=== PATIENT | female | born 1940 | race Caucasian/White ===

== ENCOUNTER → 2018-09-29 | Outpatient (CLI) | payer MEDICARE ==
[~2018-09-29] MED LIST: RT-ALBUTEROL SULF 2.5 MG/3 ML PRE-MIX VIAL INH ONE
--- NOTE | 2018-10-01 11:28 | RADIOLOGY REPORT ---
NAME: SIOMARA SALINAS [facility] REC#: [id number] PT STATUS: REG CLI : 1940 PHYSICIAN: JANAY SCOTT APRN ADMIT DATE: 12/28/15/RAD CORRECTED Signed Date of Exam:09/29/18 CT CHEST WO PROCEDURE: CT chest without contrast. TECHNIQUE: Multiple contiguous axial images were obtained through the chest without the use of intravenous contrast. INDICATION: Dyspnea and chronic productive cough. COMPARISON: Comparison is made to study of 11/21/2015 from [facility]. FINDINGS: There are prominent subpleural interstitial markings with mild reticulonodular pattern in the basilar regions. This has shown mild progression since the previous study. No consolidation is identified. There is no evidence of pathologic adenopathy, although fat-containing lymph nodes are seen within the mediastinum. These are not significantly changed from previous examination. There is no significant pleural or pericardial fluid. Coronary artery calcification is noted. Note is made of gallstones within the lumen of the gallbladder. IMPRESSION: Mild worsening of reticulonodular densities in the subpleural aspect of the lung bases which may be related to worsening fibrosis. Mild superimposed pneumonitis could have a similar appearance. There is no consolidation or evidence of worsening adenopathy in the thorax. Dictated by: Dictated on workstation # [id number] Dict: 09/29/18 1229 Trans: 09/29/18 1653 [id number] Interpreted by: KEMI COLMENARES MD Electronically signed by: KEMI COLMENARES MD 09/29/18 1653 [facility]
== END ==
LOC: RAD 10:37
PROVIDERS: ATTEND Nurse Practitioner Family
DX: J30.9 Allergic rhinitis, unspecified (principal); E66.01 Morbid (severe) obesity due to excess calories; G47.33 Obstructive sleep apnea (adult) (pediatric)
CPT/HCPCS: 71250; 94060; 94640; 94726; 94729

== ENCOUNTER 2018-10-20 11:30 | Outpatient (CLI) | payer MEDICARE ==
[~2018-10-20] VITALS: Ht 160 cm; Wt 110.2 kg
[2018-10-20] MEDS ORDERED: VIT1CAPS9 PO (11:50)
[2018-10-20] MEDS ORDERED: CETI10TA17 PO (11:50)
[2018-10-20] MEDS ORDERED: ASPI-586 PO (11:50)
[2018-10-20] MEDS ORDERED: BUDE10.22 IH (11:50)
[2018-10-20] MEDS ORDERED: OMEG100032 PO (11:50)
[2018-10-20] MEDS ORDERED: METF-397 PO ×2 (11:50)
[2018-10-20] MEDS ORDERED: MONT10TA24 PO (11:50)
[2018-10-20] MEDS ORDERED: LOSA100T8 PO (11:50)
[2018-10-20] MEDS ORDERED: FURO40TA4 PO (11:50)
[2018-10-20] MEDS ORDERED: FLUT9.9S NSEACH (11:50)
[2018-10-20] MEDS ORDERED: GLIP5TAB13 PO (11:50)
[2018-10-20] MEDS ORDERED: ROSU20TA31 PO (11:50)
[2018-10-20] MEDS ORDERED: AMLO10TA6 PO (11:50)
[2018-10-20] MEDS ORDERED: LEVO100T7 PO (11:50)
[2018-10-20] MEDS ORDERED: ACET-2650 PO (11:50)
[2018-10-20] MEDS ORDERED: ATEN50TA PO (11:50)
== END 2018-10-20 11:52 ==
LOC: PREOP 11:30
PROVIDERS: ATTEND Internal Medicine Critical Care Medicine
DX: Z01.818 Encounter for other preprocedural examination (principal)

== ENCOUNTER 2018-10-21 06:45 | Day surgery (SDC) | payer MEDICARE ==
[~2018-10-21] VITALS: Ht 160 cm; Wt 110.2 kg
[~2018-10-21 06:45] MED LIST changes: +ACET-2650 PO; +AMLO10TA6 PO; +ASPI-586 PO; +ATEN50TA PO; +BUDE10.22 IH; +CETI10TA17 PO; +FLUT9.9S NSEACH; +FURO40TA4 PO; +GLIP5TAB13 PO; +LEVO100T7 PO; +LOSA100T8 PO; +METF-397 PO; +MONT10TA24 PO; +OMEG100032 PO; +ROSU20TA31 PO; -RT-ALBUTEROL SULF 2.5 MG/3 ML PRE-MIX VIAL INH ONE; +VIT1CAPS9 PO
[2018-10-21] MEDS ORDERED: LIDOCAINE PF 2% 5 ML (XYLOCAINE) VIAL INJ ONE (06:46)
[2018-10-21] MEDS ORDERED: LIDOCAINE JELLY 2% (XYLOCAINE) 30 ML TUBE TOP ONE (06:46)
[2018-10-21] MEDS ORDERED: LIDOCAINE PF 1% 2 ML AMP IJ ONE (06:46)
[2018-10-21 06:50] VITALS: BP 163/62
[2018-10-21] MEDS ORDERED: NS IV 500 ML 500 ML ONE (06:54)
--- OUTSIDE RECORDS SUMMARY | 2018-10-21 06:55 | XMS REPORT ---
Author Author Nicole Ackerman Organization [facility] Address [address] [place], [place] [id number] Care Team Providers Care Sales Assistant [employer] Name Role Phone Nicole Ackerman PCP Allergies and Adverse Reactions Name Reaction Notes pollens Demerol intolerant Plan of Treatment Planned Activity Comments Planned Date Planned Time Plan/Goal ELECTROCARDIOGRAM COMPLETE 10/16/2015 12:00 AM ELECTROCARDIOGRAM COMPLETE 10/16/2015 12:00 AM IMMUNOTHERAPY INJECTIONS 05/04/2012 12:00 AM IMMUNOTHERAPY INJECTIONS 05/11/2012 12:00 AM IMMUNOTHERAPY INJECTIONS 05/17/2012 12:00 AM IMMUNOTHERAPY INJECTIONS 05/24/2012 12:00 AM IMMUNOTHERAPY INJECTIONS 05/31/2012 12:00 AM IMMUNOTHERAPY INJECTIONS 06/07/2012 12:00 AM IMMUNOTHERAPY INJECTIONS 06/14/2012 12:00 AM IMMUNOTHERAPY INJECTIONS 06/21/2012 12:00 AM IMMUNOTHERAPY INJECTIONS 06/28/2012 12:00 AM IMMUNOTHERAPY INJECTIONS 07/06/2012 12:00 AM IMMUNOTHERAPY INJECTIONS 07/12/2012 12:00 AM IMMUNOTHERAPY INJECTIONS 07/21/2012 12:00 AM IMMUNOTHERAPY INJECTIONS 07/21/2012 12:00 AM COMPREHEN METABOLIC PANEL 07/29/2012 12:00 AM LIPID PANEL 07/29/2012 12:00 AM GLYCOSYLATED HEMOGLOBIN TEST 07/29/2012 12:00 AM ASSAY THYROID STIM HORMONE 07/29/2012 12:00 AM COMPLETE CBC W/AUTO DIFF WBC 07/29/2012 12:00 AM IMMUNOTHERAPY INJECTIONS 08/05/2012 12:00 AM IMMUNOTHERAPY INJECTIONS 08/11/2012 12:00 AM COMPUTER DX MAMMOGRAM ADD-ON 12/07/2012 12:00 AM IMMUNOTHERAPY INJECTIONS 01/27/2013 12:00 AM IMMUNOTHERAPY INJECTIONS 02/02/2013 12:00 AM IMMUNOTHERAPY INJECTIONS 02/08/2013 12:00 AM IMMUNOTHERAPY INJECTIONS 02/14/2013 12:00 AM IMMUNOTHERAPY INJECTIONS 02/22/2013 12:00 AM IMMUNOTHERAPY INJECTIONS 03/01/2013 12:00 AM IMMUNOTHERAPY INJECTIONS 03/07/2013 12:00 AM IMMUNOTHERAPY INJECTIONS 03/15/2013 12:00 AM IMMUNOTHERAPY INJECTIONS 03/22/2013 12:00 AM IMMUNOTHERAPY INJECTIONS 03/29/2013 12:00 AM IMMUNOTHERAPY INJECTIONS 04/05/2013 12:00 AM IMMUNOTHERAPY INJECTIONS 04/12/2013 12:00 AM IMMUNOTHERAPY INJECTIONS 04/19/2013 12:00 AM IMMUNOTHERAPY INJECTIONS 04/26/2013 12:00 AM IMMUNOTHERAPY INJECTIONS 05/02/2013 12:00 AM IMMUNOTHERAPY INJECTIONS 05/11/2013 12:00 AM IMMUNOTHERAPY INJECTIONS 05/17/2013 12:00 AM IMMUNOTHERAPY INJECTIONS 05/24/2013 12:00 AM IMMUNOTHERAPY INJECTIONS 06/28/2013 12:00 AM IMMUNOTHERAPY INJECTIONS 07/05/2013 12:00 AM IMMUNOTHERAPY INJECTIONS 07/12/2013 12:00 AM IMMUNOTHERAPY INJECTIONS 07/19/2013 12:00 AM IMMUNOTHERAPY INJECTIONS 07/26/2013 12:00 AM IMMUNOTHERAPY INJECTIONS 08/02/2013 12:00 AM IMMUNOTHERAPY INJECTIONS 08/09/2013 12:00 AM IMMUNOTHERAPY INJECTIONS 08/16/2013 12:00 AM GLYCOSYLATED HEMOGLOBIN TEST 11/22/2013 12:00 AM IMMUNOTHERAPY INJECTIONS 08/25/2013 12:00 AM IMMUNOTHERAPY INJECTIONS 08/31/2013 12:00 AM IMMUNOTHERAPY INJECTIONS 09/06/2013 12:00 AM IMMUNOTHERAPY INJECTIONS 09/13/2013 12:00 AM IMMUNOTHERAPY INJECTIONS 09/20/2013 12:00 AM IMMUNOTHERAPY INJECTIONS 09/27/2013 12:00 AM IMMUNOTHERAPY INJECTIONS 10/11/2013 12:00 AM IMMUNOTHERAPY INJECTIONS 10/18/2013 12:00 AM IMMUNOTHERAPY INJECTIONS 10/25/2013 12:00 AM IMMUNOTHERAPY INJECTIONS 10/31/2013 12:00 AM IMMUNOTHERAPY INJECTIONS 02/14/2014 12:00 AM COMPLETE CBC W/AUTO DIFF WBC 01/16/2015 12:00 AM IMMUNOTHERAPY INJECTIONS 03/06/2015 12:00 AM IMMUNOTHERAPY INJECTIONS 03/06/2015 12:00 AM IMMUNOTHERAPY INJECTIONS 03/13/2015 12:00 AM IMMUNOTHERAPY INJECTIONS 03/20/2015 12:00 AM IMMUNOTHERAPY INJECTIONS 03/28/2015 12:00 AM IMMUNOTHERAPY INJECTIONS 04/05/2015 12:00 AM IMMUNOTHERAPY INJECTIONS 04/11/2015 12:00 AM IMMUNOTHERAPY INJECTIONS 04/24/2015 12:00 AM IMMUNOTHERAPY INJECTIONS 05/08/2015 12:00 AM IMMUNOTHERAPY INJECTIONS 05/15/2015 12:00 AM IMMUNOTHERAPY INJECTIONS 05/22/2015 12:00 AM IMMUNOTHERAPY INJECTIONS 05/29/2015 12:00 AM IMMUNOTHERAPY INJECTIONS 06/19/2015 12:00 AM Medications Active Name Start Date Estimated Completion Date SIG Comments Ocuvite Oral Tablet take 1 tablet by oral route daily glucosamine-chondroitin 500-400 mg oral capsule take 1 capsule by oral route daily Replaced/Retired Drug 600 mg(1,500mg) -400 unit oral tablet take 1 tablet by oral route daily Fish Oil 1,000 mg oral capsule take 1 capsule by oral route 2 times a day Aleve 220 mg oral tablet take 1 tablet (220 mg) by oral route every 8 hours as needed simvastatin 80 mg oral tablet 10/26/2013 TAKE 1 TABLET BY MOUTH EVERY EVENING metformin 500 mg oral tablet 08/22/2014 TAKE 1 TABLET BY MOUTH TWICE DAILY WITH MORNING AND EVENING MEALS Contour Test Strips miscellaneous strip 01/09/2015 04/03/2016 test BG QID for 90 days for DMII 205.00 lancets miscellaneous misc 01/09/2015 01/04/2016 use as directed QID for 90 days glipizide 5 mg oral tablet 03/28/2015 TAKE 1 TABLET BY MOUTH EVERY MORNING WITH BREAKFAST simvastatin 80 mg oral tablet 05/01/2015 04/25/2016 TAKE 1 TABLET BY MOUTH EVERY EVENING for 90 days furosemide 40 mg oral tablet 07/17/2015 TAKE 1 TABLET BY MOUTH ONCE DAILY for 30 days atenolol 50 mg oral tablet 07/17/2015 TAKE 1 TABLET BY MOUTH EVERY DAY for 30 days metformin 500 mg oral tablet 08/13/2015 TAKE 1 TABLET BY MOUTH DAILY IN THE MORNING AND TAKE 2 TABLETS DAILY IN THE EVENING lisinopril 40 mg oral tablet 09/14/2015 03/07/2017 take 1 tablet (40 mg) by oral route once daily for 90 days Voltaren 1 % topical gel 09/14/2015 03/12/2016 apply 2 gram to the affected area(s) by topical route 4 times per day for 90 days levothyroxine 100 mcg oral tablet 09/24/2015 12/23/2015 TAKE ONE TABLET BY MOUTH DAILY amlodipine 5 mg oral tablet 10/16/2015 02/13/2016 take 1 tablet (5 mg) by oral route once daily for 30 days Symbicort 80-4.5 mcg/actuation inhalation HFA aerosol inhaler 10/16/20152015 inhale 1-2 puffs by inhalation route 2 times a day for 30 days ProAir HFA 90 mcg/actuation inhalation HFA aerosol inhaler 10/16/20152015 inhale 1 puff (90 mcg) by inhalation route every 6 hours as needed for 30 days aspirin 81 mg oral tablet,chewable 10/16/2015 02/13/2016 chew 1 tablet (81 mg ) by oral route once daily for 30 days nitroglycerin 0.4 mg sublingual tablet, sublingual 10/16/2015 12/15/2015 Place 1 tablet under tongue by translingual route PRN. Space tablets by 3-5 minutes apart. May take up to 3 times. If symptoms not relieved after 1-2 doses seek medical attention. Name Start Date Expiration Date SIG Comments LANCETS 04/19/2012 07/18/2012 TEST ONCE DAILY Zithromax Z-Gal 250 mg oral tablet 10/06/2012 10/11/2012 Take 2 tablets the first day (500 mg) followed by 1 tablet (250 mg) days 2-5. for 5 days albuterol sulfate 90 mcg/actuation inhalation HFA aerosol inhaler 10/06/2012 inhale 1 - 2 puffs by inhalation route every 6 hours as needed DIASTAR EASY MIS LANCETS 05/03/2013 08/01/2013 TEST ONCE DAILY atenolol 50 mg oral tablet 06/27/2013 07/27/2013 TAKE 1 TABLET BY MOUTH EVERY DAY simvastatin 80 mg oral tablet 07/27/2013 10/25/2013 TAKE 1 TABLET BY MOUTH ONCE DAILY IN THE EVENING lisinopril-hydrochlorothiazide 20-25 mg oral tablet 01/20/2014 07/19/2014 TAKE 1 TABLET BY MOUTH EVERY DAY metformin 500 mg oral tablet 08/21/2014 02/17/2015 take 1 tablet (500 mg) by oral route 2 times per day with morning and evening meals for 30 days Mastectomy Bra 1 unit 12/06/2014 06/22/2015 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 atenolol 50 mg oral tablet 01/16/2015 07/15/2015 TAKE 1 TABLET BY MOUTH EVERY DAY for 30 days lisinopril-hydrochlorothiazide 20-25 mg oral tablet 01/16/2015 07/15/2015 TAKE 1 TABLET BY MOUTH EVERY DAY for 30 days furosemide 40 mg oral tablet 01/16/2015 07/15/2015 TAKE 1 TABLET BY MOUTH ONCE DAILY for 30 days metformin 500 mg oral tablet 03/28/2015 07/26/2015 take 1 tab in a.m. and 2 tabs in P.m. Discontinued Name Start Date Discontinued Date SIG Comments Samantha 180 mg oral tablet 10/06/2012 take 1 tablet (180 mg) by oral route once daily aspirin 81 mg oral tablet 10/06/2012 take 1 tablet by oral route daily Flonase 50 mcg/actuation nasal spray,suspension 10/06/2012 inhale 1 spray in each nostril by intranasal route once daily Multivitamin Oral Tablet 09/14/2015 take 1 tablet by oral route once daily with food quit taking WelChol 625 mg oral tablet 11/08/2009 2daily glipizide 5 mg oral tablet 01/10/2010 10/16/2010 take 0.5 tablet by oral route daily Diabetic Shoes 01/16/2010 10/16/2010 250.02, 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 Lasix 40 mg oral tablet 04/22/2010 10/06/2012 take 1 tablet (40 mg) daily takes generic ammonium lactate 12 % topical cream 01/01/2011 11/23/2013 apply to affected area(s) by topical route daily Tessalon Perles 100 mg oral capsule 10/06/2012 11/23/2013 take 1-2 capsules by oral route 3 times a day as needed metformin 500 mg oral tablet 07/21/2013 08/22/2013 TAKE 1 TABLET BY MOUTH TWICE DAILY CrCl 27.6 Vaniqa 13.9 % topical cream 10/18/2013 01/16/2015 apply a thin layer by topical route 1 time per day to the affected area(s) for 30 days glipizide 5 mg oral tablet extended release 24hr 09/19/2014 03/28/2015 take 2 tablets (10 mg) by oral route once daily with breakfast for 90 days lisinopril-hydrochlorothiazide 20-25 mg oral tablet 07/17/2015 09/14/2015 TAKE 1 TABLET BY MOUTH EVERY DAY for 30 days hydrochlorothiazide 12.5 mg oral tablet 09/14/2015 10/16/2015 take 1 tablet ( 12.5 mg) by oral route once daily for 90 days Problem List Description Status Onset Allergic rhinitis Active Anemia Active Asthma Active Benign Essential Hypertension Active degenerative joint disease Active Diabetes Mellitus, Type II Active Gastric ulcer Active Heartburn Active Hyperlipidemia Active Hypothyroidism, Acquired Active macular degeneration of eyes Active Mitral valve prolapse Active Murmur Active Obstructive Sleep Apnea Active Obesity Active 01/09/2010 Degenerative disc disease Active 09/05/2012 Spinal stenosis, lumbar region Active 09/05/2012 Peripheral Vascular Disease Active Vital Signs Date Time BP-Sys(mm[Hg] BP-Li(mm[Hg]) HR(bpm) RR(rpm) Temp WT HT HC BMI BSA BMI Percentile O2 Sat(%) 10/16/2015 9:21:00 AM 174 mmHg 84 mmHg 90 bpm 20 rpm 97.7 F 254.25 lbs 63.5 in 44.33 kg/m2 2.27 m2 95 % 09/14/2015 1:03:00 PM 140 mmHg 72 mmHg 73 bpm 18 rpm 98.7 F 257 lbs 63.5 in 44.8109 kg/m 2.2854 m 97 % 03/28/2015 3:05:00 PM 140 mmHg 92 mmHg 66 bpm 98.3 F 254.125 lbs 63.5 in 44.31 kg/m2 2.27 m2 96 % 01/16/2015 9:48:00 AM 150 mmHg 80 mmHg 01/16/2015 9:48:00 AM 122 mmHg 55 mmHg 01/16/2015 9:01:00 AM 186 mmHg 80 mmHg 78 bpm 96.2 F 257 lbs 63.5 in 44.81 kg/m2 2.29 m2 97 % 12/05/2014 3:07:00 PM 175 mmHg 80 mmHg 79 bpm 18 rpm 98.1 F 259.25 lbs 63.5 in 45.2032 kg/m 2.2953 m 98 % 2014 4:20:00 PM 140 mmHg 60 mmHg 59 bpm 18 rpm 96.2 F 261 lbs 63.5 in 45.51 kg/m2 2.30 m2 98 % 01/02/2014 2:46:00 PM 130 mmHg 60 mmHg 67 bpm 18 rpm 98.3 F 257.5 lbs 63.5 in 44.8981 kg/m 2.2876 m 97 % 11/23/2013 1:41:00 PM 138 mmHg 65 mmHg 92 bpm 20 rpm 98.2 F 252 lbs 63.5 in 43.94 kg/m2 2.26 m2 94 % 08/22/2013 1:05:00 PM 164 mmHg 82 mmHg 73 bpm 16 rpm 97.3 F 253.5 lbs 96 % 01/27/2013 12:59:00 PM 130 mmHg 74 mmHg 68 bpm 18 rpm 97.1 F 251.5 lbs 97 % 10/12/2012 10:39:00 AM 124 mmHg 62 mmHg 62 bpm 16 rpm 97.1 F 97 % 10/06/2012 9:02:00 AM 142 mmHg 58 mmHg 77 bpm 97.7 F 255.2 lbs 63.5 in 44.50 kg/m2 2.28 m2 94 % 09/02/2012 9:09:00 AM 146 mmHg 70 mmHg 77 bpm 18 rpm 97.2 F 257.25 lbs 96 % 07/29/2012 1:11:00 PM 124 mmHg 60 mmHg 69 bpm 16 rpm 97.6 F 258.125 lbs 96 % 01/20/2012 1:02:00 PM 136 mmHg 68 mmHg 81 bpm 16 rpm 97.9 F 259.25 lbs 63.5 in 45.2032 kg/m 2.2953 m 95 % 09/04/2011 2:49:00 PM 110 mmHg 62 mmHg 85 bpm 16 rpm 97.8 F 265 lbs 63.5 in 46.21 kg/m2 2.32 m2 93 % 07/14/2011 1:06:00 PM 128 mmHg 70 mmHg 69 bpm 16 rpm 98.4 F 265 lbs 97 % 03/11/2011 3:30:00 PM 148 mmHg 70 mmHg 67 bpm 16 rpm 98.8 F 264 lbs 96 % 01/01/2011 1:25:00 PM 140 mmHg 78 mmHg 63 bpm 16 rpm 97.3 F 266.125 lbs 63 in 47.1414 kg/m 2.3164 m 97 % 08/28/2010 4:19:00 PM 140 mmHg 70 mmHg 84 bpm 18 rpm 96.8 F 265.375 lbs 63 in 47.01 kg/m2 2.31 m2 96 % 08/21/2010 5:54:00 PM 140 mmHg 80 mmHg 73 bpm 18 rpm 96.4 F 264.375 lbs 63 in 46.8314 kg/m 2.3088 m 98 % 06/26/2010 5:52:00 PM 140 mmHg 80 mmHg 62 bpm 16 rpm 97.3 F 264.25 lbs 63 in 46.81 kg/m2 2.31 m2 97 % 01/09/2010 1:24:00 PM 140 mmHg 78 mmHg 60 bpm 16 rpm 97.4 F 259 lbs 63 in 45.8793 kg/m 2.2852 m 99 % 11/08/2009 9:22:00 AM 140 mmHg 80 mmHg 67 bpm 16 rpm 96.7 F 256.5 lbs 63 in 45.44 kg/m2 2.27 m2 96 % Social History Name Description Comments 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 Denies illicit substance abuse Active but no formal exercise History of Procedures Date Ordered Description Order Status 08/07/2015 12:00 AM IMMUNOTHERAPY INJECTIONS Reviewed 07/14/2011 12:00 AM COMPREHEN METABOLIC PANEL Reviewed 07/14/2011 12:00 AM LIPID PANEL Reviewed 07/14/2011 12:00 AM GLYCOSYLATED HEMOGLOBIN TEST Reviewed 07/14/2011 12:00 AM ASSAY THYROID STIM HORMONE Reviewed 07/14/2011 12:00 AM COMPLETE CBC W/AUTO DIFF WBC Reviewed 07/14/2011 12:00 AM IMMUNOTHERAPY INJECTIONS Reviewed 08/14/2015 12:00 AM IMMUNOTHERAPY INJECTIONS Reviewed 08/21/2015 12:00 AM IMMUNOTHERAPY INJECTIONS Reviewed 08/24/2015 12:00 AM IMMUNIZATION ADMIN Reviewed 08/24/2015 12:00 AM INFLUENZA VAC 4 VALENT PRSRV FREE 3 YRS PLUS IM Reviewed 07/24/2011 12:00 AM IMMUNOTHERAPY INJECTIONS Reviewed 09/04/2015 12:00 AM IMMUNOTHERAPY INJECTIONS Reviewed 09/06/2015 12:00 AM COMPLETE CBC W/AUTO DIFF WBC Returned 09/06/2015 12:00 AM COMPREHEN METABOLIC PANEL Returned 09/06/2015 12:00 AM GLYCOSYLATED HEMOGLOBIN TEST Returned 09/06/2015 12:00 AM LIPID PANEL Returned 09/06/2015 12:00 AM MICROALBUMIN QUANTITATIVE Returned 09/06/2015 12:00 AM ASSAY THYROID STIM HORMONE Returned 09/11/2015 12:00 AM IMMUNOTHERAPY INJECTIONS Reviewed 09/12/2015 12:00 AM IMMUNOTHERAPY INJECTIONS Reviewed 08/04/2011 12:00 AM IMMUNOTHERAPY INJECTIONS Reviewed 09/18/2015 12:00 AM IMMUNOTHERAPY INJECTIONS Reviewed 09/25/2015 12:00 AM IMMUNOTHERAPY INJECTIONS Reviewed 08/11/2011 12:00 AM IMMUNOTHERAPY INJECTIONS Reviewed 10/03/2015 12:00 AM IMMUNOTHERAPY INJECTIONS Reviewed 10/09/2015 12:00 AM IMMUNOTHERAPY INJECTIONS Reviewed 08/18/2011 12:00 AM IMMUNOTHERAPY INJECTIONS Reviewed 10/16/2015 12:00 AM IMMUNOTHERAPY INJECTIONS Reviewed 10/16/2015 12:00 AM ASSAY OF TROPONIN QUANT Returned 10/16/2015 12:00 AM FIBRIN DEGRADATION QUANT Returned 08/19/2011 12:00 AM IMMUNOTHERAPY INJECTIONS Reviewed 12/26/2009 12:00 AM IMMUNOTHERAPY INJECTIONS Reviewed 10/23/2015 12:00 AM IMMUNOTHERAPY INJECTIONS Reviewed 08/25/2011 12:00 AM IMMUNOTHERAPY INJECTIONS Reviewed 09/01/2011 12:00 AM IMMUNOTHERAPY INJECTIONS Reviewed 09/04/2011 12:00 AM ELECTROCARDIOGRAM COMPLETE Reviewed 09/04/2011 12:00 AM Immunization administration, Medicare flu Reviewed 09/04/2011 12:00 AM Fluzone MEDICARE Only Reviewed 09/08/2011 12:00 AM IMMUNOTHERAPY INJECTIONS Reviewed 09/15/2011 12:00 AM IMMUNOTHERAPY INJECTIONS Reviewed 09/24/2011 12:00 AM IMMUNOTHERAPY INJECTIONS Reviewed 01/01/2010 12:00 AM IMMUNOTHERAPY INJECTIONS Reviewed 10/01/2011 12:00 AM IMMUNOTHERAPY INJECTIONS Reviewed 10/07/2011 12:00 AM IMMUNOTHERAPY INJECTIONS Reviewed 10/13/2011 12:00 AM IMMUNOTHERAPY INJECTIONS Reviewed 10/20/2011 12:00 AM IMMUNOTHERAPY INJECTIONS Reviewed 10/27/2011 12:00 AM IMMUNOTHERAPY INJECTIONS Reviewed 11/03/2011 12:00 AM IMMUNOTHERAPY INJECTIONS Reviewed 11/11/2011 12:00 AM IMMUNOTHERAPY INJECTIONS Reviewed 11/18/2011 12:00 AM IMMUNOTHERAPY INJECTIONS Reviewed 11/25/2011 12:00 AM IMMUNOTHERAPY INJECTIONS Reviewed 12/02/2011 12:00 AM IMMUNOTHERAPY INJECTIONS Reviewed 12/08/2011 12:00 AM IMMUNOTHERAPY INJECTIONS Reviewed 12/15/2011 12:00 AM IMMUNOTHERAPY INJECTIONS Reviewed 07/09/2010 12:00 AM COMPREHEN METABOLIC PANEL Reviewed 07/09/2010 12:00 AM LIPID PANEL Reviewed 07/09/2010 12:00 AM GLYCOSYLATED HEMOGLOBIN TEST Reviewed 07/09/2010 12:00 AM ASSAY THYROID STIM HORMONE Reviewed 07/09/2010 12:00 AM ASSAY OF FREE THYROXINE Reviewed 12/22/2011 12:00 AM IMMUNOTHERAPY INJECTIONS Reviewed 12/31/2011 12:00 AM IMMUNOTHERAPY INJECTIONS Reviewed 01/07/2012 12:00 AM IMMUNOTHERAPY INJECTIONS Reviewed 01/07/2012 12:00 AM COMPLETE CBC W/AUTO DIFF WBC Returned 01/07/2012 12:00 AM COMPREHEN METABOLIC PANEL Returned 01/07/2012 12:00 AM LIPID PANEL Returned 01/07/2012 12:00 AM GLYCOSYLATED HEMOGLOBIN TEST Returned 01/07/2012 12:00 AM ASSAY THYROID STIM HORMONE Returned 01/20/2012 12:00 AM IMMUNOTHERAPY INJECTIONS Reviewed 01/20/2012 12:00 AM COMPREHEN METABOLIC PANEL Returned 01/20/2012 12:00 AM LIPID PANEL Returned 01/20/2012 12:00 AM GLYCOSYLATED HEMOGLOBIN TEST Returned 01/20/2012 12:00 AM ASSAY THYROID STIM HORMONE Reviewed 01/20/2012 12:00 AM COMPLETE CBC W/AUTO DIFF WBC Reviewed 01/20/2012 12:00 AM MICROALBUMIN SEMIQUANT Reviewed 01/27/2012 12:00 AM IMMUNOTHERAPY INJECTIONS Reviewed 02/02/2012 12:00 AM IMMUNOTHERAPY INJECTIONS Reviewed 02/09/2012 12:00 AM IMMUNOTHERAPY INJECTIONS Reviewed 02/17/2012 12:00 AM IMMUNOTHERAPY INJECTIONS Reviewed 02/24/2012 12:00 AM IMMUNOTHERAPY INJECTIONS Reviewed 01/16/2010 12:00 AM IMMUNOTHERAPY INJECTIONS Reviewed 03/02/2012 12:00 AM IMMUNOTHERAPY INJECTIONS Reviewed 03/09/2012 12:00 AM IMMUNOTHERAPY INJECTIONS Reviewed 03/16/2012 12:00 AM IMMUNOTHERAPY INJECTIONS Reviewed 03/23/2012 12:00 AM IMMUNOTHERAPY INJECTIONS Reviewed 03/31/2012 12:00 AM IMMUNOTHERAPY INJECTIONS Reviewed 10/18/2009 12:00 AM IMMUNOTHERAPY INJECTIONS Reviewed 04/07/2012 12:00 AM IMMUNOTHERAPY INJECTIONS Reviewed 04/13/2012 12:00 AM IMMUNOTHERAPY INJECTIONS Reviewed 04/20/2012 12:00 AM IMMUNOTHERAPY INJECTIONS Reviewed 04/27/2012 12:00 AM IMMUNOTHERAPY INJECTIONS Reviewed 01/23/2010 12:00 AM IMMUNOTHERAPY INJECTIONS Reviewed 01/30/2010 12:00 AM IMMUNOTHERAPY INJECTIONS Reviewed 08/18/2012 12:00 AM IMMUNOTHERAPY INJECTIONS Reviewed 08/25/2012 12:00 AM IMMUNOTHERAPY INJECTIONS Reviewed 08/31/2012 12:00 AM IMMUNOTHERAPY INJECTIONS Reviewed 09/02/2012 12:00 AM Flu Injection 3 Years And Above [facility]# [id number] [facility] Reviewed 09/07/2012 12:00 AM IMMUNOTHERAPY INJECTIONS Reviewed 09/14/2012 12:00 AM IMMUNOTHERAPY INJECTIONS Reviewed 09/21/2012 12:00 AM IMMUNOTHERAPY INJECTIONS Reviewed 09/28/2012 12:00 AM IMMUNOTHERAPY INJECTIONS Reviewed 10/05/2012 12:00 AM IMMUNOTHERAPY INJECTIONS Reviewed 10/12/2012 12:00 AM CHEST X-RAY 2VW FRONTAL&LATL Returned 10/12/2012 12:00 AM COMPLETE CBC W/AUTO DIFF WBC Returned 10/12/2012 12:00 AM COMPREHEN METABOLIC PANEL Returned 10/12/2012 12:00 AM MYCOPLASMA ANTIBODY Returned 10/12/2012 12:00 AM C-REACTIVE PROTEIN Returned 10/13/2012 12:00 AM IMMUNOTHERAPY INJECTIONS Reviewed 10/19/2012 12:00 AM IMMUNOTHERAPY INJECTIONS Reviewed 02/13/2010 12:00 AM IMMUNOTHERAPY INJECTIONS Reviewed 10/25/2012 12:00 AM IMMUNOTHERAPY INJECTIONS Reviewed 11/10/2012 12:00 AM IMMUNOTHERAPY INJECTIONS Reviewed 11/17/2012 12:00 AM IMMUNOTHERAPY INJECTIONS Reviewed 11/23/2012 12:00 AM IMMUNOTHERAPY INJECTIONS Reviewed 11/30/2012 12:00 AM IMMUNOTHERAPY INJECTIONS Reviewed 12/07/2012 12:00 AM IMMUNOTHERAPY INJECTIONS Reviewed 12/14/2012 12:00 AM IMMUNOTHERAPY INJECTIONS Reviewed 12/21/2012 12:00 AM IMMUNOTHERAPY INJECTIONS Reviewed 02/20/2010 12:00 AM IMMUNOTHERAPY INJECTIONS Reviewed 12/28/2012 12:00 AM IMMUNOTHERAPY INJECTIONS Reviewed 01/04/2013 12:00 AM IMMUNOTHERAPY INJECTIONS Reviewed 01/10/2013 12:00 AM IMMUNOTHERAPY INJECTIONS Reviewed 2013 12:00 AM IMMUNOTHERAPY INJECTIONS Reviewed 02/26/2010 12:00 AM IMMUNOTHERAPY INJECTIONS Reviewed 07/30/2013 12:00 AM COMPREHEN METABOLIC PANEL Returned 07/30/2013 12:00 AM LIPID PANEL Returned 07/30/2013 12:00 AM GLYCOSYLATED HEMOGLOBIN TEST Returned 07/30/2013 12:00 AM ASSAY THYROID STIM HORMONE Returned 07/30/2013 12:00 AM COMPLETE CBC W/AUTO DIFF WBC Returned 07/30/2013 12:00 AM MICROALBUMIN SEMIQUANT Returned 03/06/2010 12:00 AM IMMUNOTHERAPY INJECTIONS Reviewed 03/13/2010 12:00 AM IMMUNOTHERAPY INJECTIONS Reviewed 06/02/2013 12:00 AM IMMUNOTHERAPY INJECTIONS Reviewed 06/08/2013 12:00 AM IMMUNOTHERAPY INJECTIONS Reviewed 06/14/2013 12:00 AM IMMUNOTHERAPY INJECTIONS Reviewed 06/21/2013 12:00 AM IMMUNOTHERAPY INJECTIONS Reviewed 03/20/2010 12:00 AM IMMUNOTHERAPY INJECTIONS Reviewed 11/22/2013 12:00 AM COMPREHEN METABOLIC PANEL Returned 11/22/2013 12:00 AM LIPID PANEL Returned 11/22/2013 12:00 AM ASSAY THYROID STIM HORMONE Returned 08/22/2013 12:00 AM Flu Injection 3 Years And Above [facility]# [id number] [facility] Reviewed 10/30/2009 12:00 AM IMMUNOTHERAPY INJECTIONS Reviewed 03/27/2010 12:00 AM IMMUNOTHERAPY INJECTIONS Reviewed 10/04/2013 12:00 AM IMMUNOTHERAPY INJECTIONS Reviewed 04/03/2010 12:00 AM IMMUNOTHERAPY INJECTIONS Reviewed 11/07/2013 12:00 AM IMMUNOTHERAPY INJECTIONS Returned 11/14/2013 12:00 AM THER/PROPH/DIAG INJ SC/IM Reviewed 11/23/2013 12:00 AM GLYCOSYLATED HEMOGLOBIN TEST Reviewed 11/23/2013 12:00 AM IMMUNOTHERAPY INJECTIONS Returned 11/29/2013 12:00 AM IMMUNOTHERAPY INJECTIONS Reviewed 12/05/2013 12:00 AM MAMMOGRAM SCREENING Reviewed 12/05/2013 12:00 AM IMMUNOTHERAPY INJECTIONS Returned 04/10/2010 12:00 AM IMMUNOTHERAPY INJECTIONS Reviewed 12/12/2013 12:00 AM IMMUNOTHERAPY INJECTIONS Returned 12/27/2013 12:00 AM IMMUNOTHERAPY INJECTIONS Reviewed 01/02/2014 12:00 AM Foot 3Views - MOB Reviewed 01/09/2014 12:00 AM IMMUNOTHERAPY INJECTIONS Returned 04/17/2010 12:00 AM IMMUNOTHERAPY INJECTIONS Reviewed 01/25/2014 12:00 AM IMMUNOTHERAPY INJECTIONS Returned 01/31/2014 12:00 AM IMMUNOTHERAPY INJECTIONS Reviewed 12/19/2013 12:00 AM IMMUNOTHERAPY INJECTIONS Returned 02/06/2014 12:00 AM IMMUNOTHERAPY INJECTIONS Returned 02/28/2014 12:00 AM IMMUNOTHERAPY INJECTIONS Reviewed 02/21/2014 12:00 AM IMMUNOTHERAPY INJECTIONS Reviewed 03/07/2014 12:00 AM IMMUNOTHERAPY INJECTIONS Reviewed 04/24/2010 12:00 AM IMMUNOTHERAPY INJECTIONS Reviewed 03/14/2014 12:00 AM IMMUNOTHERAPY INJECTIONS Reviewed 03/22/2014 12:00 AM IMMUNOTHERAPY INJECTIONS Reviewed 03/28/2014 12:00 AM IMMUNOTHERAPY INJECTIONS Reviewed 04/05/2014 12:00 AM IMMUNOTHERAPY INJECTIONS Reviewed 04/05/2014 12:00 AM IMMUNOTHERAPY INJECTIONS Reviewed 04/12/2014 12:00 AM IMMUNOTHERAPY INJECTIONS Returned 04/18/2014 12:00 AM LIPID PANEL Returned 04/18/2014 12:00 AM GLYCOSYLATED HEMOGLOBIN TEST Returned 04/18/2014 12:00 AM ASSAY THYROID STIM HORMONE Returned 04/18/2014 12:00 AM IMMUNOTHERAPY INJECTIONS Returned 05/01/2010 12:00 AM IMMUNOTHERAPY INJECTIONS Reviewed 05/08/2010 12:00 AM IMMUNOTHERAPY INJECTIONS Reviewed 05/15/2010 12:00 AM IMMUNOTHERAPY INJECTIONS Reviewed 05/22/2010 12:00 AM IMMUNOTHERAPY INJECTIONS Reviewed 05/29/2010 12:00 AM IMMUNOTHERAPY INJECTIONS Reviewed 11/08/2009 12:00 AM IMMUNOTHERAPY INJECTIONS Reviewed 11/08/2009 12:00 AM DESTRUCT LESION 15 OR MORE Reviewed 11/08/2009 12:00 AM DESTRUCT B9 LESION 1-14 Reviewed 06/05/2010 12:00 AM IMMUNOTHERAPY INJECTIONS Reviewed 06/12/2010 12:00 AM IMMUNOTHERAPY INJECTIONS Reviewed 06/19/2010 12:00 AM IMMUNOTHERAPY INJECTIONS Reviewed 06/26/2010 12:00 AM IMMUNOTHERAPY INJECTIONS Reviewed 12/27/2010 12:00 AM COMPREHEN METABOLIC PANEL Reviewed 12/27/2010 12:00 AM LIPID PANEL Reviewed 12/27/2010 12:00 AM GLYCOSYLATED HEMOGLOBIN TEST Reviewed 12/27/2010 12:00 AM ASSAY THYROID STIM HORMONE Reviewed 12/27/2010 12:00 AM ASSAY OF FREE THYROXINE Reviewed 07/03/2010 12:00 AM IMMUNOTHERAPY INJECTIONS Reviewed 07/11/2010 12:00 AM IMMUNOTHERAPY INJECTIONS Reviewed 11/15/2009 12:00 AM IMMUNOTHERAPY INJECTIONS Reviewed 07/17/2010 12:00 AM IMMUNOTHERAPY INJECTIONS Reviewed 07/24/2010 12:00 AM IMMUNOTHERAPY INJECTIONS Reviewed 08/01/2010 12:00 AM IMMUNOTHERAPY INJECTIONS Reviewed 08/14/2010 12:00 AM IMMUNOTHERAPY INJECTIONS Reviewed 11/21/2009 12:00 AM IMMUNOTHERAPY INJECTIONS Reviewed 08/21/2010 12:00 AM FLU VACCINE 3 YRS & > IM Reviewed 08/21/2010 12:00 AM Admin.Of M/C Cov.Vaccine-Flu Vacc. Reviewed 08/21/2010 12:00 AM IMMUNOTHERAPY INJECTIONS Reviewed 08/21/2010 12:00 AM ASSAY THYROID STIM HORMONE Reviewed 08/21/2010 12:00 AM ASSAY OF FREE THYROXINE Reviewed 08/21/2010 12:00 AM COMPLETE CBC W/AUTO DIFF WBC Reviewed 08/21/2010 12:00 AM ORGANIC ACID SINGLE QUANT Reviewed 08/21/2010 12:00 AM VITAMIN B-12 Reviewed 08/21/2010 12:00 AM ASSAY OF IRON Reviewed 08/21/2010 12:00 AM IRON BINDING TEST Reviewed 08/21/2010 12:00 AM ASSAY OF FOLIC ACID SERUM Reviewed 08/21/2010 12:00 AM ASSAY OF FERRITIN Reviewed 08/28/2010 12:00 AM IMMUNOTHERAPY INJECTIONS Reviewed 08/28/2010 12:00 AM IMMUNIZATION ADMIN Reviewed 08/28/2010 12:00 AM Immunization Administration, Medicare Pneumovax Reviewed 08/28/2010 12:00 AM X-RAY EXAM OF WRIST Reviewed 09/04/2010 12:00 AM IMMUNOTHERAPY INJECTIONS Reviewed 09/11/2010 12:00 AM IMMUNOTHERAPY INJECTIONS Reviewed 09/19/2010 12:00 AM IMMUNOTHERAPY INJECTIONS Reviewed 09/25/2010 12:00 AM IMMUNOTHERAPY INJECTIONS Reviewed 11/27/2009 12:00 AM IMMUNOTHERAPY INJECTIONS Reviewed 10/02/2010 12:00 AM IMMUNOTHERAPY INJECTIONS Reviewed 10/16/2010 12:00 AM IMMUNOTHERAPY INJECTIONS Reviewed 10/22/2010 12:00 AM IMMUNOTHERAPY INJECTIONS Reviewed 10/03/2009 12:00 AM IMMUNOTHERAPY INJECTIONS Reviewed 10/30/2010 12:00 AM IMMUNOTHERAPY INJECTIONS Reviewed 11/06/2010 12:00 AM IMMUNOTHERAPY INJECTIONS Reviewed 05/02/2014 12:00 AM IMMUNOTHERAPY ONE INJECTION Returned 05/02/2014 12:00 AM IMMUNOTHERAPY INJECTIONS Returned 05/02/2014 12:00 AM IMMUNOTHERAPY ONE INJECTION Returned 05/02/2014 12:00 AM IMMUNOTHERAPY 2/> INJECTIONS Returned 11/13/2010 12:00 AM IMMUNOTHERAPY INJECTIONS Reviewed 05/16/2014 12:00 AM IMMUNOTHERAPY ONE INJECTION Returned 05/16/2014 12:00 AM IMMUNOTHERAPY INJECTIONS Returned 05/16/2014 12:00 AM IMMUNOTHERAPY ONE INJECTION Returned 05/16/2014 12:00 AM IMMUNOTHERAPY 2/> INJECTIONS Returned 11/20/2010 12:00 AM IMMUNOTHERAPY INJECTIONS Reviewed 05/23/2014 12:00 AM IMMUNOTHERAPY ONE INJECTION Returned 05/23/2014 12:00 AM IMMUNOTHERAPY INJECTIONS Returned 05/23/2014 12:00 AM IMMUNOTHERAPY ONE INJECTION Returned 05/23/2014 12:00 AM IMMUNOTHERAPY 2/> INJECTIONS Returned 05/30/2014 12:00 AM IMMUNOTHERAPY ONE INJECTION Returned 05/30/2014 12:00 AM IMMUNOTHERAPY INJECTIONS Returned 05/30/2014 12:00 AM IMMUNOTHERAPY ONE INJECTION Returned 05/30/2014 12:00 AM IMMUNOTHERAPY 2/> INJECTIONS Returned 11/27/2010 12:00 AM IMMUNOTHERAPY INJECTIONS Reviewed 06/06/2014 12:00 AM IMMUNOTHERAPY ONE INJECTION Returned 06/06/2014 12:00 AM IMMUNOTHERAPY INJECTIONS Returned 06/06/2014 12:00 AM IMMUNOTHERAPY ONE INJECTION Returned 06/06/2014 12:00 AM IMMUNOTHERAPY 2/> INJECTIONS Returned 06/07/2014 12:00 AM IMMUNOTHERAPY INJECTIONS Returned 06/13/2014 12:00 AM IMMUNOTHERAPY ONE INJECTION Returned 06/13/2014 12:00 AM IMMUNOTHERAPY INJECTIONS Returned 06/13/2014 12:00 AM IMMUNOTHERAPY ONE INJECTION Returned 06/13/2014 12:00 AM IMMUNOTHERAPY 2/> INJECTIONS Returned 12/04/2010 12:00 AM IMMUNOTHERAPY INJECTIONS Reviewed 06/20/2014 12:00 AM IMMUNOTHERAPY ONE INJECTION Returned 06/20/2014 12:00 AM IMMUNOTHERAPY INJECTIONS Returned 06/20/2014 12:00 AM IMMUNOTHERAPY ONE INJECTION Returned 06/20/2014 12:00 AM IMMUNOTHERAPY 2/> INJECTIONS Returned 06/26/2014 12:00 AM MAMMOGRAM ONE BREAST Returned 12/11/2010 12:00 AM IMMUNOTHERAPY INJECTIONS Reviewed 07/11/2014 12:00 AM IMMUNOTHERAPY ONE INJECTION Returned 07/11/2014 12:00 AM IMMUNOTHERAPY INJECTIONS Returned 07/11/2014 12:00 AM IMMUNOTHERAPY ONE INJECTION Returned 07/11/2014 12:00 AM IMMUNOTHERAPY 2/> INJECTIONS Returned 12/20/2010 12:00 AM IMMUNOTHERAPY INJECTIONS Reviewed 07/19/2014 12:00 AM IMMUNOTHERAPY ONE INJECTION Returned 07/19/2014 12:00 AM IMMUNOTHERAPY INJECTIONS Returned 07/19/2014 12:00 AM IMMUNOTHERAPY ONE INJECTION Returned 07/19/2014 12:00 AM IMMUNOTHERAPY 2/> INJECTIONS Returned 12/26/2010 12:00 AM IMMUNOTHERAPY INJECTIONS Reviewed 07/25/2014 12:00 AM IMMUNOTHERAPY ONE INJECTION Returned 07/25/2014 12:00 AM IMMUNOTHERAPY INJECTIONS Returned 07/25/2014 12:00 AM IMMUNOTHERAPY ONE INJECTION Returned 07/25/2014 12:00 AM IMMUNOTHERAPY 2/> INJECTIONS Returned 08/01/2014 12:00 AM IMMUNOTHERAPY ONE INJECTION Returned 08/01/2014 12:00 AM IMMUNOTHERAPY INJECTIONS Returned 08/01/2014 12:00 AM IMMUNOTHERAPY ONE INJECTION Returned 08/01/2014 12:00 AM IMMUNOTHERAPY 2/> INJECTIONS Returned 07/01/2011 12:00 AM COMPREHEN METABOLIC PANEL Reviewed 07/01/2011 12:00 AM LIPID PANEL Reviewed 07/01/2011 12:00 AM GLYCOSYLATED HEMOGLOBIN TEST Reviewed 07/01/2011 12:00 AM ASSAY THYROID STIM HORMONE Reviewed 07/01/2011 12:00 AM ASSAY OF FREE THYROXINE Reviewed 01/01/2011 12:00 AM IMMUNOTHERAPY INJECTIONS Reviewed 08/08/2014 12:00 AM IMMUNOTHERAPY ONE INJECTION Returned 08/08/2014 12:00 AM IMMUNOTHERAPY INJECTIONS Returned 08/08/2014 12:00 AM IMMUNOTHERAPY ONE INJECTION Returned 08/08/2014 12:00 AM IMMUNOTHERAPY 2/> INJECTIONS Returned 08/14/2014 12:00 AM IMMUNOTHERAPY ONE INJECTION Returned 08/14/2014 12:00 AM IMMUNOTHERAPY INJECTIONS Returned 08/14/2014 12:00 AM IMMUNOTHERAPY ONE INJECTION Returned 08/14/2014 12:00 AM IMMUNOTHERAPY 2/> INJECTIONS Returned 08/15/2014 12:00 AM IMMUNOTHERAPY ONE INJECTION Returned 08/15/2014 12:00 AM IMMUNOTHERAPY ONE INJECTION Returned 08/15/2014 12:00 AM IMMUNOTHERAPY 2/> INJECTIONS Returned 01/08/2011 12:00 AM IMMUNOTHERAPY INJECTIONS Reviewed 12/05/2009 12:00 AM IMMUNOTHERAPY INJECTIONS Reviewed 01/15/2011 12:00 AM IMMUNOTHERAPY INJECTIONS Reviewed 09/05/2014 12:00 AM IMMUNOTHERAPY ONE INJECTION Reviewed 09/05/2014 12:00 AM IMMUNOTHERAPY INJECTIONS Reviewed 09/05/2014 12:00 AM IMMUNOTHERAPY ONE INJECTION Reviewed 09/05/2014 12:00 AM IMMUNOTHERAPY 2/> INJECTIONS Reviewed 09/12/2014 12:00 AM IMMUNOTHERAPY ONE INJECTION Returned 01/22/2011 12:00 AM IMMUNOTHERAPY INJECTIONS Reviewed 09/26/2014 12:00 AM IMMUNOTHERAPY ONE INJECTION Returned 01/29/2011 12:00 AM IMMUNOTHERAPY INJECTIONS Reviewed 10/03/2014 12:00 AM IMMUNOTHERAPY ONE INJECTION Reviewed 10/10/2014 12:00 AM IMMUNOTHERAPY ONE INJECTION Returned 02/05/2011 12:00 AM IMMUNOTHERAPY INJECTIONS Reviewed 10/18/2014 12:00 AM IMMUNOTHERAPY ONE INJECTION Returned 10/24/2014 12:00 AM IMMUNOTHERAPY ONE INJECTION Returned 08/22/2014 12:00 AM IMMUNOTHERAPY ONE INJECTION Returned 02/11/2011 12:00 AM IMMUNOTHERAPY INJECTIONS Reviewed 08/29/2014 12:00 AM IMMUNOTHERAPY ONE INJECTION Reviewed 09/05/2014 12:00 AM IMMUNOTHERAPY INJECTIONS Returned 09/08/2014 12:00 AM INFLUENZA VAC 4 VALENT PRSRV FREE 3 YRS PLUS IM Returned 09/19/2014 12:00 AM IMMUNOTHERAPY INJECTIONS Returned 10/31/2014 12:00 AM IMMUNOTHERAPY ONE INJECTION Returned 11/06/2014 12:00 AM IMMUNOTHERAPY ONE INJECTION Returned 11/14/2014 12:00 AM IMMUNOTHERAPY ONE INJECTION Returned 02/19/2011 12:00 AM IMMUNOTHERAPY INJECTIONS Reviewed 11/21/2014 12:00 AM IMMUNOTHERAPY ONE INJECTION Returned 02/25/2011 12:00 AM IMMUNOTHERAPY INJECTIONS Reviewed 11/28/2014 12:00 AM IMMUNOTHERAPY ONE INJECTION Returned 12/05/2014 12:00 AM COMPUTER DX MAMMOGRAM ADD-ON Returned 12/05/2014 12:00 AM COMPLETE CBC W/AUTO DIFF WBC Returned 12/05/2014 12:00 AM COMPREHEN METABOLIC PANEL Returned 12/05/2014 12:00 AM LIPID PANEL Returned 12/05/2014 12:00 AM GLYCOSYLATED HEMOGLOBIN TEST Returned 12/05/2014 12:00 AM ASSAY THYROID STIM HORMONE Returned 12/05/2014 12:00 AM MICROALBUMIN QUANTITATIVE Returned 12/12/2014 12:00 AM IMMUNOTHERAPY ONE INJECTION Returned 03/05/2011 12:00 AM IMMUNOTHERAPY INJECTIONS Reviewed 03/11/2011 12:00 AM COMPREHEN METABOLIC PANEL Reviewed 03/11/2011 12:00 AM LIPID PANEL Reviewed 03/11/2011 12:00 AM GLYCOSYLATED HEMOGLOBIN TEST Reviewed 03/11/2011 12:00 AM ASSAY THYROID STIM HORMONE Reviewed 03/11/2011 12:00 AM COMPLETE CBC W/AUTO DIFF WBC Reviewed 03/12/2011 12:00 AM IMMUNOTHERAPY INJECTIONS Reviewed 01/02/2015 12:00 AM IMMUNOTHERAPY ONE INJECTION Reviewed 01/04/2015 12:00 AM IMMUNOTHERAPY ONE INJECTION Reviewed 03/18/2011 12:00 AM IMMUNOTHERAPY ONE INJECTION Reviewed 03/18/2011 12:00 AM IMMUNOTHERAPY INJECTIONS Reviewed 01/09/2015 12:00 AM IMMUNOTHERAPY ONE INJECTION Reviewed 01/16/2015 12:00 AM IMMUNOTHERAPY ONE INJECTION Reviewed 01/16/2015 12:00 AM GLYCOSYLATED HEMOGLOBIN TEST Returned 01/16/2015 12:00 AM LIPID PANEL Returned 01/16/2015 12:00 AM COMPREHEN METABOLIC PANEL Returned 03/25/2011 12:00 AM IMMUNOTHERAPY 2/> INJECTIONS Reviewed 01/23/2015 12:00 AM PROF SVCS ALLG IMMNTX X W/PRV ALLGIC XTRCS NJXS Reviewed 01/30/2015 12:00 AM PROF SVCS ALLG IMMNTX X W/PRV ALLGIC XTRCS NJXS Reviewed 02/06/2015 12:00 AM PROF SVCS ALLG IMMNTX X W/PRV ALLGIC XTRCS NJXS Reviewed 02/13/2015 12:00 AM PROF SVCS ALLG IMMNTX X W/PRV ALLGIC XTRCS NJXS Reviewed 04/01/2011 12:00 AM IMMUNOTHERAPY INJECTIONS Reviewed 04/10/2011 12:00 AM IMMUNOTHERAPY INJECTIONS Reviewed 02/20/2015 12:00 AM PROF SVCS ALLG IMMNTX X W/PRV ALLGIC XTRCS NJXS Reviewed 12/12/2009 12:00 AM IMMUNOTHERAPY INJECTIONS Reviewed 04/15/2011 12:00 AM IMMUNOTHERAPY INJECTIONS Reviewed 02/27/2015 12:00 AM PROF SVCS ALLG IMMNTX X W/PRV ALLGIC XTRCS NJXS Reviewed 04/21/2011 12:00 AM IMMUNOTHERAPY INJECTIONS Reviewed 04/29/2011 12:00 AM IMMUNOTHERAPY INJECTIONS Reviewed 05/06/2011 12:00 AM IMMUNOTHERAPY INJECTIONS Reviewed 05/13/2011 12:00 AM IMMUNOTHERAPY INJECTIONS Reviewed 04/17/2015 12:00 AM IMMUNOTHERAPY INJECTIONS Reviewed 05/20/2011 12:00 AM IMMUNOTHERAPY INJECTIONS Reviewed 05/27/2011 12:00 AM IMMUNOTHERAPY INJECTIONS Reviewed 06/03/2011 12:00 AM IMMUNOTHERAPY INJECTIONS Reviewed 06/10/2011 12:00 AM IMMUNOTHERAPY INJECTIONS Reviewed 06/12/2015 12:00 AM IMMUNOTHERAPY INJECTIONS Reviewed 12/19/2009 12:00 AM IMMUNOTHERAPY INJECTIONS Reviewed 06/17/2011 12:00 AM IMMUNOTHERAPY INJECTIONS Reviewed 06/26/2015 12:00 AM IMMUNOTHERAPY INJECTIONS Reviewed 06/24/2011 12:00 AM IMMUNOTHERAPY INJECTIONS Reviewed 07/04/2015 12:00 AM IMMUNOTHERAPY INJECTIONS Reviewed 10/10/2009 12:00 AM IMMUNOTHERAPY INJECTIONS Reviewed 07/10/2015 12:00 AM IMMUNOTHERAPY INJECTIONS Reviewed 07/01/2011 12:00 AM IMMUNOTHERAPY INJECTIONS Reviewed 07/17/2015 12:00 AM IMMUNOTHERAPY INJECTIONS Reviewed 07/24/2015 12:00 AM IMMUNOTHERAPY INJECTIONS Reviewed 07/08/2011 12:00 AM IMMUNOTHERAPY INJECTIONS Reviewed 07/31/2015 12:00 AM IMMUNOTHERAPY INJECTIONS Reviewed Results Summary Data and Description Results 08/31/2008 12:00 AM Colonoscopy-Women and Men over 50 Normal 11/27/2008 12:00 AM Depression Done HIV1+2 Ab Ser Ql no risk Dexa Bone Scan Done 10/02/2009 12:00 AM Dialated Eye Exam- Diabetic Done 10/24/2009 12:00 AM Dental Inspection Reffered 11/06/2009 4:41 PM Pap Smear Declined Depression Done HIV1+2 Ab Ser Ql no risk 01/01/2010 12:00 AM Hgb A1c Fr Bld 6.30 %LDLc SerPl-mCnc 105.0 mg/dLGlucose SerPl-mCnc 139.0 mg/dL 01/01/2010 8:27 AM LDL 105.0 mg/dLTRIGLYCERIDES 225.0 mg/dLCHOLESTEROL 184 mg/ dLHDL 44.0 mg/dLFREE T4 1.34 TSH 1.760 uIU/mLGLUCOSE 139 SODIUM 141.0 mmol/ LPOTASSIUM 3.70 mmol/LCHLORIDE 97.0 mmol/LCO2 28.0 mmol/LBUN 24.0 mg/ dLCREATININE 1.20 mg/dLSGOT/AST 39.0 IU/LSGPT/ALT 29.0 IU/LALK PHOS 72.0 IU/ LTOTAL PROTEIN 7.30 g/dLALBUMIN 4.10 g/dLTOTAL BILI 0.50 mg/dLCALCIUM 9.60 mg/ dLeGFR 45 01/09/2010 12:00 AM Mammogram -Women over 40 Normal 01/09/2010 1:39 PM Foot Exam-Diabetic Done 06/25/2010 12:00 AM LDLc SerPl-mCnc 84.0 mg/dLGlucose SerPl-mCnc 135.0 mg/ dLCholest Cry Stone Ql IR 178.0 % 06/25/2010 8:25 AM TRIGLYCERIDES 244.0 mg/dLCHOLESTEROL 178.0 mg/dLHDL 45.0 mg/ dLLDL (CALC) 84.0 mg/dLTSH 1.350 uIU/mLGLUCOSE 135.0 mg/dLSODIUM 137.0 mmol/ LPOTASSIUM 4.30 mmol/LCHLORIDE 97.0 mmol/LCO2 26.0 mmol/LBUN 33.0 mg/ dLCREATININE 1.50 mg/dLSGOT/AST 34.0 IU/LSGPT/ALT 33.0 IU/LALK PHOS 68.0 IU/ LTOTAL PROTEIN 7.40 g/dLALBUMIN 4.10 g/dLTOTAL BILI 0.60 mg/dLCALCIUM 9.70 mg/ dLeGFR 34 08/21/2010 7:00 PM TSH 1.450 uIU/mLFERRITIN 260.0 ng/mLIRON TOTAL 61.0 ug/ dLTIBC 441.0 ug/dLUIBC 380.0 ug/dLIRON SAT 14.0 %VITAMIN B12 401.0 pg/mLFOLATE 12.30 ng/mLWBC 8.2 RBC 3.77 HGB 11.90 g/dLHCT 35.80 %MCV 95.0 fLMCH 31.60 pgMCHC 33.20 g/dLRDW CV 13.50 %MPV 10.40 fLPLT 208 %NEUT 52.20 %%LYMP 37.40 %% MONO 5.60 %%EOS 4.30 %%BASO 0.50 %#NEUT 4.30 #LYMP 3.08 #MONO 0.46 #EOS 0.35 # BASO 0.04 08/28/2010 11:23 AM Aspirin reccommended Reccommended 08/28/2010 4:42 PM Dialated Eye Exam- Diabetic Referred Foot Exam-Diabetic Done Dental Inspection Reffered 12/24/2010 12:00 AM Cholest Cry Stone Ql IR 181.0 %LDLc SerPl-mCnc 83.0 mg/ dLGlucose SerPl-mCnc 134.0 mg/dL 12/24/2010 8:50 AM TRIGLYCERIDES 284.0 mg/dLCHOLESTEROL 181.0 mg/dLHDL 41.0 mg/ dLLDL (CALC) 83.0 mg/dLTSH 1.230 uIU/mLGLUCOSE 134.0 mg/dLSODIUM 140.0 mmol/ LPOTASSIUM 4.20 mmol/LCHLORIDE 98.0 mmol/LCO2 29.0 mmol/LBUN 32.0 mg/ dLCREATININE 1.70 mg/dLSGOT/AST 34.0 IU/LSGPT/ALT 30.0 IU/LALK PHOS 72.0 IU/ LTOTAL PROTEIN 7.20 g/dLALBUMIN 4.20 g/dLTOTAL BILI 0.50 mg/dLCALCIUM 10.0 mg/ dLeGFR 30 01/01/2011 1:35 PM Pap Smear Declined 01/01/2011 1:35 PM Mammogram -Women over 40 Ordered 01/01/2011 1:46 PM Depression Done Aspirin reccommended Reccommended 01/01/2011 1:59 PM Dialated Eye Exam- Diabetic Referred Foot Exam-Diabetic Done Dental Inspection Reffered 07/01/2011 8:50 AM WBC 5.7 RBC 3.56 HGB 11.20 g/dLHCT 34.10 %MCV 96.0 fLMCH 31.50 pgMCHC 32.80 g/dLRDW CV 14.90 %MPV 10.80 fLPLT 164 %NEUT 65.50 %%LYMP 21.90 %%MONO 7.0 %%EOS 5.10 %%BASO 0.50 %#NEUT 3.74 #LYMP 1.25 #MONO 0.40 #EOS 0.29 #BASO 0.03 GLUCOSE 153.0 mg/dLSODIUM 135.0 mmol/LPOTASSIUM 4.10 mmol/ LCHLORIDE 93.0 mmol/LCO2 28.0 mmol/LBUN 26.0 mg/dLCREATININE 1.50 mg/dLSGOT/AST 43.0 IU/LSGPT/ALT 31.0 IU/LALK PHOS 80.0 IU/LTOTAL PROTEIN 7.40 g/dLALBUMIN 4.20 g/dLTOTAL BILI 0.60 mg/dLCALCIUM 9.90 mg/dLeGFR 34 TRIGLYCERIDES 230.0 mg/ dLCHOLESTEROL 170.0 mg/dLHDL 42.0 mg/dLLDL (CALC) 82.0 mg/dLTSH 2.360 uIU/mL 01/08/2012 8:35 AM WBC 5.3 RBC 3.59 HGB 11.10 g/dLHCT 34.40 %MCV 96.0 fLMCH 30.90 pgMCHC 32.30 g/dLRDW CV 14.20 %MPV 10.70 fLPLT 152 %NEUT 65.80 %%LYMP 21.90 %%MONO 6.80 %%EOS 4.70 %%BASO 0.80 %#NEUT 3.49 #LYMP 1.16 #MONO 0.36 #EOS 0.25 #BASO 0.04 GLUCOSE 135.0 mg/dLSODIUM 138.0 mmol/LPOTASSIUM 4.0 mmol/ LCHLORIDE 96.0 mmol/LCO2 27.0 mmol/LBUN 32.0 mg/dLCREATININE 1.50 mg/dLSGOT/AST 41.0 IU/LSGPT/ALT 25.0 IU/LALK PHOS 73.0 IU/LTOTAL PROTEIN 7.30 g/dLALBUMIN 4.30 g/dLTOTAL BILI 0.70 mg/dLCALCIUM 10.10 mg/dLeGFR 34 TRIGLYCERIDES 227.0 mg/ dLCHOLESTEROL 163.0 mg/dLHDL 41.0 mg/dLLDL (CALC) 77.0 mg/dLTSH 2.150 uIU/mL 07/21/2012 8:50 AM WBC 5.7 RBC 3.73 HGB 11.60 g/dLHCT 35.80 %MCV 96.0 fLMCH 31.10 pgMCHC 32.40 g/dLRDW CV 14.10 %MPV 11.0 fLPLT 164 %NEUT 64.20 %%LYMP 24.40 %%MONO 5.70 %%EOS 5.30 %%BASO 0.40 %#NEUT 3.63 #LYMP 1.38 #MONO 0.32 #EOS 0.30 #BASO 0.02 TRIGLYCERIDES 238.0 mg/dLCHOLESTEROL 154.0 mg/dLHDL 38.0 mg/ dLLDL (CALC) 68.0 mg/dLGLUCOSE 147.0 mg/dLSODIUM 136.0 mmol/LPOTASSIUM 4.10 mmol /LCHLORIDE 97.0 mmol/LCO2 26.0 mmol/LBUN 32.0 mg/dLCREATININE 1.50 mg/dLSGOT/ AST 40.0 IU/LSGPT/ALT 30.0 IU/LALK PHOS 71.0 IU/LTOTAL PROTEIN 7.20 g/dLALBUMIN 4.0 g/dLTOTAL BILI 0.80 mg/dLCALCIUM 10.0 mg/dLeGFR 34 TSH 1.530 uIU/mLCREAT UR 45.50 mg/dLMICROALBUMIN UR 3.0 ug/mLALB:CREAT RATIO 7 10/12/2012 11:35 AM WBC 6.7 RBC 3.90 HGB 12.10 g/dLHCT 35.60 %MCV 91.0 fLMCH 31.0 pgMCHC 34.0 g/dLRDW CV 13.50 %MPV 10.40 fLPLT 197 %NEUT 64.40 %%LYMP 25.40 %%MONO 5.60 %%EOS 4.50 %%BASO 0.10 %#NEUT 4.34 #LYMP 1.71 #MONO 0.38 #EOS 0.30 # BASO 0.01 C REACTIVE PROTEIN 6.0 mg/LGLUCOSE 96.0 mg/dLSODIUM 134.0 mmol/ LPOTASSIUM 4.40 mmol/LCHLORIDE 91.0 mmol/LCO2 30.0 mmol/LBUN 31.0 mg/ dLCREATININE 1.50 mg/dLSGOT/AST 48.0 IU/LSGPT/ALT 35.0 IU/LALK PHOS 74.0 IU/ LTOTAL PROTEIN 7.10 g/dLALBUMIN 4.30 g/dLTOTAL BILI 0.60 mg/dLCALCIUM 10.40 mg/ dLeGFR 34 2013 9:00 AM WBC 4.9 RBC 3.68 HGB 11.50 g/dLHCT 34.80 %MCV 95.0 fLMCH 31.30 pgMCHC 33.0 g/dLRDW CV 13.70 %MPV 10.60 fLPLT 144 %NEUT 61.0 %%LYMP 27.10 %%MONO 7.0 %%EOS 4.50 %%BASO 0.40 %#NEUT 2.97 #LYMP 1.32 #MONO 0.34 #EOS 0.22 # BASO 0.02 GLUCOSE 142.0 mg/dLSODIUM 137.0 mmol/LPOTASSIUM 3.90 mmol/LCHLORIDE 95.0 mmol/LCO2 27.0 mmol/LBUN 24.0 mg/dLCREATININE 1.40 mg/dLSGOT/AST 24.0 IU/ LSGPT/ALT 20.0 IU/LALK PHOS 68.0 IU/LTOTAL PROTEIN 7.10 g/dLALBUMIN 3.90 g/ dLTOTAL BILI 0.70 mg/dLCALCIUM 9.80 mg/dLeGFR 37 TRIGLYCERIDES 211.0 mg/ dLCHOLESTEROL 151.0 mg/dLHDL 38.0 mg/dLLDL (CALC) 71.0 mg/dLTSH 0.980 uIU/mLTSH 0.980 uIU/mL 08/09/2013 8:40 AM WBC 5.1 RBC 3.56 HGB 11.10 g/dLHCT 33.50 %MCV 94.0 fLMCH 31.20 pgMCHC 33.10 g/dLRDW CV 14.0 %MPV 10.60 fLPLT 154 %NEUT 60.20 %%LYMP 28.80 %%MONO 5.70 %%EOS 4.90 %%BASO 0.40 %#NEUT 3.09 #LYMP 1.48 #MONO 0.29 #EOS 0.25 #BASO 0.02 GLUCOSE 149.0 mg/dLSODIUM 135.0 mmol/LPOTASSIUM 4.0 mmol/ LCHLORIDE 95.0 mmol/LCO2 26.0 mmol/LBUN 35.0 mg/dLCREATININE 1.60 mg/dLSGOT/AST 32.0 IU/LSGPT/ALT 25.0 IU/LALK PHOS 71.0 IU/LTOTAL PROTEIN 7.20 g/dLALBUMIN 4.30 g/dLTOTAL BILI 0.60 mg/dLCALCIUM 10.0 mg/dLeGFR 32 TRIGLYCERIDES 225.0 mg/ dLCHOLESTEROL 159.0 mg/dLHDL 40.0 mg/dLLDL (CALC) 74.0 mg/dLEst Avg Glucose 137.0 mg/dLTSH 1.450 uIU/mL 08/09/2013 8:48 AM CREAT UR 60.70 mg/dLMICROALBUMIN UR 5.0 ug/mLALB:CREAT RATIO 8 11/24/2013 8:40 AM GLUCOSE 172.0 mg/dLSODIUM 137.0 mmol/LPOTASSIUM 4.10 mmol/ LCHLORIDE 97.0 mmol/LCO2 29.0 mmol/LBUN 25.0 mg/dLCREATININE 1.50 mg/dLSGOT/AST 29.0 IU/LSGPT/ALT 19.0 IU/LALK PHOS 80.0 IU/LTOTAL PROTEIN 7.0 g/dLALBUMIN 4.20 g/dLTOTAL BILI 0.80 mg/dLCALCIUM 9.60 mg/dLeGFR 34 TRIGLYCERIDES 233.0 mg/ dLCHOLESTEROL 181.0 mg/dLHDL 51.0 mg/dLLDL (CALC) 83.0 mg/dLEst Avg Glucose 125.5 mg/dLTSH 2.050 uIU/mL 04/18/2014 8:40 AM TSH 0.930 uIU/mLEst Avg Glucose 151.3 mg/dLTRIGLYCERIDES 242.0 mg/dLCHOLESTEROL 160.0 mg/dLHDL 43.0 mg/dLLDL (CALC) 69.0 mg/dL 12/12/2014 8:30 AM WBC 5.9 RBC 3.79 HGB 11.70 g/dLHCT 35.70 %MCV 94.0 fLMCH 30.90 pgMCHC 32.80 g/dLRDW CV 14.0 %MPV 10.70 fLPLT 168 %NEUT 58.60 %%LYMP 29.60 %%MONO 5.90 %%EOS 5.20 %%BASO 0.70 %#NEUT 3.47 #LYMP 1.75 #MONO 0.35 #EOS 0.31 #BASO 0.04 Est Avg Glucose 142.7 mg/dLTRIGLYCERIDES 259.0 mg/dLCHOLESTEROL 162.0 mg/dLHDL 41.0 mg/dLLDL (CALC) 69.0 mg/dLMICROALBUMIN UR <0.5 MG/DLGLUCOSE 165.0 mg/dLSODIUM 136.0 mmol/LPOTASSIUM 4.40 mmol/LCHLORIDE 95.0 mmol/LCO2 27.0 mmol/LBUN 35.0 mg/dLCREATININE 1.50 mg/dLSGOT/AST 27.0 IU/LSGPT/ALT 21.0 IU/ LALK PHOS 63.0 IU/LTOTAL PROTEIN 7.20 g/dLALBUMIN 4.20 g/dLTOTAL BILI 0.80 mg/ dLCALCIUM 9.50 mg/dLeGFR 34 TSH 1.390 uIU/mL 03/01/2015 8:30 AM WBC 6.4 RBC 3.84 HGB 11.90 g/dLHCT 35.90 %MCV 94.0 fLMCH 31.0 pgMCHC 33.10 g/dLRDW CV 14.10 %MPV 10.40 fLPLT 177 %NEUT 62.20 %%LYMP 25.50 %%MONO 7.20 %%EOS 4.50 %%BASO 0.60 %#NEUT 4.00 #LYMP 1.64 #MONO 0.46 #EOS 0.29 #BASO 0.04 Est Avg Glucose 114.0 mg/dLTRIGLYCERIDES 242.0 mg/dLCHOLESTEROL 158.0 mg/dLHDL 42.0 mg/dLLDL (CALC) 68.0 mg/dLGLUCOSE 152.0 mg/dLSODIUM 135.0 mmol/LPOTASSIUM 4.20 mmol/LCHLORIDE 94.0 mmol/LCO2 28.0 mmol/LBUN 23.0 mg/ dLCREATININE 1.40 mg/dLSGOT/AST 23.0 IU/LSGPT/ALT 16.0 IU/LALK PHOS 61.0 IU/ LTOTAL PROTEIN 6.90 g/dLALBUMIN 4.20 g/dLTOTAL BILI 0.80 mg/dLCALCIUM 10.0 mg/ dLeGFR 37 09/06/2015 8:45 AM WBC 5.4 RBC 3.89 HGB 11.80 g/dLHCT 35.90 %MCV 92.0 fLMCH 30.30 pgMCHC 32.90 g/dLRDW CV 13.90 %MPV 11.20 fLPLT 173 %NEUT 61.70 %%LYMP 25.80 %%MONO 6.30 %%EOS 5.60 %%BASO 0.60 %#NEUT 3.33 #LYMP 1.39 #MONO 0.34 #EOS 0.30 #BASO 0.03 MICROALBUMIN UR <0.5 ug/mLGLUCOSE 141.0 mg/dLSODIUM 134.0 mmol/ LPOTASSIUM 3.90 mmol/LCHLORIDE 96.0 mmol/LCO2 28.0 mmol/LBUN 24.0 mg/ dLCREATININE 1.40 mg/dLSGOT/AST 20.0 IU/LSGPT/ALT 16.0 IU/LALK PHOS 60.0 IU/ LTOTAL PROTEIN 6.90 g/dLALBUMIN 4.10 g/dLTOTAL BILI 0.70 mg/dLCALCIUM 9.70 mg/ dLeGFR 37 TRIGLYCERIDES 233.0 mg/dLCHOLESTEROL 151.0 mg/dLHDL 40.0 mg/dLLDL ( CALC) 64.0 mg/dLTSH 0.980 uIU/mL 10/16/2015 11:05 AM D-DIMER QUANT 0.31 TROPONIN-I AD <0.04 ng/mL History Of Immunizations Name Date Admin Mfg Name Mf Code Trade Name Lot# Route Inj Vis Given Vis Pub CVX Pneumococcal 11/19/2004 [employer] MSD Pneumovax 23 Intramuscular Not Entered 11/16/2016 11/16/2016 999 Influenza 08/15/2009 [employer] Becky. NOV Fluvirin > 12 Years [id number] Intramuscular Left Deltoid 11/06/2009 11/16/2016 999 Influenza 08/21/2010 [employer] Becky. NOV Fluvirin > 12 Years [id number] Intramuscular Left Deltoid 08/21/2010 06/26/2009 999 Pneumococcal 08/28/2010 [employer] MSD Pneumovax 23 [id number] Intramuscular Right Deltoid 08/28/2010 03/01/2009 999 Influenza 09/04/2011 sanofi pasteur PMC Fluzone [id number] Intramuscular Left Deltoid 09/04/2011 06/11/2011 111 Influenza 09/02/2012 sanofi pasteur PMC Fluzone [id number] Intramuscular Left Deltoid 09/02/2012 05/17/2012 141 Influenza 08/22/2013 [employer]i pasteur PMC Fluzone > 3 Years [id number] Intramuscular Left Deltoid 08/22/2013 06/10/2013 141 [facility]enza 08/24/2015 [facility] Fluzone [id number] Intramuscular Left Deltoid 08/24/2015 06/22/2015 141 History of Past Illness Name Date of Onset Comments Rhinitis, Chronic Oct 04 2009 11:39AM Rhinitis, Allergic Oct 10 2009 3:59PM Allergic rhinitis; due to other allergen Oct 18 2009 1:03PM Allergic rhinitis; due to other allergen Oct 30 2009 2:24PM Allergic rhinitis; due to other allergen Nov 08 2009 9:37AM Inflamed seborrheic keratosis Nov 08 2009 9:41AM Other seborrheic keratosis Nov 08 2009 9:41AM Inflamed seborrheic keratosis Nov 08 2009 9:46AM Other seborrheic keratosis Nov 08 2009 9:46AM Allergic rhinitis; due to other allergen Nov 15 2009 9:52AM Allergic rhinitis; due to other allergen Nov 21 2009 1:02PM Allergic rhinitis; due to other allergen Nov 27 2009 11:05AM Benign Essential Hypertension Diabetes Mellitus, Type II degenerative joint disease macular degeneration of eyes Allergic rhinitis Hypothyroidism, Acquired Gastric ulcer Anemia Asthma Hyperlipidemia Obstructive Sleep Apnea Heartburn Murmur Mitral valve prolapse Morbid obesity Allergic rhinitis; due to other allergen Dec 05 2009 1:12PM Allergic rhinitis; due to other allergen Dec 12 2009 1:06PM Allergic rhinitis; due to other allergen Dec 19 2009 11:19AM Allergic rhinitis; due to other allergen Dec 26 2009 1:12PM Allergic rhinitis; due to other allergen Jan 01 2010 8:57AM Obesity 01/09/2010 Benign Essential Hypertension Jan 09 2010 1:30PM Hyperlipidemia Jan 09 2010 1:30PM Diabetes Mellitus, Type II Jan 09 2010 1:30PM Hypothyroidism, Acquired Jan 09 2010 1:30PM Obesity Jan 09 2010 1:30PM Allergic rhinitis; due to other allergen Jan 09 2010 3:18PM Allergic rhinitis; due to other allergen Jan 16 2010 1:37PM Allergic rhinitis; due to other allergen Jan 23 2010 1:07PM Allergic rhinitis; due to other allergen Jan 30 2010 1:21PM Allergic rhinitis; due to other allergen Feb 13 2010 1:06PM Allergic rhinitis; due to other allergen Feb 20 2010 1:13PM Allergic rhinitis; due to other allergen Feb 26 2010 8:30AM Allergic rhinitis; due to other allergen Mar 06 2010 1:02PM Allergic rhinitis; due to other allergen Mar 13 2010 1:00PM Allergic rhinitis; due to other allergen Mar 20 2010 1:11PM Allergic rhinitis; due to other allergen Mar 27 2010 4:33PM Allergic rhinitis; due to other allergen Apr 03 2010 5:08PM Allergic rhinitis; due to other allergen Apr 10 2010 1:16PM Allergic rhinitis; due to other allergen Apr 17 2010 1:05PM Allergic rhinitis; due to other allergen Apr 24 2010 12:50PM Allergic rhinitis; due to other allergen May 01 2010 1:04PM Degenerative disc disease 09/05/2012 Spinal stenosis, lumbar region 09/05/2012 Allergic rhinitis; due to other allergen May 08 2010 1:09PM Allergic rhinitis; due to other allergen May 15 2010 12:58PM Allergic rhinitis; due to other allergen May 22 2010 12:56PM Allergic rhinitis; due to other allergen May 29 2010 12:55PM Allergic rhinitis; due to other allergen Jun 05 2010 12:56PM Allergic rhinitis; due to other allergen Jun 12 2010 12:56PM Allergic rhinitis; due to other allergen Jun 19 2010 1:01PM Allergic rhinitis; due to other allergen Jun 26 2010 5:55PM Obesity Jun 26 2010 5:57PM Benign Essential Hypertension Jun 26 2010 5:57PM Diabetes Mellitus, Type II Jun 26 2010 5:57PM Hyperlipidemia Jun 26 2010 5:57PM Hypothyroidism, Acquired Jun 26 2010 5:57PM Allergic Rhinitis Jun 26 2010 5:57PM Low Back Pain Jun 26 2010 5:57PM Allergic rhinitis; due to other allergen Jul 03 2010 1:10PM Allergic rhinitis; due to other allergen Jul 11 2010 1:26PM Allergic rhinitis; due to other allergen Jul 17 2010 12:50PM Peripheral Vascular Disease Allergic rhinitis; due to other allergen Jul 24 2010 1:01PM Allergic rhinitis; due to other allergen Aug 01 2010 10:47AM Allergic rhinitis; due to other allergen Aug 14 2010 12:52PM Flu Aug 21 2010 5:58PM Allergic rhinitis; due to other allergen Aug 21 2010 6:05PM Fatigue Aug 21 2010 6:08PM Anemia Aug 21 2010 6:08PM Allergic Rhinitis Aug 28 2010 4:31PM Anemia Aug 28 2010 4:31PM Asthma Aug 28 2010 4:31PM Diabetes Mellitus, Type II Aug 28 2010 4:31PM Hyperlipidemia Aug 28 2010 4:31PM Hypothyroidism, Acquired Aug 28 2010 4:31PM Allergic rhinitis; due to other allergen Aug 28 2010 4:33PM Pneumococcus Aug 28 2010 4:36PM Wrist pain Aug 28 2010 4:31PM Allergic rhinitis; due to other allergen Sep 04 2010 1:01PM Allergic rhinitis; due to other allergen Sep 11 2010 12:56PM Allergic rhinitis; due to other allergen Sep 19 2010 9:14AM Allergic rhinitis; due to other allergen Sep 25 2010 1:26PM Allergic rhinitis; due to other allergen Oct 02 2010 1:15PM Allergic rhinitis; due to other allergen Oct 16 2010 5:55PM Allergic rhinitis; due to other allergen Oct 22 2010 11:38AM Mole of Allergic rhinitis; due to other allergen Oct 30 2010 1:21PM Allergic rhinitis; due to other allergen Nov 06 2010 1:20PM Allergic rhinitis; due to other allergen Nov 13 2010 6:17PM Allergic rhinitis; due to other allergen Nov 20 2010 1:06PM Allergic rhinitis; due to other allergen Nov 27 2010 12:58PM Allergic rhinitis; due to other allergen Dec 04 2010 12:58PM Allergic rhinitis; due to other allergen Dec 11 2010 12:59PM Allergic rhinitis; due to other allergen Dec 20 2010 1:07PM Allergic rhinitis; due to other allergen Dec 26 2010 12:58PM Obesity Jan 01 2011 1:41PM Allergic Rhinitis Jan 01 2011 1:41PM Benign Essential Hypertension Jan 01 2011 1:41PM Diabetes Mellitus, Type II Jan 01 2011 1:41PM Hyperlipidemia Jan 01 2011 1:41PM Hypothyroidism, Acquired Jan 01 2011 1:41PM Low Back Pain Jan 01 2011 1:41PM Allergic rhinitis; due to other allergen Jan 01 2011 3:20PM Allergic rhinitis; due to other allergen Jan 08 2011 1:19PM Allergic rhinitis; due to other allergen Jan 15 2011 1:12PM Allergic rhinitis; due to other allergen Jan 22 2011 12:59PM Allergic rhinitis; due to other allergen Jan 29 2011 5:51PM Allergic rhinitis; due to other allergen Feb 05 2011 1:05PM Allergic rhinitis; due to other allergen Feb 11 2011 10:00AM Allergic rhinitis; due to other allergen Feb 19 2011 6:13PM Allergic rhinitis; due to other allergen Feb 25 2011 8:49AM Allergic rhinitis; due to other allergen Mar 05 2011 3:56PM Obesity Mar 11 2011 3:31PM Allergic Rhinitis Mar 11 2011 3:31PM Benign Essential Hypertension Mar 11 2011 3:31PM Diabetes Mellitus, Type II Mar 11 2011 3:31PM Hyperlipidemia Mar 11 2011 3:31PM Hypothyroidism, Acquired Mar 11 2011 3:31PM Allergic rhinitis; due to other allergen Mar 12 2011 4:23PM Allergic rhinitis; due to pollen Mar 18 2011 4:13PM Allergic rhinitis; due to other allergen Mar 18 2011 4:13PM Allergic rhinitis; due to pollen Mar 25 2011 8:44AM Allergic rhinitis; due to other allergen Mar 25 2011 8:44AM Allergic rhinitis; due to pollen Apr 10 2011 11:19AM Allergic rhinitis; due to other allergen Apr 10 2011 11:19AM Allergic rhinitis; due to pollen Apr 10 2011 11:26AM Allergic rhinitis; due to other allergen Apr 10 2011 11:26AM Allergic rhinitis; due to pollen Apr 15 2011 9:26AM Allergic rhinitis; due to other allergen Apr 15 2011 9:26AM Allergic rhinitis; due to pollen Apr 21 2011 8:49AM Allergic rhinitis; due to other allergen Apr 21 2011 8:49AM Allergic rhinitis; due to pollen Apr 29 2011 8:42AM Allergic rhinitis; due to other allergen Apr 29 2011 8:42AM Allergic rhinitis; due to pollen May 06 2011 8:48AM Allergic rhinitis; due to other allergen May 06 2011 8:48AM Allergic rhinitis; due to pollen May 13 2011 9:07AM Allergic rhinitis; due to other allergen May 13 2011 9:07AM Allergic rhinitis; due to pollen May 20 2011 8:54AM Allergic rhinitis; due to other allergen May 20 2011 8:54AM Allergic rhinitis; due to pollen May 27 2011 9:48AM Allergic rhinitis; due to other allergen May 27 2011 9:48AM Allergic rhinitis; due to pollen Jun 03 2011 8:48AM Allergic rhinitis; due to other allergen Jun 03 2011 8:48AM Allergic rhinitis; due to pollen Jun 10 2011 8:51AM Allergic rhinitis; due to other allergen Jun 10 2011 8:51AM Allergic rhinitis; due to pollen Jun 17 2011 8:50AM Allergic rhinitis; due to other allergen Jun 17 2011 8:50AM Allergic rhinitis; due to pollen Jun 24 2011 9:17AM Allergic rhinitis; due to other allergen Jun 24 2011 9:17AM Allergic rhinitis; due to pollen Jul 01 2011 9:01AM Allergic rhinitis; due to other allergen Jul 01 2011 9:01AM Allergic rhinitis; due to pollen Jul 08 2011 9:03AM Allergic rhinitis; due to other allergen Jul 08 2011 9:03AM Obesity Jul 14 2011 1:05PM Allergic Rhinitis Jul 14 2011 1:05PM Benign Essential Hypertension Jul 14 2011 1:05PM Diabetes Mellitus, Type II Jul 14 2011 1:05PM Hyperlipidemia Jul 14 2011 1:05PM Hypothyroidism, Acquired Jul 14 2011 1:05PM Allergic rhinitis; due to pollen Jul 14 2011 2:57PM Allergic rhinitis; due to other allergen Jul 14 2011 2:57PM Allergic rhinitis; due to pollen Jul 24 2011 8:49AM Allergic rhinitis; due to other allergen Jul 24 2011 8:49AM Allergic rhinitis; due to pollen Aug 04 2011 8:41AM Allergic rhinitis; due to other allergen Aug 04 2011 8:41AM Allergic rhinitis; due to pollen Aug 11 2011 9:11AM Allergic rhinitis; due to other allergen Aug 11 2011 9:11AM Allergic rhinitis; due to pollen Aug 18 2011 8:47AM Allergic rhinitis; due to other allergen Aug 18 2011 8:47AM Allergic rhinitis; due to pollen Aug 19 2011 11:03AM Allergic rhinitis; due to other allergen Aug 19 2011 11:03AM Allergic rhinitis; due to pollen Aug 25 2011 9:03AM Allergic rhinitis; due to other allergen Aug 25 2011 9:03AM Allergic rhinitis; due to pollen Sep 01 2011 8:44AM Allergic rhinitis; due to other allergen Sep 01 2011 8:44AM Obesity Sep 04 2011 2:46PM Allergic Rhinitis Sep 04 2011 2:46PM Benign Essential Hypertension Sep 04 2011 2:46PM Diabetes Mellitus, Type II Sep 04 2011 2:46PM Hyperlipidemia Sep 04 2011 2:46PM Hypothyroidism, Acquired Sep 04 2011 2:46PM Cataract Sep 04 2011 2:46PM Preoperative Examination Sep 04 2011 2:46PM Flu Sep 04 2011 3:10PM Allergic rhinitis; due to pollen Sep 08 2011 8:37AM Allergic rhinitis; due to other allergen Sep 08 2011 8:37AM Allergic rhinitis; due to pollen Sep 15 2011 8:43AM Allergic rhinitis; due to other allergen Sep 15 2011 8:43AM Allergic rhinitis; due to pollen Sep 24 2011 8:55AM Allergic rhinitis; due to other allergen Sep 24 2011 8:55AM Allergic rhinitis; due to pollen Oct 01 2011 8:45AM Allergic rhinitis; due to other allergen Oct 01 2011 8:45AM Allergic rhinitis; due to pollen Oct 07 2011 8:59AM Allergic rhinitis; due to other allergen Oct 07 2011 8:59AM Allergic rhinitis; due to pollen Oct 13 2011 9:09AM Allergic rhinitis; due to other allergen Oct 13 2011 9:09AM Allergic rhinitis; due to pollen Oct 20 2011 8:56AM Allergic rhinitis; due to other allergen Oct 20 2011 8:56AM Allergic rhinitis; due to pollen Oct 27 2011 8:21AM Allergic rhinitis; due to other allergen Oct 27 2011 8:21AM Allergic rhinitis; due to pollen Nov 03 2011 8:46AM Allergic rhinitis; due to other allergen Nov 03 2011 8:46AM Allergic rhinitis; due to pollen Nov 11 2011 8:40AM Allergic rhinitis; due to other allergen Nov 11 2011 8:40AM Allergic rhinitis; due to pollen Nov 18 2011 8:51AM Allergic rhinitis; due to other allergen Nov 18 2011 8:51AM Allergic rhinitis; due to pollen Nov 25 2011 9:01AM Allergic rhinitis; due to other allergen Nov 25 2011 9:01AM Allergic rhinitis; due to pollen Dec 02 2011 9:02AM Allergic rhinitis; due to other allergen Dec 02 2011 9:02AM Allergic rhinitis; due to pollen Dec 08 2011 9:42AM Allergic rhinitis; due to other allergen Dec 08 2011 9:42AM Allergic rhinitis; due to pollen Dec 15 2011 9:00AM Allergic rhinitis; due to other allergen Dec 15 2011 9:00AM Allergic rhinitis; due to pollen Dec 22 2011 8:50AM Allergic rhinitis; due to other allergen Dec 22 2011 8:50AM Allergic rhinitis; due to pollen Dec 31 2011 8:56AM Allergic rhinitis; due to other allergen Dec 31 2011 8:56AM Allergic rhinitis; due to pollen Jan 07 2012 8:54AM Allergic rhinitis; due to other allergen Jan 07 2012 8:54AM Diabetes Mellitus, Type II Jan 08 2012 8:17AM Hyperlipidemia Jan 08 2012 8:17AM Hypothyroidism, Acquired Jan 08 2012 8:17AM Allergic rhinitis; due to pollen Jan 20 2012 1:07PM Allergic rhinitis; due to other allergen Jan 20 2012 1:07PM Obesity Jan 20 2012 1:05PM Allergic Rhinitis Jan 20 2012 1:05PM Benign Essential Hypertension Jan 20 2012 1:05PM Diabetes Mellitus, Type II Jan 20 2012 1:05PM Hyperlipidemia Jan 20 2012 1:05PM Hypothyroidism, Acquired Jan 20 2012 1:05PM Allergic rhinitis; due to pollen Jan 27 2012 8:53AM Allergic rhinitis; due to other allergen Jan 27 2012 8:53AM Allergic rhinitis; due to pollen Feb 02 2012 9:11AM Allergic rhinitis; due to other allergen Feb 02 2012 9:11AM Allergic rhinitis; due to pollen Feb 09 2012 10:07AM Allergic rhinitis; due to other allergen Feb 09 2012 10:07AM Allergic rhinitis; due to pollen Feb 17 2012 9:03AM Allergic rhinitis; due to other allergen Feb 17 2012 9:03AM Allergic rhinitis; due to pollen Feb 24 2012 9:00AM Allergic rhinitis; due to other allergen Feb 24 2012 9:00AM Allergic rhinitis; due to pollen Mar 02 2012 9:31AM Allergic rhinitis; due to other allergen Mar 02 2012 9:31AM Allergic rhinitis; due to pollen Mar 09 2012 9:18AM Allergic rhinitis; due to other allergen Mar 09 2012 9:18AM Allergic rhinitis; due to pollen Mar 16 2012 8:57AM Allergic rhinitis; due to other allergen Mar 16 2012 8:57AM Allergic rhinitis; due to pollen Mar 23 2012 9:23AM Allergic rhinitis; due to other allergen Mar 23 2012 9:23AM Allergic rhinitis; due to pollen Mar 31 2012 1:15PM Allergic rhinitis; due to other allergen Mar 31 2012 1:15PM Allergic rhinitis; due to pollen Apr 07 2012 8:41AM Allergic rhinitis; due to other allergen Apr 07 2012 8:41AM Allergic rhinitis; due to pollen Apr 13 2012 1:29PM Allergic rhinitis; due to other allergen Apr 13 2012 1:29PM Allergic rhinitis; due to pollen Apr 20 2012 9:09AM Allergic rhinitis; due to other allergen Apr 20 2012 9:09AM Allergic rhinitis; due to pollen Apr 27 2012 9:14AM Allergic rhinitis; due to other allergen Apr 27 2012 9:14AM Allergic rhinitis; due to pollen May 04 2012 9:09AM Allergic rhinitis; due to other allergen May 04 2012 9:09AM Allergic rhinitis; due to pollen May 11 2012 8:52AM Allergic rhinitis; due to other allergen May 11 2012 8:52AM Allergic rhinitis; due to pollen May 17 2012 8:55AM Allergic rhinitis; due to other allergen May 17 2012 8:55AM Allergic rhinitis; due to pollen May 24 2012 9:04AM Allergic rhinitis; due to other allergen May 24 2012 9:04AM Allergic rhinitis; due to pollen May 31 2012 9:01AM Allergic rhinitis; due to other allergen May 31 2012 9:01AM Allergic rhinitis; due to pollen Jun 07 2012 9:20AM Allergic rhinitis; due to other allergen Jun 07 2012 9:20AM Allergic rhinitis; due to pollen Jun 14 2012 8:54AM Allergic rhinitis; due to other allergen Jun 14 2012 8:54AM Allergic rhinitis; due to pollen Jun 21 2012 9:09AM Allergic rhinitis; due to other allergen Jun 21 2012 9:09AM Allergic rhinitis; due to pollen Jun 28 2012 9:05AM Allergic rhinitis; due to other allergen Jun 28 2012 9:05AM Allergic rhinitis; due to pollen Jul 06 2012 8:45AM Allergic rhinitis; due to other allergen Jul 06 2012 8:45AM Allergic rhinitis; due to pollen Jul 12 2012 9:20AM Allergic rhinitis; due to other allergen Jul 12 2012 9:20AM Allergic rhinitis; due to pollen Jul 21 2012 9:13AM Allergic rhinitis; due to other allergen Jul 21 2012 9:13AM Allergic rhinitis; due to pollen Jul 21 2012 9:39AM Allergic rhinitis; due to other allergen Jul 21 2012 9:39AM Obesity Jul 29 2012 1:13PM Allergic Rhinitis Jul 29 2012 1:13PM Benign Essential Hypertension Jul 29 2012 1:13PM Diabetes Mellitus, Type II Jul 29 2012 1:13PM Hyperlipidemia Jul 29 2012 1:13PM Hypothyroidism, Acquired Jul 29 2012 1:13PM Allergic rhinitis; due to pollen Aug 05 2012 9:14AM Allergic rhinitis; due to other allergen Aug 05 2012 9:14AM Allergic rhinitis; due to pollen Aug 11 2012 8:55AM Allergic rhinitis; due to other allergen Aug 11 2012 8:55AM Allergic rhinitis; due to other allergen Aug 18 2012 10:12AM Allergic rhinitis; due to other allergen Aug 25 2012 9:08AM Allergic rhinitis; due to other allergen Aug 31 2012 9:20AM Flu Sep 02 2012 9:44AM Spinal stenosis, Lumbar region Sep 02 2012 9:11AM Degenerative disc disease Sep 02 2012 9:11AM Allergic rhinitis; due to other allergen Sep 07 2012 8:53AM Allergic rhinitis; due to other allergen Sep 14 2012 9:09AM Allergic rhinitis; due to other allergen Sep 21 2012 8:48AM Allergic rhinitis; due to other allergen Sep 28 2012 8:43AM Allergic rhinitis; due to other allergen Oct 05 2012 9:07AM Bronchitis, Acute Oct 06 2012 9:10AM Cough Oct 06 2012 9:10AM Cough Oct 12 2012 10:42AM Fatigue Oct 12 2012 10:42AM Allergic rhinitis; due to other allergen Oct 13 2012 9:26AM Allergic rhinitis; due to other allergen Oct 19 2012 9:02AM Allergic rhinitis; due to other allergen Oct 25 2012 9:36AM Allergic rhinitis; due to other allergen Nov 10 2012 9:07AM Allergic rhinitis; due to other allergen Nov 17 2012 9:24AM Allergic rhinitis; due to other allergen Nov 23 2012 9:06AM Allergic rhinitis; due to other allergen Nov 30 2012 9:23AM Allergic rhinitis; due to other allergen Dec 07 2012 9:01AM Screening Mammogram For High Risk Patient Dec 07 2012 3:58PM Allergic rhinitis; due to other allergen Dec 14 2012 8:52AM Allergic rhinitis; due to other allergen Feb 2012 9:07AM Allergic rhinitis; due to other allergen Dec 28 2012 9:07AM Allergic rhinitis; due to other allergen Jan 04 2013 9:12AM Allergic rhinitis; due to other allergen Jan 10 2013 9:06AM Allergic rhinitis; due to other allergen 2013 9:16AM Obesity Jan 27 2013 1:05PM Allergic Rhinitis Jan 27 2013 1:05PM Benign Essential Hypertension Jan 27 2013 1:05PM Diabetes Mellitus, Type II Jan 27 2013 1:05PM Hyperlipidemia Jan 27 2013 1:05PM Hypothyroidism, Acquired Jan 27 2013 1:05PM Allergic rhinitis; due to other allergen Jan 27 2013 1:25PM Allergic rhinitis; due to other allergen Feb 02 2013 9:09AM Allergic rhinitis; due to other allergen Feb 08 2013 9:27AM Allergic rhinitis; due to other allergen Feb 14 2013 9:49AM Allergic rhinitis; due to other allergen Feb 22 2013 9:12AM Allergic rhinitis; due to other allergen Mar 01 2013 9:30AM Allergic rhinitis; due to other allergen Mar 07 2013 9:25AM Allergic rhinitis; due to other allergen Mar 15 2013 1:44PM Allergic rhinitis; due to other allergen Mar 22 2013 8:53AM Allergic rhinitis; due to other allergen Mar 29 2013 8:52AM Allergic rhinitis; due to other allergen Apr 05 2013 9:26AM Allergic rhinitis; due to other allergen Apr 12 2013 8:45AM Allergic rhinitis; due to other allergen Apr 19 2013 9:03AM Allergic rhinitis; due to other allergen Apr 26 2013 8:56AM Allergic rhinitis; due to other allergen May 02 2013 9:05AM Allergic rhinitis; due to other allergen May 11 2013 9:53AM Allergic rhinitis; due to other allergen May 17 2013 9:33AM Allergic rhinitis; due to other allergen May 24 2013 9:08AM Allergic rhinitis; due to pollen Jun 02 2013 8:57AM Allergic rhinitis; due to other allergen Jun 02 2013 8:57AM Allergic rhinitis; due to pollen Jun 08 2013 9:11AM Allergic rhinitis; due to other allergen Jun 08 2013 9:11AM Allergic rhinitis; due to pollen Jun 14 2013 9:27AM Allergic rhinitis; due to other allergen Jun 14 2013 9:27AM Allergic rhinitis; due to pollen Jun 21 2013 12:18PM Allergic rhinitis; due to other allergen Jun 21 2013 12:18PM Allergic rhinitis; due to pollen Jun 28 2013 9:04AM Allergic rhinitis; due to other allergen Jun 28 2013 9:04AM Allergic rhinitis; due to pollen Jul 05 2013 9:16AM Allergic rhinitis; due to other allergen Jul 05 2013 9:16AM Allergic rhinitis; due to pollen Jul 12 2013 9:10AM Allergic rhinitis; due to other allergen Jul 12 2013 9:10AM Allergic rhinitis; due to pollen Jul 19 2013 8:56AM Allergic rhinitis; due to other allergen Jul 19 2013 8:56AM Allergic rhinitis; due to pollen Jul 26 2013 9:05AM Allergic rhinitis; due to other allergen Jul 26 2013 9:05AM Allergic rhinitis; due to pollen Aug 02 2013 8:52AM Allergic rhinitis; due to other allergen Aug 02 2013 8:52AM Allergic rhinitis; due to pollen Aug 09 2013 9:37AM Allergic rhinitis; due to other allergen Aug 09 2013 9:37AM Allergic rhinitis; due to pollen Aug 16 2013 9:09AM Allergic rhinitis; due to other allergen Aug 16 2013 9:09AM Allergic Rhinitis Aug 22 2013 1:08PM Benign Essential Hypertension Aug 22 2013 1:08PM Diabetes Mellitus, Type II Aug 22 2013 1:08PM Hyperlipidemia Aug 22 2013 1:08PM Hypothyroidism, Acquired Aug 22 2013 1:08PM Flu Aug 22 2013 2:20PM Allergic rhinitis; due to pollen Aug 25 2013 1:22PM Allergic rhinitis; due to other allergen Aug 25 2013 1:22PM Allergic rhinitis; due to pollen Aug 31 2013 1:36PM Allergic rhinitis; due to other allergen Aug 31 2013 1:36PM Allergic rhinitis; due to pollen Sep 06 2013 9:23AM Allergic rhinitis; due to other allergen Sep 06 2013 9:23AM Allergic rhinitis; due to pollen Sep 13 2013 9:02AM Allergic rhinitis; due to other allergen Sep 13 2013 9:02AM Allergic rhinitis; due to pollen Sep 20 2013 9:16AM Allergic rhinitis; due to other allergen Sep 20 2013 9:16AM Allergic rhinitis; due to pollen Sep 27 2013 9:10AM Allergic rhinitis; due to other allergen Sep 27 2013 9:10AM Allergic rhinitis; due to pollen Oct 04 2013 12:51PM Allergic rhinitis; due to other allergen Oct 04 2013 12:51PM Allergic rhinitis; due to pollen Oct 11 2013 9:11AM Allergic rhinitis; due to other allergen Oct 11 2013 9:11AM Allergic rhinitis; due to pollen Oct 18 2013 8:51AM Allergic rhinitis; due to other allergen Oct 18 2013 8:51AM Allergic rhinitis; due to pollen Oct 25 2013 9:15AM Allergic rhinitis; due to other allergen Oct 25 2013 9:15AM Allergic rhinitis; due to pollen Oct 31 2013 8:58AM Allergic rhinitis; due to other allergen Oct 31 2013 8:58AM Allergic rhinitis; due to pollen Nov 07 2013 8:44AM Allergic rhinitis; due to other allergen Nov 07 2013 8:44AM Allergic rhinitis; due to pollen Nov 14 2013 9:00AM Allergic rhinitis; due to other allergen Nov 14 2013 9:00AM Diabetes Mellitus, Type II Nov 23 2013 1:44PM Degenerative disc disease Nov 23 2013 1:44PM Obesity Nov 23 2013 1:44PM Spinal stenosis, Lumbar region Nov 23 2013 1:44PM Allergic Rhinitis Nov 23 2013 1:44PM Anemia Nov 23 2013 1:44PM Benign essential hypertension Nov 23 2013 1:44PM Heartburn Nov 23 2013 1:44PM Hyperlipidemia Nov 23 2013 1:44PM Obstructive Sleep Apnea Nov 23 2013 1:44PM Allergic rhinitis; due to pollen Nov 23 2013 2:50PM Allergic rhinitis; due to other allergen Nov 23 2013 2:50PM Allergic rhinitis; due to pollen Nov 29 2013 9:09AM Allergic rhinitis; due to other allergen Nov 29 2013 9:09AM Screening Mammogram Dec 05 2013 9:05AM Allergic rhinitis; due to pollen Dec 05 2013 9:09AM Allergic rhinitis; due to other allergen Dec 05 2013 9:09AM Allergic rhinitis; due to pollen Dec 12 2013 9:37AM Allergic rhinitis; due to other allergen Dec 12 2013 9:37AM Allergic rhinitis; due to pollen Dec 27 2013 9:46AM Allergic rhinitis; due to other allergen Dec 27 2013 9:46AM Diabetes Mellitus, Type II Jan 02 2014 2:49PM Degenerative disc disease Jan 02 2014 2:49PM Obesity Jan 02 2014 2:49PM Spinal stenosis, Lumbar region Jan 02 2014 2:49PM Allergic Rhinitis Jan 02 2014 2:49PM Anemia Jan 02 2014 2:49PM Benign essential hypertension Jan 02 2014 2:49PM Gastric Ulcer Jan 02 2014 2:49PM Heartburn Jan 02 2014 2:49PM Hyperlipidemia Jan 02 2014 2:49PM Murmur Jan 02 2014 2:49PM Obstructive Sleep Apnea Jan 02 2014 2:49PM Pain in right foot Jan 02 2014 2:49PM Allergic rhinitis; due to pollen Jan 09 2014 8:57AM Allergic rhinitis; due to other allergen Jan 09 2014 8:57AM Degenerative disc disease 2014 4:22PM Obesity 2014 4:22PM Spinal stenosis, Lumbar region 2014 4:22PM Allergic Rhinitis 2014 4:22PM Anemia 2014 4:22PM Asthma 2014 4:22PM Benign essential hypertension 2014 4:22PM Gastric Ulcer 2014 4:22PM Heartburn 2014 4:22PM Hyperlipidemia 2014 4:22PM Murmur 2014 4:22PM Obstructive Sleep Apnea 2014 4:22PM Pain in foot 2014 4:22PM Callus;left foot 2014 4:22PM Allergic rhinitis; due to pollen Jan 25 2014 9:09AM Allergic rhinitis; due to other allergen Jan 25 2014 9:09AM Allergic rhinitis; due to pollen Jan 31 2014 9:14AM Allergic rhinitis; due to other allergen Jan 31 2014 9:14AM Allergic rhinitis; due to pollen Feb 14 2014 9:17AM Allergic rhinitis; due to other allergen Feb 14 2014 9:17AM Allergic rhinitis; due to pollen Feb 26 2014 11:14PM Allergic rhinitis; due to other allergen Feb 26 2014 11:14PM Allergic rhinitis; due to pollen Feb 26 2014 11:40PM Allergic rhinitis; due to other allergen Feb 26 2014 11:40PM Allergic rhinitis; due to pollen Feb 28 2014 9:32AM Allergic rhinitis; due to other allergen Feb 28 2014 9:32AM Allergic rhinitis; due to pollen Mar 05 2014 9:34AM Allergic rhinitis; due to other allergen Mar 05 2014 9:34AM Allergic rhinitis; due to pollen Mar 07 2014 8:59AM Allergic rhinitis; due to other allergen Mar 07 2014 8:59AM Allergic rhinitis; due to pollen Mar 14 2014 9:15AM Allergic rhinitis; due to other allergen Mar 14 2014 9:15AM Allergic rhinitis; due to pollen Mar 22 2014 9:43AM Allergic rhinitis; due to other allergen Mar 22 2014 9:43AM Allergic rhinitis; due to pollen Mar 28 2014 9:04AM Allergic rhinitis; due to other allergen Mar 28 2014 9:04AM Allergic rhinitis; due to pollen Apr 05 2014 8:56AM Allergic rhinitis; due to other allergen Apr 05 2014 8:56AM Allergic rhinitis; due to pollen Apr 05 2014 8:57AM Allergic rhinitis; due to other allergen Apr 05 2014 8:57AM Allergic rhinitis; due to pollen Apr 12 2014 9:10AM Allergic rhinitis; due to other allergen Apr 12 2014 9:10AM Hypertension Apr 18 2014 8:26AM Diabetes Mellitus, Type II Apr 18 2014 8:26AM Hyperlipidemia Apr 18 2014 8:26AM Hypothyroidism, Acquired Apr 18 2014 8:26AM Anemia Apr 18 2014 8:26AM Allergic rhinitis; due to pollen Apr 18 2014 9:21AM Allergic rhinitis; due to other allergen Apr 18 2014 9:21AM Allergic rhinitis; due to pollen May 02 2014 9:34AM Allergic rhinitis; due to other allergen May 02 2014 9:34AM Allergic rhinitis; due to pollen May 16 2014 8:32AM Allergic rhinitis; due to other allergen May 16 2014 8:32AM Allergic rhinitis; due to pollen May 23 2014 9:04AM Allergic rhinitis; due to other allergen May 23 2014 9:04AM Allergic rhinitis; due to pollen May 30 2014 9:08AM Allergic rhinitis; due to other allergen May 30 2014 9:08AM Allergic rhinitis; due to pollen Jun 06 2014 9:16AM Allergic rhinitis; due to other allergen Jun 06 2014 9:16AM Allergic rhinitis; due to pollen Jun 07 2014 8:22AM Allergic rhinitis; due to other allergen Jun 07 2014 8:22AM Allergic rhinitis; due to pollen Jun 13 2014 9:41AM Allergic rhinitis; due to other allergen Jun 13 2014 9:41AM Allergic rhinitis; due to pollen Jun 20 2014 9:15AM Allergic rhinitis; due to other allergen Jun 20 2014 9:15AM Screening Mammogram Jun 26 2014 1:07PM Allergic rhinitis; due to pollen Jul 11 2014 8:58AM Allergic rhinitis; due to other allergen Jul 11 2014 8:58AM Allergic rhinitis; due to pollen Jul 19 2014 9:07AM Allergic rhinitis; due to other allergen Jul 19 2014 9:07AM Allergic rhinitis; due to pollen Jul 25 2014 8:59AM Allergic rhinitis; due to other allergen Jul 25 2014 8:59AM Allergic rhinitis; due to pollen Aug 01 2014 9:10AM Allergic rhinitis; due to other allergen Aug 01 2014 9:10AM Allergic rhinitis; due to pollen Aug 08 2014 9:43AM Allergic rhinitis; due to other allergen Aug 08 2014 9:43AM Allergic rhinitis; due to pollen Aug 14 2014 10:13AM Allergic rhinitis; due to other allergen Aug 14 2014 10:13AM Allergic rhinitis; due to pollen Aug 15 2014 9:33AM Allergic rhinitis; due to other allergen Aug 15 2014 9:33AM Allergic rhinitis; due to pollen Aug 31 2014 9:17AM Allergic rhinitis; due to other allergen Aug 31 2014 9:17AM Allergic rhinitis; due to pollen Sep 05 2014 2:21PM Allergic rhinitis; due to other allergen Sep 05 2014 2:21PM Allergic rhinitis; due to pollen Sep 12 2014 1:59PM Allergic rhinitis; due to other allergen Sep 12 2014 1:59PM Allergic rhinitis; due to pollen Sep 26 2014 8:52AM Allergic rhinitis; due to other allergen Sep 26 2014 8:52AM Allergic rhinitis; due to pollen Oct 03 2014 8:52AM Allergic rhinitis; due to other allergen Oct 03 2014 8:52AM Allergic rhinitis; due to pollen Oct 10 2014 10:02AM Allergic rhinitis; due to other allergen Oct 10 2014 10:02AM Allergic rhinitis; due to pollen Oct 18 2014 9:09AM Allergic rhinitis; due to other allergen Oct 18 2014 9:09AM Allergic rhinitis; due to pollen Oct 24 2014 9:09AM Allergic rhinitis; due to other allergen Oct 24 2014 9:09AM Allergic rhinitis; due to pollen Oct 25 2014 2:30PM Allergic rhinitis; due to other allergen Oct 25 2014 2:30PM Allergic rhinitis; due to pollen Oct 27 2014 10:54AM Allergic rhinitis; due to other allergen Oct 27 2014 10:54AM Flu Vaccine Oct 27 2014 10:58AM Allergic rhinitis; due to pollen Oct 27 2014 11:08AM Allergic rhinitis; due to other allergen Oct 27 2014 11:08AM Allergic rhinitis; due to pollen Oct 31 2014 9:18AM Allergic rhinitis; due to other allergen Oct 31 2014 9:18AM Allergic rhinitis; due to pollen Nov 06 2014 9:08AM Allergic rhinitis; due to other allergen Nov 06 2014 9:08AM Allergic rhinitis; due to pollen Nov 14 2014 9:09AM Allergic rhinitis; due to other allergen Nov 14 2014 9:09AM Allergic rhinitis; due to pollen Nov 21 2014 9:02AM Allergic rhinitis; due to other allergen Nov 21 2014 9:02AM Allergic rhinitis; due to pollen Nov 28 2014 9:09AM Allergic rhinitis; due to other allergen Nov 28 2014 9:09AM Screening Mammogram Dec 05 2014 2:52PM Screening Mammogram For High Risk Patient Dec 05 2014 2:52PM Spinal stenosis, lumbar region Dec 05 2014 3:18PM Benign essential hypertension Dec 05 2014 3:18PM Diabetes mellitus, type II Dec 05 2014 3:18PM Heartburn Dec 05 2014 3:18PM Hyperlipidemia Dec 05 2014 3:18PM Mitral valve prolapse Dec 05 2014 3:18PM Peripheral Vascular Disease Dec 05 2014 3:18PM Personal history of breast cancer Dec 05 2014 3:18PM Breast mass in female Dec 05 2014 3:18PM Allergic rhinitis; due to pollen Dec 12 2014 8:54AM Allergic rhinitis; due to other allergen Dec 12 2014 8:54AM Allergic rhinitis; due to pollen Jan 02 2015 9:01AM Allergic rhinitis; due to other allergen Jan 02 2015 9:01AM Allergic rhinitis; due to pollen Jan 04 2015 9:45AM Allergic rhinitis; due to other allergen Jan 04 2015 9:45AM Allergic rhinitis; due to other allergen Jan 09 2015 9:07AM Allergic rhinitis; due to other allergen Jan 16 2015 9:19AM Diabetes Mellitus, Type II Jan 16 2015 9:12AM Hypertension Jan 16 2015 9:12AM Degenerative disc disease Jan 16 2015 9:12AM Obesity Jan 16 2015 9:12AM Spinal stenosis, lumbar region Jan 16 2015 9:12AM Allergic rhinitis Jan 16 2015 9:12AM Anemia Jan 16 2015 9:12AM Asthma Jan 16 2015 9:12AM Gastric Ulcer Jan 16 2015 9:12AM Heartburn Jan 16 2015 9:12AM Hyperlipidemia Jan 16 2015 9:12AM Mitral valve prolapse Jan 16 2015 9:12AM Obstructive Sleep Apnea Jan 16 2015 9:12AM Peripheral Vascular Disease Jan 16 2015 9:12AM Allergic rhinitis; due to other allergen Jan 23 2015 9:20AM Allergic rhinitis; due to other allergen Jan 30 2015 9:00AM Allergic rhinitis; due to other allergen Feb 06 2015 8:58AM Allergic rhinitis; due to other allergen Feb 13 2015 9:05AM Allergic rhinitis; due to pollen Feb 20 2015 8:55AM Allergic rhinitis; due to other allergen Feb 20 2015 8:55AM Allergic rhinitis; due to other allergen Feb 27 2015 9:28AM Allergic rhinitis; due to other allergen Mar 06 2015 9:24AM Allergic rhinitis; due to other allergen Mar 13 2015 9:26AM Allergic rhinitis; due to other allergen Mar 20 2015 9:01AM Allergic rhinitis; due to other allergen Mar 28 2015 3:20PM Diabetes Mellitus, Type II Mar 28 2015 3:08PM Allergic rhinitis; due to other allergen Apr 05 2015 9:08AM Allergic rhinitis; due to other allergen Apr 11 2015 9:08AM Allergic rhinitis; due to other allergen Apr 17 2015 9:20AM Allergic rhinitis; due to other allergen Apr 24 2015 9:01AM Allergic rhinitis; due to other allergen May 08 2015 9:29AM Allergic rhinitis; due to other allergen May 15 2015 8:51AM Allergic rhinitis; due to other allergen May 22 2015 9:13AM Allergic rhinitis; due to other allergen May 29 2015 9:05AM Allergic rhinitis; due to pollen Jun 12 2015 10:53AM Allergic rhinitis; due to other allergen Jun 12 2015 10:53AM Allergic rhinitis; due to other allergen Jun 19 2015 9:06AM Allergic rhinitis; due to other allergen Jun 26 2015 9:12AM Allergic rhinitis; due to other allergen Jul 04 2015 9:39AM Allergic rhinitis; due to other allergen Jul 10 2015 9:15AM Allergic rhinitis; due to other allergen Jul 17 2015 8:56AM Allergic rhinitis; due to other allergen Jul 24 2015 9:10AM Allergic rhinitis; due to other allergen Jul 31 2015 9:04AM Allergic rhinitis; due to other allergen Aug 07 2015 9:00AM Allergic rhinitis; due to other allergen Aug 14 2015 9:06AM Allergic rhinitis; due to other allergen Aug 21 2015 9:12AM Flu Aug 24 2015 9:17AM Allergic rhinitis; due to other allergen Sep 04 2015 9:16AM Diabetes Mellitus, Type II Sep 06 2015 8:34AM Hypertension Sep 06 2015 8:34AM Hyperlipidemia, unspecified Sep 06 2015 8:34AM Hypothyroidism, Acquired Sep 06 2015 8:34AM Allergic rhinitis; due to other allergen Sep 11 2015 9:22AM Allergic rhinitis; due to other allergen Sep 12 2015 11:50AM Degenerative disc disease Sep 14 2015 1:06PM Spinal stenosis, lumbar region Sep 14 2015 1:06PM Asthma Sep 14 2015 1:06PM Benign Essential Hypertension Sep 14 2015 1:06PM degenerative joint disease Sep 14 2015 1:06PM Diabetes Mellitus, Type II Sep 14 2015 1:06PM Gastric ulcer Sep 14 2015 1:06PM Heartburn Sep 14 2015 1:06PM Hyperlipidemia Sep 14 2015 1:06PM Hypothyroidism, Acquired Sep 14 2015 1:06PM Mitral valve prolapse Sep 14 2015 1:06PM Murmur Sep 14 2015 1:06PM Peripheral Vascular Disease Sep 14 2015 1:06PM Allergic rhinitis; due to other allergen Sep 18 2015 9:01AM Allergic rhinitis; due to other allergen Sep 25 2015 9:06AM Allergic rhinitis; due to other allergen Oct 03 2015 9:51AM Allergic rhinitis; due to other allergen Oct 09 2015 9:48AM Allergic rhinitis; due to other allergen Oct 16 2015 9:05AM Chest pain on breathing Oct 16 2015 9:25AM Systolic murmur Oct 16 2015 10:15AM Lightheadedness Oct 16 2015 10:15AM Tachycardia Oct 16 2015 9:25AM Dyspnea on exertion Oct 16 2015 9:25AM Allergic rhinitis; due to other allergen Oct 23 2015 9:08AM Payers Insurance Name Company Name Plan Name Plan Number Policy Number Policy Group Number Start Date Medicare Part A Medicare Part A [id number] Tuesday, [id number] Friday, 2009 Medicare Part B Medicare [place] [id number] Saturday, 2006 History of Encounters Visit Date Visit Type Provider 10/23/2015 Nurse visit Nicole Ackerman MD 10/16/2015 Office visit Nicole Ackerman MD 10/09/2015 Nurse visit Nicole Ackerman MD 10/03/2015 Nurse visit Nicole Ackerman MD 09/25/2015 Nurse visit Nicole Ackerman MD 09/18/2015 Nurse visit Nicole Ackerman MD 09/14/2015 Office visit Nicole Ackerman MD 09/11/2015 Nurse visit Nicole Ackerman MD 09/04/2015 Nurse visit Nicole Ackerman MD 08/28/2015 Nurse visit Nicole Ackerman MD 08/24/2015 Nurse visit Nicole Ackerman MD 08/21/2015 Nurse visit Nicole Ackerman MD 08/14/2015 Nurse visit Nicole Ackerman MD 08/07/2015 Nurse visit Nicole Ackerman MD 07/31/2015 Nurse visit Nicole Ackerman MD 07/24/2015 Nurse visit Nicole Ackerman MD 07/17/2015 Nurse visit Nicole Ackerman MD 07/10/2015 Nurse visit Nicole Ackerman MD 07/04/2015 Nurse visit Nicole Ackerman MD 06/26/2015 Nurse visit Nicole Ackerman MD 06/19/2015 Nurse visit Nicole Ackerman MD 06/12/2015 Nurse visit Nicole Ackerman MD 05/29/2015 Nurse visit Nicole Ackerman MD 05/22/2015 Nurse visit Nicole Ackerman MD 05/15/2015 Nurse visit Nicole Ackerman MD 05/08/2015 Nurse visit Nicole Ackerman MD 04/24/2015 Nurse visit Nicole Ackerman MD 04/17/2015 Nurse visit Nicole Ackerman MD 04/11/2015 Nurse visit Nicole Ackerman MD 04/05/2015 Nurse visit Nicole Ackerman MD 03/28/2015 Office visit Nicole Ackerman MD 03/20/2015 Nurse visit Nicole Ackerman MD 03/13/2015 Nurse visit Nicole Ackerman MD 03/06/2015 Nurse visit Nicole Ackerman MD 02/27/2015 Nurse visit Nicole Ackerman MD 02/20/2015 Nurse visit Nicole Ackerman MD 02/13/2015 Nurse visit Nicole Ackerman MD 02/06/2015 Nurse visit Nicole Ackerman MD 01/30/2015 Nurse visit Nicole Ackerman MD 01/23/2015 Nurse visit Nicole Ackerman MD 01/16/2015 Office visit Nicole Ackerman MD 01/09/2015 Nurse visit Nicole Ackerman MD 01/02/2015 Nurse visit Nicole Ackerman MD 12/19/2014 Nurse visit Nicole Ackerman MD 12/12/2014 Nurse visit Nicole Ackerman MD 12/05/2014 Office visit Nicole Ackerman MD 11/28/2014 Nurse visit Nicole Ackerman MD 11/21/2014 Nurse visit Nicole Ackerman MD 11/14/2014 Nurse visit Nicole Ackerman MD 11/06/2014 Nurse visit Nicole Ackerman MD 10/31/2014 Nurse visit Nicole Ackerman MD 10/24/2014 Nurse visit Nicole Ackerman MD 10/18/2014 Nurse visit Nicole Ackerman MD 10/10/2014 Nurse visit Nicole Ackerman MD 10/03/2014 Nurse visit Nicole cAkerman MD 09/26/2014 Nurse visit Nicole Ackerman MD 09/19/2014 Nurse visit Nicole Ackerman MD 09/12/2014 Nurse visit Nicole Ackerman MD 09/08/2014 Nurse visit Nicole Ackerman MD 09/05/2014 Nurse visit Nicole Ackerman MD 08/29/2014 Nurse visit Nicole Ackerman MD 08/22/2014 Nurse visit Nicole Ackerman MD 08/15/2014 Nurse visit Nicole Ackerman MD 08/08/2014 Nurse visit Nicole Ackerman MD 08/01/2014 Nurse visit Nicole Ackerman MD 07/25/2014 Nurse visit Nicole Ackerman MD 07/19/2014 Nurse visit [place] [employer] SETTER 07/11/2014 Nurse visit [place] TOMBSTONE SETTER 07/04/2014 Nurse visit Skylar Pfeiffer TOMBSTONE SETTER 06/27/2014 Nurse visit [place] TOMBSTONE SETTER 06/20/2014 Nurse visit [place] TOMBSTONE SETTER 06/13/2014 Nurse visit Nicole Ackerman MD 06/06/2014 Nurse visit Mariposa Bellamy TOMBSTONE SETTER 05/30/2014 Nurse visit [place] TOMBSTONE SETTER 05/23/2014 Nurse visit Skylar Pfeiffer TOMBSTONE SETTER 05/16/2014 Nurse visit Nicole Ackerman MD 05/02/2014 Nurse visit Nicole Ackerman MD 04/25/2014 Nurse visit Nicole Ackerman MD 04/18/2014 Nurse visit Nicole Ackerman MD 04/12/2014 Nurse visit Nicole Ackerman MD 04/05/2014 Nurse visit Nicole Ackerman MD 03/28/2014 Nurse visit Mariposa Cordova RN 03/22/2014 Nurse visit Skylar Pfeiffer TOMBSTONE SETTER 03/14/2014 Nurse visit Nicole Ackerman MD 03/07/2014 Nurse visit Skylar Pfeiffer TOMBSTONE SETTER 02/28/2014 Nurse visit Skylar Pfeiffer TOMBSTONE SETTER 02/21/2014 Nurse visit Nicole Ackerman MD 02/14/2014 Nurse visit Skylar Pfeiffer TOMBSTONE SETTER 02/06/2014 Nurse visit Nicole Ackerman MD 01/31/2014 Nurse visit Nicole Ackerman MD 01/25/2014 Nurse visit Nicole Ackerman MD 2014 Office visit Nicole Ackerman MD 01/09/2014 Nurse visit Nicole Ackerman MD 01/02/2014 Office visit Nicole Ackerman MD 12/27/2013 Nurse visit Nicole Ackerman MD 12/19/2013 Nurse visit Nicole Ackerman MD 12/12/2013 Nurse visit Nicole Ackerman MD 12/05/2013 Nurse visit Nicole Ackerman MD 11/29/2013 Nurse visit Mariposa Bellamy TOMBSTONE SETTER 11/23/2013 Office visit Nicole Ackerman MD 11/14/2013 Nurse visit Jarad Saravia 11/07/2013 Nurse visit Nicole Ackerman MD 10/31/2013 Nurse visit Jailene Aguilera MD 10/25/2013 Nurse visit Jailene Aguilera MD 10/18/2013 Nurse visit Jailene Aguilera MD 10/11/2013 Nurse visit Jailene Aguilera MD 10/04/2013 Nurse visit Jailene Aguilera MD 09/27/2013 Nurse visit Jailene Aguilera MD 09/20/2013 Nurse visit Jailene Aguilera MD 09/13/2013 Nurse visit Jailene Aguilera MD 09/06/2013 Nurse visit Jailene Aguilera MD 08/31/2013 Nurse visit Jailene Aguilera MD 08/25/2013 Nurse visit Jailene Aguilera MD 08/22/2013 Office visit Jailene Aguilera MD 08/16/2013 Nurse visit Jailene Aguilera MD 08/09/2013 Nurse visit Skylar Pfeiffer TOMBSTONE SETTER 08/02/2013 Nurse visit Skylar Pfeiffer TOMBSTONE SETTER 07/26/2013 Nurse visit Skylar Pfeiffer TOMBSTONE SETTER 07/19/2013 Nurse visit Skylar Pfeiffer TOMBSTONE SETTER 07/12/2013 Nurse visit Skylar Pfeiffer TOMBSTONE SETTER 07/05/2013 Nurse visit Skylar Pfeiffer TOMBSTONE SETTER 06/28/2013 Nurse visit Skylar Pfeiffer TOMBSTONE SETTER 06/21/2013 Nurse visit Skylar Pfeiffer TOMBSTONE SETTER 06/14/2013 Nurse visit Skylar Pfeiffer TOMBSTONE SETTER 06/08/2013 Nurse visit Jailene Aguilera MD 06/02/2013 Nurse visit Jailene Aguilera MD 05/24/2013 Nurse visit Jailene Aguilera MD 05/17/2013 Nurse visit Jailene Aguilera MD 05/11/2013 Nurse visit Jailene Aguilera MD 05/02/2013 Nurse visit Jailene Aguilera MD 04/26/2013 Nurse visit Jailene Aguilera MD 04/19/2013 Nurse visit Jailene Aguilera MD 04/12/2013 Nurse visit Jailene Aguilera MD 04/05/2013 Nurse visit Jailene Aguilera MD 03/29/2013 Nurse visit Jailene Aguilera MD 03/22/2013 Nurse visit Jailene Aguilera MD 03/15/2013 Nurse visit Jailene Aguilera MD 03/07/2013 Nurse visit Jailene Aguilera MD 03/01/2013 Nurse visit Jailene Aguilera MD 02/22/2013 Nurse visit Jailene Aguilera MD 02/14/2013 Nurse visit Jailene Aguilera MD 02/08/2013 Nurse visit Jailene Aguilera MD 02/02/2013 Nurse visit Giselle Gutierrez RN 01/27/2013 Office visit Jailene Aguilera MD 2013 Nurse visit Jailene Aguilera MD 01/10/2013 Nurse visit Jailene Aguilera MD 01/04/2013 Nurse visit Jailene Aguilera MD 12/28/2012 Nurse visit Jailene Aguilera MD 12/21/2012 Nurse visit Jailene Aguilera MD 12/14/2012 Nurse visit Jailene Aguilera MD 12/07/2012 Nurse visit Jailene Aguilera MD 11/30/2012 Nurse visit Jailene Aguilera MD 11/23/2012 Nurse visit Jailene Aguilera MD 11/17/2012 Nurse visit Jailene Aguilera MD 11/10/2012 Nurse visit Jailene Aguilera MD 10/25/2012 Nurse visit Jailene Aguilera MD 10/19/2012 Nurse visit Jailene Aguilera MD 10/13/2012 Nurse visit Jailene Aguilera MD 10/12/2012 Office visit Jailene Aguilera MD 10/06/2012 Office visit Skylar Pfeiffer APRN 10/05/2012 Nurse visit Jailene Aguilera MD 09/28/2012 Nurse visit Jailene Aguilera MD 09/23/2012 [facility] Guido Parra MD 09/21/2012 Nurse visit Jailene Aguilera MD 09/14/2012 Nurse visit Jailene Aguilera MD 09/09/2012 [facility] Guido Parra MD 09/07/2012 Nurse visit Jailene Aguilera MD 09/02/2012 Office visit Jailene Aguilera MD 08/31/2012 Nurse visit Jailene Aguilera MD 08/25/2012 Nurse visit Jailene Aguilera MD 08/18/2012 Nurse visit Jailene Aguilera MD 08/11/2012 Nurse visit Jailene Aguilera MD 08/05/2012 Nurse visit Jailene Aguilera MD 07/29/2012 Office visit Jailene Aguilera MD 07/21/2012 Nurse visit Jailene Aguilera MD 07/12/2012 Nurse visit Jailene Aguilera MD 07/12/2012 Voided Jailene Aguilera MD 07/06/2012 Nurse visit Jailene Aguilera MD 06/28/2012 Nurse visit Jailene Aguilera MD 06/28/2012 Voided Jarad Saravia DO 06/21/2012 Nurse visit Giselle Gutierrez RN 06/14/2012 Nurse visit Jailene Aguilera MD 06/07/2012 Nurse visit Jailene Aguilera MD 05/31/2012 Nurse visit Jailene Aguilera MD 05/24/2012 Nurse visit Jailene Aguilera MD 05/17/2012 Nurse visit Jailene Aguilera MD 05/11/2012 Nurse visit Jailene Aguilera MD 05/04/2012 Nurse visit [place] MD 04/27/2012 Nurse visit Jailene Aguilera MD 04/20/2012 Nurse visit Jailene Aguilera MD 04/13/2012 Nurse visit Jailene Aguilera MD 04/07/2012 Nurse visit Jailene Aguilera MD 03/31/2012 Nurse visit Jailene Aguilera MD 03/23/2012 Nurse visit Jailene Aguilera MD 03/16/2012 Nurse visit Jailene Aguilera MD 03/09/2012 Nurse visit Jailene Aguilera MD 03/02/2012 Nurse visit Jailene Aguilera MD 02/24/2012 Nurse visit Jailene Aguilera MD 02/17/2012 Nurse visit Jailene Aguilera MD 02/09/2012 Nurse visit Jailene Aguilera MD 02/02/2012 Nurse visit Jailene Aguilera MD 01/27/2012 Nurse visit Jailene Aguilera MD 01/20/2012 Office visit Jailene Aguilera MD 01/07/2012 Nurse visit Jailene Aguilera MD 12/31/2011 Nurse visit Jailene Aguilera MD 12/22/2011 Nurse visit Jailene Aguilera MD 12/15/2011 Nurse visit Jailene Aguilera MD 12/08/2011 Nurse visit Jailene Aguilera MD 12/02/2011 Nurse visit Jailene Aguilera MD 11/25/2011 Nurse visit Jailene Aguilera MD 11/18/2011 Nurse visit Jailene Aguilera MD 11/11/2011 Nurse visit Jailene Aguilera MD 11/03/2011 Nurse visit Jailene Aguilera MD 10/27/2011 Nurse visit Jailene Aguilera MD 10/20/2011 Nurse visit Jailene Aguilera MD 10/20/2011 Voided Jarad Saravia DO 10/13/2011 Nurse visit Jailene Aguilera MD 10/07/2011 Nurse visit Jailene Aguilera MD 10/01/2011 Nurse visit Jailene Aguilera MD 09/24/2011 Nurse visit Jailene Aguilera MD 09/15/2011 Nurse visit Jailene Aguilera MD 09/08/2011 Nurse visit Jailene Aguilera MD 09/04/2011 Surgery Jailene Aguilera MD 09/01/2011 Nurse visit Jailene Aguilera MD 08/25/2011 Nurse visit Jailene Aguilera MD 08/18/2011 Nurse visit Jailene Aguilera MD 08/11/2011 Nurse visit Jailene Aguilera MD 08/04/2011 Nurse visit Jailene Aguilera MD 07/24/2011 Nurse visit Jailene Aguilera MD 07/14/2011 Office visit Jailene Aguilera MD 07/08/2011 Nurse visit Jailene Aguilera MD 07/01/2011 Nurse visit Jailene Aguilera MD 06/24/2011 Nurse visit Jailene Aguilera MD 06/17/2011 Nurse visit Jailene Aguilera MD 06/10/2011 Nurse visit Jailene Aguilera MD 06/03/2011 Nurse visit Jailene Aguilera MD 05/27/2011 Nurse visit Jailene Aguilera MD 05/20/2011 Nurse visit Jailene Aguilera MD 05/13/2011 Nurse visit Jarad Saravia DO 05/06/2011 Nurse visit Jailene Aguilera MD 04/29/2011 Nurse visit Jailene Aguilera MD 04/21/2011 Nurse visit Jailene Aguilera MD 04/15/2011 Nurse visit Jailene Aguilera MD 04/08/2011 Nurse visit Jailene Aguilera MD 04/01/2011 Nurse visit Jailene Aguilera MD 03/25/2011 Nurse visit Jailene Aguilera MD 03/18/2011 Nurse visit Jailene Aguilera MD 03/12/2011 Nurse visit Chin Mcconnell DO 03/11/2011 Office visit Jailene Aguilera MD 03/05/2011 Nurse visit Chin Mcconnell DO 02/25/2011 Nurse visit Chin Mcconnell DO 02/19/2011 Nurse visit Chin Mcconnell DO 02/19/2011 Mariella Ness MD 02/11/2011 Nurse visit Chin Mcconnell DO 02/05/2011 Nurse visit Cihn Mcconnell DO 01/29/2011 Nurse visit Chin Mcconnell DO 01/22/2011 Nurse visit Chin Mcconnell DO 01/15/2011 Nurse visit Chin Mcconnell DO 01/08/2011 Nurse visit Chin Mcconnell DO 01/01/2011 Office visit Chin Mcconnell DO 12/26/2010 Nurse visit Chin Mcconnell DO 12/20/2010 Nurse visit Chin Mcconnell DO 12/11/2010 Nurse visit Chin Mcconnell DO 12/04/2010 Nurse visit Chin Mcconnell DO 11/27/2010 Nurse visit Chin Mcconnell DO 11/20/2010 Nurse visit Chin Mcconnell DO 11/13/2010 Nurse visit Chin Mcconnell DO 11/06/2010 Nurse visit Chin Mcconnell DO 10/30/2010 Nurse visit Chin Mcconnell DO 10/22/2010 Nurse visit Chin Mcconnell DO 10/16/2010 Nurse visit Chin Mcconnell DO 10/02/2010 Nurse visit Chin Mcconnell DO 09/25/2010 Nurse visit Chin Mcconnell DO 09/19/2010 Nurse visit Chin Mcconnell DO 09/11/2010 Nurse visit Chin Mcconnell DO 09/04/2010 Nurse visit Chin Mcconnell DO 08/28/2010 Office visit Chin Mcconnell DO 08/21/2010 Office visit Chin Mcconnell DO 08/14/2010 Nurse visit Chin Mcconnell DO 08/01/2010 Nurse visit Chin Mcconnell DO 07/24/2010 Nurse visit Chin Mcconnell DO 07/17/2010 Nurse visit Chin Mcconnell DO 07/11/2010 Nurse visit Chin Mcconnell DO 07/03/2010 Nurse visit Chin Mcconnell DO 06/26/2010 Office visit Chin Mcconnell DO 06/19/2010 Nurse visit Chin Mcconnell DO 06/12/2010 Nurse visit Chin Mcconnell DO 06/05/2010 Nurse visit Chin Mcconnell DO 05/29/2010 Nurse visit Chin Mcconnell DO 05/22/2010 Nurse visit Chin Mcconnell DO 05/15/2010 Nurse visit Chin Mcconnell DO 05/08/2010 Nurse visit Chin Mcconnell DO 05/01/2010 Nurse visit Chin Mcconnell DO 04/24/2010 Nurse visit Chin Mcconnell DO 04/17/2010 Nurse visit Chin Mcconnell DO 04/10/2010 Nurse visit Chin Mcconnell DO 04/03/2010 Nurse visit Chin Mcconnell DO 03/27/2010 Nurse visit Chin Mcconnell DO 03/20/2010 Nurse visit Chin Mcconnell DO 03/13/2010 Nurse visit Chin Mcconnell DO 03/06/2010 Nurse visit Chin Mcconnell DO 02/26/2010 Nurse visit Chin Mcconnell DO 02/20/2010 Nurse visit Chin Mcconnell DO 02/13/2010 Nurse visit Chin Mcconnell DO 01/30/2010 Nurse visit Chin Mcconnell DO 01/23/2010 Nurse visit Chin Mcconnell DO 01/16/2010 Nurse visit Chin Mcconnell DO 01/09/2010 Office visit Chin Mcconnell DO 01/01/2010 Nurse visit Chin Mcconnell DO 12/26/2009 Nurse visit Chin Mcconnell DO 12/19/2009 Nurse visit Chin Mcconnell DO 12/12/2009 Nurse visit Chin Mcconnell DO 12/05/2009 Nurse visit Chin Mcconnell DO 11/27/2009 Nurse visit Chin Mcconnell DO 11/21/2009 Nurse visit Chin Mcconnell DO 11/15/2009 Nurse visit Chin Mcconnell DO 11/08/2009 Office visit Chin Mcconnell DO 10/30/2009 Nurse visit Chin Mcconnell DO 10/18/2009 Nurse visit Chin Mcconnell DO 10/10/2009 Nurse visit Chin Mcconnell DO 10/03/2009 Nurse visit Chin Mcconnell DO 09/26/2009 Nurse visit Chin Mcconnell DO 09/19/2009 Nurse visit Chin Mcconnell DO 09/12/2009 Nurse visit Chin Mcconnell DO 09/04/2009 Nurse visit Chin Mcconnell DO 08/29/2009 Nurse visit Chin Mcconnell DO 08/22/2009 Nurse visit Chin Mcconnell DO 08/15/2009 Nurse visit Chin Mcconnell DO 08/09/2009 Nurse visit Chin Mcconnell DO 07/31/2009 Nurse visit Chin Mcconnell DO 07/25/2009 Nurse visit Chin Mcconnell DO 07/18/2009 Nurse visit Chin Mcconnell DO 07/11/2009 Office visit Chin Mcconnell DO
--- OUTSIDE RECORDS SUMMARY | 2018-10-21 06:59 | XMS REPORT ---
Author Author Evan Mccullough Organization [facility] Address [address] [place], [place] [id number] Care Team Providers Care Technology Consultant Name Role Phone Evan Mccullough PCP ZacNicole whyte PreferredProvider Allergies and Adverse Reactions Name Reaction Notes pollens Demerol intolerant Plan of Treatment Planned Activity Comments Planned Date Planned Time Plan/Goal EKG (12-lead electrocardiogram) 10/16/2015 12:00 AM Allergy Injection Multiple, [facility] Medicare 11/13/2015 12:00 AM CBC With Auto Differential 10/16/2015 12:00 AM CMP (comprehensive metabolic panel) 10/16/2015 12:00 AM EKG (12-lead electrocardiogram) 10/16/2015 12:00 AM BNP 10/16/2015 12:00 AM Chest xray, PA & lateral 10/16/2015 12:00 AM Breathing Treatment 10/16/2015 12:00 AM HEMOGLOBIN A1C 10/02/2016 12:00 AM RENAL FUNCTION PANEL 10/02/2016 12:00 AM TSH 10/02/2016 12:00 AM Allergy Injection Multiple 05/04/2012 12:00 AM Allergy Injection Multiple 05/11/2012 12:00 AM Allergy Injection Multiple 05/17/2012 12:00 AM Allergy Injection Multiple 05/24/2012 12:00 AM Allergy Injection Multiple 05/31/2012 12:00 AM Allergy Injection Multiple 06/07/2012 12:00 AM Allergy Injection Multiple 06/14/2012 12:00 AM Allergy Injection Multiple 06/21/2012 12:00 AM Allergy Injection Multiple 06/28/2012 12:00 AM Allergy Injection Multiple 07/06/2012 12:00 AM Allergy Injection Multiple 07/12/2012 12:00 AM Allergy Injection Multiple 07/21/2012 12:00 AM Allergy Injection Multiple 07/21/2012 12:00 AM Comprehensive Metabolic Panel 07/29/2012 12:00 AM Lipid panel (total cholesterol, lipoproteins, HDL, triglycerides) 2011 12:00 AM Hemoglobin A1c 07/29/2012 12:00 AM Thyroid stimulating hormone (TSH) 07/29/2012 12:00 AM CBC (automated H&H, platelets, WBC and automated differential) 07/29/2012 12:00 AM Allergy Injection Multiple 08/05/2012 12:00 AM Allergy Injection Multiple 08/11/2012 12:00 AM shortness of breath, cough 12/13/2015 10:45 PM Diagnostic Mammogram 12/07/2012 12:00 AM Allergy Injection Multiple 01/27/2013 12:00 AM Allergy Injection Multiple 02/02/2013 12:00 AM Allergy Injection Multiple 02/08/2013 12:00 AM Allergy Injection Multiple 02/14/2013 12:00 AM Allergy Injection Multiple 02/22/2013 12:00 AM Allergy Injection Multiple 03/01/2013 12:00 AM Allergy Injection Multiple 03/07/2013 12:00 AM Allergy Injection Multiple 03/15/2013 12:00 AM Allergy Injection Multiple 03/22/2013 12:00 AM Allergy Injection Multiple 03/29/2013 12:00 AM Allergy Injection Multiple 04/05/2013 12:00 AM Allergy Injection Multiple 04/12/2013 12:00 AM Allergy Injection Multiple 04/19/2013 12:00 AM Allergy Injection Multiple 04/26/2013 12:00 AM Allergy Injection Multiple 05/02/2013 12:00 AM Allergy Injection Multiple 05/11/2013 12:00 AM Allergy Injection Multiple 05/17/2013 12:00 AM Allergy Injection Multiple 05/24/2013 12:00 AM Allergy Injection Multiple 06/28/2013 12:00 AM left foot and ankle arthritis and bone spurs 02/01/2016 12:00 AM Allergy Injection Multiple 07/05/2013 12:00 AM Allergy Injection Multiple 07/12/2013 12:00 AM Allergy Injection Multiple 07/19/2013 12:00 AM Allergy Injection Multiple 07/26/2013 12:00 AM Allergy Injection Multiple 08/02/2013 12:00 AM Allergy Injection Multiple 08/09/2013 12:00 AM Allergy Injection Multiple 08/16/2013 12:00 AM Hemoglobin A1c 11/22/2013 12:00 AM Allergy Injection Multiple 08/25/2013 12:00 AM Allergy Injection Multiple 08/31/2013 12:00 AM Allergy Injection Multiple 09/06/2013 12:00 AM Allergy Injection Multiple 09/13/2013 12:00 AM Allergy Injection Multiple 09/20/2013 12:00 AM Allergy Injection Multiple 09/27/2013 12:00 AM Allergy Injection Multiple 10/11/2013 12:00 AM Allergy Injection Multiple 10/18/2013 12:00 AM Allergy Injection Multiple 10/25/2013 12:00 AM Allergy Injection Multiple 10/31/2013 12:00 AM Allergy Injection Multiple 02/14/2014 12:00 AM CBC With Auto Differential 01/16/2015 12:00 AM Allergy Injection Multiple 03/06/2015 12:00 AM Allergy Injection Multiple, RHC Medicare 03/06/2015 12:00 AM Allergy Injection Multiple, RHC Medicare 03/13/2015 12:00 AM Allergy Injection Multiple, RHC Medicare 03/20/2015 12:00 AM Allergy Injection Multiple, RHC Medicare 03/28/2015 12:00 AM Allergy Injection Multiple, RHC Medicare 04/05/2015 12:00 AM Allergy Injection Multiple, RHC Medicare 04/11/2015 12:00 AM Allergy Injection Multiple, RHC Medicare 04/24/2015 12:00 AM Allergy Injection Multiple, RHC Medicare 05/08/2015 12:00 AM Allergy Injection Multiple, RHC Medicare 05/15/2015 12:00 AM Allergy Injection Multiple, RHC Medicare 05/22/2015 12:00 AM Allergy Injection Multiple, RHC Medicare 05/29/2015 12:00 AM Allergy Injection Multiple, RHC Medicare 06/19/2015 12:00 AM Medications Active Name Start Date Estimated Completion Date SIG Comments Ocuvite Oral Tablet take 1 tablet by oral route daily Fish Oil 1,000 mg oral capsule take 1 capsule by oral route 2 times a day simvastatin 80 mg oral tablet 10/26/2013 TAKE 1 TABLET BY MOUTH EVERY EVENING metformin 500 mg oral tablet 08/22/2014 TAKE 1 TABLET BY MOUTH TWICE DAILY WITH MORNING AND EVENING MEALS glipizide 5 mg oral tablet 05/21/2016 TAKE 1 TABLET BY MOUTH EVERY MORNING WITH BREAKFAST furosemide 40 mg oral tablet 07/17/2015 TAKE 1 TABLET BY MOUTH ONCE DAILY for 30 days atenolol 50 mg oral tablet 07/17/2015 TAKE 1 TABLET BY MOUTH EVERY DAY for 30 days metformin 500 mg oral tablet 08/13/2015 TAKE 1 TABLET BY MOUTH DAILY IN THE MORNING AND TAKE 2 TABLETS DAILY IN THE EVENING levothyroxine 100 mcg oral tablet 12/21/2015 TAKE ONE TABLET BY MOUTH DAILY amlodipine 5 mg oral tablet 02/08/2016 TAKE 1 TABLET BY MOUTH ONCE DAILY Crestor 20 mg oral tablet 04/07/2016 10/04/2016 take 1 tablet (20 mg) by oral route once daily for 90 days metformin 500 mg oral tablet 04/07/2016 04/02/2017 TAKE 1 TABLET BY MOUTH DAILY IN THE MORNING AND TAKE 2 TABLETS DAILY IN THE EVENING for 90 days Mastectomy Bra 1 unit 04/25/2016 11/09/2016 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 levothyroxine 100 mcg oral tablet 06/09/2016 TAKE ONE TABLET BY MOUTH ONCE DAILY atenolol 50 mg oral tablet 06/27/2016 12/19/2017 TAKE 1 TABLET BY MOUTH ONCE DAILY for 90 days furosemide 40 mg oral tablet 06/27/2016 03/24/2017 TAKE 1 TABLET BY MOUTH ONCE DAILY for 90 days losartan 100 mg oral tablet 06/27/2016 12/24/2016 take 1 tablet (100 mg) by oral route once daily for 90 days Symbicort inhalation amlodipine 5 mg oral tablet 10/02/2016 09/27/2017 take 1.5 tablets by oral route daily for 90 days Name Start Date Expiration Date SIG Comments [...] morning and evening meals for 30 days Contour Test Strips miscellaneous strip 01/09/2015 04/03/2016 test BG QID for 90 days for DMII 205.00 lancets miscellaneous misc 01/09/2015 01/04/2016 use as directed QID for 90 days atenolol 50 mg oral tablet 01/16/2015 07/15/2015 [...] in a.m. and 2 tabs in P.m. Voltaren 1 % topical gel 09/14/2015 03/12/2016 [...] relieved after 1-2 doses seek medical attention. clonidine HCl 0.1 mg oral tablet 10/31/2015 02/28/2016 take 1 tablet (0.1 mg ) by oral route 2 times per day for 30 days Bactrim DS 800-160 mg oral tablet 01/30/2016 02/09/2016 take 1 tablet by oral route every 12 hours for 10 days Discontinued Name Start Date Discontinued Date SIG Comments Samantha 180 mg oral tablet 10/06/2012 take 1 tablet (180 mg) by oral route once daily glucosamine-chondroitin 500-400 mg oral capsule 10/02/2016 take 1 capsule by oral route daily Replaced/Retired Drug 600 mg(1,500mg) -400 unit oral tablet 10/02/2016 take 1 tablet by oral route daily Aleve 220 mg oral tablet 10/31/2015 take 1 tablet (220 mg) by oral route every 8 hours as needed aspirin 81 mg oral tablet 10/06/2012 take [...] once daily with breakfast for 90 days simvastatin 80 mg oral tablet 05/01/2015 10/31/2015 TAKE 1 TABLET BY MOUTH EVERY EVENING for 90 days lisinopril-hydrochlorothiazide 20-25 mg oral tablet 07/17/2015 09/14/2015 TAKE 1 TABLET BY MOUTH EVERY DAY for 30 days lisinopril 40 mg oral tablet 09/14/2015 10/31/2015 take 1 tablet (40 mg) by oral route once daily for 90 days hydrochlorothiazide 12.5 mg oral tablet 09/14/2015 10/16/2015 take 1 tablet ( 12.5 mg) by oral route once daily for 90 days Zithromax Z-Gal 250 mg oral tablet 04/07/2016 take 2 tablets (500 mg) by oral route once daily for 1 day then 1 tablet (250 mg) by oral route once daily for 4 days prednisone 10 mg oral tablet 04/07/2016 Tessalon Perles 100 mg oral capsule 04/07/2016 take 1 capsule (100 mg) by oral route QHS Tylenol Extra Strength 500 mg oral tablet 10/02/2016 take 1 tablet (500 mg ) by oral route every 6 hours as needed losartan 25 mg oral tablet 05/21/2016 06/27/2016 take 1 tablet (25 mg) by oral route once daily for 90 days losartan 50 mg oral tablet 07/30/2016 10/02/2016 take 1.5 tablets by oral route daily for 90 days Problem List Description Status Onset Allergic rhinitis Active Anemia Active Asthma Active Benign essential hypertension Active degenerative joint disease Active Diabetes Mellitus, Type II Active Gastric ulcer Active Heartburn Active Hyperlipidemia Active Hypothyroidism, Acquired Active macular degeneration of eyes Active Mitral valve prolapse Active Murmur Active Obstructive Sleep Apnea Active Obesity Active 01/09/2010 Degenerative disc disease Active 09/05/2012 Spinal stenosis, lumbar region Active 09/05/2012 Peripheral Vascular Disease Active Diabetes mellitus with neurological manifestations, uncontrolled Active 10/02 Hypertensive Renal Disease Active 10/02/2016 Vital Signs Date Time BP-Sys(mm[Hg] BP-Li(mm[Hg]) HR(bpm) RR(rpm) Temp WT HT HC BMI BSA BMI Percentile O2 Sat(%) 10/02/2016 9:54:00 AM 150 mmHg 68 mmHg 67 bpm 16 rpm 97.5 F 243 lbs 63.5 in 42.37 kg/m2 2.22 m2 95 % 06/27/2016 8:53:00 AM 164 mmHg 78 mmHg 99 bpm 20 rpm 96.9 F 241.125 lbs 63.5 in 42.0429 kg/m 2.2136 m 94 % 05/12/2016 9:32:00 AM 152 mmHg 70 mmHg 69 bpm 20 rpm 97.8 F 238 lbs 63.5 in 41.50 kg/m2 2.20 m2 98 % 04/07/2016 1:46:00 PM 150 mmHg 72 mmHg 04/07/2016 1:35:00 PM 190 mmHg 70 mmHg 75 bpm 14 rpm 97.8 F 236.375 lbs 63.5 in 41.21 kg/m2 2.19 m2 96 % 01/30/2016 11:42:00 AM 150 mmHg 70 mmHg 71 bpm 18 rpm 96.9 F 97 % 10/31/2015 3:36:00 PM 150 mmHg 70 mmHg 66 bpm 97.8 F 251.375 lbs 63.5 in 43.83 kg/m2 2.26 m2 95 % 10/23/2015 11:18:00 AM 138 mmHg 68 mmHg 80 bpm 10/16/2015 9:21:00 AM 174 mmHg 84 mmHg 90 bpm 20 rpm 97.7 F 254.25 lbs 63.5 in 44.3314 kg/m 2.27 m2 95 % 09/14/2015 1:03:00 PM 140 mmHg 72 mmHg 73 bpm 18 rpm 98.7 F 257 lbs 63.5 in 44.81 kg/m2 2.2854 m 97 % 03/28/2015 3:05:00 PM 140 mmHg 92 mmHg 66 bpm 98.3 F 254.125 lbs 63.5 in 44.3096 kg/m 2.27 m2 96 % 01/16/2015 9:48:00 AM 150 mmHg 80 mmHg 01/16/2015 9:48:00 AM 122 mmHg 55 mmHg 01/16/2015 9:01:00 AM 186 mmHg 80 mmHg 78 bpm 96.2 F 257 lbs 63.5 in 44.8109 kg/m 2.29 m2 97 % 12/05/2014 3:07:00 PM 175 mmHg 80 mmHg 79 bpm 18 rpm 98.1 F 259.25 lbs 63.5 in 45.20 kg/m2 2.2953 m 98 % 2014 4:20:00 PM 140 mmHg 60 mmHg 59 bpm 18 rpm 96.2 F 261 lbs 63.5 in 45.5084 kg/m 2.30 m2 98 % 01/02/2014 2:46:00 PM 130 mmHg 60 mmHg 67 bpm 18 rpm 98.3 F 257.5 lbs 63.5 in 44.90 kg/m2 2.2876 m 97 % 11/23/2013 1:41:00 PM 138 mmHg 65 mmHg 92 bpm 20 rpm 98.2 F 252 lbs 63.5 in 43.9391 kg/m 2.26 m2 94 % 08/22/2013 1:05:00 PM [...] bpm 97.7 F 255.2 lbs 63.5 in 44.4971 kg/m 2.28 m2 94 % 09/02/2012 9:09:00 AM 146 mmHg 70 mmHg 77 bpm 18 rpm 97.2 F 257.25 lbs 96 % 07/29/2012 1:11:00 PM 124 mmHg 60 mmHg 69 bpm 16 rpm 97.6 F 258.125 lbs 96 % 01/20/2012 1:02:00 PM 136 mmHg 68 mmHg 81 bpm 16 rpm 97.9 F 259.25 lbs 63.5 in 45.20 kg/m2 2.2953 m 95 % 09/04/2011 2:49:00 PM 110 mmHg 62 mmHg 85 bpm 16 rpm 97.8 F 265 lbs 63.5 in 46.2058 kg/m 2.32 m2 93 % 07/14/2011 1:06:00 PM 128 mmHg 70 mmHg 69 bpm 16 rpm 98.4 F 265 lbs 97 % 03/11/2011 3:30:00 PM 148 mmHg 70 mmHg 67 bpm 16 rpm 98.8 F 264 lbs 96 % 01/01/2011 1:25:00 PM 140 mmHg 78 mmHg 63 bpm 16 rpm 97.3 F 266.125 lbs 63 in 47.14 kg/m2 2.3164 m 97 % 08/28/2010 4:19:00 PM 140 mmHg 70 mmHg 84 bpm 18 rpm 96.8 F 265.375 lbs 63 in 47.0086 kg/m 2.31 m2 96 % 08/21/2010 5:54:00 PM 140 mmHg 80 mmHg 73 bpm 18 rpm 96.4 F 264.375 lbs 63 in 46.83 kg/m2 2.3088 m 98 % 06/26/2010 5:52:00 PM 140 mmHg 80 mmHg 62 bpm 16 rpm 97.3 F 264.25 lbs 63 in 46.8093 kg/m 2.31 m2 97 % 01/09/2010 1:24:00 PM 140 mmHg 78 mmHg 60 bpm 16 rpm 97.4 F 259 lbs 63 in 45.88 kg/m2 2.2852 m 99 % 11/08/2009 9:22:00 AM 140 mmHg 80 mmHg 67 bpm 16 rpm 96.7 F 256.5 lbs 63 in 45.4365 kg/m 2.27 m2 96 % Social History Name Description 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 Denies illicit substance abuse Active but [...] Reviewed 10/16/2015 12:00 AM IMMUNOTHERAPY INJECTIONS Reviewed 08/19/2011 12:00 AM IMMUNOTHERAPY INJECTIONS Reviewed 12/26/2009 12:00 AM IMMUNOTHERAPY INJECTIONS Reviewed 10/23/2015 12:00 AM IMMUNOTHERAPY INJECTIONS Reviewed 08/25/2011 12:00 AM IMMUNOTHERAPY INJECTIONS Reviewed 10/31/2015 12:00 AM IMMUNOTHERAPY INJECTIONS Reviewed 11/05/2015 12:00 AM COMPREHEN METABOLIC PANEL Returned 10/16/2015 12:00 AM ASSAY OF TROPONIN QUANT Returned 10/16/2015 12:00 AM FIBRIN DEGRADATION QUANT Returned 11/05/2015 12:[address] THORAX W/DYE Returned 09/01/2011 12:00 AM IMMUNOTHERAPY INJECTIONS Reviewed 11/27/2015 12:00 AM IMMUNOTHERAPY INJECTIONS Reviewed 09/04/2011 12:00 AM ELECTROCARDIOGRAM COMPLETE Reviewed 09/04/2011 12:00 AM Immunization administration, Medicare flu Reviewed 09/04/2011 12:00 AM Fluzone MEDICARE Only Reviewed 09/08/2011 12:00 AM IMMUNOTHERAPY INJECTIONS Reviewed 12/14/2015 12:00 AM MAMMOGRAM SCREENING Returned 12/18/2015 12:00 AM IMMUNOTHERAPY INJECTIONS Reviewed 09/15/2011 12:00 AM IMMUNOTHERAPY INJECTIONS Reviewed 12/25/2015 12:00 AM IMMUNOTHERAPY INJECTIONS Reviewed 01/01/2016 12:00 AM IMMUNOTHERAPY INJECTIONS Reviewed 01/08/2016 12:00 AM IMMUNOTHERAPY INJECTIONS Reviewed 01/08/2016 12:00 AM COMPLETE CBC W/AUTO DIFF WBC Returned 01/08/2016 12:00 AM COMPREHEN METABOLIC PANEL Returned 01/08/2016 12:00 AM GLYCOSYLATED HEMOGLOBIN TEST Returned 01/08/2016 12:00 AM LIPID PANEL Returned 01/08/2016 12:00 AM ASSAY THYROID STIM HORMONE Returned 09/24/2011 12:00 AM IMMUNOTHERAPY INJECTIONS Reviewed 01/15/2016 12:00 AM IMMUNOTHERAPY INJECTIONS Reviewed 01/22/2016 12:00 AM IMMUNOTHERAPY INJECTIONS Reviewed 01/01/2010 12:00 AM IMMUNOTHERAPY INJECTIONS Reviewed 10/01/2011 12:00 AM IMMUNOTHERAPY INJECTIONS Reviewed 10/07/2011 12:00 AM IMMUNOTHERAPY INJECTIONS Reviewed 10/13/2011 12:00 AM IMMUNOTHERAPY INJECTIONS Reviewed 10/20/2011 12:00 AM IMMUNOTHERAPY INJECTIONS Reviewed 10/27/2011 12:00 AM IMMUNOTHERAPY INJECTIONS Reviewed 01/30/2016 12:00 AM EXTREMITY STUDY Returned 01/30/2016 12:00 AM X-RAY EXAM OF FOOT Returned 01/30/2016 12:00 AM X-RAY EXAM OF ANKLE Returned 11/03/2011 12:00 AM IMMUNOTHERAPY INJECTIONS Reviewed 10/31/2015 12:00 AM CHEST X-RAY 2VW FRONTAL&LATL Returned 11/11/2011 12:00 AM IMMUNOTHERAPY INJECTIONS Reviewed 11/18/2011 [...] AM Flu Injection [address] [facility] [place]# [id number] RHC Reviewed 09/07/2012 12:00 AM IMMUNOTHERAPY INJECTIONS Reviewed [...] AM Flu Injection [address] [facility] [place]# [id number] C Reviewed 10/30/2009 12:00 AM IMMUNOTHERAPY INJECTIONS Reviewed [...] mg/dLTRIGLYCERIDES 225.0 mg/dLCHOLESTEROL 184 mg/ dLHDL 44.0 mg/dLTOT CHOL/HDL 4.2 GLYCOHEMOGLOBIN A1C 6.3 FREE T4 1.34 TSH 1.760 uIU/mLGLUCOSE 139 SODIUM 141.0 mmol/LPOTASSIUM 3.70 mmol/LCHLORIDE 97.0 mmol/ LCO2 28.0 mmol/LBUN 24.0 mg/dLCREATININE 1.20 mg/dLSGOT/AST 39.0 IU/LSGPT/ALT 29.0 IU/LALK PHOS 72.0 IU/LTOTAL PROTEIN 7.30 g/dLALBUMIN 4.10 g/dLTOTAL BILI 0.50 mg/dLCALCIUM 9.60 mg/dLAGE 69 GFR NonAA 45 GFR AA 55 eGFR 45 eGFR AA* 55 01/09/2010 12:00 AM Mammogram -Women over 40 Normal 01/09/2010 1:39 PM Foot Exam-Diabetic Done 06/25/2010 12:00 AM LDLc SerPl-mCnc 84.0 mg/dLGlucose SerPl-mCnc 135.0 mg/ dLCholest Cry Stone Ql IR 178.0 % 06/25/2010 8:25 AM TRIGLYCERIDES 244.0 mg/dLCHOLESTEROL 178.0 mg/dLHDL 45.0 mg/ dLTOT CHOL/HDL 4.0 LDL (CALC) 84.0 mg/dLTSH 1.350 uIU/mLFREE T4 1.32 GLYCOHEMOGLOBIN A1C 6.10 %GLUCOSE 135.0 mg/dLSODIUM 137.0 mmol/LPOTASSIUM 4.30 mmol/LCHLORIDE 97.0 mmol/LCO2 26.0 mmol/LBUN 33.0 mg/dLCREATININE 1.50 mg/dLSGOT /AST 34.0 IU/LSGPT/ALT 33.0 IU/LALK PHOS 68.0 IU/LTOTAL PROTEIN 7.40 g/ dLALBUMIN 4.10 g/dLTOTAL BILI 0.60 mg/dLCALCIUM 9.70 mg/dLAGE 70 GFR NonAA 34 GFR AA 41 eGFR 34 eGFR AA* 41 08/21/2010 7:00 PM FREE T4 1.32 TSH 1.450 uIU/mLFERRITIN 260.0 ng/mLIRON TOTAL 61.0 ug/dLTIBC 441.0 ug/dLUIBC 380.0 ug/dLIRON SAT 14.0 %VITAMIN B12 401.0 pg/ mLFOLATE 12.30 ng/mLWBC 8.2 RBC 3.77 HGB 11.90 g/dLHCT 35.80 %MCV 95.0 fLMCH 31.60 pgMCHC 33.20 g/dLRDW SD 47 RDW CV 13.50 %MPV 10.40 fLPLT 208 NRBC# 0.00 NRBC% 0.0 %NEUT 52.20 %%LYMP 37.40 %%MONO 5.60 %%EOS 4.30 %%BASO 0.50 %#NEUT 4.30 #LYMP 3.08 #MONO 0.46 #EOS 0.35 #BASO 0.04 MANUAL DIFF NOT IND 08/28/2010 11:23 AM Aspirin reccommended Reccommended 08/28/2010 4:42 PM Dialated Eye Exam- Diabetic Referred Foot Exam-Diabetic Done Dental Inspection Reffered 12/24/2010 12:00 AM Cholest Cry Stone Ql IR 181.0 %LDLc SerPl-mCnc 83.0 mg/ dLGlucose SerPl-mCnc 134.0 mg/dL 12/24/2010 8:50 AM GLYCOHEMOGLOBIN A1C 6.20 %TRIGLYCERIDES 284.0 mg/ dLCHOLESTEROL 181.0 mg/dLHDL 41.0 mg/dLTOT CHOL/HDL 4.4 LDL (CALC) 83.0 mg/ dLFREE T4 1.36 TSH 1.230 uIU/mLGLUCOSE 134.0 mg/dLSODIUM 140.0 mmol/LPOTASSIUM 4.20 mmol/LCHLORIDE 98.0 mmol/LCO2 29.0 mmol/LBUN 32.0 mg/dLCREATININE 1.70 mg/ dLSGOT/AST 34.0 IU/LSGPT/ALT 30.0 IU/LALK PHOS 72.0 IU/LTOTAL PROTEIN 7.20 g/ dLALBUMIN 4.20 g/dLTOTAL BILI 0.50 mg/dLCALCIUM 10.0 mg/dLAGE 70 GFR NonAA 30 GFR AA 36 eGFR 30 eGFR AA* 36 01/01/2011 1:35 PM Pap Smear Declined 01/01/2011 1:35 PM Mammogram -Women over 40 Ordered 01/01/2011 1:46 PM Depression Done Aspirin reccommended Reccommended 01/01/2011 1:59 PM Dialated Eye Exam- Diabetic Referred Foot Exam-Diabetic Done Dental Inspection Reffered 07/01/2011 8:50 AM WBC 5.7 RBC 3.56 HGB 11.20 g/dLHCT 34.10 %MCV 96.0 fLMCH 31.50 pgMCHC 32.80 g/dLRDW SD 52 RDW CV 14.90 %MPV 10.80 fLPLT 164 NRBC# 0.00 NRBC% 0.0 %NEUT 65.50 %%LYMP 21.90 %%MONO 7.0 %%EOS 5.10 %%BASO 0.50 %#NEUT 3.74 #LYMP 1.25 #MONO 0.40 #EOS 0.29 #BASO 0.03 MANUAL DIFF NOT IND GLUCOSE 153.0 mg/dLSODIUM 135.0 mmol/LPOTASSIUM 4.10 mmol/LCHLORIDE 93.0 mmol/LCO2 28.0 mmol/LBUN 26.0 mg/dLCREATININE 1.50 mg/dLSGOT/AST 43.0 IU/LSGPT/ALT 31.0 IU/ LALK PHOS 80.0 IU/LTOTAL PROTEIN 7.40 g/dLALBUMIN 4.20 g/dLTOTAL BILI 0.60 mg/ dLCALCIUM 9.90 mg/dLAGE 71 GFR NonAA 34 GFR AA 41 eGFR 34 eGFR AA* 41 TRIGLYCERIDES 230.0 mg/dLCHOLESTEROL 170.0 mg/dLHDL 42.0 mg/dLTOT CHOL/HDL 4.0 LDL (CALC) 82.0 mg/dLTSH 2.360 uIU/mLGLYCOHEMOGLOBIN A1C 6.20 % 01/08/2012 8:35 AM WBC 5.3 RBC 3.59 HGB 11.10 g/dLHCT 34.40 %MCV 96.0 fLMCH 30.90 pgMCHC 32.30 g/dLRDW SD 49 RDW CV 14.20 %MPV 10.70 fLPLT 152 NRBC# 0.00 NRBC% 0.0 %NEUT 65.80 %%LYMP 21.90 %%MONO 6.80 %%EOS 4.70 %%BASO 0.80 %#NEUT 3.49 #LYMP 1.16 #MONO 0.36 #EOS 0.25 #BASO 0.04 MANUAL DIFF NOT IND GLUCOSE 135.0 mg/dLSODIUM 138.0 mmol/LPOTASSIUM 4.0 mmol/LCHLORIDE 96.0 mmol/LCO2 27.0 mmol/LBUN 32.0 mg/dLCREATININE 1.50 mg/dLSGOT/AST 41.0 IU/LSGPT/ALT 25.0 IU/ LALK PHOS 73.0 IU/LTOTAL PROTEIN 7.30 g/dLALBUMIN 4.30 g/dLTOTAL BILI 0.70 mg/ dLCALCIUM 10.10 mg/dLAGE 71 GFR NonAA 34 GFR AA 41 eGFR 34 eGFR AA* 41 TRIGLYCERIDES 227.0 mg/dLCHOLESTEROL 163.0 mg/dLHDL 41.0 mg/dLTOT CHOL/HDL 4.0 LDL (CALC) 77.0 mg/dLTSH 2.150 uIU/mLGLYCOHEMOGLOBIN A1C 6.10 % 07/21/2012 8:50 AM WBC 5.7 RBC 3.73 HGB 11.60 g/dLHCT 35.80 %MCV 96.0 fLMCH 31.10 pgMCHC 32.40 g/dLRDW SD 49 RDW CV 14.10 %MPV 11.0 fLPLT 164 NRBC# 0.00 NRBC% 0.0 %NEUT 64.20 %%LYMP 24.40 %%MONO 5.70 %%EOS 5.30 %%BASO 0.40 %#NEUT 3.63 #LYMP 1.38 #MONO 0.32 #EOS 0.30 #BASO 0.02 MANUAL DIFF NOT IND TRIGLYCERIDES 238.0 mg/dLCHOLESTEROL 154.0 mg/dLHDL 38.0 mg/dLTOT CHOL/HDL 4.1 LDL (CALC) 68.0 mg/dLGLUCOSE 147.0 mg/dLSODIUM 136.0 mmol/LPOTASSIUM 4.10 mmol/ LCHLORIDE 97.0 mmol/LCO2 26.0 mmol/LBUN 32.0 mg/dLCREATININE 1.50 mg/dLSGOT/AST 40.0 IU/LSGPT/ALT 30.0 IU/LALK PHOS 71.0 IU/LTOTAL PROTEIN 7.20 g/dLALBUMIN 4.0 g/dLTOTAL BILI 0.80 mg/dLCALCIUM 10.0 mg/dLAGE 72 GFR NonAA 34 GFR AA 41 eGFR 34 eGFR AA* 41 TSH 1.530 uIU/mLGLYCOHEMOGLOBIN A1C 6.60 %CREAT UR 45.50 mg/ dLMICROALBUMIN UR 3.0 ug/mLALB:CREAT RATIO 7 10/12/2012 11:35 AM WBC 6.7 RBC 3.90 HGB 12.10 g/dLHCT 35.60 %MCV 91.0 fLMCH 31.0 pgMCHC 34.0 g/dLRDW SD 45 RDW CV 13.50 %MPV 10.40 fLPLT 197 NRBC# 0.00 NRBC % 0.0 %NEUT 64.40 %%LYMP 25.40 %%MONO 5.60 %%EOS 4.50 %%BASO 0.10 %#NEUT 4.34 # LYMP 1.71 #MONO 0.38 #EOS 0.30 #BASO 0.01 MANUAL DIFF NOT IND C REACTIVE PROTEIN 6.0 mg/LGLUCOSE 96.0 mg/dLSODIUM 134.0 mmol/LPOTASSIUM 4.40 mmol/ LCHLORIDE 91.0 mmol/LCO2 30.0 mmol/LBUN 31.0 mg/dLCREATININE 1.50 mg/dLSGOT/AST 48.0 IU/LSGPT/ALT 35.0 IU/LALK PHOS 74.0 IU/LTOTAL PROTEIN 7.10 g/dLALBUMIN 4.30 g/dLTOTAL BILI 0.60 mg/dLCALCIUM 10.40 mg/dLAGE 72 GFR NonAA 34 GFR AA 41 eGFR 34 eGFR AA* 41 2013 9:00 AM WBC 4.9 RBC 3.68 HGB 11.50 g/dLHCT 34.80 %MCV 95.0 fLMCH 31.30 pgMCHC 33.0 g/dLRDW SD 47 RDW CV 13.70 %MPV 10.60 fLPLT 144 NRBC# 0.00 NRBC% 0.0 %NEUT 61.0 %%LYMP 27.10 %%MONO 7.0 %%EOS 4.50 %%BASO 0.40 %#NEUT 2.97 #LYMP 1.32 #MONO 0.34 #EOS 0.22 #BASO 0.02 MANUAL DIFF NOT IND GLUCOSE 142.0 mg/ dLSODIUM 137.0 mmol/LPOTASSIUM 3.90 mmol/LCHLORIDE 95.0 mmol/LCO2 27.0 mmol/ LBUN 24.0 mg/dLCREATININE 1.40 mg/dLSGOT/AST 24.0 IU/LSGPT/ALT 20.0 IU/LALK PHOS 68.0 IU/LTOTAL PROTEIN 7.10 g/dLALBUMIN 3.90 g/dLTOTAL BILI 0.70 mg/ dLCALCIUM 9.80 mg/dLAGE 73 GFR NonAA 37 GFR AA 45 eGFR 37 eGFR AA* 45 TRIGLYCERIDES 211.0 mg/dLCHOLESTEROL 151.0 mg/dLHDL 38.0 mg/dLTOT CHOL/HDL 4.0 LDL (CALC) 71.0 mg/dLTSH 0.980 uIU/mLTSH 0.980 uIU/mLGLYCOHEMOGLOBIN A1C 6.0 % 08/09/2013 8:40 AM WBC 5.1 RBC 3.56 HGB 11.10 g/dLHCT 33.50 %MCV 94.0 fLMCH 31.20 pgMCHC 33.10 g/dLRDW SD 48 RDW CV 14.0 %MPV 10.60 fLPLT 154 NRBC# 0.00 NRBC% 0.0 %NEUT 60.20 %%LYMP 28.80 %%MONO 5.70 %%EOS 4.90 %%BASO 0.40 %#NEUT 3.09 #LYMP 1.48 #MONO 0.29 #EOS 0.25 #BASO 0.02 MANUAL DIFF NOT IND GLUCOSE 149.0 mg/dLSODIUM 135.0 mmol/LPOTASSIUM 4.0 mmol/LCHLORIDE 95.0 mmol/LCO2 26.0 mmol/LBUN 35.0 mg/dLCREATININE 1.60 mg/dLSGOT/AST 32.0 IU/LSGPT/ALT 25.0 IU/ LALK PHOS 71.0 IU/LTOTAL PROTEIN 7.20 g/dLALBUMIN 4.30 g/dLTOTAL BILI 0.60 mg/ dLCALCIUM 10.0 mg/dLAGE 73 GFR NonAA 32 GFR AA 39 eGFR 32 eGFR AA* 39 TRIGLYCERIDES 225.0 mg/dLCHOLESTEROL 159.0 mg/dLHDL 40.0 mg/dLTOT CHOL/HDL 4.0 LDL (CALC) 74.0 mg/dLHGB A1C 6.40 %Est Avg Glucose 137.0 mg/dLTSH 1.450 uIU/mL 08/09/2013 8:48 AM CREAT UR 60.70 mg/dLMICROALBUMIN UR 5.0 ug/mLALB:CREAT RATIO 8 11/24/2013 8:40 AM GLUCOSE 172.0 mg/dLSODIUM 137.0 mmol/LPOTASSIUM 4.10 mmol/ LCHLORIDE 97.0 mmol/LCO2 29.0 mmol/LBUN 25.0 mg/dLCREATININE 1.50 mg/dLSGOT/AST 29.0 IU/LSGPT/ALT 19.0 IU/LALK PHOS 80.0 IU/LTOTAL PROTEIN 7.0 g/dLALBUMIN 4.20 g/dLTOTAL BILI 0.80 mg/dLCALCIUM 9.60 mg/dLAGE 73 GFR NonAA 34 GFR AA 41 eGFR 34 eGFR AA* 41 TRIGLYCERIDES 233.0 mg/dLCHOLESTEROL 181.0 mg/dLHDL 51.0 mg/ dLTOT CHOL/HDL 3.5 LDL (CALC) 83.0 mg/dLHGB A1C 6.0 %Est Avg Glucose 125.5 mg/ dLTSH 2.050 uIU/mL 04/18/2014 8:40 AM TSH 0.930 uIU/mLHGB A1C 6.90 %Est Avg Glucose 151.3 mg/ dLTRIGLYCERIDES 242.0 mg/dLCHOLESTEROL 160.0 mg/dLHDL 43.0 mg/dLTOT CHOL/HDL 3.7 LDL (CALC) 69.0 mg/dL 12/12/2014 8:30 AM WBC 5.9 RBC 3.79 HGB 11.70 g/dLHCT 35.70 %MCV 94.0 fLMCH 30.90 pgMCHC 32.80 g/dLRDW SD 48 RDW CV 14.0 %MPV 10.70 fLPLT 168 NRBC# 0.00 NRBC% 0.0 %NEUT 58.60 %%LYMP 29.60 %%MONO 5.90 %%EOS 5.20 %%BASO 0.70 %#NEUT 3.47 #LYMP 1.75 #MONO 0.35 #EOS 0.31 #BASO 0.04 MANUAL DIFF NOT IND HGB A1C 6.60 %Est Avg Glucose 142.7 mg/dLTRIGLYCERIDES 259.0 mg/dLCHOLESTEROL 162.0 mg/ dLHDL 41.0 mg/dLTOT CHOL/HDL 4.0 LDL (CALC) 69.0 mg/dLMICROALBUMIN UR <0.5 MG/ DLGLUCOSE 165.0 mg/dLSODIUM 136.0 mmol/LPOTASSIUM 4.40 mmol/LCHLORIDE 95.0 mmol/ LCO2 27.0 mmol/LBUN 35.0 mg/dLCREATININE 1.50 mg/dLSGOT/AST 27.0 IU/LSGPT/ALT 21.0 IU/LALK PHOS 63.0 IU/LTOTAL PROTEIN 7.20 g/dLALBUMIN 4.20 g/dLTOTAL BILI 0.80 mg/dLCALCIUM 9.50 mg/dLAGE 74 GFR NonAA 34 GFR AA 41 eGFR 34 eGFR AA* 41 TSH 1.390 uIU/mL 03/01/2015 8:30 AM WBC 6.4 RBC 3.84 HGB 11.90 g/dLHCT 35.90 %MCV 94.0 fLMCH 31.0 pgMCHC 33.10 g/dLRDW SD 48 RDW CV 14.10 %MPV 10.40 fLPLT 177 NRBC# 0.00 NRBC% 0.0 %NEUT 62.20 %%LYMP 25.50 %%MONO 7.20 %%EOS 4.50 %%BASO 0.60 %#NEUT 4.00 #LYMP 1.64 #MONO 0.46 #EOS 0.29 #BASO 0.04 MANUAL DIFF NOT IND HGB A1C 5.60 %Est Avg Glucose 114.0 mg/dLTRIGLYCERIDES 242.0 mg/dLCHOLESTEROL 158.0 mg/ dLHDL 42.0 mg/dLTOT CHOL/HDL 3.8 LDL (CALC) 68.0 mg/dLGLUCOSE 152.0 mg/dLSODIUM 135.0 mmol/LPOTASSIUM 4.20 mmol/LCHLORIDE 94.0 mmol/LCO2 28.0 mmol/LBUN 23.0 mg/ dLCREATININE 1.40 mg/dLSGOT/AST 23.0 IU/LSGPT/ALT 16.0 IU/LALK PHOS 61.0 IU/ LTOTAL PROTEIN 6.90 g/dLALBUMIN 4.20 g/dLTOTAL BILI 0.80 mg/dLCALCIUM 10.0 mg/ dLAGE 75 GFR NonAA 37 GFR AA 45 eGFR 37 eGFR AA* 45 09/06/2015 8:45 AM WBC 5.4 RBC 3.89 HGB 11.80 g/dLHCT 35.90 %MCV 92.0 fLMCH 30.30 pgMCHC 32.90 g/dLRDW SD 46 RDW CV 13.90 %MPV 11.20 fLPLT 173 NRBC# 0.00 NRBC% 0.0 %NEUT 61.70 %%LYMP 25.80 %%MONO 6.30 %%EOS 5.60 %%BASO 0.60 %#NEUT 3.33 #LYMP 1.39 #MONO 0.34 #EOS 0.30 #BASO 0.03 MANUAL DIFF NOT IND MICROALBUMIN UR <0.5 ug/mLGLUCOSE 141.0 mg/dLSODIUM 134.0 mmol/LPOTASSIUM 3.90 mmol/LCHLORIDE 96.0 mmol/LCO2 28.0 mmol/LBUN 24.0 mg/dLCREATININE 1.40 mg/dLSGOT /AST 20.0 IU/LSGPT/ALT 16.0 IU/LALK PHOS 60.0 IU/LTOTAL PROTEIN 6.90 g/ dLALBUMIN 4.10 g/dLTOTAL BILI 0.70 mg/dLCALCIUM 9.70 mg/dLAGE 75 GFR NonAA 37 GFR AA 45 eGFR 37 eGFR AA* 45 TRIGLYCERIDES 233.0 mg/dLCHOLESTEROL 151.0 mg/ dLHDL 40.0 mg/dLTOT CHOL/HDL 3.8 LDL (CALC) 64.0 mg/dLTSH 0.980 uIU/ mLHemoglobin A1c 6.30 %Estim. Avg Glu (eAG) 134 10/16/2015 11:05 AM D-DIMER QUANT 0.31 TROPONIN-I AD <0.04 ng/mL 11/13/2015 9:25 AM GLUCOSE 121.0 mg/dLSODIUM 141.0 mmol/LPOTASSIUM 3.90 mmol/ LCHLORIDE 102.0 mmol/LCO2 30.0 mmol/LBUN 15.0 mg/dLCREATININE 1.20 mg/dLSGOT/ AST 24.0 IU/LSGPT/ALT 25.0 IU/LALK PHOS 64.0 IU/LTOTAL PROTEIN 7.10 g/dLALBUMIN 4.30 g/dLTOTAL BILI 0.60 mg/dLCALCIUM 9.80 mg/dLAGE 75 GFR NonAA 44 GFR AA 53 eGFR 44 eGFR AA* 53 01/11/2016 8:35 AM TSH 1.160 uIU/mLGLUCOSE 132.0 mg/dLSODIUM 139.0 mmol/ LPOTASSIUM 3.90 mmol/LCHLORIDE 101.0 mmol/LCO2 26.0 mmol/LBUN 14.0 mg/ dLCREATININE 1.10 mg/dLSGOT/AST 24.0 IU/LSGPT/ALT 21.0 IU/LALK PHOS 76.0 IU/ LTOTAL PROTEIN 7.10 g/dLALBUMIN 4.30 g/dLTOTAL BILI 0.70 mg/dLCALCIUM 9.80 mg/ dLAGE 75 GFR NonAA 49 GFR AA 59 eGFR 49 eGFR AA* 59 TRIGLYCERIDES 214.0 mg/ dLCHOLESTEROL 146.0 mg/dLHDL 41.0 mg/dLTOT CHOL/HDL 3.6 LDL (CALC) 62.0 mg/ dLWBC 6.0 RBC 3.99 HGB 11.50 g/dLHCT 37.0 %MCV 93.0 fLMCH 28.80 pgMCHC 31.10 g/ dLRDW SD 48 RDW CV 14.30 %MPV 10.10 fLPLT 191 NRBC# 0.00 NRBC% 0.0 %NEUT 66.80 % %LYMP 23.20 %%MONO 6.10 %%EOS 3.40 %%BASO 0.50 %#NEUT 3.98 #LYMP 1.38 #MONO 0.36 #EOS 0.20 #BASO 0.03 MANUAL DIFF NOT IND Hemoglobin A1c 6.10 %Estim. Avg Glu (eAG) 128 02/01/2016 2:45 PM SEDRATE 101.0 mm/hrC REACTIVE PROTEIN 53.0 mg/L 02/21/2016 8:40 AM WBC 6.8 RBC 4.21 HGB 11.70 g/dLHCT 37.40 %MCV 89.0 fLMCH 27.80 pgMCHC 31.30 g/dLRDW SD 44 RDW CV 13.40 %MPV 10.10 fLPLT 245 NRBC# 0.00 NRBC% 0.0 C REACTIVE PROTEIN 17.0 mg/LGLUCOSE 129.0 mg/dLSODIUM 140.0 mmol/ LPOTASSIUM 3.90 mmol/LCHLORIDE 99.0 mmol/LCO2 30.0 mmol/LBUN 13.0 mg/ dLCREATININE 1.0 mg/dLSGOT/AST 16.0 IU/LSGPT/ALT 12.0 IU/LALK PHOS 83.0 IU/ LTOTAL PROTEIN 6.80 g/dLALBUMIN 4.0 g/dLTOTAL BILI 0.40 mg/dLCALCIUM 9.50 mg/ dLAGE 76 GFR NonAA 54 GFR AA 65 eGFR 54 eGFR AA* >60 SEDRATE 67.0 mm/hr 03/07/2016 11:15 AM SEDRATE 45.0 mm/hrC REACTIVE PROTEIN 5.0 mg/L History Of Immunizations Name Date Admin Mfg Name Mfg Code Trade Name Lot# Route Inj Vis Given Vis Pub CVX X 11/19/2004 Merck [employer] MSD Pneumovax 23 Intramuscular Not Entered 11/16/2017 11/16/2017 999 Influenza 08/15/2009 [employer] Becky. NOV Fluvirin > 12 Years [id number] Intramuscular Left Deltoid 11/06/2009 11/16/2017 999 Influenza 08/21/2010 [employer] Becky. NOV Fluvirin > 12 Years [id number] Intramuscular Left Deltoid 08/21/2010 06/26/2009 999 X 08/28/2010 [employer]ck [employer] MSD Pneumovax 23 [id number] Intramuscular Right Deltoid 08/28/2010 03/01/2009 999 Influenza 09/04/2011 sanofi pasteur PMC Fluzone [id number] Intramuscular Left Deltoid 09/04/2011 06/11/2011 111 Influenza 09/02/2012 sanofi pasteur PMC Fluzone [id number] Intramuscular Left Deltoid 09/02/2012 05/17/2012 141 Influenza 08/22/2013 sanofi pasteur PMC Fluzone > 3 Years [id number] Intramuscular Left Deltoid 08/22/2013 06/10/2013 141 Influenza 08/24/2015 sanofi pasteur PMC Fluzone [id number] Intramuscular Left Deltoid 08/24/2015 06/22/2015 141 History [...] other allergen Nov 27 2009 11:05AM Benign essential hypertension Diabetes Mellitus, Type II degenerative joint disease [...] to other allergen Mar 18 2011 4:13PM Diabetes mellitus with neurological manifestations, uncontrolled 10/02/2016 Hypertensive Renal Disease 10/02/2016 Allergic rhinitis; due to pollen Mar 25 [...] 8:52AM Allergic rhinitis; due to other allergen b 2012 9:07AM Allergic rhinitis; due to other allergen b 2012 9:07AM Allergic rhinitis; due to other allergen b 2012 9:12AM Allergic rhinitis; due to other allergen b 2012 9:06AM Allergic rhinitis; due to other [...] to other allergen Oct 23 2015 9:08AM Hypertension, Benign Essential Oct 23 2015 9:10AM Allergic rhinitis; due to other allergen Oct 31 2015 4:17PM Cough Oct 31 2015 3:41PM Cough Nov 05 2015 10:45AM Blood tests prior to treatment or procedure Nov 05 2015 10:51AM Allergic rhinitis; due to other allergen Nov 13 2015 9:08AM Precordial pain Oct 16 2015 9:25AM Renal insufficiency Nov 05 2015 10:45AM Allergic rhinitis; due to other allergen Nov 27 2015 9:05AM Allergic rhinitis; due to other allergen Dec 11 2015 9:04AM Screening Mammogram For High Risk Patient Dec 14 2015 8:56AM Allergic rhinitis; due to other allergen Dec 18 2015 9:06AM Allergic rhinitis; due to other allergen Dec 25 2015 9:06AM Allergic rhinitis; due to other allergen Jan 01 2016 8:46AM Allergic rhinitis; due to other allergen Jan 08 2016 9:30AM Diabetes Mellitus, Type II Jan 08 2016 9:32AM Hypertension Jan 08 2016 9:32AM Hyperlipidemia, unspecified Jan 08 2016 9:32AM Hypothyroidism, Acquired Jan 08 2016 9:32AM Allergic rhinitis; due to other allergen Jan 15 2016 9:22AM Allergic rhinitis; due to other allergen Jan 22 2016 9:34AM Left foot pain Jan 30 2016 11:44AM Left leg pain Jan 30 2016 11:44AM Left leg swelling Jan 30 2016 11:44AM Cellulitis Jan 30 2016 11:44AM Diabetes mellitus without complication Apr 07 2016 1:38PM Essential hypertension Apr 07 2016 1:38PM Mixed hyperlipidemia Apr 07 2016 1:38PM Acquired hypothyroidism Apr 07 2016 1:38PM Essential hypertension May 12 2016 9:35AM Essential hypertension with goal blood pressure less than 140/90 Jun 27 2016 8:56AM Diabetes mellitus without complication Jun 27 2016 8:56AM Type 2 diabetes mellitus with other diabetic neurological complication Oct 02 2016 9:56AM Type 2 diabetes mellitus with hyperglycemia Oct 02 2016 9:56AM Hypothyroidism, Acquired Oct 02 2016 9:56AM Hypertensive chronic kidney disease with stage 1 through stage 4 chronic kidney disease, or unspecified chronic kidney disease Oct 02 2016 9:56AM Payers Insurance Name Company Name Plan Name Plan Number Policy Number Policy Group Number Start Date Medicare Part A Medicare RHC [id number] N/A [facility] [id number] Friday, 2009 Medicare Part A Medicare Part A [id number] Tuesday, 2012 Medicare Part A Medicare - Lab/Xray [id number] Tuesday, July 17, 2012 Medicare Part B Medicare Of [place] [id number] Saturday, January 14, 2006 History of Encounters Visit Date Visit Type Provider 10/02/[address] Evan Mccullough MD 06/27/[address] Evan Mccullough MD 05/12/[address] Evan Mccullough MD 04/07/[address] Evan Mccullough MD 01/30/2016 Office visit 01/30/2016 Office visit Giselle Olivia GEODETIC SURVEY DIRECTOR 01/22/2016 Nurse visit [place] GEODETIC SURVEY DIRECTOR 01/15/2016 Nurse visit Nicole Ackerman MD 01/08/2016 Nurse visit Nicole Ackerman MD 01/01/2016 Nurse visit Nicole Ackerman MD 12/25/2015 Nurse visit Nicole Ackerman MD 12/18/2015 Nurse visit Nicole Ackerman MD 12/11/2015 Nurse visit Nicole Ackerman MD 11/27/2015 Nurse visit Nicole Ackerman MD 11/13/2015 Nurse visit Nicole Ackerman MD 10/31/2015 Office visit 10/31/2015 Office visit Nicole Ackerman MD 10/23/2015 Nurse visit Nicole Ackerman MD 10/16/2015 [facility] Reggie Ness MD 10/16/2015 Office visit 10/16/2015 Office visit Nicole Ackerman MD 10/09/2015 [...] visit Nicole Ackerman MD 03/28/2015 Office visit 03/28/2015 Office visit Nicole Ackerman MD 03/20/2015 [...] visit Nicole Ackerman MD 12/05/2014 Office visit 12/05/2014 Office visit Nicole Ackerman MD 11/28/2014 Nurse visit Nicole Ackerman MD 11/21/2014 Nurse visit Nicole Ackerman MD 11/14/2014 Nurse visit Nicole Ackerman MD 11/06/2014 Nurse visit Nicole Ackerman MD 10/31/2014 Nurse visit Nicole Ackerman MD 10/24/2014 Nurse visit Nicole Ackerman MD 10/18/2014 Nurse visit Nicole Ackerman MD 10/10/2014 Nurse visit Nicole Ackerman MD 10/03/2014 Nurse visit Nicole Ackerman MD 09/26/2014 Nurse visit Nicole Ackreman MD 09/19/2014 Nurse visit Nicole Ackerman MD 09/12/2014 Nurse visit Nicole Ackerman MD 09/08/2014 Nurse visit Nicole Ackerman MD 09/05/2014 Nurse visit Nicole Ackerman MD 08/29/2014 Nurse visit Nicole Ackerman MD 08/22/2014 Nurse visit Nicole Ackerman MD 08/15/2014 Nurse visit 08/15/2014 Nurse visit Nicole Ackerman MD 08/08/2014 Nurse visit 08/08/2014 Nurse visit 08/08/2014 Nurse visit Nicole Ackerman MD 08/01/2014 Nurse visit Nicole Ackerman MD 07/25/2014 Nurse visit Nicole Ackerman MD 07/19/2014 Nurse visit [place] GEODETIC SURVEY DIRECTOR 07/11/2014 Nurse visit [place] GEODETIC SURVEY DIRECTOR 07/04/2014 Nurse visit 07/04/2014 Nurse visit 07/04/2014 Nurse visit Skylar Pfeiffer GEODETIC SURVEY DIRECTOR 06/27/2014 Nurse visit 06/27/2014 Nurse visit 06/27/2014 Nurse visit [place] GEODETIC SURVEY DIRECTOR 06/20/2014 Nurse visit [place] GEODETIC SURVEY DIRECTOR 06/13/2014 Nurse visit Nicole Ackerman MD 06/06/2014 Nurse visit Mariposa Bellamy GEODETIC SURVEY DIRECTOR 05/30/2014 Nurse visit [place] GEODETIC SURVEY DIRECTOR 05/23/2014 Nurse visit Skylar Pfeiffer GEODETIC SURVEY DIRECTOR 05/16/2014 Nurse visit Nicole Ackerman MD 05/02/2014 Nurse visit Nicole Ackerman MD 04/25/2014 Nurse visit Nicole Ackerman MD 04/18/2014 Nurse visit Nicole Ackerman MD 04/12/2014 Nurse visit Nicole Ackerman MD 04/05/2014 Nurse visit Nicole Ackerman MD 03/28/2014 Nurse visit Mariposa Cordova RN 03/22/2014 Nurse visit Skylar Pfeiffer GEODETIC SURVEY DIRECTOR 03/14/2014 Nurse visit Nicole Ackerman MD 03/07/2014 Nurse visit Skylar Pfeiffer GEODETIC SURVEY DIRECTOR 02/28/2014 Nurse visit Skylar Pfeiffer GEODETIC SURVEY DIRECTOR 02/21/2014 Nurse visit Nicole Ackerman MD 02/14/2014 Nurse visit Skylar Pfeiffer GEODETIC SURVEY DIRECTOR 02/06/2014 Nurse visit Nicole Ackerman MD 01/31/2014 [...] Ackerman MD 11/29/2013 Nurse visit Mariposa Bellamy GEODETIC SURVEY DIRECTOR 11/23/2013 Office visit Nicole Ackerman MD 11/14/2013 Nurse visit Jarad Saravia DO 11/07/2013 Nurse visit Nicole Ackerman MD 10/31/2013 [...] Aguilera MD 08/09/2013 Nurse visit Skylar Pfeiffer GEODETIC SURVEY DIRECTOR 08/02/2013 Nurse visit Skylar Pfeiffer GEODETIC SURVEY DIRECTOR 07/26/2013 Nurse visit Skylar Pfeiffer GEODETIC SURVEY DIRECTOR 07/19/2013 Nurse visit Skylar Pfeiffer GEODETIC SURVEY DIRECTOR 07/12/2013 Nurse visit Skylar Pfeiffer GEODETIC SURVEY DIRECTOR 07/05/2013 Nurse visit Skylar Pfeiffer GEODETIC SURVEY DIRECTOR 06/28/2013 Nurse visit Skylar Pfeiffer GEODETIC SURVEY DIRECTOR 06/21/2013 Nurse visit Skylar Pfeiffer GEODETIC SURVEY DIRECTOR 06/14/2013 Nurse visit Skylar Pfeiffer GEODETIC SURVEY DIRECTOR 06/08/2013 Nurse visit Jailene Aguilera MD 06/02/2013 [...] Aguilera MD 10/06/2012 Office visit Skylar Pfeiffer GEODETIC SURVEY DIRECTOR 10/05/2012 Nurse visit Jailene Aguilera MD 09/28/2012 Nurse visit Jailene Aguilera MD 09/23/2012 [facility] Guido Parra MD 09/21/2012 Nurse visit Jailene Aguilera MD 09/14/2012 Nurse visit Jailene Aguilera MD 09/09/2012 [facility] Guido Parra MD 09/07/2012 Nurse visit Jailene Aguilera MD 09/02/2012 Office visit Jailene Aguilera MD 08/31/2012 Nurse visit Jailene Aguilera MD 08/25/2012 Nurse visit Jaileen Aguilera MD 08/18/2012 Nurse visit Jailene Aguilera [...] Jailene Aguilera MD 05/11/2012 Nurse visit Jailene Aguliera MD 05/04/2012 Nurse visit Grey Lock MD [...] 02/19/2011 Nurse visit Chin Mcconnell DO 02/19/2011 [facility] Jamir Ness MD 02/11/2011 Nurse visit Chin Mcconnell DO 02/05/2011 Nurse visit Chin Mcconnell DO 01/29/2011 Nurse visit Chin Mcconnell [...] visit Chin Mcconnell DO 05/01/2010 Nurse visit hCin Mcconnell DO 04/24/2010 Nurse visit Chin Mcconnell [...]
--- OUTSIDE RECORDS SUMMARY | 2018-10-21 07:02 | XMS REPORT ---
Author Author Nicole Ackerman Organization [facility] Address [address] [place], [place] [id number] Care Team Providers Care Cattle Trader Name Role Phone Nicole Ackerman PCP Allergies and Adverse Reactions Name Reaction Notes pollens Demerol intolerant Plan of Treatment Planned Activity Comments Planned Date Planned Time Plan/Goal IMMUNOTHERAPY INJECTIONS 09/11/2015 12:00 AM IMMUNOTHERAPY INJECTIONS 09/12/2015 12:00 AM IMMUNOTHERAPY INJECTIONS 09/18/2015 12:00 AM IMMUNOTHERAPY INJECTIONS 05/04/2012 12:00 AM [...] days hydrochlorothiazide 12.5 mg oral tablet 09/14/2015 03/07/2017 take 1 tablet ( 12.5 mg) by oral route once daily for 90 days Voltaren 1 % topical gel 09/14/2015 03/12/2016 apply 2 gram to the affected area(s) by topical route 4 times per day for 90 days Name Start Date Expiration [...] BY MOUTH ONCE DAILY for 30 days levothyroxine 100 mcg oral tablet 02/28/2015 05/29/2015 TAKE ONE TABLET BY MOUTH DAILY metformin 500 mg oral tablet 03/28/2015 07/26/2015 [...] BY MOUTH EVERY DAY for 30 days Problem List Description Status Onset Allergic [...] HC BMI BSA BMI Percentile O2 Sat(%) 09/14/2015 1:03:00 PM 140 mmHg 72 mmHg 73 bpm 18 rpm 98.7 F 257 lbs 63.5 in 44.81 kg/m2 2.29 m2 97 % 03/28/2015 3:05:00 PM 140 mmHg 92 mmHg 66 bpm 98.3 F 254.125 lbs 63.5 in 44.3096 kg/m 2.2725 m 96 % 01/16/2015 9:48:00 AM 150 mmHg 80 mmHg 01/16/2015 9:48:00 AM 122 mmHg 55 mmHg 01/16/2015 9:01:00 AM 186 mmHg 80 mmHg 78 bpm 96.2 F 257 lbs 63.5 in 44.8109 kg/m 2.2854 m 97 % 12/05/2014 3:07:00 PM 175 mmHg 80 mmHg 79 bpm 18 rpm 98.1 F 259.25 lbs 63.5 in 45.20 kg/m2 2.30 m2 98 % 2014 4:20:00 PM 140 mmHg 60 mmHg 59 bpm 18 rpm 96.2 F 261 lbs 63.5 in 45.5084 kg/m 2.3031 m 98 % 01/02/2014 2:46:00 PM 130 mmHg 60 mmHg 67 bpm 18 rpm 98.3 F 257.5 lbs 63.5 in 44.90 kg/m2 2.29 m2 97 % 11/23/2013 1:41:00 PM 138 mmHg 65 mmHg 92 bpm 20 rpm 98.2 F 252 lbs 63.5 in 43.9391 kg/m 2.263 m 94 % 08/22/2013 1:05:00 PM 164 mmHg [...] F 255.2 lbs 63.5 in 44.4971 kg/m 2.2773 m 94 % 09/02/2012 9:09:00 AM 146 mmHg 70 mmHg 77 bpm 18 rpm 97.2 F 257.25 lbs 96 % 07/29/2012 1:11:00 PM 124 mmHg 60 mmHg 69 bpm 16 rpm 97.6 F 258.125 lbs 96 % 01/20/2012 1:02:00 PM 136 mmHg 68 mmHg 81 bpm 16 rpm 97.9 F 259.25 lbs 63.5 in 45.20 kg/m2 2.30 m2 95 % 09/04/2011 2:49:00 PM 110 mmHg 62 mmHg 85 bpm 16 rpm 97.8 F 265 lbs 63.5 in 46.2058 kg/m 2.3206 m 93 % 07/14/2011 1:06:00 PM 128 mmHg 70 mmHg 69 bpm 16 rpm 98.4 F 265 lbs 97 % 03/11/2011 3:30:00 PM 148 mmHg 70 mmHg 67 bpm 16 rpm 98.8 F 264 lbs 96 % 01/01/2011 1:25:00 PM 140 mmHg 78 mmHg 63 bpm 16 rpm 97.3 F 266.125 lbs 63 in 47.14 kg/m2 2.32 m2 97 % 08/28/2010 4:19:00 PM 140 mmHg 70 mmHg 84 bpm 18 rpm 96.8 F 265.375 lbs 63 in 47.0086 kg/m 2.3131 m 96 % 08/21/2010 5:54:00 PM 140 mmHg 80 mmHg 73 bpm 18 rpm 96.4 F 264.375 lbs 63 in 46.83 kg/m2 2.31 m2 98 % 06/26/2010 5:52:00 PM 140 mmHg 80 mmHg 62 bpm 16 rpm 97.3 F 264.25 lbs 63 in 46.8093 kg/m 2.3082 m 97 % 01/09/2010 1:24:00 PM 140 mmHg 78 mmHg 60 bpm 16 rpm 97.4 F 259 lbs 63 in 45.88 kg/m2 2.29 m2 99 % 11/08/2009 9:22:00 AM 140 mmHg 80 mmHg 67 bpm 16 rpm 96.7 F 256.5 lbs 63 in 45.4365 kg/m 2.2741 m 96 % Social History Name Description Comments 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 Denies illicit substance abuse Active but no [...] 12:00 AM ASSAY THYROID STIM HORMONE Returned 08/04/2011 12:00 AM IMMUNOTHERAPY INJECTIONS Reviewed 08/11/2011 12:00 AM IMMUNOTHERAPY INJECTIONS Reviewed 08/18/2011 12:00 AM IMMUNOTHERAPY INJECTIONS Reviewed 08/19/2011 12:00 AM IMMUNOTHERAPY INJECTIONS Reviewed 12/26/2009 12:00 AM IMMUNOTHERAPY INJECTIONS Reviewed 08/25/2011 12:00 [...] Years And Above [facility]# [id number] C Reviewed 09/07/2012 12:00 AM IMMUNOTHERAPY INJECTIONS Reviewed [...] Years And Above [facility]# [id number] RHC Reviewed 10/30/2009 12:00 AM IMMUNOTHERAPY INJECTIONS [...] IMMUNOTHERAPY INJECTIONS Reviewed 02/27/2015 12:00 AM PROF TANIA ALLG IMMNTX X W/PRV ALLGIC XTRCS NJXS [...] BILI 0.70 mg/dLCALCIUM 9.70 mg/ dLeGFR 37 TSH 0.980 uIU/mL History Of Immunizations Name Date Admin Mfg Name Mfg Code Trade Name Lot# Route Inj Vis Given Vis Pub CVX Pneumococcal 11/19/2004 [employer]ck [employer] MSD Pneumovax 23 Intramuscular Not Entered 11/16/2016 11/16/2016 999 Influenza 08/15/2009 [employer] Becky. NOV Fluvirin > 12 Years [id number] Intramuscular Left Deltoid 11/06/2009 11/16/2016 999 Influenza 08/21/2010 [employer] Becky. NOV Fluvirin > 12 Years [id number] Intramuscular Left Deltoid 08/21/2010 06/26/2009 999 Pneumococcal 08/28/2010 [employer]ck [employer] MSD Pneumovax 23 [id number] Intramuscular Right Deltoid 08/28/2010 03/01/2009 999 Influenza 09/04/2011 sanofi pasteur PMC Fluzone [id number] Intramuscular Left Deltoid 09/04/2011 06/11/2011 111 Influenza 09/02/2012 sanofi pasteur PMC Fluzone [id number] Intramuscular Left Deltoid 09/02/2012 05/17/2012 141 Influenza 08/22/2013 [facility] PMC Fluzone > 3 Years [id number] Intramuscular Left Deltoid 08/22/2013 06/10/2013 141 Influenza 08/24/2015 [facility] Fluzone [id number] Intramuscular Left Deltoid 08/24/2015 06/22/2015 141 History [...] to other allergen Sep 18 2015 9:01AM Payers Insurance Name Company Name Plan Name Plan Number Policy Number Policy Group Number Start Date Medicare Part A Medicare Part A [id number] Tuesday, 2012 [id number] Friday, 2009 Medicare Part B Medicare Of [place] [id number] Saturday, 2006 History of Encounters Visit Date Visit Type Provider 09/18/2015 Nurse visit Nicole Ackerman MD 09/14/2015 [...] Nicole Ackerman MD 09/26/2014 Nurse visit Nicole Ackerman MD [...] Ackerman MD 07/19/2014 Nurse visit [place] APRN 07/11/2014 Nurse visit [place] APRN 07/04/2014 Nurse visit Skylar Pfeiffer OPERATIONS RESEARCH DIRECTOR 06/27/2014 Nurse visit [place] OPERATIONS RESEARCH DIRECTOR 06/20/2014 Nurse visit [place] OPERATIONS RESEARCH DIRECTOR 06/13/2014 Nurse visit Nicole Ackerman MD 06/06/2014 Nurse visit Mariposa Bellamy OPERATIONS RESEARCH DIRECTOR 05/30/2014 Nurse visit [place] OPERATIONS RESEARCH DIRECTOR 05/23/2014 Nurse visit Skylar Pfeiffer OPERATIONS RESEARCH DIRECTOR 05/16/2014 Nurse visit Nicole Ackerman MD 05/02/2014 Nurse visit Nicole Ackerman MD 04/25/2014 Nurse visit Nicole Ackerman MD 04/18/2014 Nurse visit Nicole Ackerman MD 04/12/2014 Nurse visit Nicole Ackerman MD 04/05/2014 Nurse visit Nicole Ackerman MD 03/28/2014 Nurse visit Mariposa Cordova RN 03/22/2014 Nurse visit Skylar Pfeiffer OPERATIONS RESEARCH DIRECTOR 03/14/2014 Nurse visit Nicole Ackerman MD 03/07/2014 Nurse visit Skylar Pfeiffer OPERATIONS RESEARCH DIRECTOR 02/28/2014 Nurse visit Skylar Pfeiffer OPERATIONS RESEARCH DIRECTOR 02/21/2014 Nurse visit Nicole Ackerman MD 02/14/2014 Nurse visit Skylar Pfeiffer OPERATIONS RESEARCH DIRECTOR 02/06/2014 Nurse visit Nicole Ackerman MD [...] Ackerman MD 11/29/2013 Nurse visit Mariposa Bellamy OPERATIONS RESEARCH DIRECTOR 11/23/2013 Office visit Nicole Ackerman MD [...] visit Jailene Aguilera MD 08/16/2013 Nurse visit aJilene Aguilera MD 08/09/2013 Nurse visit Skylar Pfeiffer OPERATIONS RESEARCH DIRECTOR 08/02/2013 Nurse visit Skylar Pfeiffer OPERATIONS RESEARCH DIRECTOR 07/26/2013 Nurse visit Skylar Pfeiffer OPERATIONS RESEARCH DIRECTOR 07/19/2013 Nurse visit Skylar Pfeiffer OPERATIONS RESEARCH DIRECTOR 07/12/2013 Nurse visit Skylar Pefiffer OPERATIONS RESEARCH DIRECTOR 07/05/2013 Nurse visit Skylar Pfeiffer OPERATIONS RESEARCH DIRECTOR 06/28/2013 Nurse visit Skylar Pfeiffer OPERATIONS RESEARCH DIRECTOR 06/21/2013 Nurse visit Skylar Pfeiffer OPERATIONS RESEARCH DIRECTOR 06/14/2013 Nurse visit Skylar Pfeiffer OPERATIONS RESEARCH DIRECTOR 06/08/2013 Nurse visit Jailene Aguilera MD [...] Aguilera MD 10/06/2012 Office visit Skylar Pfeiffer OPERATIONS RESEARCH DIRECTOR 10/05/2012 Nurse visit Jailene Aguilera MD 09/28/2012 Nurse visit Jailene Aguilera MD 09/23/2012 [facility] Guido Parra MD 09/21/2012 Nurse visit Jailene Aguilera MD 09/14/2012 Nurse visit Jailene Aguilera MD 09/09/2012 [facility] Guido Parra MD 09/07/2012 Nurse visit [...] Chin Mcconnell DO 07/17/2010 Nurse visit Chin Mcocnnell DO 07/11/2010 Nurse visit Chin Mcconnell DO [...] Chin Mcconnell DO 10/18/2009 Nurse visit Chin Mccnonell DO 10/10/2009 Nurse visit Chin Mcconnell DO [...]
--- OUTSIDE RECORDS SUMMARY | 2018-10-21 07:05 | XMS REPORT ---
Author Author [facility] Organization [facility] Address [address] [place], [place] [id number] Care Team Providers Care Degree Clerk Name Role Phone PCP Unavailable Allergies and Adverse Reactions Name Reaction Notes pollens Demerol intolerant Plan of Treatment Planned Activity Comments Planned Date Planned Time Plan/Goal COMPREHEN METABOLIC PANEL 07/29/2012 12:00 AM LIPID PANEL 07/29/2012 12:00 AM GLYCOSYLATED HEMOGLOBIN TEST 07/29/2012 12:00 AM ASSAY THYROID STIM HORMONE 07/29/2012 12:00 AM COMPLETE CBC W/AUTO DIFF WBC 07/29/2012 12:00 AM COMPUTER DX MAMMOGRAM ADD-ON 12/07/2012 12:00 AM GLYCOSYLATED HEMOGLOBIN TEST 11/22/2013 12:00 AM COMPLETE CBC W/AUTO DIFF WBC 01/16/2015 12:00 AM Medications Active Name Start Date Estimated Completion Date SIG Comments Ocuvite Oral Tablet take 1 tablet by oral route daily Glucosamine-Chondroitin Oral Capsule 500-400 mg take 1 capsule by oral route daily Caltrate-600 Plus Vitamin D3 Oral Tablet 600-400 mg-unit take 1 tablet by oral route daily Fish Oil Oral Capsule 1,000 mg take 1 capsule by oral route 2 times a day Aleve Oral Tablet 220 mg take 1 tablet (220 mg) by oral route every 8 hours as needed Multivitamin Oral Tablet take 1 tablet by oral route once daily with food simvastatin oral tablet 80 mg 10/26/2013 TAKE 1 TABLET BY MOUTH EVERY EVENING simvastatin oral tablet 80 mg 04/25/2014 04/20/2015 TAKE 1 TABLET BY MOUTH EVERY EVENING for 90 days metformin oral tablet 500 mg 08/22/2014 TAKE 1 TABLET BY MOUTH TWICE DAILY WITH MORNING AND EVENING MEALS glipizide Oral tablet extended release 24hr 5 mg 09/19/2014 09/14/2015 take 2 tablets (10 mg) by oral route once daily with breakfast for 90 days Mastectomy Bra 1 unit 12/06/2014 06/22/2015 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 Contour Test Strips miscellaneous strip 01/09/2015 04/03/2016 test BG QID for 90 days for DMII 205.00 lancets miscellaneous misc 01/09/2015 01/04/2016 use as directed QID for 90 days atenolol oral tablet 50 mg 01/16/2015 07/15/2015 TAKE 1 TABLET BY MOUTH EVERY DAY for 30 days lisinopril-hydrochlorothiazide oral tablet 20-25 mg 01/16/2015 07/15/2015 TAKE 1 TABLET BY MOUTH EVERY DAY for 30 days furosemide Oral tablet 40 mg 01/16/2015 07/15/2015 TAKE 1 TABLET BY MOUTH ONCE DAILY for 30 days metformin oral tablet 500 mg 02/19/2015 TAKE 1 TABLET BY MOUTH TWICE DAILY WITH MORNING AND EVENING MEALS levothyroxine oral tablet 100 mcg 02/28/2015 05/29/2015 TAKE ONE TABLET BY MOUTH DAILY Name Start Date Expiration Date SIG Comments LANCETS 04/19/2012 07/18/2012 TEST ONCE DAILY Zithromax Z-Gal Oral Tab 250 MG 10/06/2012 10/11/2012 Take 2 tablets the first day (500 mg) followed by 1 tablet (250 mg) days 2-5. for 5 days albuterol sulfate Inhalation HFA Aerosol Inhaler 90 mcg/actuation 10/06/2012 inhale 1 - 2 puffs by inhalation route every 6 hours as needed [facility] 05/03/2013 08/01/2013 TEST ONCE DAILY atenolol Oral tablet 50 mg 06/27/2013 07/27/2013 TAKE 1 TABLET BY MOUTH EVERY DAY simvastatin Oral tablet 80 mg 07/27/2013 10/25/2013 TAKE 1 TABLET BY MOUTH ONCE DAILY IN THE EVENING lisinopril-hydrochlorothiazide oral tablet 20-25 mg 01/20/2014 07/19/2014 TAKE 1 TABLET BY MOUTH EVERY DAY metformin oral tablet 500 mg 08/21/2014 02/17/2015 take 1 tablet (500 mg) by oral route 2 times per day with morning and evening meals for 30 days Discontinued Name Start Date Discontinued Date SIG Comments Samantha Oral Tablet 180 mg 10/06/2012 take 1 tablet (180 mg) by oral route once daily Aspirin Oral Tablet 81 mg 10/06/2012 take 1 tablet by oral route daily Flonase Nasal [place], Suspension 50 mcg/Actuation 10/06/2012 inhale 1 spray in each nostril by intranasal route once daily WelChol Oral Tablet 625 mg 11/08/2009 2daily Glipizide Oral Tablet 5 mg 01/10/2010 10/16/2010 take 0.5 tablet by oral route daily Diabetic Shoes 01/16/2010 10/16/2010 250.02, 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 Lasix Oral Tablet 40 mg 04/22/2010 10/06/2012 take 1 tablet (40 mg) daily takes generic Ammonium Lactate Topical Cream 12 % 01/01/2011 11/23/2013 apply to affected area(s) by topical route daily Tessalon Perles Oral capsule 100 mg 10/06/2012 11/23/2013 take 1-2 capsules by oral route 3 times a day as needed metformin Oral tablet 500 mg 07/21/2013 08/22/2013 TAKE 1 TABLET BY MOUTH TWICE DAILY CrCl 27.6 Vaniqa Topical Cream 13.9 % 10/18/2013 01/16/2015 apply a thin layer by topical route 1 time per day to the affected area(s) for 30 days Problem List Description Status Onset Allergic rhinitis Active Anemia Active Asthma Active Benign essential hypertension Active degenerative joint disease Active Diabetes Mellitus, Type II Active Gastric Ulcer Active Heartburn Active Hyperlipidemia Active Hypothyroidism, Acquired Active macular degeneration of eyes Active Mitral valve prolapse Active Murmur Active Obstructive Sleep Apnea Active Obesity Active 01/09/2010 Degenerative disc disease Active 09/05/2012 Spinal stenosis, lumbar region Active 09/05/2012 Peripheral Vascular Disease Active Vital Signs Date Time BP-Sys(mm[Hg] BP-Li(mm[Hg]) HR(bpm) RR(rpm) Temp WT HT HC BMI BSA BMI Percentile O2 Sat(%) 01/16/2015 9:48:00 AM 150 mmHg 80 mmHg [...] History Name Description Comments 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 Denies illicit substance abuse Active but no formal exercise History of Procedures Date Ordered Description Order Status 07/14/2011 12:00 AM COMPREHEN METABOLIC PANEL Reviewed 07/14/2011 12:00 AM LIPID PANEL Reviewed 07/14/2011 12:00 AM GLYCOSYLATED HEMOGLOBIN TEST Reviewed 07/14/2011 12:00 AM ASSAY THYROID STIM HORMONE Reviewed 07/14/2011 12:00 AM COMPLETE CBC W/AUTO DIFF WBC Reviewed 07/14/2011 12:00 AM IMMUNOTHERAPY INJECTIONS Reviewed 07/24/2011 12:00 AM IMMUNOTHERAPY INJECTIONS Reviewed 08/04/2011 12:00 AM IMMUNOTHERAPY INJECTIONS Reviewed 08/11/2011 12:00 AM IMMUNOTHERAPY INJECTIONS Reviewed 08/18/2011 12:00 AM IMMUNOTHERAPY INJECTIONS Reviewed 08/19/2011 12:00 AM IMMUNOTHERAPY INJECTIONS Reviewed 12/26/2009 12:00 AM IMMUNOTHERAPY INJECTIONS Reviewed 08/25/2011 12:00 AM IMMUNOTHERAPY INJECTIONS Reviewed 09/01/2011 12:00 AM IMMUNOTHERAPY INJECTIONS Reviewed 09/04/2011 12:00 AM ELECTROCARDIOGRAM COMPLETE Reviewed 09/08/2011 12:00 AM IMMUNOTHERAPY INJECTIONS Reviewed [...] Reviewed 08/31/2012 12:00 AM IMMUNOTHERAPY INJECTIONS Reviewed 09/07/2012 12:00 AM IMMUNOTHERAPY INJECTIONS Reviewed [...] 12:00 AM ASSAY THYROID STIM HORMONE Returned 10/30/2009 12:00 AM IMMUNOTHERAPY INJECTIONS Reviewed 03/27/2010 [...] Returned 12/27/2013 12:00 AM IMMUNOTHERAPY INJECTIONS Reviewed 01/09/2014 12:00 AM IMMUNOTHERAPY INJECTIONS Returned [...] & > IM Reviewed 08/21/2010 12:00 AM IMMUNOTHERAPY INJECTIONS Reviewed [...] AM IMMUNIZATION ADMIN Reviewed 08/28/2010 12:00 AM X-RAY EXAM OF [...] Reviewed 09/05/2014 12:00 AM IMMUNOTHERAPY INJECTIONS Returned 09/19/2014 12:00 AM IMMUNOTHERAPY INJECTIONS Returned [...] 03/25/2011 12:00 AM IMMUNOTHERAPY 2/> INJECTIONS Reviewed 04/01/2011 12:00 AM IMMUNOTHERAPY INJECTIONS Reviewed 04/10/2011 12:00 AM IMMUNOTHERAPY INJECTIONS Reviewed 12/12/2009 12:00 AM IMMUNOTHERAPY INJECTIONS Reviewed 04/15/2011 12:00 AM IMMUNOTHERAPY INJECTIONS Reviewed 04/21/2011 12:00 AM IMMUNOTHERAPY INJECTIONS Reviewed 04/29/2011 12:00 AM IMMUNOTHERAPY INJECTIONS Reviewed 05/06/2011 12:00 AM IMMUNOTHERAPY INJECTIONS Reviewed 05/13/2011 12:00 AM IMMUNOTHERAPY INJECTIONS Reviewed 05/20/2011 12:00 AM IMMUNOTHERAPY INJECTIONS Reviewed 05/27/2011 12:00 AM IMMUNOTHERAPY INJECTIONS Reviewed 06/03/2011 12:00 AM IMMUNOTHERAPY INJECTIONS Reviewed 06/10/2011 12:00 AM IMMUNOTHERAPY INJECTIONS Reviewed 12/19/2009 12:00 AM IMMUNOTHERAPY INJECTIONS Reviewed 06/17/2011 12:00 AM IMMUNOTHERAPY INJECTIONS Reviewed 06/24/2011 12:00 AM IMMUNOTHERAPY INJECTIONS Reviewed 10/10/2009 12:00 AM IMMUNOTHERAPY INJECTIONS Reviewed 07/01/2011 12:00 AM IMMUNOTHERAPY INJECTIONS Reviewed 07/08/2011 12:00 AM IMMUNOTHERAPY INJECTIONS Reviewed Results Summary [...] mg/dLTRIGLYCERIDES 225.0 mg/dLCHOLESTEROL 184 mg/ dLHDL 44.0 mg/dLGLYCOHEMOGLOBIN A1C 6.3 FREE T4 1.34 TSH 1.760 uIU/mLGLUCOSE 139 SODIUM 141.0 mmol/LPOTASSIUM 3.70 mmol/LCHLORIDE 97.0 mmol/LCO2 28.0 mmol/ LBUN 24.0 mg/dLCREATININE 1.20 mg/dLSGOT/AST 39.0 IU/LSGPT/ALT 29.0 IU/LALK PHOS 72.0 IU/LTOTAL PROTEIN 7.30 g/dLALBUMIN 4.10 g/dLTOTAL BILI 0.50 mg/ dLCALCIUM 9.60 mg/dLeGFR 45 01/09/2010 12:00 AM Mammogram -Women over 40 Normal 01/09/2010 1:39 PM Foot Exam-Diabetic Done 06/25/2010 12:00 AM LDLc SerPl-mCnc 84.0 mg/dLGlucose SerPl-mCnc 135.0 mg/ dLCholest Cry Stone Ql IR 178.0 % 06/25/2010 8:25 AM TRIGLYCERIDES 244.0 mg/dLCHOLESTEROL 178.0 mg/dLHDL 45.0 mg/ dLLDL (CALC) 84.0 mg/dLTSH 1.350 uIU/mLGLYCOHEMOGLOBIN A1C 6.10 %GLUCOSE 135.0 mg/dLSODIUM 137.0 mmol/LPOTASSIUM 4.30 mmol/LCHLORIDE 97.0 mmol/LCO2 26.0 mmol/ LBUN 33.0 mg/dLCREATININE 1.50 mg/dLSGOT/AST 34.0 IU/LSGPT/ALT 33.0 IU/LALK PHOS 68.0 IU/LTOTAL PROTEIN 7.40 g/dLALBUMIN 4.10 g/dLTOTAL BILI 0.60 mg/ dLCALCIUM 9.70 mg/dLeGFR 34 08/21/2010 7:00 PM TSH 1.450 uIU/mLFERRITIN [...] Dental Inspection Reffered 12/24/2010 12:00 AM Cholest Aleksey Stone Ql IR 181.0 %LDLc SerPl-mCnc 83.0 mg/ dLGlucose SerPl-mCnc 134.0 mg/dL 12/24/2010 8:50 AM GLYCOHEMOGLOBIN A1C 6.20 %TRIGLYCERIDES 284.0 mg/ dLCHOLESTEROL 181.0 mg/dLHDL 41.0 mg/dLLDL (CALC) 83.0 mg/dLTSH 1.230 uIU/ mLGLUCOSE 134.0 mg/dLSODIUM 140.0 mmol/LPOTASSIUM 4.20 mmol/LCHLORIDE 98.0 mmol/ LCO2 29.0 mmol/LBUN 32.0 mg/dLCREATININE 1.70 mg/dLSGOT/AST 34.0 IU/LSGPT/ALT 30.0 IU/LALK PHOS 72.0 IU/LTOTAL PROTEIN 7.20 g/dLALBUMIN 4.20 g/dLTOTAL BILI 0.50 mg/dLCALCIUM 10.0 mg/dLeGFR 30 01/01/2011 1:35 PM Pap Smear Declined [...] mg/dLHDL 42.0 mg/dLLDL (CALC) 82.0 mg/dLTSH 2.360 uIU/ mLGLYCOHEMOGLOBIN A1C 6.20 % 01/08/2012 8:35 AM WBC [...] mg/dLHDL 41.0 mg/dLLDL (CALC) 77.0 mg/dLTSH 2.150 uIU/ mLGLYCOHEMOGLOBIN A1C 6.10 % 07/21/2012 8:50 AM WBC [...] 0.80 mg/dLCALCIUM 10.0 mg/dLeGFR 34 TSH 1.530 uIU/ mLGLYCOHEMOGLOBIN A1C 6.60 %CREAT UR 45.50 mg/dLMICROALBUMIN UR 3.0 ug/mLALB: CREAT RATIO 7 10/12/2012 11:35 AM WBC 6.7 [...] mg/dLLDL (CALC) 71.0 mg/dLTSH 0.980 uIU/mLTSH 0.980 uIU/mLGLYCOHEMOGLOBIN [...] dLCHOLESTEROL 159.0 mg/dLHDL 40.0 mg/dLLDL (CALC) 74.0 mg/dLHGB A1C 6.40 %TSH 1.450 uIU/mL 08/09/2013 8:48 AM CREAT UR 60.70 mg/dLMICROALBUMIN UR 5.0 ug/mLALB:CREAT RATIO 8 11/24/2013 8:40 AM GLUCOSE 172.0 mg/dLSODIUM 137.0 mmol/LPOTASSIUM 4.10 mmol/ LCHLORIDE 97.0 mmol/LCO2 29.0 mmol/LBUN 25.0 mg/dLCREATININE 1.50 mg/dLSGOT/AST 29.0 IU/LSGPT/ALT 19.0 IU/LALK PHOS 80.0 IU/LTOTAL PROTEIN 7.0 g/dLALBUMIN 4.20 g/dLTOTAL BILI 0.80 mg/dLCALCIUM 9.60 mg/dLeGFR 34 TRIGLYCERIDES 233.0 mg/ dLCHOLESTEROL 181.0 mg/dLHDL 51.0 mg/dLLDL (CALC) 83.0 mg/dLHGB A1C 6.0 %TSH 2.050 uIU/mL 04/18/2014 8:40 AM TSH 0.930 uIU/mLHGB A1C 6.90 %TRIGLYCERIDES 242.0 mg/ dLCHOLESTEROL 160.0 mg/dLHDL 43.0 mg/dLLDL (CALC) 69.0 mg/dL 12/12/2014 8:30 AM WBC 5.9 RBC 3.79 HGB 11.70 g/dLHCT 35.70 %MCV 94.0 fLMCH 30.90 pgMCHC 32.80 g/dLRDW CV 14.0 %MPV 10.70 fLPLT 168 %NEUT 58.60 %%LYMP 29.60 %%MONO 5.90 %%EOS 5.20 %%BASO 0.70 %#NEUT 3.47 #LYMP 1.75 #MONO 0.35 #EOS 0.31 #BASO 0.04 HGB A1C 6.60 %TRIGLYCERIDES 259.0 mg/dLCHOLESTEROL 162.0 mg/ dLHDL 41.0 mg/dLLDL (CALC) 69.0 mg/dLMICROALBUMIN UR <0.5 MG/DLGLUCOSE 165.0 mg/ dLSODIUM 136.0 mmol/LPOTASSIUM 4.40 mmol/LCHLORIDE 95.0 mmol/LCO2 27.0 mmol/ LBUN 35.0 mg/dLCREATININE 1.50 mg/dLSGOT/AST 27.0 IU/LSGPT/ALT 21.0 [...] 1.64 #MONO 0.46 #EOS 0.29 #BASO 0.04 HGB A1C 5.60 %TRIGLYCERIDES 242.0 mg/dLCHOLESTEROL 158.0 mg/ dLHDL 42.0 mg/dLLDL (CALC) 68.0 mg/dLGLUCOSE 152.0 mg/dLSODIUM 135.0 mmol/ LPOTASSIUM 4.20 mmol/LCHLORIDE 94.0 mmol/LCO2 28.0 mmol/LBUN 23.0 mg/ dLCREATININE 1.40 mg/dLSGOT/AST 23.0 IU/LSGPT/ALT 16.0 IU/LALK PHOS 61.0 IU/ LTOTAL PROTEIN 6.90 g/dLALBUMIN 4.20 g/dLTOTAL BILI 0.80 mg/dLCALCIUM 10.0 mg/ dLeGFR 37 History Of Immunizations Name Date Admin Mfg Name Mfg Code Trade Name Lot# Route Inj Vis Given Vis Pub CVX Pneumococcal 11/19/2004 Merck [employer]., [employer] MSD Pneumovax 23 Intramuscular Not Entered 11/16/2015 11/16/2015 999 Influenza 08/15/2009 Guzu Becky. NOV Fluvirin > 12 Years [id number] Intramuscular Left Deltoid 11/06/2009 11/16/2015 999 Influenza 08/21/2010 Guzu Becky. NOV Fluvirin > 12 Years [id number] Intramuscular Left Deltoid 08/21/2010 06/26/2009 999 Pneumococcal 08/28/2010 [employer] MSD Pneumovax 23 [id number] Intramuscular Right Deltoid 08/28/2010 03/01/2009 999 Influenza 09/04/2011 [facility] PMC Fluzone [id number] Intramuscular Left Deltoid 09/04/2011 06/11/2011 111 Influenza 09/02/2012 [facility] PMC Fluzone [id number] Intramuscular Left Deltoid 09/02/2012 05/17/2012 141 Influenza 08/22/2013 [facility] PMC Fluzone > 3 Years [id number] Intramuscular Left Deltoid 08/22/2013 06/10/2013 141 History of Past Illness Name Date [...] of eyes Allergic rhinitis Hypothyroidism, Acquired Gastric Ulcer Anemia Asthma Hyperlipidemia Obstructive Sleep Apnea Heartburn [...] 8:52AM Allergic rhinitis; due to other allergen Dec 21 2012 9:07AM Allergic rhinitis; due to other [...] to other allergen Mar 13 2015 9:26AM Payers Insurance Name Company Name Plan Name Plan Number Policy Number Policy Group Number Start Date Medicare Part A Medicare Part A [id number] Tuesday, [id number] Friday, 2009 Medicare Part B Medicare Of [place] [id number] Saturday, 2006 History of Encounters Visit Date Visit Type Provider 03/13/2015 Nurse visit Nicole Ackerman MD 03/06/2015 [...] Ackerman MD 07/19/2014 [place] visit [place] [facility] ASSOCIATE JUSTICE 07/11/2014 Nurse visit [place] [facility] [employer] JUSTICE 07/04/2014 Nurse visit Skylar Pfeiffer [facility] ASSOCIATE JUSTICE 06/27/2014 Nurse visit [place] [facility] ASSOCIATE JUSTICE 06/20/2014 Nurse visit [place] [facility] ASSOCIATE JUSTICE 06/13/2014 Nurse visit Nicole Ackerman MD 06/06/2014 Nurse visit Mariposa Bellamy [facility] ASSOCIATE JUSTICE 05/30/2014 Nurse visit [place] [facility] ASSOCIATE JUSTICE 05/23/2014 Nurse visit Skylar Pfeiffer [facility] ASSOCIATE JUSTICE 05/16/2014 Nurse visit Nicole Ackerman MD 05/02/2014 Nurse visit Nicole Ackerman MD 04/25/2014 Nurse visit Nicole Ackerman MD 04/18/2014 Nurse visit Nicole Ackerman MD 04/12/2014 Nurse visit Nicole Ackerman MD 04/05/2014 Nurse visit Nicole Ackerman MD 03/28/2014 Nurse visit Mariposa Cordova RN 03/22/2014 Nurse visit Skylar Pfeiffer [facility] ASSOCIATE JUSTICE 03/14/2014 Nurse visit Nicole Ackerman MD 03/07/2014 Nurse visit Skylar Pfeiffer [facility] ASSOCIATE JUSTICE 02/28/2014 Nurse visit Skylar Pfeiffer [facility] ASSOCIATE JUSTICE 02/21/2014 Nurse visit Nicole Ackerman MD 02/14/2014 Nurse visit Skyl[place] Pfeiffer [facility] ASSOCIATE JUSTICE 02/06/2014 Nurse visit Nicole Ackerman MD 01/31/2014 [...] Ackerman MD 11/29/2013 Nurse visit Mariposa Bellamy [facility] ASSOCIATE JUSTICE 11/23/2013 Office visit Nicole Ackerman MD 11/14/2013 [...] Aguilera MD 08/09/2013 Nurse visit Skylar Pfeiffer [facility] ASSOCIATE JUSTICE 08/02/2013 Nurse visit Skylar Pfeiffer [facility] ASSOCIATE JUSTICE 07/26/2013 Nurse visit Skylar Pfeiffer [facility] ASSOCIATE JUSTICE 07/19/2013 Nurse visit Skylar Pfeiffer [facility] ASSOCIATE JUSTICE 07/12/2013 Nurse visit Skylar Pfeiffer [facility] ASSOCIATE JUSTICE 07/05/2013 Nurse visit Skylar Pfeiffer [facility] ASSOCIATE JUSTICE 06/28/2013 Nurse visit Skylar Pfeiffer [facility] ASSOCIATE JUSTICE 06/21/2013 Nurse visit Skylar Pfeiffer [facility] ASSOCIATE JUSTICE 06/14/2013 Nurse visit Skyl[place] Pfeiffer [facility] ASSOCIATE JUSTICE 06/08/2013 Nurse visit Jailene Aguilera MD 06/02/2013 [...] Aguilera MD 10/06/2012 Office visit Skylar Pfeiffer [facility] [employer]IATE JUSTICE 10/05/2012 Nurse visit Jailene Aguilera MD 09/28/2012 Nurse visit Jailene Aguilera MD 09/23/2012 [facility] Guido Parra MD 09/21/2012 Nurse visit Jailene Aguilera MD 09/14/2012 Nurse visit Jailene Aguilera MD 09/09/2012 [facility] Guido Parra MD 09/07/2012 Nurse visit Jailene Aguilera MD 09/02/2012 Office visit Jailene Aguilera MD 08/31/2012 Nurse visit Jailene Aguilera MD 08/25/2012 Nurse visit Jailene Aguilera MD 08/18/2012 Nurse visit Jailene Aguilera MD 08/11/2012 Nurse visit Jailene Aguilera MD 08/05/2012 Nurse visit Jailene Aguilera MD 07/29/2012 Office visit Jailene Aguilera MD 07/21/2012 Nurse visit Jailene Aguilera MD 07/12/2012 Voided Jailene Aguilera MD 07/12/2012 Nurse visit Jailene Aguilera MD 07/06/2012 Nurse visit Jailene Aguilera MD 06/28/2012 Voided Jarad Saravia DO 06/28/2012 Nurse visit Jailene Aguilera MD 06/21/2012 Nurse visit Giselle Gutierrez RN 06/14/2012 [...] 10/27/2011 Nurse visit Jailene Aguilera MD 10/20/2011 Voided Jarad Saravia DO 10/20/2011 Nurse visit Jailene Aguilera MD 10/13/2011 Nurse visit Jailene Aguilera MD 10/07/2011 [...]
--- OUTSIDE RECORDS SUMMARY | 2018-10-21 07:09 | XMS REPORT ---
Author Author Nicole Ackerman Organization [facility] Address [address] [facility] [address] [place], [place] [id number] Care Team Providers Care Bar Welder Name Role Phone Nicole Ackerman PCP Allergies and Adverse Reactions Name Reaction Notes pollens Demerol intolerant Plan of Treatment Planned Activity Comments Planned Date Planned Time Plan/Goal IMMUNOTHERAPY INJECTIONS 09/04/2015 12:00 AM IMMUNOTHERAPY INJECTIONS 05/04/2012 12:00 AM [...] oral route once daily with food simvastatin 80 mg oral tablet 10/26/2013 TAKE [...] days lisinopril-hydrochlorothiazide 20-25 mg oral tablet 07/17/2015 TAKE 1 TABLET BY MOUTH EVERY DAY for 30 days furosemide 40 mg oral tablet 07/17/2015 TAKE 1 TABLET BY MOUTH ONCE DAILY for 30 days atenolol 50 mg oral tablet 07/17/2015 TAKE 1 TABLET BY MOUTH EVERY DAY for 30 days metformin 500 mg oral tablet 08/13/2015 TAKE 1 TABLET BY MOUTH DAILY IN THE MORNING AND TAKE 2 TABLETS DAILY IN THE EVENING Name Start Date Expiration Date SIG Comments [...] 6 hours as needed [facility] 05/03/2013 08/01/2013 TEST ONCE DAILY atenolol 50 [...] nostril by intranasal route once daily WelChol 625 mg oral tablet 11/08/2009 2daily [...] once daily with breakfast for 90 days Problem List Description Status [...] HC BMI BSA BMI Percentile O2 Sat(%) 03/28/2015 3:05:00 PM 140 mmHg 92 mmHg [...] History Name Description Comments 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# [address]-31 RHC Reviewed 09/07/2012 12:00 AM IMMUNOTHERAPY INJECTIONS [...] Flu Injection [address] [facility]# [address]-02 C Reviewed 10/30/2009 12:00 AM IMMUNOTHERAPY INJECTIONS [...] Not Entered 11/16/2015 11/16/2015 999 Influenza 08/15/2009 [employer] Becky. NOV Fluvirin > 12 Years [id number] Intramuscular Left Deltoid 11/06/2009 11/16/2015 999 Influenza 08/21/2010 [employer]. NOV Fluvirin > 12 Years [id number] Intramuscular Left Deltoid 08/21/2010 06/26/2009 999 Pneumococcal 08/28/2010 Merck & Co., Inc[employer] MSD Pneumovax 23 [id number] Intramuscular Right Deltoid 08/28/2010 03/01/2009 999 Influenza 09/04/2011 [employer]ofi pasteur PMC Fluzone [id number] Intramuscular Left Deltoid 09/04/2011 06/11/2011 111 Influenza 09/02/2012 sanofi pasteur PMC Fluzone [id number] Intramuscular Left Deltoid 09/02/2012 05/17/2012 141 Influenza 08/22/2013 sanofi pasteur PMC Fluzone > 3 Years [id number] Intramuscular Left Deltoid 08/22/2013 06/10/2013 141 Influenza 08/24/2015 [facility] Fluzone [id number] Intramuscular Left Deltoid 08/24/2015 06/22/2015 141 History [...] 8:52AM Allergic rhinitis; due to other allergen Fe2012 9:07AM Allergic rhinitis; due to other allergen [...] to other allergen Sep 04 2015 9:16AM Payers Insurance Name Company Name Plan Name Plan Number Policy Number Policy Group Number Start Date Medicare Part A Medicare Part A [id number] Tuesday, 2012 [facility] [id number] Friday, 2009 Medicare Part B Medicare Of [place] [id number] Saturday, 2006 History of Encounters Visit Date Visit Type Provider 09/04/2015 Nurse visit Nicole Ackerman MD 08/28/2015 [...] Ackerman MD 07/19/2014 [place] visit [place] KEYMODULE ASSEMBLY SUPERVISOR 07/11/2014 Nurse visit [place] KEYMODULE ASSEMBLY SUPERVISOR 07/04/2014 Nurse visit Skylar Pfeiffer KEYMODULE ASSEMBLY SUPERVISOR 06/27/2014 Nurse visit [place] KEYMODULE ASSEMBLY SUPERVISOR 06/20/2014 Nurse visit [place] KEYMODULE ASSEMBLY SUPERVISOR 06/13/2014 Nurse visit Nicole Ackerman MD 06/06/2014 Nurse visit Mariposa Bellamy KEYMODULE ASSEMBLY SUPERVISOR 05/30/2014 Nurse visit [place] KEYMODULE ASSEMBLY SUPERVISOR 05/23/2014 Nurse visit Skylar Pfeiffer KEYMODULE ASSEMBLY SUPERVISOR 05/16/2014 Nurse visit Nicole Ackerman MD 05/02/2014 Nurse visit Nicole Ackerman MD 04/25/2014 Nurse visit Nicole Ackerman MD 04/18/2014 Nurse visit Nicole Ackerman MD 04/12/2014 Nurse visit Nicole Ackerman MD 04/05/2014 Nurse visit Nicole Ackerman MD 03/28/2014 Nurse visit Mariposa Cordova RN 03/22/2014 Nurse visit Skylar Pfeiffer KEYMODULE ASSEMBLY SUPERVISOR 03/14/2014 Nurse visit Nicole Ackerman MD 03/07/2014 Nurse visit Skylar Pfeiffer KEYMODULE ASSEMBLY SUPERVISOR 02/28/2014 Nurse visit Skylar Pfeiffer KEYMODULE ASSEMBLY SUPERVISOR 02/21/2014 Nurse visit Nicole Ackerman MD 02/14/2014 Nurse visit Skylar Pfeiffer KEYMODULE ASSEMBLY SUPERVISOR 02/06/2014 Nurse visit Nicole Ackerman MD 01/31/2014 Nurse visit Nicole Ackerman MD 01/25/2014 Nurse visit Nicole Ackerman MD 2014 Office visit Nicole Ackerman MD 01/09/2014 Nurse visit Nicole Ackerman MD 01/02/2014 Office visit Nicole Ackerman MD 12/27/2013 Nurse visit Nicole Ackerman MD 12/19/2013 Nurse visit Nicole Ackerman MD 12/12/2013 Nurse visit Nicole Ackreman MD 12/05/2013 Nurse visit Nicole Ackerman MD 11/29/2013 Nurse visit Mariposa Bellamy KEYMODULE ASSEMBLY SUPERVISOR 11/23/2013 Office visit Nicole Ackerman MD 11/14/2013 [...] Aguilera MD 08/09/2013 Nurse visit Skylar Pfeiffer KEYMODULE ASSEMBLY SUPERVISOR 08/02/2013 Nurse visit Skylar Pfeiffer KEYMODULE ASSEMBLY SUPERVISOR 07/26/2013 Nurse visit Skylar Pfeiffer KEYMODULE ASSEMBLY SUPERVISOR 07/19/2013 Nurse visit Skylar Pfeiffer KEYMODULE ASSEMBLY SUPERVISOR 07/12/2013 Nurse visit Skylar Pfeiffer KEYMODULE ASSEMBLY SUPERVISOR 07/05/2013 Nurse visit Skylar Pfeiffer KEYMODULE ASSEMBLY SUPERVISOR 06/28/2013 Nurse visit Skylar Pfeiffer KEYMODULE ASSEMBLY SUPERVISOR 06/21/2013 Nurse visit Skylar Pfeiffer KEYMODULE ASSEMBLY SUPERVISOR 06/14/2013 Nurse visit Skylar Pfeiffer KEYMODULE ASSEMBLY SUPERVISOR 06/08/2013 Nurse visit Jailene Aguilera MD 06/02/2013 [...] 09/28/2012 Nurse visit Jailene Aguilera MD 09/23/2012 [facility] Guido Parra MD 09/21/2012 Nurse visit Jailene Aguilera MD 09/14/2012 Nurse visit Jailene Aguilera MD 09/09/2012 [facility] Guido Parra MD 09/07/2012 Nurse visit [...] visit Giselle Gutierrez RN 06/14/2012 Nurse visit Jaliene Aguilera MD 06/07/2012 Nurse visit Jailene Aguilera [...] visit Jailene Aguilera MD 12/31/2011 Nurse visit aJilene Aguilera MD 12/22/2011 Nurse visit Jailene Aguilera [...] visit Jailene Aguilera MD 10/20/2011 Voided Jarad Rani DING 10/13/2011 Nurse visit Jailene Aguilera MD 10/07/2011 [...] visit Chin Mcconnell DO 06/12/2010 Nurse visit Cihn Mcconnell DO 06/05/2010 Nurse visit Chin Mcconnell [...] Chin Mcconnell DO 01/30/2010 Nurse visit Chin cMconnell DO 01/23/2010 Nurse visit Chin Mcconnell DO [...]
[2018-10-21] MEDS ORDERED: NS IV 500 ML 500 ML IV PRN (07:12)
--- OUTSIDE RECORDS SUMMARY | 2018-10-21 07:12 | XMS REPORT ---
Author Author Nicole Ackerman Organization [facility] Address [address] [place], [place] [id number] Care Team Providers Care Tension Machine Operator Name Role Phone Nicole Ackerman PCP Allergies and Adverse Reactions Name Reaction Notes pollens Demerol intolerant Plan of Treatment Planned Activity Comments Planned Date Planned Time Plan/Goal IMMUNOTHERAPY INJECTIONS 05/04/2012 12:00 AM IMMUNOTHERAPY INJECTIONS [...] 12:00 AM IMMUNOTHERAPY INJECTIONS 06/19/2015 12:00 AM IMMUNOTHERAPY INJECTIONS 06/26/2015 12:00 AM IMMUNOTHERAPY INJECTIONS 07/04/2015 12:00 AM Medications Active Name Start Date [...] TABLET BY MOUTH EVERY MORNING WITH BREAKFAST metformin 500 mg oral tablet 03/28/2015 07/26/2015 take 1 tab in a.m. and 2 tabs in P.m. 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 no [...] AM Flu Injection 3 Years And Above [facility]# [address]-15 C Reviewed 09/07/2012 12:00 AM IMMUNOTHERAPY INJECTIONS [...] AM Flu Injection 3 Years And Above [facility]# [address]-65 RHC Reviewed 10/30/2009 12:00 AM IMMUNOTHERAPY INJECTIONS [...] 40.0 mg/dLLDL (CALC) 74.0 mg/dLHGB A1C 6.40 %Est Avg [...] 51.0 mg/dLLDL (CALC) 83.0 mg/dLHGB A1C 6.0 %Est Avg Glucose 125.5 mg/dLTSH 2.050 uIU/mL 04/18/2014 8:40 AM TSH 0.930 uIU/mLHGB A1C 6.90 %Est Avg Glucose 151.3 mg/ dLTRIGLYCERIDES 242.0 mg/dLCHOLESTEROL 160.0 mg/dLHDL 43.0 mg/dLLDL (CALC) 69.0 mg/dL 12/12/2014 8:30 AM WBC 5.9 RBC 3.79 HGB 11.70 g/dLHCT 35.70 %MCV 94.0 fLMCH 30.90 pgMCHC 32.80 g/dLRDW CV 14.0 %MPV 10.70 fLPLT 168 %NEUT 58.60 %%LYMP 29.60 %%MONO 5.90 %%EOS 5.20 %%BASO 0.70 %#NEUT 3.47 #LYMP 1.75 #MONO 0.35 #EOS 0.31 #BASO 0.04 HGB A1C 6.60 %Est Avg Glucose 142.7 mg/dLTRIGLYCERIDES 259.0 mg/ dLCHOLESTEROL 162.0 mg/dLHDL 41.0 mg/dLLDL (CALC) 69.0 mg/dLMICROALBUMIN UR < 0.5 MG/DLGLUCOSE 165.0 mg/dLSODIUM 136.0 mmol/LPOTASSIUM 4.40 mmol/LCHLORIDE 95.0 mmol/LCO2 27.0 mmol/LBUN 35.0 mg/dLCREATININE 1.50 mg/dLSGOT/AST 27.0 IU/ LSGPT/ALT 21.0 IU/LALK PHOS 63.0 IU/LTOTAL PROTEIN 7.20 g/dLALBUMIN 4.20 g/ dLTOTAL BILI 0.80 mg/dLCALCIUM 9.50 mg/dLeGFR 34 TSH 1.390 uIU/mL 03/01/2015 8:30 AM WBC 6.4 RBC 3.84 HGB 11.90 g/dLHCT 35.90 %MCV 94.0 fLMCH 31.0 pgMCHC 33.10 g/dLRDW CV 14.10 %MPV 10.40 fLPLT 177 %NEUT 62.20 %%LYMP 25.50 %%MONO 7.20 %%EOS 4.50 %%BASO 0.60 %#NEUT 4.00 #LYMP 1.64 #MONO 0.46 #EOS 0.29 #BASO 0.04 HGB A1C 5.60 %Est Avg Glucose 114.0 mg/dLTRIGLYCERIDES 242.0 mg/ dLCHOLESTEROL 158.0 mg/dLHDL 42.0 mg/dLLDL (CALC) 68.0 mg/dLGLUCOSE 152.0 mg/ dLSODIUM 135.0 mmol/LPOTASSIUM 4.20 mmol/LCHLORIDE 94.0 mmol/LCO2 28.0 mmol/ LBUN 23.0 mg/dLCREATININE 1.40 mg/dLSGOT/AST 23.0 IU/LSGPT/ALT 16.0 IU/LALK PHOS 61.0 IU/LTOTAL PROTEIN 6.90 g/dLALBUMIN 4.20 g/dLTOTAL BILI 0.80 mg/ dLCALCIUM 10.0 mg/dLeGFR 37 History Of Immunizations Name Date Admin Mfg Name Mf Code Trade Name Lot# Route Inj Vis Given Vis Pub CVX Pneumococcal 11/19/2004 Merck & Co., Inc. MSD Pneumovax 23 Intramuscular Not Entered 11/16/2015 11/16/2015 999 Influenza 08/15/2009 [employer] Becky. NOV Fluvirin > 12 Years [id number] Intramuscular Left Deltoid 11/06/2009 11/16/2015 999 Influenza 08/21/2010 [employer] Becky. NOV Fluvirin > 12 Years [id number] Intramuscular Left Deltoid 08/21/2010 06/26/2009 999 Pneumococcal 08/28/2010 Merck & Co., Inc. MSD Pneumovax 23 [id number] Intramuscular Right Deltoid 08/28/2010 03/01/2009 999 Influenza 09/04/2011 sanofi pasteur PMC Fluzone [id number] Intramuscular Left Deltoid 09/04/2011 06/11/2011 111 Influenza 09/02/2012 sanofi pasteur PMC Fluzone [id number] Intramuscular Left Deltoid 09/02/2012 05/17/2012 141 Influenza 08/22/2013 sanofi pasteur PMC Fluzone > 3 Years [id number] Intramuscular Left Deltoid 08/22/2013 06/10/2013 141 History [...] joint disease macular degeneration of eyes Allergic Rhinitis Hypothyroidism, Acquired Gastric ulcer Anemia Asthma Hyperlipidemia [...] to other allergen Jul 24 2015 9:10AM Payers Insurance Name Company Name Plan Name Plan Number Policy Number Policy Group Number Start Date Medicare Part A Medicare Part A [id number] Tuesday, 2012 [facility] [id number] Friday, 2009 Medicare Part B Medicare Of [place] [id number] Saturday, 2006 History of Encounters Visit Date Visit Type Provider 07/24/2015 Nurse visit Nicole Ackerman MD 07/17/2015 [...] Ackerman MD 07/19/2014 Nurse visit [place] POISING INSPECTOR 07/11/2014 Nurse visit [place] POISING INSPECTOR 07/04/2014 Nurse visit Skylar Pfeiffer POISING INSPECTOR 06/27/2014 Nurse visit [place] POISING INSPECTOR 06/20/2014 Nurse visit [place] POISING INSPECTOR 06/13/2014 Nurse visit Nicole Ackerman MD 06/06/2014 Nurse visit Mariposa Bellamy POISING INSPECTOR 05/30/2014 Nurse visit [place] POISING INSPECTOR 05/23/2014 Nurse visit Skylar Pfeiffer POISING INSPECTOR 05/16/2014 Nurse visit Nicole Ackerman MD 05/02/2014 Nurse visit Nicole Ackerman MD 04/25/2014 Nurse visit Nicole Ackerman MD 04/18/2014 Nurse visit Nicole Ackerman MD 04/12/2014 Nurse visit Nicole Ackerman MD 04/05/2014 Nurse visit Nicole Ackerman MD 03/28/2014 Nurse visit Mariposa Cordova RN 03/22/2014 Nurse visit Skylar Pfeiffer POISING INSPECTOR 03/14/2014 Nurse visit Nicole Ackerman MD 03/07/2014 Nurse visit Skylar Pfeiffer POISING INSPECTOR 02/28/2014 Nurse visit Skylar Pfeiffer POISING INSPECTOR 02/21/2014 Nurse visit Nicole Ackerman MD 02/14/2014 Nurse visit Skylar Pfeiffer POISING INSPECTOR 02/06/2014 Nurse visit Nicole Ackerman MD 01/31/2014 [...] Ackerman MD 11/29/2013 Nurse visit Mariposa Bellamy POISING INSPECTOR 11/23/2013 Office visit Nicole Ackerman MD 11/14/2013 Nurse visit Jarad Saravia DO 11/07/2013 Nurse visit Nicole Ackerman MD 10/31/2013 Nurse visit Jailnee Aguilera MD 10/25/2013 Nurse visit Jailene Aguilera [...] Aguilera MD 08/09/2013 Nurse visit Skylar Pfeiffer POISING INSPECTOR 08/02/2013 Nurse visit Skylar Pfeiffer POISING INSPECTOR 07/26/2013 Nurse visit Skylar Pfeiffer POISING INSPECTOR 07/19/2013 Nurse visit Skylar Pfeiffer POISING INSPECTOR 07/12/2013 Nurse visit Skylar Pfeiffer POISING INSPECTOR 07/05/2013 Nurse visit Skylar Pfeiffer POISING INSPECTOR 06/28/2013 Nurse visit Skylar Pfeiffer POISING INSPECTOR 06/21/2013 Nurse visit Skylar Pfeiffer POISING INSPECTOR 06/14/2013 Nurse visit Skylar Pfeiffer POISING INSPECTOR 06/08/2013 Nurse visit Jailene Aguilera MD 06/02/2013 [...] 09/28/2012 Nurse visit Jailene Aguilera MD 09/23/2012 [facility] Guido Parra MD 09/21/2012 Nurse visit Jailene Aguilera MD 09/14/2012 Nurse visit Jailene Aguilera MD 09/09/2012 [facility] Guido Parra MD 09/07/2012 Nurse visit Jailene [...] Jailene Aguilera MD 05/17/2012 Nurse visit Jailene Aguilrea MD 05/11/2012 Nurse visit Jailene Aguilera MD [...] visit Jailene Aguilera MD 08/04/2011 Nurse visit Jaielne Aguilera MD 07/24/2011 Nurse visit Jailene Aguilera [...] Jailene Aguilera MD 05/13/2011 Nurse visit Jarad Garcianoelle DING 05/06/2011 Nurse visit Jailene Aguilera MD 04/29/2011 [...] 02/19/2011 Nurse visit Chin Mcconnell DO 02/19/2011 [facility] Jamir Ness MD 02/11/2011 Nurse visit Chin [...] visit Chin Mcconnell DO 06/05/2010 Nurse visit Cihn Mcconnell DO 05/29/2010 Nurse visit Chin Mcconnell [...]
[2018-10-21] MEDS ORDERED: fentaNYL INJECTION 100 MCG/2 ML AMP ONE (07:14)
[2018-10-21] MEDS ORDERED: MIDAZOLAM 2 MG/2 ML (VERSED) VIAL ONE ×3 (07:14)
[2018-10-21] MEDS ORDERED: MIDAZOLAM 2 MG/2 ML (VERSED) VIAL IVP ONE (07:15)
[2018-10-21] MEDS ORDERED: fentaNYL INJECTION 100 MCG/2 ML AMP IVP ONE (07:15)
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
--- OUTSIDE RECORDS SUMMARY | 2018-10-21 07:19 | XMS REPORT ---
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 NOV Fluvirin > 12 Years [id number] Intramuscular Left Deltoid 11/06/2009 11/16/2017 999 Influenza 08/21/2010 Novartis Pharmaceutical Becky. NOV Fluvirin > 12 Years [id number] Intramuscular Left Deltoid 08/21/2010 06/26/2009 999 X 08/28/2010 Merck & Co., Inc. MSD Pneumovax 23 [id number] Intramuscular Right Deltoid 08/28/2010 03/01/2009 999 Influenza 09/04/2011 sanofi pasteur PMC Fluzone [id number] Intramuscular Left Deltoid 09/04/2011 06/11/2011 111 Influenza 09/02/2012 sanofi pasteur PMC Fluzone [id number] Intramuscular Left Deltoid 09/02/2012 05/17/2012 141 Influenza 08/22/2013 sanofi pasteur PMC Fluzone > 3 Years [id number] Intramuscular Left Deltoid 08/22/2013 06/10/2013 141 Influenza 08/24/2015 sanofi pasteur PMC Fluzone [id number] Intramuscular Left Deltoid 08/24/2015 06/22/2015 141 History [...] Start Date Medicare Part A Medicare RHC [id number] N/A [facility] [id number] Friday, 2009 Medicare Part A Medicare Part A [id number] Tuesday, 2012 Medicare Part A Medicare - Lab/Xray [id number] Tuesday, July 17, 2012 Medicare Part B Medicare Of [place] [id number] Saturday, January 14, 2006 History of Encounters Visit Date Visit Type Provider 10/02/[address] Evan Mccullough MD 06/27/[address] Evan Mccullough MD 05/12/[address] Evan Mccullough MD 04/07/[address] Evan Mccullough MD 01/30/2016 Office visit 01/30/2016 Office visit Giselle Olivia BUG TRIMMER 01/22/2016 Nurse visit [place] BUG TRIMMER 01/15/2016 Nurse visit Nicole Ackerman MD 01/08/2016 [...] 10/23/2015 Nurse visit Nicole Ackerman MD 10/16/2015 [facility] Reggie Ness MD 10/16/2015 Office visit 10/16/2015 [...] Ackerman MD 07/19/2014 Nurse visit [place] BUG TRIMMER 07/11/2014 Nurse visit [place] BUG TRIMMER 07/04/2014 Nurse visit 07/04/2014 Nurse visit 07/04/2014 Nurse visit Skylar Pfeiffer BUG TRIMMER 06/27/2014 Nurse visit 06/27/2014 Nurse visit 06/27/2014 Nurse visit [place] BUG TRIMMER 06/20/2014 Nurse visit [place] BUG TRIMMER 06/13/2014 Nurse visit Nicole Ackerman MD 06/06/2014 Nurse visit Mariposa Bellamy BUG TRIMMER 05/30/2014 Nurse visit [place] BUG TRIMMER 05/23/2014 Nurse visit Skylar Pfeiffer BUG TRIMMER 05/16/2014 Nurse visit Nicole Ackerman MD 05/02/2014 Nurse visit Nicole Ackerman MD 04/25/2014 Nurse visit Nicole Ackerman MD 04/18/2014 Nurse visit Niocle Ackerman MD 04/12/2014 Nurse visit Nicole Ackerman MD 04/05/2014 Nurse visit Nicole Ackerman MD 03/28/2014 Nurse visit Mariposa Cordova RN 03/22/2014 Nurse visit Skylar Pfeiffer BUG TRIMMER 03/14/2014 Nurse visit Nicloe Ackerman MD 03/07/2014 Nurse visit Skylar Pfeiffer BUG TRIMMER 02/28/2014 Nurse visit Skylar Pfeiffer BUG TRIMMER 02/21/2014 Nurse visit Nicole Ackerman MD 02/14/2014 Nurse visit Skylar Pfeiffer BUG TRIMMER 02/06/2014 Nurse visit Nicole Ackerman MD 01/31/2014 [...] Ackerman MD 11/29/2013 Nurse visit Mariposa Bellamy BUG TRIMMER 11/23/2013 Office visit Nicole Ackerman MD 11/14/2013 [...] Aguilera MD 08/09/2013 Nurse visit Skylar Pfeiffer BUG TRIMMER 08/02/2013 Nurse visit Skylar Pfeiffer BUG TRIMMER 07/26/2013 Nurse visit Skylar Pfeiffer BUG TRIMMER 07/19/2013 Nurse visit Skylar Pfeiffer BUG TRIMMER 07/12/2013 Nurse visit Skylar Pfeiffer BUG TRIMMER 07/05/2013 Nurse visit Skylar Pfeiffer BUG TRIMMER 06/28/2013 Nurse visit Skylar Pfeiffer BUG TRIMMER 06/21/2013 Nurse visit Skylar Pfeiffer BUG TRIMMER 06/14/2013 Nurse visit Skylar Pfeiffer BUG TRIMMER 06/08/2013 Nurse visit Jailene Aguilera MD 06/02/2013 [...] Aguilera MD 10/06/2012 Office visit Skylar Pfeiffer BUG TRIMMER 10/05/2012 Nurse visit Jailene Aguilera MD 09/28/2012 Nurse visit Jailene Aguilera MD 09/23/2012 [facility] Guido Parra MD 09/21/2012 Nurse visit Jailene Aguilera MD 09/14/2012 Nurse visit Jailene Aguilera MD 09/09/2012 [facility] Guido Parra MD 09/07/2012 Nurse visit [...] 02/19/2011 Nurse visit Chin Mcconnell DO 02/19/2011 [facility] Jamir Ness MD 02/11/2011 Nurse visit Chin [...] Chin Mcconnell DO 12/05/2009 Nurse visit Chin Mcconenll DO 11/27/2009 Nurse visit Chin Mcconnell DO [...]
--- OUTSIDE RECORDS SUMMARY | 2018-10-21 07:22 | XMS REPORT ---
Author Author [facility] Organization [facility] Address [address] [place], [place] [id number] Care Team Providers Care Public Address Announcer Name Role Phone PCP Unavailable Allergies and [...] 1 TABLET BY MOUTH EVERY EVENING metformin oral tablet 500 mg 08/22/2014 TAKE 1 TABLET BY MOUTH TWICE DAILY WITH MORNING AND EVENING MEALS Mastectomy Bra 1 unit 12/06/2014 06/22/2015 use [...] MOUTH ONCE DAILY for 30 days levothyroxine oral tablet 100 mcg 02/28/2015 05/29/2015 TAKE ONE TABLET BY MOUTH DAILY glipizide oral tablet 5 mg 03/28/2015 TAKE 1 TABLET BY MOUTH EVERY MORNING WITH BREAKFAST metformin oral tablet 500 mg 03/28/2015 07/26/2015 take 1 tab in a.m. and 2 tabs in P.m. Name Start Date Expiration Date SIG Comments [...] LANCETS 05/03/2013 08/01/2013 TEST ONCE DAILY atenolol Oral tablet 50 mg 06/27/2013 07/27/2013 TAKE 1 TABLET BY MOUTH EVERY DAY simvastatin Oral tablet 80 mg 07/27/2013 10/25/2013 TAKE 1 TABLET BY MOUTH ONCE DAILY IN THE EVENING lisinopril-hydrochlorothiazide oral tablet 20-25 mg 01/20/2014 07/19/2014 TAKE 1 TABLET BY MOUTH EVERY DAY simvastatin oral tablet 80 mg 04/25/2014 04/20/2015 TAKE 1 TABLET BY MOUTH EVERY EVENING for 90 days metformin oral tablet 500 mg 08/21/2014 02/17/2015 [...] tablet by oral route daily Flonase Nasal [place], Suspension 50 mcg/Actuation 10/06/2012 inhale 1 spray [...] the affected area(s) for 30 days glipizide Oral tablet extended release 24hr 5 mg 09/19/2014 03/28/2015 take 2 tablets (10 mg) [...] History Name Description Comments 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 NOV Fluvirin > 12 Years [id number] Intramuscular Left Deltoid 11/06/2009 11/16/2015 999 Influenza 08/21/2010 Novartis [email or web address] Becky. NOV Fluvirin > 12 Years [id number] Intramuscular Left Deltoid 08/21/2010 06/26/2009 999 Pneumococcal 08/28/2010 Merck & Co., Inc. MSD Pneumovax [id number] Intramuscular Right Deltoid 08/28/2010 03/01/2009 999 [facility]/04/2011 [facility] Fluzone [id number] Intramuscular Left Deltoid 09/04/2011 06/11/2011 111 Influenza 09/02/2012 [facility] Fluzone [id number] Intramuscular Left Deltoid 09/02/2012 05/17/2012 141 Influenza 08/22/2013 [facility] Fluzone > 3 Years [id number] Intramuscular Left Deltoid 08/22/2013 06/10/2013 141 History [...] to other allergen Apr 24 2015 9:01AM Payers Insurance Name Company Name Plan Name Plan Number Policy Number Policy Group Number Start Date Medicare Part A Medicare Part A [id number] Tuesday, 2012 [facility] [id number] Friday, 2009 Medicare Part B Medicare Of [place] [id number] Saturday, 2006 History of Encounters Visit Date Visit Type Provider 04/24/2015 Nurse visit Nicole Ackerman MD 04/17/2015 [...] visit Nicole Ackerman MD 09/08/2014 Nurse visit Niocle Ackerman MD 09/05/2014 Nurse visit Nicole Ackerman MD 08/29/2014 Nurse visit Nicole Ackerman MD 08/22/2014 Nurse visit Nicole Ackerman MD 08/15/2014 Nurse visit Nicole Ackerman MD 08/08/2014 Nurse visit Nicole Ackerman MD 08/01/2014 Nurse visit Nicole Ackerman MD 07/25/2014 Nurse visit Nicole Ackerman MD 07/19/2014 Nurse visit [place] PAPERBOARD MACHINE OPERATOR 07/11/2014 Nurse visit [place] PAPERBOARD MACHINE OPERATOR 07/04/2014 Nurse visit Skylar Pfeiffer PAPERBOARD MACHINE OPERATOR 06/27/2014 Nurse visit [place] PAPERBOARD MACHINE OPERATOR 06/20/2014 Nurse visit [place] PAPERBOARD MACHINE OPERATOR 06/13/2014 Nurse visit Nicole Ackerman MD 06/06/2014 Nurse visit Mariposa Bellamy PAPERBOARD MACHINE OPERATOR 05/30/2014 Nurse visit [place] PAPERBOARD MACHINE OPERATOR 05/23/2014 Nurse visit Skylar Pfeiffer PAPERBOARD MACHINE OPERATOR 05/16/2014 Nurse visit Nicole Ackerman MD 05/02/2014 Nurse visit Nicole Ackerman MD 04/25/2014 Nurse visit Nicole Ackerman MD 04/18/2014 Nurse visit Nicole Ackerman MD 04/12/2014 Nurse visit Nicole Ackerman MD 04/05/2014 Nurse visit Nicole Ackerman MD 03/28/2014 Nurse visit Mariposa Cordova RN 03/22/2014 Nurse visit Skylar Pfeiffer PAPERBOARD MACHINE OPERATOR 03/14/2014 Nurse visit Nicole Ackerman MD 03/07/2014 Nurse visit Skylar Pfeiffer PAPERBOARD MACHINE OPERATOR 02/28/2014 Nurse visit Skylar Pfeiffer PAPERBOARD MACHINE OPERATOR 02/21/2014 Nurse visit Nicole Ackerman MD 02/14/2014 Nurse visit Skylar Pfeiffer PAPERBOARD MACHINE OPERATOR 02/06/2014 Nurse visit Nicole Ackerman MD 01/31/2014 [...] Ackerman MD 11/29/2013 Nurse visit Mariposa Bellamy PAPERBOARD MACHINE OPERATOR 11/23/2013 Office visit Nicole Ackerman MD 11/14/2013 [...] Aguilera MD 08/09/2013 Nurse visit Skylar Pfeiffer PAPERBOARD MACHINE OPERATOR 08/02/2013 Nurse visit Skylar Pfeiffer PAPERBOARD MACHINE OPERATOR 07/26/2013 Nurse visit Skylar Pfeiffer PAPERBOARD MACHINE OPERATOR 07/19/2013 Nurse visit Skylar Pfeiffer PAPERBOARD MACHINE OPERATOR 07/12/2013 Nurse visit Skylar Pfeiffer PAPERBOARD MACHINE OPERATOR 07/05/2013 Nurse visit Skylar Pfeiffer PAPERBOARD MACHINE OPERATOR 06/28/2013 Nurse visit Skylar Pfeiffer PAPERBOARD MACHINE OPERATOR 06/21/2013 Nurse visit Skylar Pfeiffer PAPERBOARD MACHINE OPERATOR 06/14/2013 Nurse visit Skylar Pfeiffer PAPERBOARD MACHINE OPERATOR 06/08/2013 Nurse visit Jailene Aguilera MD 06/02/2013 Nurse visit Jailene Aguilera MD 05/24/2013 Nurse visit Jailene Aguilera MD 05/17/2013 Nurse visit Jailene Aguilera MD 05/11/2013 Nurse visit Jaileen Aguilera MD 05/02/2013 Nurse visit Jailene Aguilera [...] Jailene Aguilera MD 10/06/2012 Office visit Skylar NDali Pfeiffer APRN 10/05/2012 Nurse visit Jailene Aguilera MD 09/28/2012 Nurse visit Jailene Aguilera MD 09/23/2012 [facility] Guido Parra MD 09/21/2012 Nurse visit Jailene Aguilera MD 09/14/2012 Nurse visit Jailene Aguilera MD 09/09/2012 [facility] Guido Parra MD 09/07/2012 Nurse visit [...] Jailene Aguilera MD 05/13/2011 Nurse visit Jarad Rani DING 05/06/2011 Nurse visit Jailene Aguilera MD [...]
--- OUTSIDE RECORDS SUMMARY | 2018-10-21 07:25 | XMS REPORT ---
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 NOV Fluvirin > 12 Years [id number] Intramuscular Left Deltoid 11/06/2009 11/16/2015 999 Influenza 08/21/2010 [employer]. NOV Fluvirin > 12 Years [id number] Intramuscular Left Deltoid 08/21/2010 06/26/2009 999 Pneumococcal 08/28/2010 Merck & Co., Inc. MSD Pneumovax 23 [id number] Intramuscular Right Deltoid 08/28/2010 03/01/2009 999 Influenza 09/04/2011 sanofi pasteur PMC Fluzone [id number] Intramuscular Left Deltoid 09/04/2011 06/11/2011 111 Influenza 09/02/2012 sanofi pasteur PMC Fluzone [id number] Intramuscular Left Deltoid 09/02/2012 05/17/2012 141 Influenza 08/22/2013 sanofi pasteur PMC Fluzone > 3 Years [id number] Intramuscular Left Deltoid 08/22/2013 06/10/2013 141 History [...] to other allergen Aug 07 2015 9:00AM Payers Insurance Name Company Name Plan Name Plan Number Policy Number Policy Group Number Start Date Medicare Part A Medicare Part A [id number] Tuesday, 2012 [facility] [id number] Friday, 2009 Medicare Part B Medicare Of [place] [id number] Saturday, 2006 History of Encounters Visit Date Visit Type Provider 08/07/2015 Nurse visit Nicole Ackerman MD 07/31/2015 [...] Nicole Ackerman MD 11/28/2014 Nurse visit Nicole Acekrman MD 11/21/2014 Nurse visit Nicole Ackerman MD [...] Ackerman MD 07/19/2014 Nurse visit [place] INTERNAL CONTROL SPECIALIST 07/11/2014 Nurse visit [place] INTERNAL CONTROL SPECIALIST 07/04/2014 Nurse visit Skylar Pfeiffer INTERNAL CONTROL SPECIALIST 06/27/2014 Nurse visit [place] INTERNAL CONTROL SPECIALIST 06/20/2014 Nurse visit [place] INTERNAL CONTROL SPECIALIST 06/13/2014 Nurse visit Nicole Ackerman MD 06/06/2014 Nurse visit Mariposa Bellamy INTERNAL CONTROL SPECIALIST 05/30/2014 Nurse visit [place] INTERNAL CONTROL SPECIALIST 05/23/2014 Nurse visit Skylar Pfeiffer INTERNAL CONTROL SPECIALIST 05/16/2014 Nurse visit Nicole Ackerman MD 05/02/2014 Nurse visit Nicole Ackerman MD 04/25/2014 Nurse visit Nicole Ackerman MD 04/18/2014 Nurse visit Nicole Ackerman MD 04/12/2014 Nurse visit Nicole Ackerman MD 04/05/2014 Nurse visit Nicole Ackerman MD 03/28/2014 Nurse visit Mariposa Cordova RN 03/22/2014 Nurse visit Skylar Pfeiffer INTERNAL CONTROL SPECIALIST 03/14/2014 Nurse visit Nicole Ackerman MD 03/07/2014 Nurse visit Skylar Pfeiffer INTERNAL CONTROL SPECIALIST 02/28/2014 Nurse visit Skylar Pfeiffer INTERNAL CONTROL SPECIALIST 02/21/2014 Nurse visit Nicole Ackerman MD 02/14/2014 Nurse visit Skylar Pfeiffer INTERNAL CONTROL SPECIALIST 02/06/2014 Nurse visit Nicole Ackerman MD 01/31/2014 [...] Ackerman MD 11/29/2013 Nurse visit Mariposa Bellamy INTERNAL CONTROL SPECIALIST 11/23/2013 Office visit Nicole Ackerman MD 11/14/2013 [...] Aguilera MD 08/09/2013 Nurse visit Skylar Pfeiffer INTERNAL CONTROL SPECIALIST 08/02/2013 Nurse visit Skylar Pfeiffer INTERNAL CONTROL SPECIALIST 07/26/2013 Nurse visit Skylar Pfeiffer INTERNAL CONTROL SPECIALIST 07/19/2013 Nurse visit Skylar Pfeiffer INTERNAL CONTROL SPECIALIST 07/12/2013 Nurse visit Skylar Pfeiffer INTERNAL CONTROL SPECIALIST 07/05/2013 Nurse visit Skylar Pfeiffer INTERNAL CONTROL SPECIALIST 06/28/2013 Nurse visit Skylar Pfeiffer INTERNAL CONTROL SPECIALIST 06/21/2013 Nurse visit Skylar Pfeiffer INTERNAL CONTROL SPECIALIST 06/14/2013 Nurse visit Skylar Pfeiffer INTERNAL CONTROL SPECIALIST 06/08/2013 Nurse visit Jailene Aguilera MD 06/02/2013 [...] 09/28/2012 Nurse visit Jailene Aguilera MD 09/23/2012 [facility] Guido Parra MD 09/21/2012 Nurse visit Jailene Aguilera MD 09/14/2012 Nurse visit Jailene Aguilera MD 09/09/2012 [facility] Guido Parra MD 09/07/2012 Nurse visit [...] visit Jailene Aguilera MD 06/28/2012 Voided Jarad Rani DING 06/21/2012 Nurse visit Giselle Gutierrez RN 06/14/2012 [...] Jailene Aguilera MD 11/18/2011 Nurse visit Jailene gAuilera MD 11/11/2011 Nurse visit Jailene Aguilera MD [...]
--- OUTSIDE RECORDS SUMMARY | 2018-10-21 07:29 | XMS REPORT ---
Author Author Evan Mccullough Organization [facility] Address [address] [place], [place] [address] Care Team Providers Care Manager Laundry Name Role Phone Evan Mccullough PCP Allergies and Adverse Reactions Name Reaction [...] AM AIRWAY INHALATION TREATMENT 10/16/2015 12:00 AM IMMUNOTHERAPY INJECTIONS 05/04/2012 12:00 [...] 12:00 AM IMMUNOTHERAPY INJECTIONS 08/11/2012 12:00 AM shortness of breath, cough 12/13/2015 10:45 PM COMPUTER DX MAMMOGRAM ADD-ON 12/07/2012 12:00 AM [...] EVENING MEALS glipizide 5 mg oral tablet 03/28/2015 TAKE [...] TAKE 2 TABLETS DAILY IN THE EVENING Tylenol Extra Strength 500 mg oral tablet take 1 tablet (500 mg) by oral route every 6 hours as needed levothyroxine 100 mcg oral tablet 12/21/2015 TAKE ONE TABLET BY MOUTH DAILY atenolol 50 mg oral tablet 01/14/2016 TAKE 1 TABLET BY MOUTH ONCE DAILY furosemide 40 mg oral tablet 01/16/2016 TAKE 1 TABLET BY MOUTH ONCE DAILY amlodipine 5 mg oral tablet 02/08/2016 TAKE 1 TABLET BY MOUTH ONCE DAILY losartan 25 mg oral tablet 04/07/2016 10/04/2016 take 1 tablet (25 mg) by oral route once daily for 90 days Crestor 20 mg oral tablet 04/07/2016 10/04/2016 take 1 tablet (20 mg) by oral route once daily for 90 days metformin 500 mg oral tablet 04/07/2016 04/02/2017 TAKE 1 TABLET BY MOUTH DAILY IN THE MORNING AND TAKE 2 TABLETS DAILY IN THE EVENING for 90 days Name Start Date Expiration [...] 1 capsule (100 mg) by oral route [facility] Problem List Description Status Onset Allergic rhinitis [...] HC BMI BSA BMI Percentile O2 Sat(%) 04/07/2016 1:46:00 PM 150 mmHg 72 mmHg 04/07/2016 1:35:00 PM 190 mmHg 70 mmHg 75 bpm 14 rpm 97.8 F 236.375 lbs 63.5 in 41.2147 kg/m 2.19 m2 96 % 01/30/2016 11:42:00 AM 150 mmHg 70 mmHg 71 bpm 18 rpm 96.9 F 97 % 10/31/2015 3:36:00 PM 150 mmHg 70 mmHg 66 bpm 97.8 F 251.375 lbs 63.5 in 43.8301 kg/m 2.26 m2 95 % 10/23/2015 11:18:00 AM [...] History Name Description Comments 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 Active [...] AM Flu Injection 3 Years And Above [facility]# [address]-56 C Reviewed 09/07/2012 12:00 AM IMMUNOTHERAPY INJECTIONS [...] AM Flu Injection 3 Years And Above [facility]# [address]-52 C Reviewed 10/30/2009 12:00 AM IMMUNOTHERAPY INJECTIONS [...] BILI 0.80 mg/ dLCALCIUM 10.0 mg/dLeGFR 37 09/06/2015 8:45 AM WBC 5.4 RBC [...] 40.0 mg/dLLDL ( CALC) 64.0 mg/dLTSH 0.980 uIU/mLHemoglobin A1c 6.30 % 10/16/2015 11:05 AM D-DIMER QUANT 0.31 TROPONIN-I AD <0.04 ng/mL 11/13/2015 9:25 AM GLUCOSE 121.0 mg/dLSODIUM 141.0 mmol/LPOTASSIUM 3.90 mmol/ LCHLORIDE 102.0 mmol/LCO2 30.0 mmol/LBUN 15.0 mg/dLCREATININE 1.20 mg/dLSGOT/ AST 24.0 IU/LSGPT/ALT 25.0 IU/LALK PHOS 64.0 IU/LTOTAL PROTEIN 7.10 g/dLALBUMIN 4.30 g/dLTOTAL BILI 0.60 mg/dLCALCIUM 9.80 mg/dLeGFR 44 01/11/2016 8:35 AM TSH 1.160 uIU/mLGLUCOSE 132.0 mg/dLSODIUM 139.0 mmol/ LPOTASSIUM 3.90 mmol/LCHLORIDE 101.0 mmol/LCO2 26.0 mmol/LBUN 14.0 mg/ dLCREATININE 1.10 mg/dLSGOT/AST 24.0 IU/LSGPT/ALT 21.0 IU/LALK PHOS 76.0 IU/ LTOTAL PROTEIN 7.10 g/dLALBUMIN 4.30 g/dLTOTAL BILI 0.70 mg/dLCALCIUM 9.80 mg/ dLeGFR 49 TRIGLYCERIDES 214.0 mg/dLCHOLESTEROL 146.0 mg/dLHDL 41.0 mg/dLLDL ( CALC) 62.0 mg/dLWBC 6.0 RBC 3.99 HGB 11.50 g/dLHCT 37.0 %MCV 93.0 fLMCH 28.80 pgMCHC 31.10 g/dLRDW CV 14.30 %MPV 10.10 fLPLT 191 %NEUT 66.80 %%LYMP 23.20 %% MONO 6.10 %%EOS 3.40 %%BASO 0.50 %#NEUT 3.98 #LYMP 1.38 #MONO 0.36 #EOS 0.20 # BASO 0.03 Hemoglobin A1c 6.10 % 02/01/2016 2:45 PM SEDRATE 101.0 mm/hrC REACTIVE PROTEIN 53.0 mg/L 02/21/2016 8:40 AM WBC 6.8 RBC 4.21 HGB 11.70 g/dLHCT 37.40 %MCV 89.0 fLMCH 27.80 pgMCHC 31.30 g/dLRDW CV 13.40 %MPV 10.10 fLPLT 245 C REACTIVE PROTEIN 17.0 mg/LGLUCOSE 129.0 mg/dLSODIUM 140.0 mmol/LPOTASSIUM 3.90 mmol/LCHLORIDE 99.0 mmol/LCO2 30.0 mmol/LBUN 13.0 mg/dLCREATININE 1.0 mg/dLSGOT/AST 16.0 IU/ LSGPT/ALT 12.0 IU/LALK PHOS 83.0 IU/LTOTAL PROTEIN 6.80 g/dLALBUMIN 4.0 g/ dLTOTAL BILI 0.40 mg/dLCALCIUM 9.50 mg/dLeGFR 54 SEDRATE 67.0 mm/hr 03/07/2016 11:15 AM SEDRATE 45.0 mm/hrC REACTIVE PROTEIN 5.0 mg/L History Of Immunizations Name Date Admin Mfg Name Mfg Code Trade Name Lot# Route Inj Vis Given Vis Pub CVX X 11/19/2004 Merck & Co., Inc. MSD Pneumovax 23 Intramuscular Not Entered 11/16/2016 11/16/2016 999 Influenza 08/15/2009 [employer] Becky. NOV Fluvirin > 12 Years [id number] Intramuscular Left Deltoid 11/06/2009 11/16/2016 999 Influenza 08/21/2010 Novartis [employer] Becky. NOV Fluvirin > 12 Years [id number] Intramuscular Left Deltoid 08/21/2010 06/26/2009 999 X 08/28/2010 Merck & Co., Inc[employer] MSD Pneumovax 23 [id number] Intramuscular Right Deltoid 08/28/2010 03/01/2009 999 Influenza 09/04/2011 sanofi pasteur PMC Fluzone [id number] Intramuscular Left Deltoid 09/04/2011 06/11/2011 111 Influenza 09/02/2012 [facility] PMC Fluzone [id number] Intramuscular Left Deltoid 09/02/2012 05/17/2012 141 Influenza 08/22/2013 [facility] PMC Fluzone > 3 Years [id number] Intramuscular Left Deltoid 08/22/2013 06/10/2013 141 Influenza 08/24/2015 [facility] Fluzone [id number] Intramuscular Left Deltoid 08/24/2015 06/22/2015 141 History [...] 1:38PM Acquired hypothyroidism Apr 07 2016 1:38PM Payers Insurance Name Company Name Plan Name Plan Number Policy Number Policy Group Number Start Date Medicare Part A Medicare RHC [id number] N/[id number] [id number] Friday, 2009 Medicare Part A Medicare Part A [id number] Tuesday, 2012 Medicare Part A Medicare - Lab/Xray [id number] Tuesday, July 17, 2012 Medicare Part B Medicare Of [place] [id number] Saturday, January 14, 2006 History of Encounters Visit Date Visit Type Provider 04/07/[address] Evan Mccullough MD 01/30/2016 Office visit 01/30/2016 Office visit Giselle Olivia WHARF OPERATOR 01/22/2016 Nurse visit [place] WHARF OPERATOR 01/15/2016 Nurse visit Nicole Ackerman MD 01/08/2016 [...] 10/23/2015 Nurse visit Nicole Ackerman MD 10/16/2015 [facility] Reggie Ness MD 10/16/2015 Office visit 10/16/2015 [...] visit Nicole Ackerman MD 06/12/2015 Nurse visit Nciole Ackerman MD 05/29/2015 Nurse visit Nicole Ackerman [...] Ackerman MD 07/19/2014 Nurse visit [place] WHARF OPERATOR 07/11/2014 Nurse visit [place] WHARF OPERATOR 07/04/2014 Nurse visit 07/04/2014 Nurse visit 07/04/2014 Nurse visit Skylar Pfeiffer WHARF OPERATOR 06/27/2014 Nurse visit 06/27/2014 Nurse visit 06/27/2014 Nurse visit [place] WHARF OPERATOR 06/20/2014 Nurse visit [place] WHARF OPERATOR 06/13/2014 Nurse visit Nicole Ackerman MD 06/06/2014 Nurse visit Mariposa Bellamy WHARF OPERATOR 05/30/2014 Nurse visit [place] WHARF OPERATOR 05/23/2014 Nurse visit Skylar Pfeiffer WHARF OPERATOR 05/16/2014 Nurse visit Nicole Ackerman MD 05/02/2014 Nurse visit Nicole Ackerman MD 04/25/2014 Nurse visit Nicole Ackerman MD 04/18/2014 Nurse visit Nicole Ackerman MD 04/12/2014 Nurse visit Nicole Ackerman MD 04/05/2014 Nurse visit Nicole Ackerman MD 03/28/2014 Nurse visit Mariposa Cordova RN 03/22/2014 Nurse visit Skylar Pfeiffer WHARF OPERATOR 03/14/2014 Nurse visit Nicole Ackerman MD 03/07/2014 Nurse visit Skylar Pfeiffer WHARF OPERATOR 02/28/2014 Nurse visit Skylar Pfeiffer WHARF OPERATOR 02/21/2014 Nurse visit Nicole Ackerman MD 02/14/2014 Nurse visit Skylar Pfeiffer WHARF OPERATOR 02/06/2014 Nurse visit Nicole Ackerman MD [...] Ackerman MD 11/29/2013 Nurse visit Mariposa Bellamy WHARF OPERATOR 11/23/2013 Office visit Nicole Ackerman MD 11/14/2013 Nurse visit Jarad Rani DING 11/07/2013 Nurse visit Nicole Ackerman MD 10/31/2013 [...] Aguilera MD 08/09/2013 Nurse visit Skylar Pfeiffer WHARF OPERATOR 08/02/2013 Nurse visit Skylar Pfeiffer WHARF OPERATOR 07/26/2013 Nurse visit Skylar Pfeiffer WHARF OPERATOR 07/19/2013 Nurse visit Skylar Pfeiffer WHARF OPERATOR 07/12/2013 Nurse visit Skylar Pfeiffer WHARF OPERATOR 07/05/2013 Nurse visit Skylar NDali Pfeiffer WHARF OPERATOR 06/28/2013 Nurse visit Skylar NDali Pfeiffer WHARF OPERATOR 06/21/2013 Nurse visit Skylar MoDali Pfeiffer WHARF OPERATOR 06/14/2013 Nurse visit Skylar NDali Pfeiffer WHARF OPERATOR 06/08/2013 Nurse visit Jailene Aguilera MD [...] Aguilera MD 10/06/2012 Office visit Skylar Pfeiffer JONATAN 10/05/2012 Nurse visit Jailene Aguilera MD 09/28/2012 [...] Jailene Aguilera MD 05/13/2011 Nurse visit Jarad Garciahite DO 05/06/2011 Nurse visit Jailene Aguilera MD [...] visit Chin Mcconnell DO 05/22/2010 Nurse visit Cihn Mcconnell DO 05/15/2010 Nurse visit Chin Mcconnell [...]
--- OUTSIDE RECORDS SUMMARY | 2018-10-21 07:33 | XMS REPORT ---
Author Author Nicole Ackerman Organization [facility] Address [address] [place], [place] [id number] Care Team Providers Care Mud Plant Operator Name Role Phone Nicole Ackerman PCP [...] AM AIRWAY INHALATION TREATMENT 10/16/2015 12:00 AM COMPLETE CBC W/AUTO DIFF WBC 01/08/2016 12:00 AM COMPREHEN METABOLIC PANEL 01/08/2016 12:00 AM GLYCOSYLATED HEMOGLOBIN TEST 01/08/2016 12:00 AM LIPID PANEL 01/08/2016 12:00 AM ASSAY THYROID STIM HORMONE 01/08/2016 12:00 AM IMMUNOTHERAPY INJECTIONS 05/04/2012 12:00 AM [...] QID for 90 days for DMII 205.00 glipizide 5 mg oral tablet 03/28/2015 TAKE [...] 4 times per day for 90 days amlodipine 5 mg oral tablet 10/16/2015 02/13/2016 [...] oral route once daily for 30 days Crestor 20 mg oral tablet take 1 [...] 1 capsule (100 mg) by oral route [facility] Tylenol Extra Strength 500 mg oral tablet take 1 tablet (500 mg) by oral route every 6 hours as needed metformin 500 mg oral tablet 12/17/2015 TAKE 1 TABLET BY MOUTH DAILY IN THE MORNING AND TAKE 2 TABLETS DAILY IN THE EVENING levothyroxine 100 mcg oral tablet 12/21/2015 TAKE ONE TABLET BY MOUTH DAILY Name [...] 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 and 2 tabs in P.m. levothyroxine 100 mcg oral tablet 09/24/2015 12/23/2015 TAKE ONE TABLET BY MOUTH DAILY nitroglycerin 0.4 mg sublingual tablet, sublingual 10/16/2015 12/15/2015 Place 1 tablet under tongue by translingual route PRN. Space tablets by 3-5 minutes apart. May take up to 3 times. If symptoms not relieved after 1-2 doses seek medical attention. 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 NOV Fluvirin > 12 Years [id number] Intramuscular Left Deltoid 11/06/2009 11/16/2015 999 Influenza 08/21/2010 [employer]. NOV Fluvirin > 12 Years [id number] Intramuscular Left Deltoid 08/21/2010 06/26/2009 999 Pneumococcal 08/28/2010 [employer]ck [employer] Inc[employer] MSD Pneumovax [id number] Intramuscular Right Deltoid 08/28/2010 03/01/2009 999 Influenza 09/04/2011 [facility] PMC Fluzone [id number] Intramuscular Left Deltoid 09/04/2011 06/11/2011 111 Influenza 09/02/2012 [facility] PMC Fluzone [id number] Intramuscular Left Deltoid 09/02/2012 05/17/2012 141 Influenza 08/22/2013 [facility] PMC Fluzone > 3 Years [id number] Intramuscular Left Deltoid 08/22/2013 06/10/2013 141 Influenza 08/24/2015 [facility] PMC Fluzone [id number] Intramuscular Left Deltoid 08/24/2015 06/22/2015 141 History [...] 9:32AM Hypothyroidism, Acquired Jan 08 2016 9:32AM Payers Insurance Name Company Name Plan Name Plan Number Policy Number Policy Group Number Start Date Medicare Part A Medicare Part A [id number] Tuesday, 2012 [id number] Friday, 2009 Medicare Part B Medicare Of [place] [id number] Saturday, 2006 History of Encounters Visit Date Visit Type Provider 01/08/2016 Nurse visit Nicole Ackerman MD 01/01/2016 Nurse visit Nicole Ackerman MD 12/25/2015 Nurse visit Nicole Ackerman MD 12/18/2015 Nurse visit Nicole Ackerman MD 12/11/2015 Nurse visit Nicole Ackerman MD 11/27/2015 Nurse visit Nicole Ackerman MD 11/13/2015 Nurse visit Nicole Ackerman MD 10/31/2015 Office visit 10/31/2015 Office visit Nicole Ackerman MD 10/23/2015 Nurse visit Nicole Ackerman MD 10/16/2015 [facility] Jamir Ness MD 10/16/2015 Office visit 10/16/2015 Office [...] visit Nicole Ackerman MD 08/14/2015 Nurse visit Nicoel Ackerman MD 08/07/2015 Nurse visit Nicole Ackerman [...] Nicole Ackerman MD 05/22/2015 Nurse visit Nicole Ackreman MD 05/15/2015 Nurse visit Nicole Ackerman MD [...] Ackerman MD 07/19/2014 Nurse visit [place] SHIP'S ENGINEER 07/11/2014 Nurse visit [place] SHIP'S ENGINEER 07/04/2014 Nurse visit 07/04/2014 Nurse visit 07/04/2014 Nurse visit Skylar Pfeiffer SHIP'S ENGINEER 06/27/2014 Nurse visit 06/27/2014 Nurse visit 06/27/2014 Nurse visit [place] SHIP'S ENGINEER 06/20/2014 Nurse visit [place] SHIP'S ENGINEER 06/13/2014 Nurse visit Nicole Ackerman MD 06/06/2014 Nurse visit Mariposa Bellamy SHIP'S ENGINEER 05/30/2014 Nurse visit [place] SHIP'S ENGINEER 05/23/2014 Nurse visit Skylar Pfeiffer SHIP'S ENGINEER 05/16/2014 Nurse visit Nicole Ackerman MD 05/02/2014 Nurse visit Nicole Ackerman MD 04/25/2014 Nurse visit Nicole Ackerman MD 04/18/2014 Nurse visit Nicole Ackerman MD 04/12/2014 Nurse visit Nicole Ackerman MD 04/05/2014 Nurse visit Nicole Ackerman MD 03/28/2014 Nurse visit Mariposa Cordova RN 03/22/2014 Nurse visit Skylar Pfeiffer SHIP'S ENGINEER 03/14/2014 Nurse visit Nicole Ackerman MD 03/07/2014 Nurse visit Skylar Pfeiffer SHIP'S ENGINEER 02/28/2014 Nurse visit Skylar Pfeiffer SHIP'S ENGINEER 02/21/2014 Nurse visit Nicole Ackerman MD 02/14/2014 Nurse visit Skylar Pfeiffer SHIP'S ENGINEER 02/06/2014 Nurse visit Nicole Ackerman MD 01/31/2014 [...] Ackerman MD 11/29/2013 Nurse visit Mariposa Bellamy SHIP'S ENGINEER 11/23/2013 Office visit Nicole Ackerman MD 11/14/2013 Nurse visit Jarad Gomezlb DING 11/07/2013 Nurse visit Nicole Ackerman MD [...] Aguilera MD 08/09/2013 Nurse visit Skylar Pfeiffer SHIP'S ENGINEER 08/02/2013 Nurse visit Skylar Pfeiffer SHIP'S ENGINEER 07/26/2013 Nurse visit Skylar Pfeiffer SHIP'S ENGINEER 07/19/2013 Nurse visit Skylar Pfeiffer SHIP'S ENGINEER 07/12/2013 Nurse visit Skylar Pfeiffer SHIP'S ENGINEER 07/05/2013 Nurse visit Skylar Pfeiffer SHIP'S ENGINEER 06/28/2013 Nurse visit Skylar Pfeiffer SHIP'S ENGINEER 06/21/2013 Nurse visit Skylar Pfeiffer SHIP'S ENGINEER 06/14/2013 Nurse visit Skylar Pfeiffer SHIP'S ENGINEER 06/08/2013 Nurse visit Jailene Aguilera MD 06/02/2013 [...] visit Jailene Aguilera MD 08/18/2012 Nurse visit Jaliene Aguilera MD 08/11/2012 Nurse visit Jailene Aguilera MD 08/05/2012 Nurse visit Jailene Aguilera MD 07/29/2012 Office visit Jailene Aguilera MD 07/21/2012 Nurse visit Jailene Aguilera MD 07/12/2012 Nurse visit Jailene Aguilera MD 07/12/2012 Voided Jailene Aguilera MD 07/06/2012 Nurse visit Jaileen Aguilera MD 06/28/2012 Nurse visit Jailene Aguilera [...] visit Jailene Aguilera MD 03/23/2012 Nurse visit Jaliene Aguilera MD 03/16/2012 Nurse visit Jailene Aguilera [...]
--- OUTSIDE RECORDS SUMMARY | 2018-10-21 07:36 | XMS REPORT ---
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 but [...] Reviewed 10/03/2015 12:00 AM IMMUNOTHERAPY INJECTIONS Reviewed 08/18/2011 12:00 [...] And Above [facility]# [address]-42 RHC Reviewed 09/07/2012 12:00 AM IMMUNOTHERAPY INJECTIONS [...] And Above [facility]# [address]-50 RHC Reviewed 10/30/2009 12:00 AM IMMUNOTHERAPY INJECTIONS [...] IMMUNOTHERAPY INJECTIONS Reviewed 02/20/2015 12:00 AM PROF SVMONICO ALLG IMMNTX X W/PRV ALLGIC XTRCS NJXS [...] mg/dLLDL ( CALC) 64.0 mg/dLTSH 0.980 uIU/mL History Of Immunizations Name Date Admin Mfg Name Mfg Code Trade Name Lot# Route Inj Vis Given Vis Pub CVX Pneumococcal 11/19/2004 Merck & Co., Inc. MSD Pneumovax 23 Intramuscular Not Entered 11/16/2016 11/16/2016 999 Influenza 08/15/2009 [employer] Becky. NOV Fluvirin > 12 Years [id number] Intramuscular Left Deltoid 11/06/2009 11/16/2016 999 Influenza 08/21/2010 [employer] Becky. NOV Fluvirin > 12 Years [id number] Intramuscular Left Deltoid 08/21/2010 06/26/2009 999 Pneumococcal 08/28/2010 [employer]ck [employer] Co., Inc[employer] MSD Pneumovax 23 [id number] Intramuscular Right Deltoid 08/28/2010 03/01/2009 999 Influenza 09/04/2011 [employer]ur PMC Fluzone [id number] Intramuscular Left Deltoid 09/04/2011 06/11/2011 111 Influenza 09/02/2012 sanofi pasteur PMC Fluzone [id number] Intramuscular Left Deltoid 09/02/2012 05/17/2012 141 Influenza 08/22/2013 sanofi pasteur PMC Fluzone > 3 Years [id number] Intramuscular Left Deltoid 08/22/2013 06/10/2013 141 [facility]/24/2015 [facility] [id number] Intramuscular Left Deltoid 08/24/2015 06/22/2015 141 History [...] to other allergen Oct 03 2015 9:51AM Payers Insurance Name Company Name Plan Name Plan Number Policy Number Policy Group Number Start Date Medicare Part A Medicare Part A [id number] Tuesday, [id number] Friday, 2009 Medicare Part B Medicare Of [place] [id number] Saturday, 2006 History of Encounters Visit Date Visit Type Provider 10/03/2015 Nurse visit Nicole Ackerman MD 09/25/2015 [...] Ackerman MD 07/19/2014 Nurse visit [place] Nicole CARTON WAXING MACHINE OPERATOR 07/11/2014 Nurse visit [place] Nicole CARTON WAXING MACHINE OPERATOR 07/04/2014 Nurse visit Skylar Pfeiffer CARTON WAXING MACHINE OPERATOR 06/27/2014 Nurse visit [place] Nicole CARTON WAXING MACHINE OPERATOR 06/20/2014 Nurse visit [place] Nicole CARTON WAXING MACHINE OPERATOR 06/13/2014 Nurse visit Nicole Ackerman MD 06/06/2014 Nurse visit Mariposa Bellamy CARTON WAXING MACHINE OPERATOR 05/30/2014 Nurse visit [place] Nicole CARTON WAXING MACHINE OPERATOR 05/23/2014 Nurse visit Skylar Pfeiffer CARTON WAXING MACHINE OPERATOR 05/16/2014 Nurse visit Nicole Ackermna MD 05/02/2014 Nurse visit Nicole Ackerman MD 04/25/2014 Nurse visit Nicole Ackerman MD 04/18/2014 Nurse visit Nicole Ackerman MD 04/12/2014 Nurse visit Nicole Ackerman MD 04/05/2014 Nurse visit Nicole Ackerman MD 03/28/2014 Nurse visit Mariposa Cordova RN 03/22/2014 Nurse visit Skylar Pfeiffer CARTON WAXING MACHINE OPERATOR 03/14/2014 Nurse visit Nicole Ackerman MD 03/07/2014 Nurse visit Skylar Pfeiffer CARTON WAXING MACHINE OPERATOR 02/28/2014 Nurse visit Skylar Pfeiffer CARTON WAXING MACHINE OPERATOR 02/21/2014 Nurse visit Nicole Ackerman MD 02/14/2014 Nurse visit Skylar Pfeiffer CARTON WAXING MACHINE OPERATOR 02/06/2014 Nurse visit Nicole Ackerman [...] Ackerman MD 11/29/2013 Nurse visit Mariposa Bellamy CARTON WAXING MACHINE OPERATOR 11/23/2013 Office visit Nicole Ackerman [...] Aguilera MD 08/09/2013 Nurse visit Skylar Pfeiffer CARTON WAXING MACHINE OPERATOR 08/02/2013 Nurse visit Skylar Pfeiffer CARTON WAXING MACHINE OPERATOR 07/26/2013 Nurse visit Skylar Pfeiffer CARTON WAXING MACHINE OPERATOR 07/19/2013 Nurse visit Skylar Pfeiffer CARTON WAXING MACHINE OPERATOR 07/12/2013 Nurse visit Skylar Pfeiffer CARTON WAXING MACHINE OPERATOR 07/05/2013 Nurse visit Skylar Pfeiffer CARTON WAXING MACHINE OPERATOR 06/28/2013 Nurse visit Skylar Pfeiffer CARTON WAXING MACHINE OPERATOR 06/21/2013 Nurse visit Skylar Pfeiffer CARTON WAXING MACHINE OPERATOR 06/14/2013 Nurse visit Skylar Pfeiffer CARTON WAXING MACHINE OPERATOR 06/08/2013 Nurse visit Jailene Aguilera MD 06/02/2013 Nurse visit Jailene Aguilera MD 05/24/2013 Nurse visit Jailene Aguilera MD 05/17/2013 Nurse visit Jailene Aguilera MD 05/11/2013 Nurse visit Jailene Aguilera MD 05/02/2013 Nurse visit Jailene Aguilera MD 04/26/2013 Nurse visit Jailene Aguilera MD 04/19/2013 Nurse visit Jailene Aguilear MD 04/12/2013 Nurse visit Jailene Aguilera MD [...] Nurse visit Jailene Aguilera MD 07/12/2012 Voided aJilene Aguilera MD 07/06/2012 Nurse visit Jailene Aguilera [...] Jailene Aguilera MD 11/03/2011 Nurse visit Jailene Aguilrea MD 10/27/2011 Nurse visit Jailene Aguilera MD [...] Chin Mcconnell DO 02/05/2011 Nurse visit Chin Mcconenll DO 01/29/2011 Nurse visit Chin Mcconnell DO [...]
--- OUTSIDE RECORDS SUMMARY | 2018-10-21 07:40 | XMS REPORT ---
Author Author [facility] Organization [facility] Address [address] [place], [place] [address] Care Team Providers Care Hospice Massage Therapist Name Role Phone PCP Unavailable Allergies and [...] BY MOUTH ONCE DAILY for 30 days glipizide oral tablet 5 mg 03/28/2015 TAKE 1 TABLET BY MOUTH EVERY MORNING WITH BREAKFAST metformin oral tablet 500 mg 03/28/2015 07/26/2015 take 1 tab in a.m. and 2 tabs in P.m. 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 Active but [...] Reviewed 04/27/2012 12:00 AM IMMUNOTHERAPY INJECTIONS Reviewed 05/04/2012 12:00 AM IMMUNOTHERAPY INJECTIONS Ordered 01/23/2010 12:00 AM IMMUNOTHERAPY INJECTIONS Reviewed 05/11/2012 12:00 AM IMMUNOTHERAPY INJECTIONS Ordered 05/17/2012 12:00 AM IMMUNOTHERAPY INJECTIONS Ordered 05/24/2012 12:00 AM IMMUNOTHERAPY INJECTIONS Ordered 05/31/2012 12:00 AM IMMUNOTHERAPY INJECTIONS Ordered 06/07/2012 12:00 AM IMMUNOTHERAPY INJECTIONS Ordered 06/14/2012 12:00 AM IMMUNOTHERAPY INJECTIONS Ordered 06/21/2012 12:00 AM IMMUNOTHERAPY INJECTIONS Ordered 06/28/2012 12:00 AM IMMUNOTHERAPY INJECTIONS Ordered 01/30/2010 12:00 AM IMMUNOTHERAPY INJECTIONS Reviewed 07/06/2012 12:00 AM IMMUNOTHERAPY INJECTIONS Ordered 07/12/2012 12:00 AM IMMUNOTHERAPY INJECTIONS Ordered 07/21/2012 12:00 AM IMMUNOTHERAPY INJECTIONS Ordered 07/21/2012 12:00 AM IMMUNOTHERAPY INJECTIONS Ordered 07/29/2012 12:00 AM COMPREHEN METABOLIC PANEL Ordered 07/29/2012 12:00 AM LIPID PANEL Ordered 07/29/2012 12:00 AM GLYCOSYLATED HEMOGLOBIN TEST Ordered 07/29/2012 12:00 AM ASSAY THYROID STIM HORMONE Ordered 07/29/2012 12:00 AM COMPLETE CBC W/AUTO DIFF WBC Ordered 08/05/2012 12:00 AM IMMUNOTHERAPY INJECTIONS Ordered 08/11/2012 12:00 AM IMMUNOTHERAPY INJECTIONS Ordered 08/18/2012 12:00 AM IMMUNOTHERAPY INJECTIONS Reviewed 08/25/2012 12:00 AM IMMUNOTHERAPY INJECTIONS Reviewed 08/31/2012 12:00 AM IMMUNOTHERAPY INJECTIONS Reviewed 09/02/2012 12:00 AM Flu Injection 3 Years And Above [facility]# [address]-69 C Reviewed 09/07/2012 12:00 AM IMMUNOTHERAPY INJECTIONS [...] Reviewed 12/07/2012 12:00 AM IMMUNOTHERAPY INJECTIONS Reviewed 12/07/2012 12:00 AM COMPUTER DX MAMMOGRAM ADD-ON Ordered 12/14/2012 12:00 AM IMMUNOTHERAPY INJECTIONS Reviewed 12/21/2012 [...] Returned 07/30/2013 12:00 AM MICROALBUMIN SEMIQUANT Returned 01/27/2013 12:00 AM IMMUNOTHERAPY INJECTIONS Ordered 02/02/2013 12:00 AM IMMUNOTHERAPY INJECTIONS Ordered 02/08/2013 12:00 AM IMMUNOTHERAPY INJECTIONS Ordered 02/14/2013 12:00 AM IMMUNOTHERAPY INJECTIONS Ordered 02/22/2013 12:00 AM IMMUNOTHERAPY INJECTIONS Ordered 03/01/2013 12:00 AM IMMUNOTHERAPY INJECTIONS Ordered 03/07/2013 12:00 AM IMMUNOTHERAPY INJECTIONS Ordered 03/15/2013 12:00 AM IMMUNOTHERAPY INJECTIONS Ordered 03/22/2013 12:00 AM IMMUNOTHERAPY INJECTIONS Ordered 03/29/2013 12:00 AM IMMUNOTHERAPY INJECTIONS Ordered 04/05/2013 12:00 AM IMMUNOTHERAPY INJECTIONS Ordered 03/06/2010 12:00 AM IMMUNOTHERAPY INJECTIONS Reviewed 04/12/2013 12:00 AM IMMUNOTHERAPY INJECTIONS Ordered 04/19/2013 12:00 AM IMMUNOTHERAPY INJECTIONS Ordered 04/26/2013 12:00 AM IMMUNOTHERAPY INJECTIONS Ordered 05/02/2013 12:00 AM IMMUNOTHERAPY INJECTIONS Ordered 05/11/2013 12:00 AM IMMUNOTHERAPY INJECTIONS Ordered 05/17/2013 12:00 AM IMMUNOTHERAPY INJECTIONS Ordered 05/24/2013 12:00 AM IMMUNOTHERAPY INJECTIONS Ordered 03/13/2010 12:00 AM IMMUNOTHERAPY INJECTIONS Reviewed 06/02/2013 12:00 AM IMMUNOTHERAPY INJECTIONS Reviewed 06/08/2013 12:00 AM IMMUNOTHERAPY INJECTIONS Reviewed 06/14/2013 12:00 AM IMMUNOTHERAPY INJECTIONS Reviewed 06/21/2013 12:00 AM IMMUNOTHERAPY INJECTIONS Reviewed 06/28/2013 12:00 AM IMMUNOTHERAPY INJECTIONS Ordered 07/05/2013 12:00 AM IMMUNOTHERAPY INJECTIONS Ordered 07/12/2013 12:00 AM IMMUNOTHERAPY INJECTIONS Ordered 07/19/2013 12:00 AM IMMUNOTHERAPY INJECTIONS Ordered 03/20/2010 12:00 AM IMMUNOTHERAPY INJECTIONS Reviewed 07/26/2013 12:00 AM IMMUNOTHERAPY INJECTIONS Ordered 08/02/2013 12:00 AM IMMUNOTHERAPY INJECTIONS Ordered 08/09/2013 12:00 AM IMMUNOTHERAPY INJECTIONS Ordered 08/16/2013 12:00 AM IMMUNOTHERAPY INJECTIONS Ordered 11/22/2013 12:00 AM COMPREHEN METABOLIC PANEL Returned 11/22/2013 12:00 AM LIPID PANEL Returned 11/22/2013 12:00 AM GLYCOSYLATED HEMOGLOBIN TEST Ordered 11/22/2013 12:00 AM ASSAY THYROID STIM HORMONE Returned 08/22/2013 12:00 AM Flu Injection 3 Years And Above [facility]# [address]-08 RHC Reviewed 10/30/2009 12:00 AM IMMUNOTHERAPY INJECTIONS Reviewed 08/25/2013 12:00 AM IMMUNOTHERAPY INJECTIONS Ordered 08/31/2013 12:00 AM IMMUNOTHERAPY INJECTIONS Ordered 03/27/2010 12:00 AM IMMUNOTHERAPY INJECTIONS Reviewed 09/06/2013 12:00 AM IMMUNOTHERAPY INJECTIONS Ordered 09/13/2013 12:00 AM IMMUNOTHERAPY INJECTIONS Ordered 09/20/2013 12:00 AM IMMUNOTHERAPY INJECTIONS Ordered 09/27/2013 12:00 AM IMMUNOTHERAPY INJECTIONS Ordered 10/04/2013 12:00 AM IMMUNOTHERAPY INJECTIONS Reviewed 10/11/2013 12:00 AM IMMUNOTHERAPY INJECTIONS Ordered 10/18/2013 12:00 AM IMMUNOTHERAPY INJECTIONS Ordered 04/03/2010 12:00 AM IMMUNOTHERAPY INJECTIONS Reviewed 10/25/2013 12:00 AM IMMUNOTHERAPY INJECTIONS Ordered 10/31/2013 12:00 AM IMMUNOTHERAPY INJECTIONS Ordered 11/07/2013 12:00 AM IMMUNOTHERAPY INJECTIONS Returned 11/14/2013 [...] Returned 01/31/2014 12:00 AM IMMUNOTHERAPY INJECTIONS Reviewed 02/14/2014 12:00 AM IMMUNOTHERAPY INJECTIONS Ordered 12/19/2013 12:00 AM IMMUNOTHERAPY INJECTIONS Returned 02/06/2014 [...] AM LIPID PANEL Returned 01/16/2015 12:00 AM COMPLETE CBC W/AUTO DIFF WBC Ordered 01/16/2015 12:00 AM COMPREHEN METABOLIC PANEL Returned [...] Reviewed 04/21/2011 12:00 AM IMMUNOTHERAPY INJECTIONS Reviewed 03/06/2015 12:00 AM IMMUNOTHERAPY INJECTIONS Ordered 03/06/2015 12:00 AM IMMUNOTHERAPY INJECTIONS Ordered 03/13/2015 12:00 AM IMMUNOTHERAPY INJECTIONS Ordered 03/20/2015 12:00 AM IMMUNOTHERAPY INJECTIONS Ordered 04/29/2011 12:00 AM IMMUNOTHERAPY INJECTIONS Reviewed 03/28/2015 12:00 AM IMMUNOTHERAPY INJECTIONS Ordered 05/06/2011 12:00 AM IMMUNOTHERAPY INJECTIONS Reviewed 04/05/2015 12:00 AM IMMUNOTHERAPY INJECTIONS Ordered 04/11/2015 12:00 AM IMMUNOTHERAPY INJECTIONS Ordered 05/13/2011 12:00 AM IMMUNOTHERAPY INJECTIONS Reviewed 04/17/2015 12:00 AM IMMUNOTHERAPY INJECTIONS Reviewed 04/24/2015 12:00 AM IMMUNOTHERAPY INJECTIONS Ordered 05/20/2011 12:00 AM IMMUNOTHERAPY INJECTIONS Reviewed 05/08/2015 12:00 AM IMMUNOTHERAPY INJECTIONS Ordered 05/27/2011 12:00 AM IMMUNOTHERAPY INJECTIONS Reviewed 05/15/2015 12:00 AM IMMUNOTHERAPY INJECTIONS Ordered 05/22/2015 12:00 AM IMMUNOTHERAPY INJECTIONS Ordered 06/03/2011 12:00 AM IMMUNOTHERAPY INJECTIONS Reviewed 05/29/2015 12:00 AM IMMUNOTHERAPY INJECTIONS Ordered 06/10/2011 12:00 AM IMMUNOTHERAPY INJECTIONS Reviewed 06/12/2015 12:00 AM IMMUNOTHERAPY INJECTIONS Reviewed 12/19/2009 12:00 AM IMMUNOTHERAPY INJECTIONS Reviewed 06/17/2011 12:00 AM IMMUNOTHERAPY INJECTIONS Reviewed 06/19/2015 12:00 AM IMMUNOTHERAPY INJECTIONS Ordered 06/26/2015 12:00 AM IMMUNOTHERAPY INJECTIONS Ordered 06/24/2011 12:00 AM IMMUNOTHERAPY INJECTIONS Reviewed 07/04/2015 12:00 AM IMMUNOTHERAPY INJECTIONS Ordered 10/10/2009 12:00 AM IMMUNOTHERAPY INJECTIONS Reviewed 07/01/2011 [...] Not Entered 11/16/2015 11/16/2015 999 Influenza 08/15/2009 [employer] Becky. NOV Fluvirin > 12 Years [id number] Intramuscular Left Deltoid 11/06/2009 11/16/2015 999 Influenza 08/21/2010 [employer] Becky. NOV Fluvirin > 12 Years [id number] Intramuscular Left Deltoid 08/21/2010 06/26/2009 999 Pneumococcal 08/28/2010 Merck & Co., Inc[employer] MSD Pneumovax 23 [id number] Intramuscular Right Deltoid 08/28/2010 03/01/2009 999 Influenza 09/04/2011 sanofi pasteur PMC Fluzone [id number] Intramuscular Left Deltoid 09/04/2011 06/11/2011 111 Influenza 09/02/2012 sanofi pasteur PMC Fluzone [id number] Intramuscular Left Deltoid 09/02/2012 05/17/2012 141 Influenza 08/22/2013 [facility] PMC Fluzone > 3 Years [id number] Intramuscular Left Deltoid 08/22/2013 06/10/2013 141 History [...] to other allergen Jul 04 2015 9:39AM Payers Insurance Name Company Name Plan Name Plan Number Policy Number Policy Group Number Start Date Medicare Part A Medicare Part A [id number] Tuesday, 2012 [facility] [id number] Friday, 2009 Medicare Part B Medicare Of [place] [id number] Saturday, 2006 History of Encounters Visit Date Visit Type Provider 07/04/2015 Nurse visit Nicole Ackerman MD 06/26/2015 Nurse visit Nicole Ackerman MD 06/19/2015 Nurse visit Nicole Ackerman MD 06/12/2015 Nurse visit Nicole Ackerman MD 05/29/2015 Nurse visit Nicole Ackerman MD 05/22/2015 Nurse visit Nicole Ackerman MD 05/15/2015 Nurse visit Nicole Ackerman MD 05/08/2015 Nurse visit Nicole Ackemran MD 04/24/2015 Nurse visit Nicole Ackerman MD [...] Ackerman MD 07/19/2014 Nurse visit [place] SUPERINTENDENT QUARRY 07/11/2014 Nurse visit [place] SUPERINTENDENT QUARRY 07/04/2014 Nurse visit Skylar Pfeiffer SUPERINTENDENT QUARRY 06/27/2014 Nurse visit [place] SUPERINTENDENT QUARRY 06/20/2014 Nurse visit [place] Nicole SUPERINTENDENT QUARRY 06/13/2014 Nurse visit Nicole Ackerman MD 06/06/2014 Nurse visit Mariposa Bellamy SUPERINTENDENT QUARRY 05/30/2014 Nurse visit [place] Nicole SUPERINTENDENT QUARRY 05/23/2014 Nurse visit Skylar Pfeiffer SUPERINTENDENT QUARRY 05/16/2014 Nurse visit Nicole Ackerman MD 05/02/2014 Nurse visit Nicole Ackerman MD 04/25/2014 Nurse visit Nicole Ackerman MD 04/18/2014 Nurse visit Nicole Ackerman MD 04/12/2014 Nurse visit Nicole Ackerman MD 04/05/2014 Nurse visit Nicole Ackerman MD 03/28/2014 Nurse visit Mariposa Cordova RN 03/22/2014 Nurse visit Skylar Pfeiffer SUPERINTENDENT QUARRY 03/14/2014 Nurse visit Nicole Ackerman MD 03/07/2014 Nurse visit Skylar Pfeiffer SUPERINTENDENT QUARRY 02/28/2014 Nurse visit Skylar Pfeiffer SUPERINTENDENT QUARRY 02/21/2014 Nurse visit Nicole Ackerman MD 02/14/2014 Nurse visit Skylar Pfeiffer SUPERINTENDENT QUARRY 02/06/2014 Nurse visit Nicole Ackerman MD 01/31/2014 [...] Ackerman MD 11/29/2013 Nurse visit Mariposa Bellamy SUPERINTENDENT QUARRY 11/23/2013 Office visit Nicole Ackerman MD 11/14/2013 [...] Aguilera MD 08/09/2013 Nurse visit Skylar Pfeiffer SUPERINTENDENT QUARRY 08/02/2013 Nurse visit Skylar Pfeiffer SUPERINTENDENT QUARRY 07/26/2013 Nurse visit Skylar Pfeiffer SUPERINTENDENT QUARRY 07/19/2013 Nurse visit Skylar Pfeiffer SUPERINTENDENT QUARRY 07/12/2013 Nurse visit Skylar Pfeiffer SUPERINTENDENT QUARRY 07/05/2013 Nurse visit Skylar Pfeiffer SUPERINTENDENT QUARRY 06/28/2013 Nurse visit Skylar Pfeiffer SUPERINTENDENT QUARRY 06/21/2013 Nurse visit Skylar Pfeiffer SUPERINTENDENT QUARRY 06/14/2013 Nurse visit Skylar Pfeiffer SUPERINTENDENT QUARRY 06/08/2013 Nurse visit Jailene Aguilera MD 06/02/2013 [...] visit Jailene Aguilera MD 08/31/2012 Nurse visit Jaielne Aguilera MD 08/25/2012 Nurse visit Jailene Aguilera [...]
--- OUTSIDE RECORDS SUMMARY | 2018-10-21 07:44 | XMS REPORT ---
Author Author Evan Mccullough Organization [facility] Address [address] [place], [place] [id number] Care Team Providers Care Air Launch Weapons Technician Name Role Phone Evan Mccullough PCP Evan Mccullough PreferredProvider Allergies and Adverse Reactions Name Reaction [...] 12:00 AM Breathing Treatment 10/16/2015 12:00 AM Allergy Injection Multiple 07/21/2012 12:00 AM Allergy Injection Multiple 07/21/2012 12:00 AM Comprehensive Metabolic Panel 07/29/2012 12:00 AM Lipid panel (total cholesterol, lipoproteins, HDL, triglycerides) 2011 12:00 AM Hemoglobin A1c 07/29/2012 12:00 AM Thyroid stimulating hormone (TSH) 07/29/2012 12:00 AM CBC (automated H&H, platelets, WBC and automated differential) 07/29/2012 12:00 AM HEMOGLOBIN A1C 07/09/2017 12:00 AM TSH 07/09/2017 12:00 AM CMP 07/09/2017 12:00 AM 2D Echo - Adult 07/09/2017 12:00 AM Allergy Injection Multiple 08/05/2012 12:00 [...] TWICE DAILY WITH MORNING AND EVENING MEALS furosemide 40 mg oral tablet 07/17/2015 TAKE [...] TAKE 1 TABLET BY MOUTH ONCE DAILY atenolol 50 mg oral tablet 06/27/2016 12/19/2017 TAKE 1 TABLET BY MOUTH ONCE DAILY for 90 days Symbicort inhalation Crestor 20 mg oral tablet 10/13/2016 take 1 tablet (20 mg) by oral route once daily for 90 days glipizide 5 mg oral tablet 01/09/2017 TAKE 1 TABLET BY MOUTH EVERY MORNING WITH BREAKFAST levothyroxine 100 mcg oral tablet 01/09/2017 TAKE ONE TABLET BY MOUTH ONCE DAILY glipizide 5 mg oral tablet 02/19/2017 TAKE 1 TABLET BY MOUTH EVERY MORNING WITH BREAKFAST metformin 500 mg oral tablet 02/23/2017 TAKE 1 TABLET BY MOUTH DAILY IN THE MORNING AND TAKE 2 TABLETS DAILY IN THE EVENING for 90 days losartan 100 mg oral tablet 03/25/2017 take 1 tablet (100 mg) by oral route once daily for 90 days furosemide 40 mg oral tablet 04/01/2017 TAKE 1 TABLET BY MOUTH ONCE DAILY for 90 days glipizide 5 mg oral tablet 05/28/2017 TAKE 1 TABLET BY MOUTH ONCE EVERY MORNING WITH BREAKFAST levothyroxine 100 mcg oral tablet 06/25/2017 TAKE ONE TABLET BY MOUTH ONCE DAILY Tylenol Arthritis Pain 650 mg oral tablet extended release take 2 tablets (1,300 mg) by oral route in the am 28-800 mg-mcg oral tablet take 1 tablet by oral route daily Flonase Allergy Relief 50 mcg/actuation nasal spray,suspension spray 1 spray (50 mcg) in each nostril by intranasal route once daily Singulair 10 mg oral tablet take 1 tablet (10 mg) by oral route once daily in the evening Zyrtec 10 mg oral tablet take 1 tablet (10 mg) by oral route once daily amlodipine 5 mg oral tablet 07/09/2017 07/04/2018 take 0.5 tablet by oral route daily for 90 days atenolol 50 mg oral tablet 07/09/2017 07/04/2018 take 1.5 tablets by oral route daily for 90 days Mastectomy Bra 1 unit 07/09/2017 01/23/2018 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 Name Start Date Expiration Date SIG Comments [...] MIS LANCETS 05/03/2013 08/01/2013 TEST ONCE DAILY simvastatin 80 mg oral tablet 07/27/2013 10/25/2013 [...] route every 12 hours for 10 days Crestor 20 mg oral tablet 04/07/2016 10/04/2016 take 1 tablet (20 mg) by oral route once daily for 90 days metformin 500 mg oral tablet 04/07/2016 04/02/2017 TAKE 1 TABLET BY MOUTH DAILY IN THE MORNING AND TAKE 2 TABLETS DAILY IN THE EVENING for 90 days furosemide 40 mg oral tablet 06/27/2016 03/24/2017 TAKE 1 TABLET BY MOUTH ONCE DAILY for 90 days losartan 100 mg oral tablet 06/27/2016 12/24/2016 take 1 tablet (100 mg) by oral route once daily for 90 days Discontinued Name Start Date Discontinued Date [...] 1 capsule (100 mg) by oral route [facility] Tylenol Extra Strength 500 mg oral tablet [...] Spinal stenosis, lumbar region Active 09/05/2012 Peripheral vascular disease Active Diabetes mellitus with neurological manifestations, uncontrolled Active 10/02 Hypertensive Renal Disease Active 10/02/2016 Vital Signs Date Time BP-Sys(mm[Hg] BP-Li(mm[Hg]) HR(bpm) RR(rpm) Temp WT HT HC BMI BSA BMI Percentile O2 Sat(%) 07/09/2017 10:25:00 AM 158 mmHg 68 mmHg 82 bpm 18 rpm 97.8 F 245.125 lbs 63.5 in 42.74 kg/m2 2.23 m2 95 % 01/09/2017 11:04:00 AM 168 mmHg 70 mmHg 80 bpm 18 rpm 97.5 F 244 lbs 63.5 in 42.5442 kg/m 2.2268 m 92 % 10/02/2016 9:54:00 AM 150 mmHg 68 mmHg [...] History Name Description Comments 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 Denies illicit substance abuse Active but [...] AM COMPLETE CBC W/AUTO DIFF WBC Reviewed 09/06/2015 12:00 AM COMPREHEN METABOLIC PANEL Reviewed 09/06/2015 12:00 AM GLYCOSYLATED HEMOGLOBIN TEST Reviewed 09/06/2015 12:00 AM LIPID PANEL Reviewed 09/06/2015 12:00 AM MICROALBUMIN QUANTITATIVE Reviewed 09/06/2015 12:00 AM ASSAY THYROID STIM HORMONE Reviewed 09/11/2015 12:00 AM IMMUNOTHERAPY INJECTIONS Reviewed 09/12/2015 [...] Reviewed 11/05/2015 12:00 AM COMPREHEN METABOLIC PANEL Reviewed 10/16/2015 12:00 AM ASSAY OF TROPONIN QUANT Reviewed 10/16/2015 12:00 AM FIBRIN DEGRADATION QUANT Reviewed 11/05/2015 12:[address] THORAX W/DYE Reviewed 09/01/2011 12:00 AM IMMUNOTHERAPY INJECTIONS Reviewed 11/27/2015 12:00 AM IMMUNOTHERAPY INJECTIONS Reviewed 09/04/2011 12:00 AM ELECTROCARDIOGRAM COMPLETE Reviewed 09/04/2011 12:00 AM Immunization administration, Medicare flu Reviewed 09/04/2011 12:00 AM Fluzone MEDICARE Only Reviewed 09/08/2011 12:00 AM IMMUNOTHERAPY INJECTIONS Reviewed 12/14/2015 12:00 AM MAMMOGRAM SCREENING Reviewed 12/18/2015 12:00 AM IMMUNOTHERAPY INJECTIONS Reviewed 09/15/2011 12:00 AM IMMUNOTHERAPY INJECTIONS Reviewed 12/25/2015 12:00 AM IMMUNOTHERAPY INJECTIONS Reviewed 01/01/2016 12:00 AM IMMUNOTHERAPY INJECTIONS Reviewed 01/08/2016 12:00 AM IMMUNOTHERAPY INJECTIONS Reviewed 01/08/2016 12:00 AM COMPLETE CBC W/AUTO DIFF WBC Reviewed 01/08/2016 12:00 AM COMPREHEN METABOLIC PANEL Reviewed 01/08/2016 12:00 AM GLYCOSYLATED HEMOGLOBIN TEST Reviewed 01/08/2016 12:00 AM LIPID PANEL Reviewed 01/08/2016 12:00 AM ASSAY THYROID STIM HORMONE Reviewed 09/24/2011 12:00 AM IMMUNOTHERAPY INJECTIONS Reviewed 01/15/2016 12:00 AM IMMUNOTHERAPY INJECTIONS Reviewed 01/22/2016 12:00 AM IMMUNOTHERAPY INJECTIONS Reviewed 01/01/2010 12:00 AM IMMUNOTHERAPY INJECTIONS Reviewed 10/01/2011 12:00 AM IMMUNOTHERAPY INJECTIONS Reviewed 10/07/2011 12:00 AM IMMUNOTHERAPY INJECTIONS Reviewed 10/13/2011 12:00 AM IMMUNOTHERAPY INJECTIONS Reviewed 10/20/2011 12:00 AM IMMUNOTHERAPY INJECTIONS Reviewed 10/27/2011 12:00 AM IMMUNOTHERAPY INJECTIONS Reviewed 01/30/2016 12:00 AM EXTREMITY STUDY Reviewed 01/30/2016 12:00 AM X-RAY EXAM OF FOOT Reviewed 01/30/2016 12:00 AM X-RAY EXAM OF ANKLE Reviewed 11/03/2011 12:00 AM IMMUNOTHERAPY INJECTIONS Reviewed 10/31/2015 12:00 AM CHEST X-RAY 2VW FRONTAL&LATL Reviewed 11/11/2011 12:00 AM IMMUNOTHERAPY INJECTIONS Reviewed [...] AM COMPLETE CBC W/AUTO DIFF WBC Reviewed 01/07/2012 12:00 AM COMPREHEN METABOLIC PANEL Reviewed 01/07/2012 12:00 AM LIPID PANEL Reviewed 01/07/2012 12:00 AM GLYCOSYLATED HEMOGLOBIN TEST Reviewed 01/07/2012 12:00 AM ASSAY THYROID STIM HORMONE Reviewed 01/20/2012 12:00 AM IMMUNOTHERAPY INJECTIONS Reviewed 01/20/2012 12:00 AM COMPREHEN METABOLIC PANEL Reviewed 01/20/2012 12:00 AM LIPID PANEL Reviewed 01/20/2012 12:00 AM GLYCOSYLATED HEMOGLOBIN TEST Reviewed 01/20/2012 12:00 AM ASSAY THYROID STIM HORMONE Reviewed 01/20/2012 12:00 AM COMPLETE CBC W/AUTO DIFF WBC Reviewed 01/20/2012 12:00 AM MICROALBUMIN SEMIQUANT Reviewed 01/27/2012 12:00 AM IMMUNOTHERAPY INJECTIONS Reviewed 02/02/2012 12:00 AM IMMUNOTHERAPY INJECTIONS Reviewed 02/09/2012 12:00 AM IMMUNOTHERAPY INJECTIONS Reviewed 02/17/2012 12:00 AM IMMUNOTHERAPY INJECTIONS Reviewed 10/02/2016 12:00 AM GLYCOSYLATED HEMOGLOBIN TEST Returned 10/02/2016 12:00 AM RENAL FUNCTION PANEL Returned 10/02/2016 12:00 AM ASSAY THYROID STIM HORMONE Returned 02/24/2012 12:00 AM IMMUNOTHERAPY INJECTIONS Reviewed 01/16/2010 12:00 AM IMMUNOTHERAPY INJECTIONS Reviewed 03/02/2012 12:00 AM IMMUNOTHERAPY INJECTIONS Reviewed 03/09/2012 12:00 AM IMMUNOTHERAPY INJECTIONS Reviewed 03/16/2012 12:00 AM IMMUNOTHERAPY INJECTIONS Reviewed 12/08/2016 12:00 AM MAMMOGRAPHY SCREENING, DIGITAL Returned 03/23/2012 12:00 AM IMMUNOTHERAPY INJECTIONS Reviewed 03/31/2012 12:00 AM IMMUNOTHERAPY INJECTIONS Reviewed 10/18/2009 12:00 AM IMMUNOTHERAPY INJECTIONS Reviewed 04/07/2012 12:00 AM IMMUNOTHERAPY INJECTIONS Reviewed 01/09/2017 12:00 AM LIPID PANEL Reviewed 01/09/2017 12:00 AM COMPREHEN METABOLIC PANEL Reviewed 01/09/2017 12:00 AM GLYCOSYLATED HEMOGLOBIN TEST Reviewed 04/13/2012 12:00 AM IMMUNOTHERAPY INJECTIONS Reviewed 01/19/2017 12:00 AM DXA BONE DENSITY AXIAL Reviewed 04/20/2012 12:00 AM IMMUNOTHERAPY INJECTIONS Reviewed 04/27/2012 12:00 AM IMMUNOTHERAPY INJECTIONS Reviewed 05/04/2012 12:00 AM IMMUNOTHERAPY INJECTIONS Reviewed 01/23/2010 12:00 AM IMMUNOTHERAPY INJECTIONS Reviewed 05/11/2012 12:00 AM IMMUNOTHERAPY INJECTIONS Reviewed 05/17/2012 12:00 AM IMMUNOTHERAPY INJECTIONS Reviewed 05/24/2012 12:00 AM IMMUNOTHERAPY INJECTIONS Reviewed 05/31/2012 12:00 AM IMMUNOTHERAPY INJECTIONS Reviewed 06/07/2012 12:00 AM IMMUNOTHERAPY INJECTIONS Reviewed 06/14/2012 12:00 AM IMMUNOTHERAPY INJECTIONS Reviewed 06/21/2012 12:00 AM IMMUNOTHERAPY INJECTIONS Reviewed 06/28/2012 12:00 AM IMMUNOTHERAPY INJECTIONS Reviewed 01/30/2010 12:00 AM IMMUNOTHERAPY INJECTIONS Reviewed 07/06/2012 12:00 AM IMMUNOTHERAPY INJECTIONS Reviewed 07/12/2012 12:00 AM IMMUNOTHERAPY INJECTIONS Reviewed 08/18/2012 12:00 AM IMMUNOTHERAPY INJECTIONS Reviewed 08/25/2012 12:00 AM IMMUNOTHERAPY INJECTIONS Reviewed 08/31/2012 12:00 AM IMMUNOTHERAPY INJECTIONS Reviewed 09/02/2012 12:00 AM Flu Injection 3 Years And Above [facility] [place]# [address]-53 RHC Reviewed 09/07/2012 12:00 AM IMMUNOTHERAPY INJECTIONS Reviewed 09/14/2012 12:00 AM IMMUNOTHERAPY INJECTIONS Reviewed 09/21/2012 12:00 AM IMMUNOTHERAPY INJECTIONS Reviewed 09/28/2012 12:00 AM IMMUNOTHERAPY INJECTIONS Reviewed 10/05/2012 12:00 AM IMMUNOTHERAPY INJECTIONS Reviewed 10/12/2012 12:00 AM CHEST X-RAY 2VW FRONTAL&LATL Reviewed 10/12/2012 12:00 AM COMPLETE CBC W/AUTO DIFF WBC Reviewed 10/12/2012 12:00 AM COMPREHEN METABOLIC PANEL Reviewed 10/12/2012 12:00 AM MYCOPLASMA ANTIBODY Reviewed 10/12/2012 12:00 AM C-REACTIVE PROTEIN Reviewed 10/13/2012 12:00 AM IMMUNOTHERAPY INJECTIONS Reviewed 10/19/2012 [...] Reviewed 07/30/2013 12:00 AM COMPREHEN METABOLIC PANEL Reviewed 07/30/2013 12:00 AM LIPID PANEL Reviewed 07/30/2013 12:00 AM GLYCOSYLATED HEMOGLOBIN TEST Reviewed 07/30/2013 12:00 AM ASSAY THYROID STIM HORMONE Reviewed 07/30/2013 12:00 AM COMPLETE CBC W/AUTO DIFF WBC Reviewed 07/30/2013 12:00 AM MICROALBUMIN SEMIQUANT Reviewed 03/06/2010 12:00 AM IMMUNOTHERAPY INJECTIONS Reviewed 03/13/2010 12:00 AM IMMUNOTHERAPY INJECTIONS Reviewed 06/02/2013 12:00 AM IMMUNOTHERAPY INJECTIONS Reviewed 06/08/2013 12:00 AM IMMUNOTHERAPY INJECTIONS Reviewed 06/14/2013 12:00 AM IMMUNOTHERAPY INJECTIONS Reviewed 06/21/2013 12:00 AM IMMUNOTHERAPY INJECTIONS Reviewed 03/20/2010 12:00 AM IMMUNOTHERAPY INJECTIONS Reviewed 11/22/2013 12:00 AM COMPREHEN METABOLIC PANEL Reviewed 11/22/2013 12:00 AM LIPID PANEL Reviewed 11/22/2013 12:00 AM ASSAY THYROID STIM HORMONE Reviewed 08/22/2013 12:00 AM Flu Injection 3 Years And Above [facility] [place]# [id number] C Reviewed 10/30/2009 12:00 AM IMMUNOTHERAPY INJECTIONS Reviewed 03/27/2010 12:00 AM IMMUNOTHERAPY INJECTIONS Reviewed 10/04/2013 12:00 AM IMMUNOTHERAPY INJECTIONS Reviewed 04/03/2010 12:00 AM IMMUNOTHERAPY INJECTIONS Reviewed 11/07/2013 12:00 AM IMMUNOTHERAPY INJECTIONS Reviewed 11/14/2013 12:00 AM THER/PROPH/DIAG INJ SC/IM Reviewed 11/23/2013 12:00 AM GLYCOSYLATED HEMOGLOBIN TEST Reviewed 11/23/2013 12:00 AM IMMUNOTHERAPY INJECTIONS Reviewed 11/29/2013 12:00 AM IMMUNOTHERAPY INJECTIONS Reviewed 12/05/2013 12:00 AM MAMMOGRAM SCREENING Reviewed 12/05/2013 12:00 AM IMMUNOTHERAPY INJECTIONS Reviewed 04/10/2010 12:00 AM IMMUNOTHERAPY INJECTIONS Reviewed 12/12/2013 12:00 AM IMMUNOTHERAPY INJECTIONS Reviewed 12/27/2013 12:00 AM IMMUNOTHERAPY INJECTIONS Reviewed 01/02/2014 12:00 AM Foot 3Views - MOB Reviewed 01/09/2014 12:00 AM IMMUNOTHERAPY INJECTIONS Reviewed 04/17/2010 12:00 AM IMMUNOTHERAPY INJECTIONS Reviewed 01/25/2014 12:00 AM IMMUNOTHERAPY INJECTIONS Reviewed 01/31/2014 12:00 AM IMMUNOTHERAPY INJECTIONS Reviewed 12/19/2013 12:00 AM IMMUNOTHERAPY INJECTIONS Reviewed 02/06/2014 12:00 AM IMMUNOTHERAPY INJECTIONS Reviewed 02/28/2014 12:00 AM IMMUNOTHERAPY INJECTIONS Reviewed 02/21/2014 12:00 AM IMMUNOTHERAPY INJECTIONS Reviewed 03/07/2014 12:00 AM IMMUNOTHERAPY INJECTIONS Reviewed 04/24/2010 12:00 AM IMMUNOTHERAPY INJECTIONS Reviewed 03/14/2014 12:00 AM IMMUNOTHERAPY INJECTIONS Reviewed 03/22/2014 12:00 AM IMMUNOTHERAPY INJECTIONS Reviewed 03/28/2014 12:00 AM IMMUNOTHERAPY INJECTIONS Reviewed 04/05/2014 12:00 AM IMMUNOTHERAPY INJECTIONS Reviewed 04/05/2014 12:00 AM IMMUNOTHERAPY INJECTIONS Reviewed 04/12/2014 12:00 AM IMMUNOTHERAPY INJECTIONS Reviewed 04/18/2014 12:00 AM LIPID PANEL Reviewed 04/18/2014 12:00 AM GLYCOSYLATED HEMOGLOBIN TEST Reviewed 04/18/2014 12:00 AM ASSAY THYROID STIM HORMONE Reviewed 04/18/2014 12:00 AM IMMUNOTHERAPY INJECTIONS Reviewed 05/01/2010 12:00 AM IMMUNOTHERAPY INJECTIONS Reviewed 05/08/2010 [...] Reviewed 05/02/2014 12:00 AM IMMUNOTHERAPY ONE INJECTION Reviewed 05/02/2014 12:00 AM IMMUNOTHERAPY INJECTIONS Reviewed 05/02/2014 12:00 AM IMMUNOTHERAPY ONE INJECTION Reviewed 05/02/2014 12:00 AM IMMUNOTHERAPY 2/> INJECTIONS Reviewed 11/13/2010 12:00 AM IMMUNOTHERAPY INJECTIONS Reviewed 05/16/2014 12:00 AM IMMUNOTHERAPY ONE INJECTION Reviewed 05/16/2014 12:00 AM IMMUNOTHERAPY INJECTIONS Reviewed 05/16/2014 12:00 AM IMMUNOTHERAPY ONE INJECTION Reviewed 05/16/2014 12:00 AM IMMUNOTHERAPY 2/> INJECTIONS Reviewed 11/20/2010 12:00 AM IMMUNOTHERAPY INJECTIONS Reviewed 05/23/2014 12:00 AM IMMUNOTHERAPY ONE INJECTION Reviewed 05/23/2014 12:00 AM IMMUNOTHERAPY INJECTIONS Reviewed 05/23/2014 12:00 AM IMMUNOTHERAPY ONE INJECTION Reviewed 05/23/2014 12:00 AM IMMUNOTHERAPY 2/> INJECTIONS Reviewed 05/30/2014 12:00 AM IMMUNOTHERAPY ONE INJECTION Reviewed 05/30/2014 12:00 AM IMMUNOTHERAPY INJECTIONS Reviewed 05/30/2014 12:00 AM IMMUNOTHERAPY ONE INJECTION Reviewed 05/30/2014 12:00 AM IMMUNOTHERAPY 2/> INJECTIONS Reviewed 11/27/2010 12:00 AM IMMUNOTHERAPY INJECTIONS Reviewed 06/06/2014 12:00 AM IMMUNOTHERAPY ONE INJECTION Reviewed 06/06/2014 12:00 AM IMMUNOTHERAPY INJECTIONS Reviewed 06/06/2014 12:00 AM IMMUNOTHERAPY ONE INJECTION Reviewed 06/06/2014 12:00 AM IMMUNOTHERAPY 2/> INJECTIONS Reviewed 06/07/2014 12:00 AM IMMUNOTHERAPY INJECTIONS Reviewed 06/13/2014 12:00 AM IMMUNOTHERAPY ONE INJECTION Reviewed 06/13/2014 12:00 AM IMMUNOTHERAPY INJECTIONS Reviewed 06/13/2014 12:00 AM IMMUNOTHERAPY ONE INJECTION Reviewed 06/13/2014 12:00 AM IMMUNOTHERAPY 2/> INJECTIONS Reviewed 12/04/2010 12:00 AM IMMUNOTHERAPY INJECTIONS Reviewed 06/20/2014 12:00 AM IMMUNOTHERAPY ONE INJECTION Reviewed 06/20/2014 12:00 AM IMMUNOTHERAPY INJECTIONS Reviewed 06/20/2014 12:00 AM IMMUNOTHERAPY ONE INJECTION Reviewed 06/20/2014 12:00 AM IMMUNOTHERAPY 2/> INJECTIONS Reviewed 06/26/2014 12:00 AM MAMMOGRAM ONE BREAST Reviewed 12/11/2010 12:00 AM IMMUNOTHERAPY INJECTIONS Reviewed 07/11/2014 12:00 AM IMMUNOTHERAPY ONE INJECTION Reviewed 07/11/2014 12:00 AM IMMUNOTHERAPY INJECTIONS Reviewed 07/11/2014 12:00 AM IMMUNOTHERAPY ONE INJECTION Reviewed 07/11/2014 12:00 AM IMMUNOTHERAPY 2/> INJECTIONS Reviewed 12/20/2010 12:00 AM IMMUNOTHERAPY INJECTIONS Reviewed 07/19/2014 12:00 AM IMMUNOTHERAPY ONE INJECTION Reviewed 07/19/2014 12:00 AM IMMUNOTHERAPY INJECTIONS Reviewed 07/19/2014 12:00 AM IMMUNOTHERAPY ONE INJECTION Reviewed 07/19/2014 12:00 AM IMMUNOTHERAPY 2/> INJECTIONS Reviewed 12/26/2010 12:00 AM IMMUNOTHERAPY INJECTIONS Reviewed 07/25/2014 12:00 AM IMMUNOTHERAPY ONE INJECTION Reviewed 07/25/2014 12:00 AM IMMUNOTHERAPY INJECTIONS Reviewed 07/25/2014 12:00 AM IMMUNOTHERAPY ONE INJECTION Reviewed 07/25/2014 12:00 AM IMMUNOTHERAPY 2/> INJECTIONS Reviewed 08/01/2014 12:00 AM IMMUNOTHERAPY ONE INJECTION Reviewed 08/01/2014 12:00 AM IMMUNOTHERAPY INJECTIONS Reviewed 08/01/2014 12:00 AM IMMUNOTHERAPY ONE INJECTION Reviewed 08/01/2014 12:00 AM IMMUNOTHERAPY 2/> INJECTIONS Reviewed 07/01/2011 12:00 AM COMPREHEN METABOLIC PANEL Reviewed 07/01/2011 12:00 AM LIPID PANEL Reviewed 07/01/2011 12:00 AM GLYCOSYLATED HEMOGLOBIN TEST Reviewed 07/01/2011 12:00 AM ASSAY THYROID STIM HORMONE Reviewed 07/01/2011 12:00 AM ASSAY OF FREE THYROXINE Reviewed 01/01/2011 12:00 AM IMMUNOTHERAPY INJECTIONS Reviewed 08/08/2014 12:00 AM IMMUNOTHERAPY ONE INJECTION Reviewed 08/08/2014 12:00 AM IMMUNOTHERAPY INJECTIONS Reviewed 08/08/2014 12:00 AM IMMUNOTHERAPY ONE INJECTION Reviewed 08/08/2014 12:00 AM IMMUNOTHERAPY 2/> INJECTIONS Reviewed 08/14/2014 12:00 AM IMMUNOTHERAPY ONE INJECTION Reviewed 08/14/2014 12:00 AM IMMUNOTHERAPY INJECTIONS Reviewed 08/14/2014 12:00 AM IMMUNOTHERAPY ONE INJECTION Reviewed 08/14/2014 12:00 AM IMMUNOTHERAPY 2/> INJECTIONS Reviewed 08/15/2014 12:00 AM IMMUNOTHERAPY ONE INJECTION Reviewed 08/15/2014 12:00 AM IMMUNOTHERAPY ONE INJECTION Reviewed 08/15/2014 12:00 AM IMMUNOTHERAPY 2/> INJECTIONS Reviewed 01/08/2011 12:00 AM IMMUNOTHERAPY INJECTIONS Reviewed 12/05/2009 12:00 AM IMMUNOTHERAPY INJECTIONS Reviewed 01/15/2011 12:00 AM IMMUNOTHERAPY INJECTIONS Reviewed 09/05/2014 12:00 AM IMMUNOTHERAPY ONE INJECTION Reviewed 09/05/2014 12:00 AM IMMUNOTHERAPY INJECTIONS Reviewed 09/05/2014 12:00 AM IMMUNOTHERAPY ONE INJECTION Reviewed 09/05/2014 12:00 AM IMMUNOTHERAPY 2/> INJECTIONS Reviewed 09/12/2014 12:00 AM IMMUNOTHERAPY ONE INJECTION Reviewed 01/22/2011 12:00 AM IMMUNOTHERAPY INJECTIONS Reviewed 09/26/2014 12:00 AM IMMUNOTHERAPY ONE INJECTION Reviewed 01/29/2011 12:00 AM IMMUNOTHERAPY INJECTIONS Reviewed 10/03/2014 12:00 AM IMMUNOTHERAPY ONE INJECTION Reviewed 10/10/2014 12:00 AM IMMUNOTHERAPY ONE INJECTION Reviewed 02/05/2011 12:00 AM IMMUNOTHERAPY INJECTIONS Reviewed 10/18/2014 12:00 AM IMMUNOTHERAPY ONE INJECTION Reviewed 10/24/2014 12:00 AM IMMUNOTHERAPY ONE INJECTION Reviewed 08/22/2014 12:00 AM IMMUNOTHERAPY ONE INJECTION Reviewed 02/11/2011 12:00 AM IMMUNOTHERAPY INJECTIONS Reviewed 08/29/2014 12:00 AM IMMUNOTHERAPY ONE INJECTION Reviewed 09/05/2014 12:00 AM IMMUNOTHERAPY INJECTIONS Reviewed 09/08/2014 12:00 AM INFLUENZA VAC 4 VALENT PRSRV FREE 3 YRS PLUS IM Reviewed 09/19/2014 12:00 AM IMMUNOTHERAPY INJECTIONS Reviewed 10/31/2014 12:00 AM IMMUNOTHERAPY ONE INJECTION Reviewed 11/06/2014 12:00 AM IMMUNOTHERAPY ONE INJECTION Reviewed 11/14/2014 12:00 AM IMMUNOTHERAPY ONE INJECTION Reviewed 02/19/2011 12:00 AM IMMUNOTHERAPY INJECTIONS Reviewed 11/21/2014 12:00 AM IMMUNOTHERAPY ONE INJECTION Reviewed 02/25/2011 12:00 AM IMMUNOTHERAPY INJECTIONS Reviewed 11/28/2014 12:00 AM IMMUNOTHERAPY ONE INJECTION Reviewed 12/05/2014 12:00 AM COMPUTER DX MAMMOGRAM ADD-ON Reviewed 12/05/2014 12:00 AM COMPLETE CBC W/AUTO DIFF WBC Reviewed 12/05/2014 12:00 AM COMPREHEN METABOLIC PANEL Reviewed 12/05/2014 12:00 AM LIPID PANEL Reviewed 12/05/2014 12:00 AM GLYCOSYLATED HEMOGLOBIN TEST Reviewed 12/05/2014 12:00 AM ASSAY THYROID STIM HORMONE Reviewed 12/05/2014 12:00 AM MICROALBUMIN QUANTITATIVE Reviewed 12/12/2014 12:00 AM IMMUNOTHERAPY ONE INJECTION Reviewed 03/05/2011 12:00 AM IMMUNOTHERAPY INJECTIONS Reviewed 03/11/2011 [...] Reviewed 01/16/2015 12:00 AM GLYCOSYLATED HEMOGLOBIN TEST Reviewed 01/16/2015 12:00 AM LIPID PANEL Reviewed 01/16/2015 12:00 AM COMPREHEN METABOLIC PANEL Reviewed 03/25/2011 12:00 AM IMMUNOTHERAPY 2/> INJECTIONS Reviewed [...] 12:00 AM IMMUNOTHERAPY INJECTIONS Reviewed Results Summary Date and Description Results 08/31/2008 12:00 AM Colonoscopy-Women [...] SEDRATE 45.0 mm/hrC REACTIVE PROTEIN 5.0 mg/L 10/06/2016 8:55 AM GLUCOSE 128.0 mg/dLSODIUM 141.0 mmol/LPOTASSIUM 4.20 mmol/ LCHLORIDE 101.0 mmol/LCO2 26.0 mmol/LBUN 16.0 mg/dLCREATININE 1.10 mg/dLALBUMIN 4.40 g/dLCALCIUM 9.70 mg/dLPHOSPHORUS 3.80 mg/dLAGE 76 GFR NonAA 48 GFR AA 58 eGFR 48 eGFR AA* 58 TSH 1.490 uIU/mLHGB A1C 6.10 %Est Avg Glucose 128.4 mg/dL 01/15/2017 9:00 AM HGB A1C 5.80 %Est Avg Glucose 119.8 mg/dLTRIGLYCERIDES 228.0 mg/dLCHOLESTEROL 152.0 mg/dLHDL 41.0 mg/dLTOT CHOL/HDL 3.7 LDL (CALC) 65.0 mg/ dLGLUCOSE 127.0 mg/dLSODIUM 139.0 mmol/LPOTASSIUM 4.30 mmol/LCHLORIDE 103.0 mmol /LCO2 25.0 mmol/LBUN 14.0 mg/dLCREATININE 1.20 mg/dLSGOT/AST 32.0 IU/LSGPT/ALT 24.0 IU/LALK PHOS 78.0 IU/LTOTAL PROTEIN 7.0 g/dLALBUMIN 4.20 g/dLTOTAL BILI 0.70 mg/dLCALCIUM 9.30 mg/dLAGE 76 GFR NonAA 44 GFR AA 53 eGFR 44 eGFR AA* 53 History Of Immunizations Name Date Admin Mfg Name Mfg Code Trade Name Lot# Route Inj Vis Given Vis Pub CVX X 11/19/2004 [employer] MSD Pneumovax 23 Intramuscular Not Entered 11/16/2017 11/16/2017 999 Influenza 08/15/2009 [employer] Becky. NOV Fluvirin > 12 Years [id number] Intramuscular Left Deltoid 11/06/2009 11/16/2017 999 Influenza 08/21/2010 [employer] Becky. NOV Fluvirin > 12 Years [id number] Intramuscular Left Deltoid 08/21/2010 06/26/2009 999 X 08/28/2010 [employer] MSD Pneumovax 23 [id number] Intramuscular Right Deltoid 08/28/2010 03/01/2009 999 Influenza 09/04/2011 sanofi [employer]ur [employer] Fluzone [id number] Intramuscular Left Deltoid 09/04/2011 06/11/2011 111 Influenza 09/02/2012 [employer] paste[employer] Fluzone [id number] Intramuscular Left Deltoid 09/02/2012 05/17/2012 141 Influenza 08/22/2013 sanofi paste[employer] PMC Fluzone > 3 Years [id number] Intramuscular Left Deltoid 08/22/2013 06/10/2013 141 Influenza 08/24/2015 [facility] Fluzone [id number] Intramuscular Left Deltoid 08/24/2015 06/22/2015 141 History [...] other allergen Jul 17 2010 12:50PM Peripheral vascular disease Allergic rhinitis; due to other allergen Jul [...] chronic kidney disease Oct 02 2016 9:56AM Breast cancer screening Dec 08 2016 3:55PM Lipid screening Jan 09 2017 11:08AM Wellness examination Jan 09 2017 11:08AM Screening for breast cancer Jan 09 2017 11:08AM Type 2 diabetes mellitus without complication, without long-term current use of insulin Jan 09 2017 11:08AM Screening for osteoporosis Jan 19 2017 4:11PM Type 2 diabetes mellitus without complications Jul 09 2017 10:31AM Hypothyroidism, Acquired Jul 09 2017 10:31AM Essential Hypertension Jul 09 2017 10:31AM Hemoglobin A1c less than 7.0% Jul 09 2017 10:31AM Systolic murmur Jul 09 2017 10:31AM Payers Insurance Name Company Name Plan Name Plan Number Policy Number Policy Group Number Start Date Medicare RHC Medicare RHC [id number] N/A [facility] [id number] Friday, 2009 Medicare Part A Medicare Part A [id number] Tuesday, 2012 Medicare Part A Medicare - Lab/Xray [id number] Tuesday, July 17, 2012 Medicare Part B Medicare Of [place] [id number] Saturday, January 14, 2006 History of Encounters Visit Date Visit Type Provider 07/09/[address] Evan Mccullough MD 01/09/[address] Evan Mccullough MD 10/02/[address] Evan Mccullough MD 06/27/[address] Evan Mccullough MD 05/12/[address] Evan Mccullough MD 04/07/[address] Evan Mccullough MD 01/30/2016 Office visit 01/30/2016 Office visit Giselle Olivia [employer] 01/22/2016 Nurse visit [place] [employer] 01/15/2016 Nurse visit Nicole Ackerman MD 01/08/2016 [...] 10/23/2015 Nurse visit Nicole Ackerman MD 10/16/2015 [facility] Reggie Ness MD 10/16/2015 Office visit [...] 08/08/2014 Nurse visit 08/08/2014 Nurse visit Nicole Ackemran MD 08/01/2014 Nurse visit Nicole Ackerman MD 07/25/2014 Nurse visit Nicole Ackerman MD 07/19/2014 Nurse visit [place] [employer] 07/11/2014 Nurse visit [place] [employer] 07/04/2014 Nurse visit 07/04/2014 Nurse visit 07/04/2014 Nurse visit Skylar Pfeiffer [employer] 06/27/2014 Nurse visit 06/27/2014 Nurse visit 06/27/2014 Nurse visit [place] [employer] 06/20/2014 Nurse visit [place] [employer] 06/13/2014 Nurse visit Nicole Ackerman MD 06/06/2014 Nurse visit Mariposa Bellamy [employer] 05/30/2014 Nurse visit [place] [employer] 05/23/2014 Nurse visit Skylar Pfeiffer [employer] 05/16/2014 Nurse visit Nicole Ackerman MD 05/02/2014 Nurse visit Nicole Ackerman MD 04/25/2014 Nurse visit Nicole Ackerman MD 04/18/2014 Nurse visit Nicole Ackerman MD 04/12/2014 Nurse visit Nicole Ackerman MD 04/05/2014 Nurse visit Nicole Ackerman MD 03/28/2014 Nurse visit Mariposa Cordova RN 03/22/2014 Nurse visit Skylar Pfeiffer TELESALES TEAM LEADER 03/14/2014 Nurse visit Nicole Ackerman MD 03/07/2014 Nurse visit Skylar Pfeiffer TELESALES TEAM LEADER 02/28/2014 Nurse visit Skylar Pfeiffer TELESALES TEAM LEADER 02/21/2014 Nurse visit Nicole Ackerman MD 02/14/2014 Nurse visit Skylar Pfeiffer TELESALES TEAM LEADER 02/06/2014 Nurse visit Nicole Ackerman MD 01/31/2014 [...] Ackerman MD 11/29/2013 Nurse visit Mariposa Bellamy TELESALES TEAM LEADER 11/23/2013 Office visit Nicole Ackerman MD 11/14/2013 [...] Aguilera MD 08/09/2013 Nurse visit Skylar Pfeiffer TELESALES TEAM LEADER 08/02/2013 Nurse visit Skylar Pfeiffer TELESALES TEAM LEADER 07/26/2013 Nurse visit Skylar Pfeiffer TELESALES TEAM LEADER 07/19/2013 Nurse visit Skylar Pfeiffer TELESALES TEAM LEADER 07/12/2013 Nurse visit Skylar Pfeiffer TELESALES TEAM LEADER 07/05/2013 Nurse visit Skylar Pfeiffer TELESALES TEAM LEADER 06/28/2013 Nurse visit Skylar Pfeiffer TELESALES TEAM LEADER 06/21/2013 Nurse visit Skylar Pfeiffer TELESALES TEAM LEADER 06/14/2013 Nurse visit Skylar Pfeiffer TELESALES TEAM LEADER 06/08/2013 Nurse visit Jailene Aguilera MD 06/02/2013 Nurse visit Jailene Aguilera MD 05/24/2013 Nurse visit Jailene Aguilera MD 05/17/2013 Nurse visit Jailene Aguilera MD 05/11/2013 Nurse visit Jailene Aguilera MD 05/02/2013 Nurse visit Jailene Augilera MD 04/26/2013 Nurse visit Jailene Aguilera MD [...] visit Jailene Aguilera MD 10/13/2012 Nurse visit Jaielne Aguilera MD 10/12/2012 Office visit Jailene Aguilera [...] Jailene Aguilera MD 05/31/2012 Nurse visit Jailene Agiulera MD 05/24/2012 Nurse visit Jailene Aguilera MD [...] visit Chin Mcconnell DO 10/18/2009 Nurse visit Chni Mcconnell DO 10/10/2009 Nurse visit Chin Mcconnell [...]
--- OUTSIDE RECORDS SUMMARY | 2018-10-21 07:48 | XMS REPORT ---
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 losartan 50 mg oral tablet 05/12/2016 11/08/2016 take 1.5 tablets by oral route daily [...] QID for 90 days for DMII 205.00 [facility] miscellaneous misc 01/09/2015 01/04/2016 use as directed [...] 1 capsule (100 mg) by oral route [facility] Problem List Description Status Onset Allergic rhinitis [...] HC BMI BSA BMI Percentile O2 Sat(%) 05/12/2016 9:32:00 AM 152 mmHg 70 mmHg [...] History Name Description Comments 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# [address]-07 C Reviewed 09/07/2012 12:00 AM IMMUNOTHERAPY INJECTIONS [...] AM Flu Injection [address] Years And [address] [facility]# [address]-90 C Reviewed 10/30/2009 12:00 AM IMMUNOTHERAPY INJECTIONS [...] Inspection Reffered 12/24/2010 12:00 AM Cholest Aleksey Johnson Ql IR 181.0 %LDLc SerPl-mCnc 83.0 mg/ [...] Not Entered 11/16/2016 11/16/2016 999 Influenza 08/15/2009 [employer]. NOV Fluvirin > 12 Years [id number] Intramuscular Left Deltoid 11/06/2009 11/16/2016 999 Influenza 08/21/2010 Novartis i2we Becky. NOV Fluvirin > 12 Years [id number] Intramuscular Left Deltoid 08/21/2010 06/26/2009 999 X 08/28/2010 Merck & Co., Inc. MSD Pneumovax 23 [id number] Intramuscular Right Deltoid 08/28/2010 03/01/2009 999 Influenza 09/04/2011 sanofi pasteur PMC Fluzone [id number] Intramuscular Left Deltoid 09/04/2011 06/11/2011 111 Influenza 09/02/2012 [facility] Fluzone [id number] Intramuscular Left Deltoid 09/02/2012 05/17/2012 141 Influenza 08/22/2013 sanofi pasteur PMC Fluzone > 3 Years [id number] Intramuscular Left Deltoid 08/22/2013 06/10/2013 141 Influenza 08/24/2015 [facility] Fluzone [id number] Intramuscular Left Deltoid 08/24/2015 06/22/2015 141 History [...] 1:38PM Essential hypertension May 12 2016 9:35AM Payers Insurance Name Company Name Plan Name Plan Number Policy Number Policy Group Number Start Date Medicare Part A Medicare RHC [id number] N/A [facility] [id number] Friday, 2009 Medicare Part A Medicare Part A [id number] Tuesday, 2012 Medicare Part A Medicare - Lab/Xray [id number] Tuesday, July 17, 2012 Medicare Part B Medicare Of [place] [id number] Saturday, January 14, 2006 History of Encounters Visit Date Visit Type Provider 05/12/[address] Evan Mccullough MD 04/07/[address] Evan Mccullough MD 01/30/2016 Office visit 01/30/2016 Office visit Giselle Olivia HR LEADER 01/22/2016 Nurse visit [place] Nicole HR LEADER 01/15/2016 Nurse visit Nicole Ackerman MD [...] 10/23/2015 Nurse visit Nicole Ackerman MD 10/16/2015 [facility] Reggie Ness MD 10/16/2015 Office visit 10/16/2015 Office visit Nicole Ackerman MD 10/09/2015 Nurse visit iNcole Ackerman MD 10/03/2015 Nurse visit Nicole Ackerman [...] visit Nicole Ackerman MD 01/23/2015 Nurse visit Nciole Ackerman MD 01/16/2015 Office visit Nicole Ackerman [...] Ackerman MD 07/19/2014 Nurse visit [place] Nicole HR LEADER 07/11/2014 Nurse visit [place] Nicole HR LEADER 07/04/2014 Nurse visit 07/04/2014 Nurse visit 07/04/2014 Nurse visit Skylar Pfeiffer HR LEADER 06/27/2014 Nurse visit 06/27/2014 Nurse visit 06/27/2014 Nurse visit [place] Nicole HR LEADER 06/20/2014 Nurse visit [place] Nicole HR LEADER 06/13/2014 Nurse visit Nicole Ackerman MD 06/06/2014 Nurse visit Mariposa Bellamy HR LEADER 05/30/2014 Nurse visit [place] Nicole HR LEADER 05/23/2014 Nurse visit Skylar Pfeiffer HR LEADER 05/16/2014 Nurse visit Nicole Ackerman MD 05/02/2014 Nurse visit Nicole Ackerman MD 04/25/2014 Nurse visit Nicole Ackerman MD 04/18/2014 Nurse visit Nicole Ackerman MD 04/12/2014 Nurse visit Nicole Ackerman MD 04/05/2014 Nurse visit Nicole Ackerman MD 03/28/2014 Nurse visit Mariposa Cordova RN 03/22/2014 Nurse visit Skylar Pfeiffer HR LEADER 03/14/2014 Nurse visit Nicole Ackerman MD 03/07/2014 Nurse visit Skylar Pfeiffer HR LEADER 02/28/2014 Nurse visit Skylar Pfeiffer HR LEADER 02/21/2014 Nurse visit Nicole Ackerman MD 02/14/2014 Nurse visit Skylar Pfeiffer HR LEADER 02/06/2014 Nurse visit Nicole Ackerman MD [...] Ackerman MD 11/29/2013 Nurse visit Mariposa Bellamy HR LEADER 11/23/2013 Office visit Nicole Ackerman MD [...] visit Jailene Aguilera MD 08/09/2013 Nurse visit Skylarmiguel angel Pfeiffer HR LEADER 08/02/2013 Nurse visit Skylar Pfeiffer HR LEADER 07/26/2013 Nurse visit Skylar Pfeiffer HR LEADER 07/19/2013 Nurse visit Skylar Pfeiffer HR LEADER 07/12/2013 Nurse visit Skylar Pfeiffer HR LEADER 07/05/2013 Nurse visit Skylar Pfeiffer HR LEADER 06/28/2013 Nurse visit Skylar Pfeiffer HR LEADER 06/21/2013 Nurse visit Skylar Pfeiffer HR LEADER 06/14/2013 Nurse visit Skylar Pfeiffer HR LEADER 06/08/2013 Nurse visit Jailene Aguilera MD [...] 09/28/2012 Nurse visit Jailene Aguilera MD 09/23/2012 [facility] Guido Parra MD 09/21/2012 Nurse visit Jailene Aguilera MD 09/14/2012 Nurse visit Jailene Aguilera MD 09/09/2012 [facility] Guido Parra MD 09/07/2012 Nurse [...] visit Jailene Aguilera MD 06/28/2012 Nurse visit Jailnee Aguilera MD 06/28/2012 Voided Jarad Saravia DO [...] visit Chin Mcconnell DO 07/17/2010 Nurse visit Cihn Mcconnell DO 07/11/2010 Nurse visit Chin Mcconnell [...]
--- OUTSIDE RECORDS SUMMARY | 2018-10-21 07:51 | XMS REPORT ---
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 NOV Fluvirin > 12 Years [id number] Intramuscular Left Deltoid 11/06/2009 11/16/2015 999 Influenza 08/21/2010 Nov[facility]is [facility] Becky. NOV Fluvirin > 12 Years [id number] Intramuscular Left Deltoid 08/21/2010 06/26/2009 999 Pneumococcal 08/28/2010 Merck & Co., Inc. MSD Pneumovax 23 1407Y Intramuscular Right Deltoid 08/28/2010 03/01/2009 999 Influenza 09/04/2011 [facility] Fluzone [id number] Intramuscular Left Deltoid 09/04/2011 06/11/2011 111 Influenza 09/02/2012 [facility] Fluzone [id number] Intramuscular Left Deltoid 09/02/2012 05/17/2012 141 Influenza 08/22/2013 [facility] Fluzone > 3 Years [id number] Intramuscular Left Deltoid 08/22/2013 06/10/2013 141 History [...] of eyes Allergic Rhinitis Hypothyroidism, Acquired Gastric Ulcer Anemia Asthma Hyperlipidemia [...] to other allergen Apr 05 2015 9:08AM Payers Insurance Name Company Name Plan Name Plan Number Policy Number Policy Group Number Start Date Medicare Part A Medicare Part A [id number] Tuesday, [id number] Friday, 2009 Medicare Part B Medicare Of [place] [id number] Saturday, 2006 History of Encounters Visit Date Visit Type Provider 04/05/2015 Nurse visit Nicole Ackerman MD 03/28/2015 Office visit Nicole Ackerman MD 03/20/2015 Nurse visit Nicole Ackerman MD 03/13/2015 Nurse visit Nicole Ackerman MD 03/06/2015 Nurse visit Nicole Ackerman MD 02/27/2015 Nurse visit Nicole Ackerman MD 02/20/2015 Nurse visit Nicole Ackerman MD 02/13/2015 Nurse visit Nicoel Ackerman MD 02/06/2015 Nurse visit Nicole Ackerman [...] Ackerman MD 07/19/2014 Nurse visit [place] Nicole BUTTON MAKER 07/11/2014 Nurse visit [place] Nicole BUTTON MAKER 07/04/2014 Nurse visit Skylar Pfeiffer BUTTON MAKER 06/27/2014 Nurse visit [place] Nicole BUTTON MAKER 06/20/2014 Nurse visit [place] Nicole BUTTON MAKER 06/13/2014 Nurse visit Nicole Ackerman MD 06/06/2014 Nurse visit Mariposa Bellamy BUTTON MAKER 05/30/2014 Nurse visit [place] Nicole BUTTON MAKER 05/23/2014 Nurse visit Skylar Pfeiffer BUTTON MAKER 05/16/2014 Nurse visit Nicole Ackerman MD 05/02/2014 Nurse visit Nicole Ackerman MD 04/25/2014 Nurse visit Nicole Ackerman MD 04/18/2014 Nurse visit Nicole Ackerman MD 04/12/2014 Nurse visit Nicole Ackerman MD 04/05/2014 Nurse visit Nicole Ackerman MD 03/28/2014 Nurse visit Mariposa Cordova RN 03/22/2014 Nurse visit Skylar Pfeiffer BUTTON MAKER 03/14/2014 Nurse visit Nicole Ackerman MD 03/07/2014 Nurse visit Skylar Pfeiffer BUTTON MAKER 02/28/2014 Nurse visit Skylar Pfeiffer BUTTON MAKER 02/21/2014 Nurse visit Nicole Ackerman MD 02/14/2014 Nurse visit Skylar Pfeiffer BUTTON MAKER 02/06/2014 Nurse visit Nicole Ackerman MD 01/31/2014 [...] Ackerman MD 11/29/2013 Nurse visit Mariposa Bellamy BUTTON MAKER 11/23/2013 Office visit Nicole Ackerman MD 11/14/2013 [...] Aguilera MD 08/09/2013 Nurse visit Skylar Pfeiffer BUTTON MAKER 08/02/2013 Nurse visit Skylar Pfeiffer BUTTON MAKER 07/26/2013 Nurse visit Skylar Pfeiffer BUTTON MAKER 07/19/2013 Nurse visit Skylar Pfeiffer BUTTON MAKER 07/12/2013 Nurse visit Skylar Pfeiffer BUTTON MAKER 07/05/2013 Nurse visit Skylar Vang Kentrell BUTTON MAKER 06/28/2013 Nurse visit Skylar MoDali Kentrell BUTTON MAKER 06/21/2013 Nurse visit Skylar Taj Pfeiffer BUTTON MAKER 06/14/2013 Nurse visit Skylar Taj Pfeiffer BUTTON MAKER 06/08/2013 Nurse visit Jailene Aguilera MD 06/02/2013 [...] 09/28/2012 Nurse visit Jailene Aguilera MD 09/23/2012 [facility] Guido Parra MD 09/21/2012 Nurse visit aJilene Aguilera MD 09/14/2012 Nurse visit Jailene Aguilera MD 09/09/2012 [facility] Guido Parra MD 09/07/2012 Nurse visit [...] Aguilera MD 10/20/2011 Voided Jarad Rani DING 10/20/2011 Nurse visit Jailene Aguilera MD 10/13/2011 [...] Jailene Aguilera MD 05/13/2011 Nurse visit Jarad Gomezte DO 05/06/2011 Nurse visit Jailene Aguilera MD [...]
--- OUTSIDE RECORDS SUMMARY | 2018-10-21 07:54 | XMS REPORT ---
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 MSD Pneumovax 23 Intramuscular Not Entered 11/16/2015 11/16/2015 999 Influenza 08/15/2009 Novartis Insightpool Becky. NOV Fluvirin > 12 Years [id number] Intramuscular Left Deltoid 11/06/2009 11/16/2015 999 Influenza 08/21/2010 Novartis Pharmaceutical Becky. NOV Fluvirin > 12 Years [id number] Intramuscular Left Deltoid 08/21/2010 06/26/2009 999 Pneumococcal 08/28/2010 Merck & Co., Inc. MSD Pneumovax 23 1407Y Intramuscular Right Deltoid 08/28/2010 03/01/2009 999 Influenza 09/04/2011 sanofi pasteur PMC Fluzone [id number] Intramuscular Left Deltoid 09/04/2011 06/11/2011 111 Influenza 09/02/2012 sanofi pasteur PMC Fluzone [id number] Intramuscular Left Deltoid 09/02/2012 05/17/2012 141 Influenza 08/22/2013 sanofi pasteur PMC Fluzone > 3 Years [id number] Intramuscular Left Deltoid 08/22/2013 06/10/2013 141 Influenza 08/24/2015 sanofi pasteur PMC Fluzone [id number] Intramuscular Left Deltoid 08/24/2015 06/22/2015 141 History [...] 9:08AM Precordial pain Oct 16 2015 9:25AM Payers Insurance Name Company Name Plan Name Plan Number Policy Number Policy Group Number Start Date Medicare Part A Medicare Part A [id number] Tuesday, 2012 [facility] [id number] Friday, 2009 Medicare Part B Medicare Of [place] [id number] Saturday, 2006 History of Encounters Visit Date [...] Ackerman MD 07/19/2014 Nurse visit [place] Nicole JIG AND FIXTURE REPAIRER 07/11/2014 Nurse visit [place] Nicole JIG AND FIXTURE REPAIRER 07/04/2014 Nurse visit Skylar Pfeiffer JIG AND FIXTURE REPAIRER 06/27/2014 Nurse visit [place] Nicole JIG AND FIXTURE REPAIRER 06/20/2014 Nurse visit [place] Nicole JIG AND FIXTURE REPAIRER 06/13/2014 Nurse visit Nicole Ackerman MD 06/06/2014 Nurse visit Mariposa Bellamy JIG AND FIXTURE REPAIRER 05/30/2014 Nurse visit [place] Nicole JIG AND FIXTURE REPAIRER 05/23/2014 Nurse visit Skylar Pfeiffer JIG AND FIXTURE REPAIRER 05/16/2014 Nurse visit Nicole Ackerman MD 05/02/2014 Nurse visit Nicole Ackerman MD 04/25/2014 Nurse visit Nicole Ackerman MD 04/18/2014 Nurse visit Nicole Ackerman MD 04/12/2014 Nurse visit Nicole Ackerman MD 04/05/2014 Nurse visit Nicole Ackerman MD 03/28/2014 Nurse visit Mariposa Cordova RN 03/22/2014 Nurse visit Skylar Pfeiffer JIG AND FIXTURE REPAIRER 03/14/2014 Nurse visit Nicole Ackerman MD 03/07/2014 Nurse visit Skylar Pfeiffer JIG AND FIXTURE REPAIRER 02/28/2014 Nurse visit Skylar Pfeiffer JIG AND FIXTURE REPAIRER 02/21/2014 Nurse visit Nicole Ackerman MD 02/14/2014 Nurse visit Skylar Pfeiffer JIG AND FIXTURE REPAIRER 02/06/2014 Nurse visit Nicole Ackerman MD 01/31/2014 [...] Ackerman MD 11/29/2013 Nurse visit Mariposa Bellamy JIG AND FIXTURE REPAIRER 11/23/2013 Office visit Nicole Ackerman MD 11/14/2013 [...] Aguilera MD 08/09/2013 Nurse visit Skylar Pfeiffer JIG AND FIXTURE REPAIRER 08/02/2013 Nurse visit Skylar Pfeiffer JIG AND FIXTURE REPAIRER 07/26/2013 Nurse visit Skylar Pfeiffer JIG AND FIXTURE REPAIRER 07/19/2013 Nurse visit Skylar Pfeiffer JIG AND FIXTURE REPAIRER 07/12/2013 Nurse visit Skylar Pfeiffer JIG AND FIXTURE REPAIRER 07/05/2013 Nurse visit Skylar Pfeiffer JIG AND FIXTURE REPAIRER 06/28/2013 Nurse visit Skylar Pfeiffer JIG AND FIXTURE REPAIRER 06/21/2013 Nurse visit Skylar Pfeiffer JIG AND FIXTURE REPAIRER 06/14/2013 Nurse visit Skylar Pfeiffer JIG AND FIXTURE REPAIRER 06/08/2013 Nurse visit Jailene Aguilera MD 06/02/2013 Nurse visit Jailene Aguilera MD 05/24/2013 Nurse visit Jailene Aguilera MD 05/17/2013 Nurse visit Jailene Aguilera MD 05/11/2013 Nurse visit Jailene Aguilera MD 05/02/2013 Nurse visit Jailene Aguilera MD 04/26/2013 Nurse visit Jailene Aguilera MD 04/19/2013 Nurse visit Jailene Aguilera MD 04/12/2013 Nurse visit Jailene Aguilera MD 04/05/2013 Nurse visit Jailene Agiulera MD 03/29/2013 Nurse visit Jailene Aguilera MD [...] Jailene Aguilera MD 12/14/2012 Nurse visit Jailene Agiulera MD 12/07/2012 Nurse visit Jailene Aguilera MD 11/30/2012 Nurse visit Jailene Aguilera MD 11/23/2012 Nurse visit Jailene Aguilera MD 11/17/2012 Nurse visit Jailene Aguilera MD 11/10/2012 Nurse visit Jailene Aguilera MD 10/25/2012 Nurse visit Jailene Aguilera MD 10/19/2012 Nurse visit Jailene Aguilera MD 10/13/2012 Nurse visit Jailene Aguilera MD 10/12/2012 Office visit Jailene Aguilera MD 10/06/2012 Office visit Skylar Pfeiffer JIG AND FIXTURE REPAIRER 10/05/2012 Nurse visit Jailene Aguilera MD 09/28/2012 Nurse visit Jailene Aguilera MD 09/23/2012 [facility] Guido Parra MD 09/21/2012 Nurse visit Jailene Aguilera MD 09/14/2012 Nurse visit Jailene Aguilera MD 09/09/2012 [facility] Guido Parra MD 09/07/2012 Nurse visit [...] visit Jailene Aguilera MD 06/24/2011 Nurse visit Jialene Aguilera MD 06/17/2011 Nurse visit Jailene Aguilera [...]
--- OUTSIDE RECORDS SUMMARY | 2018-10-21 07:58 | XMS REPORT ---
Author Author Nicole Ackerman Organization [facility] Address [address] [place], [place] [address] Care Team Providers Care Gas Line Servicer Name Role Phone Nicole Ackerman PCP Allergies and Adverse Reactions Name Reaction Notes pollens Demerol intolerant Plan of Treatment Planned Activity Comments Planned Date Planned Time Plan/Goal FLU VAC NO PRSV 4 SOPHIA 3 YRS+ 08/24/2015 12:00 AM IMMUNOTHERAPY INJECTIONS 05/04/2012 12:00 AM [...] 6 hours as needed [facility] 05/03/2013 08/01/2013 TEST ONCE DAILY atenolol 50 [...] History Name Description Comments 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 NOV Fluvirin > 12 Years [id number] Intramuscular Left Deltoid 11/06/2009 11/16/2015 999 Influenza 08/21/2010 [employer] Becky. NOV Fluvirin > 12 Years [id number] Intramuscular Left Deltoid 08/21/2010 06/26/2009 999 Pneumococcal 08/28/2010 Merck & Co., Inc. MSD Pneumovax 23 [id number] Intramuscular Right Deltoid 08/28/2010 03/01/2009 999 Influenza 09/04/2011 sanofi [facility] Fluzone [id number] Intramuscular Left Deltoid 09/04/2011 06/11/2011 111 Influenza 09/02/2012 [facility] PMC Fluzone [id number] Intramuscular Left Deltoid 09/02/2012 05/17/2012 141 Influenza 08/22/2013 [facility] PMC Fluzone > 3 Years [id number] Intramuscular Left Deltoid 08/22/2013 06/10/2013 141 History [...] 2015 9:12AM Flu Aug 24 2015 9:17AM Payers Insurance Name Company Name Plan Name Plan Number Policy Number Policy Group Number Start Date Medicare Part A Medicare Part A [id number] Tuesday, 2012 [facility] [id number] Friday, 2009 Medicare Part B Medicare Of [place] [id number] Saturday, 2006 History of Encounters Visit Date Visit Type Provider 08/24/2015 Nurse visit Nicole Ackerman MD 08/21/2015 [...] Ackerman MD 07/19/2014 Nurse visit [place] RADIO ENGINEER 07/11/2014 Nurse visit [place] RADIO ENGINEER 07/04/2014 Nurse visit Skylar Pfeiffer RADIO ENGINEER 06/27/2014 Nurse visit [place] RADIO ENGINEER 06/20/2014 Nurse visit [place] RADIO ENGINEER 06/13/2014 Nurse visit Nicole Ackerman MD 06/06/2014 Nurse visit Mariposa Bellamy RADIO ENGINEER 05/30/2014 Nurse visit [place] RADIO ENGINEER 05/23/2014 Nurse visit Skylar Pfeiffer RADIO ENGINEER 05/16/2014 Nurse visit Nicole Ackerman MD 05/02/2014 Nurse visit Nicole Ackerman MD 04/25/2014 Nurse visit Nicole Ackerman MD 04/18/2014 Nurse visit Nicole Ackerman MD 04/12/2014 Nurse visit Nicole Ackerman MD 04/05/2014 Nurse visit Nicole Ackerman MD 03/28/2014 Nurse visit Mariposa Cordova RN 03/22/2014 Nurse visit Skylar Pfeiffer RADIO ENGINEER 03/14/2014 Nurse visit Nicole Ackerman MD 03/07/2014 Nurse visit Skylar Pfeiffer RADIO ENGINEER 02/28/2014 Nurse visit Skylar Pfeiffer RADIO ENGINEER 02/21/2014 Nurse visit Nicole Ackerman MD 02/14/2014 Nurse visit Skylar Pfeiffer RADIO ENGINEER 02/06/2014 Nurse visit Nicole Ackerman MD [...] Ackerman MD 11/29/2013 Nurse visit Mariposa Bellamy RADIO ENGINEER 11/23/2013 Office visit Nicole Ackerman MD 11/14/2013 Nurse visit Jarad Rani DO 11/07/2013 Nurse visit Nicole Ackerman MD [...] Aguilera MD 08/09/2013 Nurse visit Skylar Pfeiffer RADIO ENGINEER 08/02/2013 Nurse visit Skylar Pfeiffer RADIO ENGINEER 07/26/2013 Nurse visit Skylar Pfeiffer RADIO ENGINEER 07/19/2013 Nurse visit Skylar Pfeiffer RADIO ENGINEER 07/12/2013 Nurse visit Skylar Pfeiffer RADIO ENGINEER 07/05/2013 Nurse visit Skylar Pfeiffer RADIO ENGINEER 06/28/2013 Nurse visit Skylar Pfeiffer RADIO ENGINEER 06/21/2013 Nurse visit Skylar Pfeiffer RADIO ENGINEER 06/14/2013 Nurse visit Skylar Pfeiffer RADIO ENGINEER 06/08/2013 Nurse visit Jailene Aguilera MD [...] 09/28/2012 Nurse visit Jailene Aguilera MD 09/23/2012 [facility] Guido Parra MD 09/21/2012 Nurse visit Jailene Aguilera MD 09/14/2012 Nurse visit Jailene Aguilera MD 09/09/2012 [facility] Guido Parra MD 09/07/2012 Nurse visit [...] Jailene Aguilera MD 07/14/2011 Office visit Jailene gAuilera MD 07/08/2011 Nurse visit Jailene Aguilera MD [...] Chin Mcconnell DO 06/05/2010 Nurse visit Chin cMconnell DO 05/29/2010 Nurse visit Chin Mcconnell DO [...]
--- OUTSIDE RECORDS SUMMARY | 2018-10-21 08:01 | XMS REPORT ---
Author Author Nicole Ackerman Organization [facility] Address [address] [place], [place] [id number] Care Team Providers Care Handy Man Name Role Phone Nicole Ackerman PCP Allergies [...] oral route once daily for 30 days aspirin 81 mg oral [...] TAKE 1 TABLET BY MOUTH ONCE DAILY Name Start Date Expiration Date SIG [...] 12/23/2015 TAKE ONE TABLET BY MOUTH DAILY Symbicort 80-4.5 mcg/actuation inhalation HFA aerosol inhaler 10/16/20152015 inhale 1-2 puffs by inhalation route 2 times a day for 30 days ProAir HFA 90 mcg/actuation inhalation HFA aerosol inhaler 10/16/20152015 inhale 1 puff (90 mcg) by inhalation route every 6 hours as needed for 30 days nitroglycerin 0.4 mg sublingual [...] Name Description Comments 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 NOV Fluvirin > 12 Years [id number] Intramuscular Left Deltoid 11/06/2009 11/16/2015 999 Influenza 08/21/2010 [employer] Becky. NOV Fluvirin > 12 Years [id number] Intramuscular Left Deltoid 08/21/2010 06/26/2009 999 Pneumococcal 08/28/2010 Merck & Co., Inc. MSD Pneumovax 23 1407Y Intramuscular Right Deltoid 08/28/2010 03/01/2009 999 Influenza 09/04/2011 sanofi pasteur PMC Fluzone [id number] Intramuscular Left Deltoid 09/04/2011 06/11/2011 111 [facility] [id number] Intramuscular Left Deltoid 09/02/2012 05/17/2012 141 Influenza 08/22/2013 [facility] Fluzone > 3 Years [id number] Intramuscular Left Deltoid 08/22/2013 06/10/2013 141 Influenza 08/24/2015 [facility] [id number] Intramuscular Left Deltoid 08/24/2015 06/22/2015 141 History [...] to other allergen Jan 15 2016 9:22AM Payers Insurance Name Company Name Plan Name Plan Number Policy Number Policy Group Number Start Date Medicare Part A Medicare Part A [id number] Tuesday, 2012 [facility] [id number] Friday, 2009 Medicare Part B Medicare Of [place] [id number] Saturday, 2006 History of Encounters Visit Date Visit Type Provider 01/15/2016 Nurse visit Nicole Ackerman MD 01/08/2016 Nurse visit Nicole Ackerman MD 01/01/2016 Nurse visit Nicole Ackerman MD 12/25/2015 Nurse visit Nicole Ackerman MD 12/18/2015 Nurse visit Nicole Ackerman MD 12/11/2015 Nurse visit Nicole Ackerman MD 11/27/2015 Nurse visit Nicole Ackerman MD 11/13/2015 Nurse visit Nicole Ackerman MD 10/31/2015 Office visit 10/31/2015 Office visit Nciole Ackerman MD 10/23/2015 Nurse visit Nicole Ackerman MD 10/16/2015 [facility] Reggie Ness MD 10/16/2015 Office visit [...] MD 12/05/2014 Office visit 12/05/2014 Office visit Nciole Ackerman MD 11/28/2014 Nurse visit Nicole Ackerman [...] Ackerman MD 07/19/2014 Nurse visit [place] TYPESETTING SUPERVISOR 07/11/2014 Nurse visit [place] TYPESETTING SUPERVISOR 07/04/2014 Nurse visit 07/04/2014 Nurse visit 07/04/2014 Nurse visit Skylar Pfeiffer TYPESETTING SUPERVISOR 06/27/2014 Nurse visit 06/27/2014 Nurse visit 06/27/2014 Nurse visit [place] TYPESETTING SUPERVISOR 06/20/2014 Nurse visit [place] TYPESETTING SUPERVISOR 06/13/2014 Nurse visit Nicole Ackerman MD 06/06/2014 Nurse visit Mariposa Bellamy TYPESETTING SUPERVISOR 05/30/2014 Nurse visit [place] TYPESETTING SUPERVISOR 05/23/2014 Nurse visit Skylar Pfeiffer TYPESETTING SUPERVISOR 05/16/2014 Nurse visit Nicole Ackerman MD 05/02/2014 Nurse visit Nicole Ackerman MD 04/25/2014 Nurse visit Nicole Ackerman MD 04/18/2014 Nurse visit Nicole Ackerman MD 04/12/2014 Nurse visit Nicole Ackerman MD 04/05/2014 Nurse visit Nicole Ackerman MD 03/28/2014 Nurse visit Mariposa Cordova RN 03/22/2014 Nurse visit Skylar Pfeiffer TYPESETTING SUPERVISOR 03/14/2014 Nurse visit Nicole Ackerman MD 03/07/2014 Nurse visit Skylar Pfeiffer TYPESETTING SUPERVISOR 02/28/2014 Nurse visit Skylar Pfeiffer TYPESETTING SUPERVISOR 02/21/2014 Nurse visit Nicole Ackerman MD 02/14/2014 Nurse visit Skylar Pfeiffer TYPESETTING SUPERVISOR 02/06/2014 Nurse visit Nicole Ackerman MD [...] Ackerman MD 11/29/2013 Nurse visit Mariposa Bellamy TYPESETTING SUPERVISOR 11/23/2013 Office visit Nicole Ackerman MD 11/14/2013 Nurse visit Jarad Gomezte DO 11/07/2013 Nurse visit Nicole Ackerman MD [...] Aguilera MD 08/09/2013 Nurse visit Skylar Pfeiffer TYPESETTING SUPERVISOR 08/02/2013 Nurse visit Skylar Pfeiffer TYPESETTING SUPERVISOR 07/26/2013 Nurse visit Skylar Pfeiffer TYPESETTING SUPERVISOR 07/19/2013 Nurse visit Skylar Pfeiffer TYPESETTING SUPERVISOR 07/12/2013 Nurse visit Skylar Pfeiffer TYPESETTING SUPERVISOR 07/05/2013 Nurse visit Skylar Pfeiffer TYPESETTING SUPERVISOR 06/28/2013 Nurse visit Skylar Pfeiffer TYPESETTING SUPERVISOR 06/21/2013 Nurse visit Skylar Pfeiffer TYPESETTING SUPERVISOR 06/14/2013 Nurse visit Skylar Taj Pfeiffer TYPESETTING SUPERVISOR 06/08/2013 Nurse visit Jailene Aguilera MD [...] Aguilera MD 10/06/2012 Office visit Skylar Pfeiffer TYPESETTING SUPERVISOR 10/05/2012 Nurse visit Jailene Aguilera MD 09/28/2012 [...] visit Chin Mcconnell DO 11/08/2009 Office visit Cihn Mcconnell DO 10/30/2009 Nurse visit Chin Mcconnell [...]
--- OUTSIDE RECORDS SUMMARY | 2018-10-21 08:04 | XMS REPORT ---
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 NOV Fluvirin > 12 Years [id number] Intramuscular Left Deltoid 11/06/2009 11/16/2015 999 Influenza 08/21/2010 Novartis [place] Becky. NOV Fluvirin > 12 Years [id number] Intramuscular Left Deltoid 08/21/2010 06/26/2009 999 Pneumococcal 08/28/2010 Merck & Co., Inc. MSD Pneumovax 23 1407Y Intramuscular Right Deltoid 08/28/2010 03/01/2009 999 Influenza 09/04/[address] [facility]C Fluzone [id number] Intramuscular Left Deltoid 09/04/2011 06/11/2011 111 Influenza 09/02/[address] [facility] Fluzone [id number] Intramuscular Left Deltoid 09/02/2012 05/17/2012 141 Influenza 08/22/[address] [facility]C Fluzone > 3 Years [id number] Intramuscular Left Deltoid 08/22/2013 06/10/2013 141 History [...] to other allergen Apr 17 2015 9:20AM Payers Insurance Name Company Name Plan Name Plan Number Policy Number Policy Group Number Start Date Medicare Part A Medicare Part A [id number] Tuesday, 2012 [facility] [id number] Friday, 2009 Medicare Part B Medicare Of [place] [id number] Saturday, 2006 History of Encounters Visit Date Visit Type Provider 04/17/2015 Nurse visit Nicole Ackerman MD 04/11/2015 [...] Ackerman MD 07/19/2014 Nurse visit [place] TAIL RIPPER 07/11/2014 Nurse visit [place] TAIL RIPPER 07/04/2014 Nurse visit Skylar Pfeiffer TAIL RIPPER 06/27/2014 Nurse visit [place] TAIL RIPPER 06/20/2014 Nurse visit [place] TAIL RIPPER 06/13/2014 Nurse visit Nicole Ackerman MD 06/06/2014 Nurse visit Mariposa Bellamy TAIL RIPPER 05/30/2014 Nurse visit [place] TAIL RIPPER 05/23/2014 Nurse visit Skylar Pfeiffer TAIL RIPPER 05/16/2014 Nurse visit Nicole Ackerman MD 05/02/2014 Nurse visit Nicole Ackerman MD 04/25/2014 Nurse visit Nicole Ackerman MD 04/18/2014 Nurse visit Nicole Ackerman MD 04/12/2014 Nurse visit Nicole Ackerman MD 04/05/2014 Nurse visit Nicole Ackerman MD 03/28/2014 Nurse visit Mariposa Cordova RN 03/22/2014 Nurse visit Skylar Pfeiffer TAIL RIPPER 03/14/2014 Nurse visit Nicole Ackerman MD 03/07/2014 Nurse visit Skylar Pfeiffer TAIL RIPPER 02/28/2014 Nurse visit Skylar Pfeiffer TAIL RIPPER 02/21/2014 Nurse visit Nicole Ackerman MD 02/14/2014 Nurse visit Skylar Pfeiffer TAIL RIPPER 02/06/2014 Nurse visit Nicole Ackerman MD 01/31/2014 [...] Ackerman MD 11/29/2013 Nurse visit Mariposa Bellamy TAIL RIPPER 11/23/2013 Office visit Nicole Ackerman MD 11/14/2013 [...] Aguilera MD 08/09/2013 Nurse visit Skylar Pfeiffer TAIL RIPPER 08/02/2013 Nurse visit Skylar Pfeiffer TAIL RIPPER 07/26/2013 Nurse visit Skylar Pfeiffer TAIL RIPPER 07/19/2013 Nurse visit Skylar Pfeiffer TAIL RIPPER 07/12/2013 Nurse visit Skylar Pfeiffer TAIL RIPPER 07/05/2013 Nurse visit Skylar Pfeiffer TAIL RIPPER 06/28/2013 Nurse visit Skylar Pfeiffer TAIL RIPPER 06/21/2013 Nurse visit Skylar Pfeiffer TAIL RIPPER 06/14/2013 Nurse visit Skylar Vang Kentrell TAIL RIPPER 06/08/2013 Nurse visit Jailene gAuilera MD 06/02/2013 Nurse visit Jailene Aguilera MD [...] Jailene Aguilera MD 10/06/2012 Office visit Skylar Taj Pfeiffer APRN 10/05/2012 Nurse visit Jailene Aguilera MD 09/28/2012 Nurse visit Jailene Aguilera MD 09/23/2012 [facility] Guido Parra MD 09/21/2012 Nurse visit Jailene Aguilera MD 09/14/2012 Nurse visit Jailene Aguilera MD 09/09/2012 [facility] Guido Parra MD 09/07/2012 Nurse [...] visit Jailene Aguilera MD 03/05/2011 Nurse visit Chni Mcconnell DO 02/25/2011 Nurse visit Chin Mcconnell DO 02/19/2011 Nurse visit Chin Mcconnell DO 02/19/2011 [facility] Jamir Ness MD 02/11/2011 Nurse [...] visit Chin Mcconnell DO 10/02/2010 Nurse visit Cihn Mcconnell DO 09/25/2010 Nurse visit Chin Mcconnell [...]
--- OUTSIDE RECORDS SUMMARY | 2018-10-21 08:07 | XMS REPORT ---
Author Author [facility] Organization [facility] Address [address] [place], [place] [address] Care Team Providers Care Shingle Weaver Name Role Phone PCP Unavailable Allergies and [...] morning and evening meals for 30 days levothyroxine oral tablet 100 mcg 02/28/2015 05/29/2015 TAKE ONE TABLET BY MOUTH DAILY Discontinued Name Start Date Discontinued Date SIG Comments Samantha Oral Tablet 180 mg 10/06/2012 take 1 tablet (180 mg) by oral route once daily Aspirin Oral Tablet 81 mg 10/06/2012 take 1 tablet by oral route daily Flonase Nasal [place], Suspension 50 mcg/Actuation 10/06/2012 inhale 1 spray [...] History Name Description Comments 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 NOV Fluvirin > 12 Years [id number] Intramuscular Left Deltoid 11/06/2009 11/16/2015 999 Influenza 08/21/2010 Novartis [employer] Becky. NOV Fluvirin > 12 Years [id number] Intramuscular Left Deltoid 08/21/2010 06/26/2009 999 Pneumococcal 08/28/2010 Merck & Co., Inc. MSD Pneumovax 23 1407Y Intramuscular Right Deltoid 08/28/2010 03/01/2009 999 Influenza 09/04/2011 sanofi pasteur PMC Fluzone [id number] Intramuscular Left Deltoid 09/04/2011 06/11/2011 111 Influenza 09/02/2012 sanofi pasteur PMC Fluzone [id number] Intramuscular Left Deltoid 09/02/2012 05/17/2012 141 Influenza 08/22/2013 sanofi pasteur PMC Fluzone > 3 Years [id number] Intramuscular Left Deltoid 08/22/2013 06/10/2013 141 History [...] to other allergen Jun 12 2015 10:53AM Payers Insurance Name Company Name Plan Name Plan Number Policy Number Policy Group Number Start Date Medicare Part A Medicare Part A [id number] Tuesday, 2012 [employer] [place] [id number] Friday, 2009 Medicare Part B Medicare Of [place] [id number] Saturday, 2006 History of Encounters Visit Date Visit Type Provider 06/12/2015 Nurse visit Nicole Ackerman MD 05/29/2015 [...] Ackerman MD 07/19/2014 Nurse visit [place] CAKE FORMER 07/11/2014 Nurse visit [place] CAKE FORMER 07/04/2014 Nurse visit Skylar Pfeiffer CAKE FORMER 06/27/2014 Nurse visit [place] CAKE FORMER 06/20/2014 Nurse visit [place] Nicole CAKE FORMER 06/13/2014 Nurse visit Nicole Ackerman MD 06/06/2014 Nurse visit Mariposa Bellamy CAKE FORMER 05/30/2014 Nurse visit [place] CAKE FORMER 05/23/2014 Nurse visit Skylar Pfeiffer CAKE FORMER 05/16/2014 Nurse visit Nicole Ackerman MD 05/02/2014 Nurse visit Nicole Ackerman MD 04/25/2014 Nurse visit Nicole Ackerman MD 04/18/2014 Nurse visit Nicole Ackerman MD 04/12/2014 Nurse visit Nicole Ackerman MD 04/05/2014 Nurse visit Nicole Ackerman MD 03/28/2014 Nurse visit Mariposa Cordova RN 03/22/2014 Nurse visit Skylar Pfeiffer CAKE FORMER 03/14/2014 Nurse visit Nicole Ackerman MD 03/07/2014 Nurse visit Skylar Pfeiffer CAKE FORMER 02/28/2014 Nurse visit Skylar Pfeiffer CAKE FORMER 02/21/2014 Nurse visit Nicole Ackerman MD 02/14/2014 Nurse visit Skylar Pfeiffer CAKE FORMER 02/06/2014 Nurse visit Nicole Ackerman MD 01/31/2014 [...] Ackerman MD 11/29/2013 Nurse visit Mariposa Bellamy CAKE FORMER 11/23/2013 Office visit Nicole Ackerman MD 11/14/2013 [...] Aguilera MD 08/09/2013 Nurse visit Skylar Pfeiffer CAKE FORMER 08/02/2013 Nurse visit Skylar Pfeiffer CAKE FORMER 07/26/2013 Nurse visit Skylar Pfeiffer CAKE FORMER 07/19/2013 Nurse visit Skylar Pfeiffer CAKE FORMER 07/12/2013 Nurse visit Skylar Pfeiffer CAKE FORMER 07/05/2013 Nurse visit Skylar Pfeiffer CAKE FORMER 06/28/2013 Nurse visit Skylar Pfeiffer CAKE FORMER 06/21/2013 Nurse visit Skylar Pfeiffer CAKE FORMER 06/14/2013 Nurse visit Skylar Pfeiffer CAKE FORMER 06/08/2013 Nurse visit Jailene Aguilera MD 06/02/2013 [...] Aguilera MD 10/06/2012 Office visit Skylar Pfeiffer CAKE FORMER 10/05/2012 Nurse visit Jailene Aguilera MD 09/28/2012 Nurse visit Jailene Aguilera MD 09/23/2012 [facility] Guido Parra MD 09/21/2012 Nurse visit Jailene Aguilera MD 09/14/2012 Nurse visit Jailene Aguilera MD 09/09/2012 [facility] Guido Parra MD 09/07/2012 Nurse visit [...] 02/19/2011 Nurse visit Chin Mcconnell DO 02/19/2011 [facility] Jamir Ness MD 02/11/2011 Nurse visit [...]
[2018-10-21 08:10] VITALS: BP 172/74
--- OUTSIDE RECORDS SUMMARY | 2018-10-21 08:10 | XMS REPORT ---
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 NOV Fluvirin > 12 Years [id number] Intramuscular Left Deltoid 11/06/2009 11/16/2015 999 Influenza 08/21/2010 Novartis [employer] Becky. NOV Fluvirin > 12 Years [id number] Intramuscular Left Deltoid 08/21/2010 06/26/2009 999 Pneumococcal 08/28/2010 Merck & Co., Inc. MSD Pneumovax 23 1407Y Intramuscular Right Deltoid 08/28/2010 03/01/2009 999 Influenza 09/04/2011 [facility] Fluzone [id number] Intramuscular Left Deltoid 09/04/2011 06/11/2011 111 Influenza 09/02/2012 [facility] Fluzone [id number] Intramuscular Left Deltoid 09/02/2012 05/17/2012 141 Influenza 08/22/2013 [facility] Fluzone > 3 Years [id number] Intramuscular Left Deltoid 08/22/2013 06/10/2013 141 History [...] Mellitus, Type II Mar 28 2015 3:08PM Payers Insurance Name Company Name Plan Name Plan Number Policy Number Policy Group Number Start Date Medicare Part A Medicare Part A [id number] Tuesday, 2012 [facility] [id number] Friday, 2009 Medicare Part B Medicare Of [place] [id number] Saturday, 2006 History of Encounters Visit Date Visit Type Provider 03/28/2015 Office visit Nicole Ackerman MD 03/20/2015 [...] Ackerman MD 07/19/2014 Nurse visit [place] SURG RN 07/11/2014 Nurse visit [place] SURG RN 07/04/2014 Nurse visit Skylar Pfeiffer SURG RN 06/27/2014 Nurse visit [place] SURG RN 06/20/2014 Nurse visit [place] SURG RN 06/13/2014 Nurse visit Nicole Ackerman MD 06/06/2014 Nurse visit Mariposa Bellamy SURG RN 05/30/2014 Nurse visit [place] SURG RN 05/23/2014 Nurse visit Skylar Pfeiffer SURG RN 05/16/2014 Nurse visit Nicole Ackerman MD 05/02/2014 Nurse visit Nicole Ackerman MD 04/25/2014 Nurse visit Nicole Ackerman MD 04/18/2014 Nurse visit Nicole Ackerman MD 04/12/2014 Nurse visit Nicole Ackerman MD 04/05/2014 Nurse visit Nicole Ackerman MD 03/28/2014 Nurse visit Mariposa Cordova RN 03/22/2014 Nurse visit Skylar Pfeiffer SURG RN 03/14/2014 Nurse visit Nicole Ackerman MD 03/07/2014 Nurse visit Skylar Pfeiffer SURG RN 02/28/2014 Nurse visit Skylar Pfeiffer SURG RN 02/21/2014 Nurse visit Nicole Ackerman MD 02/14/2014 Nurse visit Skylar Pfeiffer SURG RN 02/06/2014 Nurse visit Nicole Ackerman MD 01/31/2014 [...] Ackerman MD 11/29/2013 Nurse visit Mariposa Bellamy SURG RN 11/23/2013 Office visit Nicole Ackerman MD 11/14/2013 [...] Aguilera MD 08/09/2013 Nurse visit Skylar Pfeiffer SURG RN 08/02/2013 Nurse visit Skylar Pefiffer SURG RN 07/26/2013 Nurse visit Skylar Pefiffer SURG RN 07/19/2013 Nurse visit Skylar Pfeiffer SURG RN 07/12/2013 Nurse visit Skylar Pfeiffer SURG RN 07/05/2013 Nurse visit Skylar Pfeiffer SURG RN 06/28/2013 Nurse visit Skylar Pfeiffer SURG RN 06/21/2013 Nurse visit Skylarmiguel angel Pfeiffer SURG RN 06/14/2013 Nurse visit Skylar Pfeiffer SURG RN 06/08/2013 Nurse visit Jailene Aguilera MD 06/02/2013 [...] Jailene Aguilera MD 03/22/2013 Nurse visit Jailene Aguilrea MD 03/15/2013 Nurse visit Jailene Aguilera MD [...] 09/28/2012 Nurse visit Jailene Aguilera MD 09/23/2012 [facility] Guido Parra MD 09/21/2012 Nurse visit Jailene Aguilera MD 09/14/2012 Nurse visit Jailene Aguilera MD 09/09/2012 [facility] Guido Parra MD 09/07/2012 Nurse visit [...] visit Jailene Aguilera MD 03/18/2011 Nurse visit Jaliene Aguilera MD 03/12/2011 Nurse visit Chin Mcconnell [...] Chin Mcconnell DO 10/22/2010 Nurse visit Chin Mcconenll DO 10/16/2010 Nurse visit Chin Mcconnell DO [...]
--- OUTSIDE RECORDS SUMMARY | 2018-10-21 08:15 | XMS REPORT ---
Author Author Evan Mccullough Organization [facility] Address [address] [facility] [address] [place], [place] [id number] Care Team Providers Care Volunteer Recruitment Coordinator Name Role Phone Evan Mccullough PCP Evan [...] WBC and automated differential) 07/29/2012 12:00 AM 2D Echo - Adult 07/09/2017 [...] TAKE 1 TABLET BY MOUTH ONCE DAILY Symbicort inhalation glipizide 5 mg oral tablet 01/09/2017 TAKE 1 TABLET BY MOUTH EVERY MORNING WITH BREAKFAST levothyroxine 100 mcg oral tablet 01/09/2017 TAKE ONE TABLET BY MOUTH ONCE DAILY glipizide 5 mg oral tablet 02/19/2017 TAKE 1 TABLET BY MOUTH EVERY MORNING WITH BREAKFAST Tylenol Arthritis Pain 650 mg oral tablet [...] (10 mg) by oral route once daily atenolol 50 mg oral tablet 07/09/2017 07/04/2018 take 1.5 tablets by oral route daily for 90 days rosuvastatin 20 mg oral tablet 09/18/2017 09/13/2018 TAKE 1 TABLET BY MOUTH ONCE EVERY DAY furosemide 40 mg oral tablet 10/07/2017 10/02/2018 TAKE 1 TABLET BY MOUTH ONCE DAILY losartan 100 mg oral tablet 10/21/2017 07/18/2018 TAKE 1 TABLET BY MOUTH ONCE DAILY glipizide 5 mg oral tablet 11/23/2017 05/22/2018 TAKE 1 TABLET BY MOUTH ONCE EVERY MORNING WITH BREAKFAST levothyroxine 100 mcg oral tablet 11/23/2017 05/22/2018 TAKE ONE TABLET BY MOUTH ONCE DAILY metformin 500 mg oral tablet 11/23/2017 08/20/2018 TAKE 1 TABLET BY MOUTH EVERY MORNING AND TAKE 2 TABLETS EVERY EVENING Mastectomy Bra 1 unit 01/07/2018 07/24/2018 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 blood-glucose meter miscellaneous kit 01/07/2018 04/16/2018 use as directed to test blood sugar daily Contour Test Strips miscellaneous strip 01/07/2018 04/02/2019 test BG QD for 90 days for DMII 205.00 amlodipine 5 mg oral tablet 01/11/2018 01/06/2019 take 1 tablet by oral route daily for 90 [...] morning and evening meals for 30 days lancets miscellaneous misc 01/09/2015 01/04/2016 use as [...] DAILY IN THE EVENING for 90 days atenolol 50 mg oral tablet 06/27/2016 12/19/2017 TAKE 1 TABLET BY MOUTH ONCE DAILY for 90 days furosemide 40 mg oral tablet 06/27/2016 03/24/2017 TAKE 1 TABLET BY MOUTH ONCE DAILY for 90 days losartan 100 mg oral tablet 06/27/2016 12/24/2016 take 1 tablet (100 mg) by oral route once daily for 90 days doxycycline hyclate 100 mg oral capsule 10/30/2017 take 1 capsule (100 mg ) by oral route 2 times per day for 10 days Discontinued Name Start Date [...] 1 capsule (100 mg) by oral route [facility] Tylenol Extra Strength 500 mg oral tablet 10/02/2016 take 1 tablet (500 mg ) by oral route every 6 hours as needed losartan 25 mg oral tablet 05/21/2016 06/27/2016 take 1 tablet (25 mg) by oral route once daily for 90 days losartan 50 mg oral tablet 07/30/2016 10/02/2016 take 1.5 tablets by oral route daily for 90 days Crestor 20 mg oral tablet 10/13/2016 10/30/2017 take 1 tablet (20 mg) by oral route once daily for 90 days Crestor 20 mg oral tablet 10/13/2016 10/30/2017 take 1 tablet (20 mg) by oral route once daily for 90 days medication on list twice Tessalon Perles 100 mg oral capsule 10/30/2017 01/07/2018 take 1 capsule ( 100 mg) by oral route 3 times per day as needed for cough Problem List Description Status Onset Allergic rhinitis Active Anemia Active Asthma Active Benign essential hypertension Active degenerative joint disease Active Diabetes Mellitus, Type II Active Gastric ulcer Active Heartburn Active Hyperlipidemia Active Hypothyroidism, acquired Active macular degeneration of eyes Active Mitral [...] HC BMI BSA BMI Percentile O2 Sat(%) 01/07/2018 9:59:00 AM 174 mmHg 73 mmHg 61 bpm 20 rpm 97.8 F 243.5 lbs 63.5 in 42.46 kg/m2 2.22 m2 95 % 11/23/2017 2:44:00 PM 140 mmHg 64 mmHg 78 bpm 20 rpm 98.2 F 242 lbs 63.5 in 42.1955 kg/m 2.2177 m 94 % 10/30/2017 5:47:00 PM 142 mmHg 86 mmHg 86 bpm 24 rpm 97.5 F 246 lbs 63.5 in 42.89 kg/m2 2.24 m2 90 % 07/09/2017 10:25:00 AM 158 mmHg 68 mmHg 82 bpm 18 rpm 97.8 F 245.125 lbs 63.5 in 42.7404 kg/m 2.2319 m 95 % 01/09/2017 11:04:00 AM 168 mmHg 70 mmHg 80 bpm 18 rpm 97.5 F 244 lbs 63.5 in 42.54 kg/m2 2.23 m2 92 % 10/02/2016 9:54:00 AM 150 mmHg 68 mmHg 67 bpm 16 rpm 97.5 F 243 lbs 63.5 in 42.3699 kg/m 2.2222 m 95 % 06/27/2016 8:53:00 AM 164 mmHg 78 mmHg 99 bpm 20 rpm 96.9 F 241.125 lbs 63.5 in 42.04 kg/m2 2.21 m2 94 % 05/12/2016 9:32:00 AM 152 mmHg 70 mmHg 69 bpm 20 rpm 97.8 F 238 lbs 63.5 in 41.4981 kg/m 2.1993 m 98 % 04/07/2016 1:46:00 PM 150 mmHg [...] History Name Description Comments 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 Active but [...] Reviewed 07/12/2012 12:00 AM IMMUNOTHERAPY INJECTIONS Reviewed 07/09/2017 12:00 AM GLYCOSYLATED HEMOGLOBIN TEST Returned 07/09/2017 12:00 AM ASSAY THYROID STIM HORMONE Returned 07/09/2017 12:00 AM COMPREHEN METABOLIC PANEL Returned 08/18/2012 12:00 AM IMMUNOTHERAPY INJECTIONS Reviewed 08/25/2012 12:00 AM IMMUNOTHERAPY INJECTIONS Reviewed 08/31/2012 12:00 AM IMMUNOTHERAPY INJECTIONS Reviewed 09/02/2012 12:00 AM Flu Injection 3 Years And Above [facility]# [address]-15 RHC Reviewed 09/07/2012 12:00 AM IMMUNOTHERAPY INJECTIONS [...] Reviewed 10/25/2012 12:00 AM IMMUNOTHERAPY INJECTIONS Reviewed 11/23/2017 12:00 AM COMPLETE CBC W/AUTO DIFF WBC Reviewed 11/23/2017 12:00 AM COMPREHEN METABOLIC PANEL Reviewed 11/23/2017 12:00 AM CHEST X-RAY 2VW FRONTAL&LATL Reviewed 11/23/2017 12:00 AM ASSAY THYROID STIM HORMONE Reviewed 11/23/2017 12:00 AM C-REACTIVE PROTEIN Reviewed 11/23/2017 12:00 AM RBC SED RATE AUTOMATED Reviewed 11/10/2012 12:00 AM IMMUNOTHERAPY INJECTIONS Reviewed [...] Flu Injection 3 Years And Above [facility]# [address]-71 RHC Reviewed 10/30/2009 12:00 AM IMMUNOTHERAPY INJECTIONS [...] Reviewed Results Summary Date and Description Results 06/25/2010 8:25 AM TRIGLYCERIDES 244.0 mg/dLCHOLESTEROL 178.0 [...] 0.35 #BASO 0.04 MANUAL DIFF NOT IND 12/24/2010 8:50 AM GLYCOHEMOGLOBIN A1C 6.20 %TRIGLYCERIDES [...] AA 36 eGFR 30 eGFR AA* 36 07/01/2011 8:50 AM GLUCOSE 153.0 mg/dLSODIUM 135.0 mmol/LPOTASSIUM 4.10 mmol/ LCHLORIDE 93.0 mmol/LCO2 28.0 mmol/LBUN 26.0 mg/dLCREATININE 1.50 mg/dLSGOT/AST 43.0 IU/LSGPT/ALT 31.0 IU/LALK PHOS 80.0 IU/LTOTAL PROTEIN 7.40 g/dLALBUMIN 4.20 g/dLTOTAL BILI 0.60 mg/dLCALCIUM 9.90 mg/dLAGE 71 GFR NonAA 34 GFR AA 41 eGFR 34 eGFR AA* 41 TRIGLYCERIDES 230.0 mg/dLCHOLESTEROL 170.0 mg/dLHDL 42.0 mg/ dLTOT CHOL/HDL 4.0 LDL (CALC) 82.0 mg/dLTSH 2.360 [...] uIU/mLGLYCOHEMOGLOBIN A1C 6.10 % 07/21/2012 8:50 AM TRIGLYCERIDES 238.0 mg/dLCHOLESTEROL 154.0 mg/dLHDL 38.0 mg/ dLTOT CHOL/HDL 4.1 LDL (CALC) 68.0 mg/dLGLUCOSE 147.0 mg/dLSODIUM 136.0 mmol/ LPOTASSIUM 4.10 mmol/LCHLORIDE 97.0 mmol/LCO2 26.0 mmol/LBUN 32.0 mg/ dLCREATININE 1.50 mg/dLSGOT/AST 40.0 IU/LSGPT/ALT 30.0 IU/LALK PHOS 71.0 IU/ LTOTAL PROTEIN 7.20 g/dLALBUMIN 4.0 g/dLTOTAL BILI 0.80 mg/dLCALCIUM 10.0 mg/ dLAGE 72 GFR NonAA 34 GFR AA 41 eGFR 34 eGFR AA* 41 GLYCOHEMOGLOBIN A1C 6.60 % 10/12/2012 11:35 AM WBC 6.7 RBC 3.90 [...] AA 41 eGFR 34 eGFR AA* 41 08/09/2013 8:40 AM WBC 5.1 RBC 3.56 [...] 41 TSH 1.390 uIU/mL 03/01/2015 8:30 AM HGB A1C 5.60 %Est Avg Glucose 114.0 mg/dLTRIGLYCERIDES 242.0 mg/dLCHOLESTEROL 158.0 mg/dLHDL 42.0 mg/dLTOT CHOL/HDL 3.8 LDL (CALC) 68.0 mg/dLGLUCOSE 152.0 mg/dLSODIUM 135.0 mmol/LPOTASSIUM 4.20 mmol/LCHLORIDE 94.0 mmol/LCO2 28.0 mmol/LBUN 23.0 mg/dLCREATININE 1.40 mg/dLSGOT/AST 23.0 IU/ LSGPT/ALT 16.0 IU/LALK PHOS 61.0 IU/LTOTAL PROTEIN 6.90 g/dLALBUMIN 4.20 g/ dLTOTAL BILI 0.80 mg/dLCALCIUM 10.0 mg/dLAGE 75 GFR NonAA 37 GFR AA [...] A1c 6.10 %Estim. Avg Glu (eAG) 128 01/15/2017 9:00 AM HGB A1C 5.80 %Est [...] AA 53 eGFR 44 eGFR AA* 53 11/23/2017 3:26 PM WBC 7.3 RBC 4.47 HGB 13.30 g/dLHCT 41.70 %MCV 93.0 fLMCH 29.80 pgMCHC 31.90 g/dLRDW SD 46 RDW CV 13.60 %MPV 10.80 fLPLT 217 NRBC# 0.00 NRBC% 0.0 %NEUT 67.50 %%LYMP 23.30 %%MONO 5.90 %%EOS 2.20 %%BASO 0.70 %#NEUT 4.96 #LYMP 1.71 #MONO 0.43 #EOS 0.16 #BASO 0.05 MANUAL DIFF NOT IND TSH 0.990 uIU/mLC REACTIVE PROTEIN 10.0 mg/LGLUCOSE 107.0 mg/dLSODIUM 141.0 mmol/ LPOTASSIUM 3.90 mmol/LCHLORIDE 99.0 mmol/LCO2 28.0 mmol/LBUN 12.0 mg/ dLCREATININE 1.30 mg/dLSGOT/AST 25.0 IU/LSGPT/ALT 25.0 IU/LALK PHOS 69.0 IU/ LTOTAL PROTEIN 7.50 g/dLALBUMIN 4.10 g/dLTOTAL BILI 0.90 mg/dLCALCIUM 10.10 mg/ dLAGE 77 GFR NonAA 40 GFR AA 48 eGFR 40 eGFR AA* 48 SEDRATE 44.0 mm/hr History Of Immunizations Name Date Admin Mfg Name Mfg Code Trade Name Lot# Route Inj Vis Given Vis Pub CVX X 11/19/2004 Merck [employer] MSD Pneumovax 23 Intramuscular Not Entered 11/16/2018 11/16/2018 999 Influenza 08/15/2009 ParkingCarma Becky. NOV Fluvirin > 12 Years [id number] Intramuscular Left Deltoid 11/06/2009 11/16/2018 999 Influenza 08/21/2010 ParkingCarma Becky. NOV Fluvirin > 12 Years [id number] Intramuscular Left Deltoid 08/21/2010 06/26/2009 999 X 08/28/2010 [employer] MSD Pneumovax [id number] Intramuscular Right Deltoid 08/28/2010 03/01/2009 999 Influenza 09/04/2011 sanofi pasteur PMC Fluzone [id number] Intramuscular Left Deltoid 09/04/2011 06/11/2011 111 Influenza 09/02/2012 sanofi pasteur PMC Fluzone [id number] Intramuscular Left Deltoid 09/02/2012 05/17/2012 141 Influenza 08/22/2013 sanofi pasteur PMC Fluzone > 3 Years [id number] Intramuscular Left Deltoid 08/22/2013 06/10/2013 141 Influenza 08/24/2015 sanofi pasteur PMC Fluzone [id number] Intramuscular Left Deltoid 08/24/2015 06/22/2015 141 History [...] macular degeneration of eyes Allergic rhinitis Hypothyroidism, acquired Gastric ulcer Anemia Asthma Hyperlipidemia Obstructive Sleep [...] 10:31AM Systolic murmur Jul 09 2017 10:31AM Hoarseness of voice Nov 23 2017 2:46PM Cough Nov 23 2017 2:46PM Cough Oct 30 2017 5:52PM Pharyngitis Oct 30 2017 5:52PM Acute upper respiratory infection Oct 30 2017 5:52PM Essential Hypertension Jan 07 2018 10:07AM Allergic rhinitis due to other allergic trigger, unspecified seasonality Jan 07 2018 10:07AM History of breast cancer Dec 10 2017 11:31AM Payers Insurance Name Company Name Plan Name Plan Number Policy Number Policy Group Number Start Date Medicare RHC Medicare RHC [id number] N/A [facility] [id number] Friday, 2009 Medicare Part A Medicare Part A [id number] Tuesday, 2012 Medicare Part A Medicare - Lab/Xray [id number] Tuesday, July 17, 2012 Medicare Part B Medicare Of [place] [id number] Saturday, January 14, 2006 History of Encounters Visit Date Visit Type Provider 01/07/[address] Evan Mccullough MD 11/23/2017 Office visit Mariposa Bellamy EDUCATION GENERAL MANAGER 10/30/2017 Office visit Denisse Hart EDUCATION GENERAL MANAGER 07/09/[address] Evan Mccullough MD 01/09/[address] Evan Mccullough MD 10/02/[address] Evan Mccullough MD 06/27/[address] Evan Mccullough MD 05/12/[address] Evan Mccullough MD 04/07/[address] Evan Mccullough MD 01/30/2016 Office visit 01/30/2016 Office visit Gisellekenisha Olivia EDUCATION GENERAL MANAGER 01/22/2016 Nurse visit [place] EDUCATION GENERAL MANAGER 01/15/2016 Nurse visit Nicole Ackerman MD 01/08/2016 [...] 10/23/2015 Nurse visit Nicole Ackerman MD 10/16/2015 [facility] Reggie Ness MD 10/16/2015 Office visit [...] Nicole Ackerman MD 09/05/2014 Nurse visit Nicole Acekrman MD 08/29/2014 Nurse visit Nicole Ackerman MD 08/22/2014 Nurse visit Nicole Ackerman MD 08/15/2014 Nurse visit 08/15/2014 Nurse visit Nicole Ackerman MD 08/08/2014 Nurse visit 08/08/2014 Nurse visit 08/08/2014 Nurse visit Nicole Ackerman MD 08/01/2014 Nurse visit Nicole Ackerman MD 07/25/2014 Nurse visit Nicole Ackerman MD 07/19/2014 Nurse visit [place] EDUCATION GENERAL MANAGER 07/11/2014 Nurse visit [place] EDUCATION GENERAL MANAGER 07/04/2014 Nurse visit 07/04/2014 Nurse visit 07/04/2014 Nurse visit Skylar Pfeiffer EDUCATION GENERAL MANAGER 06/27/2014 Nurse visit 06/27/2014 Nurse visit 06/27/2014 Nurse visit [place] EDUCATION GENERAL MANAGER 06/20/2014 Nurse visit [place] EDUCATION GENERAL MANAGER 06/13/2014 Nurse visit Nicole Ackerman MD 06/06/2014 Nurse visit Mariposa Bellamy EDUCATION GENERAL MANAGER 05/30/2014 Nurse visit [place] EDUCATION GENERAL MANAGER 05/23/2014 Nurse visit Skylar Pfeiffer EDUCATION GENERAL MANAGER 05/16/2014 Nurse visit Nicole Ackerman MD 05/02/2014 Nurse visit Nicole Ackerman MD 04/25/2014 Nurse visit Nicole Ackerman MD 04/18/2014 Nurse visit Nicole Ackerman MD 04/12/2014 Nurse visit Nicole Ackerman MD 04/05/2014 Nurse visit Nicole Ackerman MD 03/28/2014 Nurse visit Mariposa Cordova RN 03/22/2014 Nurse visit Skylar Pfeiffer EDUCATION GENERAL MANAGER 03/14/2014 Nurse visit Nicole Ackerman MD 03/07/2014 Nurse visit Skylar Pfeiffer EDUCATION GENERAL MANAGER 02/28/2014 Nurse visit Skylar Pfeiffer EDUCATION GENERAL MANAGER 02/21/2014 Nurse visit Nicole Ackerman MD 02/14/2014 Nurse visit Skylar Pfeiffer EDUCATION GENERAL MANAGER 02/06/2014 Nurse visit Nicole Ackerman MD 01/31/2014 [...] Ackerman MD 11/29/2013 Nurse visit Mariposa Bellamy EDUCATION GENERAL MANAGER 11/23/2013 Office visit Nicole Ackerman MD 11/14/2013 [...] Aguilera MD 08/09/2013 Nurse visit Skylar Pfeiffer EDUCATION GENERAL MANAGER 08/02/2013 Nurse visit Skylar Pfeiffer EDUCATION GENERAL MANAGER 07/26/2013 Nurse visit Skylar Pfeiffer EDUCATION GENERAL MANAGER 07/19/2013 Nurse visit Skylar Pfeiffer EDUCATION GENERAL MANAGER 07/12/2013 Nurse visit Skylar Pfeiffer EDUCATION GENERAL MANAGER 07/05/2013 Nurse visit Skylar Pfeiffer EDUCATION GENERAL MANAGER 06/28/2013 Nurse visit Skylar Pfeiffer EDUCATION GENERAL MANAGER 06/21/2013 Nurse visit Skylar Pfeiffer EDUCATION GENERAL MANAGER 06/14/2013 Nurse visit Skylar Pfeiffer EDUCATION GENERAL MANAGER 06/08/2013 Nurse visit Jailene Aguilera MD 06/02/2013 [...] 09/28/2012 Nurse visit Jailene Aguilera MD 09/23/2012 [facility] Guido Parra MD 09/21/2012 Nurse visit Jailene Aguilera MD 09/14/2012 Nurse visit Jailene Aguilera MD 09/09/2012 [facility] Guido Parra MD 09/07/2012 Nurse [...]
--- OUTSIDE RECORDS SUMMARY | 2018-10-21 08:18 | XMS REPORT ---
Author Author Nicole Ackerman Organization [facility] Address [address] [facility] [address] [place], [place] [id number] Care Team Providers Care Oxyhydrogen Welder Name Role Phone Nicole Ackerman PCP [...] 12:00 AM IMMUNOTHERAPY INJECTIONS 07/04/2015 12:00 AM IMMUNOTHERAPY INJECTIONS 07/10/2015 12:00 AM IMMUNOTHERAPY INJECTIONS 07/17/2015 12:00 AM Medications Active Name Start Date [...] QID for 90 days for DMII 205.00 [facility] miscellaneous misc 01/09/2015 01/04/2016 use as [...] Name Start Date Expiration Date SIG Comments LANCKEVIN 04/19/2012 07/18/2012 TEST ONCE DAILY Zithromax Z-Gal 250 mg oral tablet 10/06/2012 10/11/2012 Take 2 tablets the first day (500 mg) followed by 1 tablet (250 mg) days 2-5. 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 NOV Fluvirin > 12 Years [id number] Intramuscular Left Deltoid 11/06/2009 11/16/2015 999 Influenza 08/21/2010 Voxxter Becky. NOV Fluvirin > 12 Years [id number] Intramuscular Left Deltoid 08/21/2010 06/26/2009 999 Pneumococcal 08/28/2010 Merck & Co., Inc[employer] MSD Pneumovax [id number] Intramuscular Right Deltoid 08/28/2010 03/01/2009 999 Influenza 09/04/2011 [facility] paste[facility] PMC Fluzone [id number] Intramuscular Left Deltoid 09/04/2011 06/11/2011 111 Influenza 09/02/2012 [facility] paste[facility] PMC Fluzone [id number] Intramuscular Left Deltoid 09/02/2012 05/17/2012 141 Influenza 08/22/2013 [facility] PMC Fluzone > 3 Years [id number] Intramuscular Left Deltoid 08/22/2013 06/10/2013 141 History [...] to other allergen Jul 17 2015 8:56AM Payers Insurance Name Company Name Plan Name Plan Number Policy Number Policy Group Number Start Date Medicare Part A Medicare Part A [id number] Tuesday, 2012 [facility] [id number] Friday, 2009 Medicare Part B Medicare Of [place] [id number] Saturday, 2006 History of Encounters Visit Date Visit Type Provider 07/17/2015 Nurse visit Nicole Ackerman MD 07/10/2015 [...] Nicole Ackerman MD 07/19/2014 Nurse visit [place] ENVIRONMENTAL HEALTH TECHNOLOGIST 07/11/2014 Nurse visit [place] ENVIRONMENTAL HEALTH TECHNOLOGIST 07/04/2014 Nurse visit Skylar Pfeiffer ENVIRONMENTAL HEALTH TECHNOLOGIST 06/27/2014 Nurse visit [place] ENVIRONMENTAL HEALTH TECHNOLOGIST 06/20/2014 Nurse visit [place] ENVIRONMENTAL HEALTH TECHNOLOGIST 06/13/2014 Nurse visit Nicole Ackerman MD 06/06/2014 Nurse visit Mariposa Bellamy ENVIRONMENTAL HEALTH TECHNOLOGIST 05/30/2014 Nurse visit [place] ENVIRONMENTAL HEALTH TECHNOLOGIST 05/23/2014 Nurse visit Skylar Pfeiffer ENVIRONMENTAL HEALTH TECHNOLOGIST 05/16/2014 Nurse visit Nicole Ackerman MD 05/02/2014 Nurse visit Nicole Ackerman MD 04/25/2014 Nurse visit Nicole Ackerman MD 04/18/2014 Nurse visit Nicole Ackerman MD 04/12/2014 Nurse visit Nicole Ackerman MD 04/05/2014 Nurse visit Nicole Ackerman MD 03/28/2014 Nurse visit Mariposa Cordova RN 03/22/2014 Nurse visit Skylar Pfeiffer ENVIRONMENTAL HEALTH TECHNOLOGIST 03/14/2014 Nurse visit Nicole Ackerman MD 03/07/2014 Nurse visit Skylar Pfeiffer ENVIRONMENTAL HEALTH TECHNOLOGIST 02/28/2014 Nurse visit Skylar Pfeiffer ENVIRONMENTAL HEALTH TECHNOLOGIST 02/21/2014 Nurse visit Nicole Ackerman MD 02/14/2014 Nurse visit Skylar Pfeiffer ENVIRONMENTAL HEALTH TECHNOLOGIST 02/06/2014 Nurse visit Nicole Ackerman MD 01/31/2014 [...] Ackerman MD 11/29/2013 Nurse visit Mariposa Bellamy ENVIRONMENTAL HEALTH TECHNOLOGIST 11/23/2013 Office visit Nicole Ackerman MD 11/14/2013 Nurse visit Jarad Saravia DO 11/07/2013 Nurse visit Nicole Ackerman MD 10/31/2013 Nurse visit Jailene Aguilera MD 10/25/2013 Nurse visit Jailene Aguilera MD 10/18/2013 Nurse visit Jailene Aguilera MD 10/11/2013 Nurse visit Jailene Aguilera MD 10/04/2013 Nurse visit Jailene Aguilera MD 09/27/2013 Nurse visit Jailene Aguilera MD 09/20/2013 Nurse visit Jailene Augilera MD 09/13/2013 Nurse visit Jailene Aguilera MD 09/06/2013 Nurse visit Jailene Aguilera MD 08/31/2013 Nurse visit Jailene Aguilera MD 08/25/2013 Nurse visit Jailene Aguilera MD 08/22/2013 Office visit Jailene Aguilera MD 08/16/2013 Nurse visit Jailene Aguilera MD 08/09/2013 Nurse visit Skylar Pfeiffer ENVIRONMENTAL HEALTH TECHNOLOGIST 08/02/2013 Nurse visit Skylar Pfeiffer ENVIRONMENTAL HEALTH TECHNOLOGIST 07/26/2013 Nurse visit Skylar Pfeiffer ENVIRONMENTAL HEALTH TECHNOLOGIST 07/19/2013 Nurse visit Skylar Pfeiffer ENVIRONMENTAL HEALTH TECHNOLOGIST 07/12/2013 Nurse visit Skylar Pfeiffer ENVIRONMENTAL HEALTH TECHNOLOGIST 07/05/2013 Nurse visit Skylar Pfeiffer ENVIRONMENTAL HEALTH TECHNOLOGIST 06/28/2013 Nurse visit Skylar Pfeiffer ENVIRONMENTAL HEALTH TECHNOLOGIST 06/21/2013 Nurse visit Skylar MoDali Kentrell ENVIRONMENTAL HEALTH TECHNOLOGIST 06/14/2013 Nurse visit Skylar NDali Pfeiffer ENVIRONMENTAL HEALTH TECHNOLOGIST 06/08/2013 Nurse visit Jailene Aguilera MD 06/02/2013 [...] Aguilera MD 10/06/2012 Office visit Skylar Pfeiffer ENVIRONMENTAL HEALTH TECHNOLOGIST 10/05/2012 Nurse visit Jailene Aguilera MD 09/28/2012 [...] Jailene Aguilera MD 07/29/2012 Office visit Jailene Agiulera MD 07/21/2012 Nurse visit Jailene Aguilera MD [...]
--- OUTSIDE RECORDS SUMMARY | 2018-10-21 08:23 | XMS REPORT ---
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 NOV Fluvirin > 12 Years [id number] Intramuscular Left Deltoid 11/06/2009 11/16/2015 999 Influenza 08/21/2010 [place] Becky. NOV Fluvirin > 12 Years [id number] Intramuscular Left Deltoid 08/21/2010 06/26/2009 999 Pneumococcal 08/28/2010 [employer]ck [employer]., [employer] MSD Pneumovax 23 [id number] Intramuscular Right Deltoid 08/28/2010 03/01/2009 999 Influenza 09/04/2011 sanofi pasteur PMC Fluzone [id number] Intramuscular Left Deltoid 09/04/2011 06/11/2011 111 Influenza 09/02/2012 sanofi pasteur PMC Fluzone [id number] Intramuscular Left Deltoid 09/02/2012 05/17/2012 141 Influenza 08/22/2013 sanofi pasteur PMC Fluzone > 3 Years [id number] Intramuscular Left Deltoid 08/22/2013 06/10/2013 141 Influenza 08/24/2015 sanofi pasteur PMC Fluzone [id number] Intramuscular Left Deltoid 08/24/2015 06/22/2015 141 History [...] to other allergen Dec 11 2015 9:04AM Payers Insurance Name Company Name Plan Name Plan Number Policy Number Policy Group Number Start Date Medicare Part A Medicare Part A [id number] Tuesday, [address] [facility] [id number] Friday, 2009 Medicare Part B Medicare Of [place] [id number] Saturday, 2006 History of Encounters Visit Date Visit Type Provider 12/11/2015 Nurse visit Nicole Ackerman MD 11/27/2015 Nurse visit Nicole Ackerman MD 11/13/2015 Nurse visit Nicole Ackerman MD 10/31/2015 Office visit 10/31/2015 Office visit Nicole Ackerman MD 10/23/2015 Nurse visit Nicole Ackerman MD 10/16/2015 Office visit 10/16/2015 Office visit [...] Ackerman MD 07/19/2014 Nurse visit [place] GROUP SALES COORDINATOR 07/11/2014 Nurse visit [place] GROUP SALES COORDINATOR 07/04/2014 Nurse visit 07/04/2014 Nurse visit 07/04/2014 Nurse visit Skylar Pfeiffer GROUP SALES COORDINATOR 06/27/2014 Nurse visit 06/27/2014 Nurse visit 06/27/2014 Nurse visit [place] GROUP SALES COORDINATOR 06/20/2014 Nurse visit [place] GROUP SALES COORDINATOR 06/13/2014 Nurse visit Nicole Ackerman MD 06/06/2014 Nurse visit Mariposa Bellamy GROUP SALES COORDINATOR 05/30/2014 Nurse visit [place] GROUP SALES COORDINATOR 05/23/2014 Nurse visit Skylar Pfeiffer GROUP SALES COORDINATOR 05/16/2014 Nurse visit Nicole Ackerman MD 05/02/2014 Nurse visit Nicole Ackerman MD 04/25/2014 Nurse visit Nicole Ackerman MD 04/18/2014 Nurse visit Nicole Ackerman MD 04/12/2014 Nurse visit Nicole Ackerman MD 04/05/2014 Nurse visit Nicole Ackerman MD 03/28/2014 Nurse visit Mariposa Cordova RN 03/22/2014 Nurse visit Skylar Pfeiffer GROUP SALES COORDINATOR 03/14/2014 Nurse visit Nicole Ackerman MD 03/07/2014 Nurse visit Skylar Pfeiffer GROUP SALES COORDINATOR 02/28/2014 Nurse visit Skylar Pfeiffer GROUP SALES COORDINATOR 02/21/2014 Nurse visit Nicole Ackerman MD 02/14/2014 Nurse visit Skylar Pfeiffer GROUP SALES COORDINATOR 02/06/2014 Nurse visit Nicole Ackerman MD 01/31/2014 [...] Ackerman MD 11/29/2013 Nurse visit Mariposa Bellamy GROUP SALES COORDINATOR 11/23/2013 Office visit Nicole Ackerman MD 11/14/2013 [...] Aguilera MD 08/09/2013 Nurse visit Skylar Pfeiffer GROUP SALES COORDINATOR 08/02/2013 Nurse visit Skylar Pfeiffer GROUP SALES COORDINATOR 07/26/2013 Nurse visit Skylar Pfeiffer GROUP SALES COORDINATOR 07/19/2013 Nurse visit Skylar Pfeiffer GROUP SALES COORDINATOR 07/12/2013 Nurse visit Skylar Pfeiffer GROUP SALES COORDINATOR 07/05/2013 Nurse visit Skylar Pfeiffer GROUP SALES COORDINATOR 06/28/2013 Nurse visit Skylar Pfeiffer GROUP SALES COORDINATOR 06/21/2013 Nurse visit Skylar Pfeiffer GROUP SALES COORDINATOR 06/14/2013 Nurse visit Skylar MoDali Pfeiffer GROUP SALES COORDINATOR 06/08/2013 Nurse visit Jailene Aguilera MD 06/02/2013 [...] 09/28/2012 Nurse visit Jailene Aguilera MD 09/23/2012 [facility] Guido Parra MD 09/21/2012 Nurse visit Jailene Aguilera MD 09/14/2012 Nurse visit Jailene Aguilera MD 09/09/2012 [facility] Guido Parra MD 09/07/2012 Nurse [...] 02/19/2011 Nurse visit Chin Mcconnell DO 02/19/2011 [facility] Jamir Ness MD 02/11/2011 Nurse visit [...]
--- OUTSIDE RECORDS SUMMARY | 2018-10-21 08:26 | XMS REPORT ---
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 NOV Fluvirin > 12 Years [id number] Intramuscular Left Deltoid 11/06/2009 11/16/2016 999 Influenza 08/21/2010 [place]. NOV Fluvirin > 12 Years [id number] Intramuscular Left Deltoid 08/21/2010 06/26/2009 999 Pneumococcal 08/28/2010 Merck & Co., Inc. MSD Pneumovax 23 1407Y Intramuscular Right Deltoid 08/28/2010 03/01/2009 999 Influenza 09/04/2011 sanofi pasteur PMC Fluzone [id number] Intramuscular Left Deltoid 09/04/2011 06/11/2011 111 Influenza 09/02/2012 sanofi pasteur PMC Fluzone [id number] Intramuscular Left Deltoid 09/02/2012 05/17/2012 141 Influenza 08/22/2013 sanofi pasteur PMC Fluzone > 3 Years [id number] Intramuscular Left Deltoid 08/22/2013 06/10/2013 141 Influenza 08/24/2015 sanofi pasteur PMC Fluzone [id number] Intramuscular Left Deltoid 08/24/2015 06/22/2015 141 History [...] 2015 10:15AM Lightheadedness Oct 16 2015 10:15AM Payers Insurance Name Company Name Plan Name Plan Number Policy Number Policy Group Number Start Date Medicare Part A Medicare Part A [id number] Tuesday, 2012 [id number] Friday, 2009 Medicare Part B Medicare Of [place] [id number] Saturday, 2006 History of Encounters Visit Date Visit Type Provider 10/16/2015 Office visit Nicole Ackerman MD 10/09/2015 Nurse visit Nicole Akcerman MD 10/03/2015 Nurse visit Nicole Ackerman MD [...] visit Nicole Ackerman MD 10/18/2014 Nurse visit iNcole Ackerman MD 10/10/2014 Nurse visit Nicole Ackerman [...] Nicole APRN 07/11/2014 Nurse visit [place] Nicole CHURCH ADMINISTRATOR 07/04/2014 Nurse visit Skylar Pfeiffer CHURCH ADMINISTRATOR 06/27/2014 Nurse visit [place] Nicole CHURCH ADMINISTRATOR 06/20/2014 Nurse visit [place] CHURCH ADMINISTRATOR 06/13/2014 Nurse visit Nicole Ackerman MD 06/06/2014 Nurse visit Mariposa Bellamy CHURCH ADMINISTRATOR 05/30/2014 Nurse visit [place] CHURCH ADMINISTRATOR 05/23/2014 Nurse visit Skylar Pfeiffer CHURCH ADMINISTRATOR 05/16/2014 Nurse visit Nicole Ackerman MD 05/02/2014 Nurse visit Nicole Ackerman MD 04/25/2014 Nurse visit Nicole Ackerman MD 04/18/2014 Nurse visit Nicole Ackerman MD 04/12/2014 Nurse visit Nicole Ackerman MD 04/05/2014 Nurse visit Nicole Ackerman MD 03/28/2014 Nurse visit Mariposa Cordova RN 03/22/2014 Nurse visit Skylar Pfeiffer CHURCH ADMINISTRATOR 03/14/2014 Nurse visit Nicole Ackerman MD 03/07/2014 Nurse visit Skylar Pfeiffer CHURCH ADMINISTRATOR 02/28/2014 Nurse visit Skylar Pfeiffer CHURCH ADMINISTRATOR 02/21/2014 Nurse visit Nicole Ackerman MD 02/14/2014 Nurse visit Skylar Pfeiffer CHURCH ADMINISTRATOR 02/06/2014 Nurse visit Nicole Ackerman MD 01/31/2014 [...] Ackerman MD 11/29/2013 Nurse visit Mariposa Bellamy CHURCH ADMINISTRATOR 11/23/2013 Office visit Nicole Ackerman MD 11/14/2013 [...] Aguilera MD 08/09/2013 Nurse visit Skylar Pfeiffer CHURCH ADMINISTRATOR 08/02/2013 Nurse visit Skylar Pfeiffer CHURCH ADMINISTRATOR 07/26/2013 Nurse visit Skylar Pfeiffer CHURCH ADMINISTRATOR 07/19/2013 Nurse visit Skylar Pfeiffer CHURCH ADMINISTRATOR 07/12/2013 Nurse visit Skylar Pfeiffer CHURCH ADMINISTRATOR 07/05/2013 Nurse visit Skylar Pfeiffer CHURCH ADMINISTRATOR 06/28/2013 Nurse visit Skylar Pfeiffer CHURCH ADMINISTRATOR 06/21/2013 Nurse visit Skylar Pfeiffer CHURCH ADMINISTRATOR 06/14/2013 Nurse visit Skylar Pfeiffer CHURCH ADMINISTRATOR 06/08/2013 Nurse visit Jailene Aguilera MD 06/02/2013 [...] Aguilera MD 10/06/2012 Office visit Skylar Pfeiffer CHURCH ADMINISTRATOR 10/05/2012 Nurse visit Jailene Aguilera MD 09/28/2012 Nurse visit Jailene Aguilera MD 09/23/2012 [facility] Guido Parra MD 09/21/2012 Nurse visit Jailene Aguilera MD 09/14/2012 Nurse visit Jailene Aguilera MD 09/09/2012 [facility] Guido Parra MD 09/07/2012 Nurse visit [...] Jailene Aguilera MD 06/28/2012 Voided Jarad Saravia 06/21/2012 Nurse visit Giselle Gutierrez RN 06/14/2012 [...]
--- OUTSIDE RECORDS SUMMARY | 2018-10-21 08:30 | XMS REPORT ---
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 [...] Reviewed 09/08/2011 12:00 AM IMMUNOTHERAPY INJECTIONS Reviewed 12/18/2015 12:00 AM IMMUNOTHERAPY INJECTIONS Reviewed 09/15/2011 12:00 AM IMMUNOTHERAPY INJECTIONS Reviewed 12/25/2015 12:00 AM IMMUNOTHERAPY INJECTIONS Reviewed 09/24/2011 12:00 [...] Flu Injection 3 Years And Above [facility]# [address]-31 RHC Reviewed 09/07/2012 12:00 AM IMMUNOTHERAPY INJECTIONS [...] Flu Injection 3 Years And Above [facility]# [address]-03 RHC Reviewed 10/30/2009 12:00 AM IMMUNOTHERAPY INJECTIONS [...] Not Entered 11/16/2015 11/16/2015 999 Influenza 08/15/2009 [employer] Becky. NOV Fluvirin > 12 Years [id number] Intramuscular Left Deltoid 11/06/2009 11/16/2015 999 Influenza 08/21/2010 [employer] Becky. NOV Fluvirin > 12 Years [id number] Intramuscular Left Deltoid 08/21/2010 06/26/2009 999 Pneumococcal 08/28/2010 [employer]ck & Co., Inc[employer] MSD Pneumovax 23 1407Y Intramuscular Right Deltoid 08/28/2010 03/01/2009 999 Influenza 09/04/2011 sanofi pasteur [facility] Fluzone [id number] Intramuscular Left Deltoid 09/04/2011 06/11/2011 111 Influenza 09/02/2012 [facility] PMC Fluzone [id number] Intramuscular Left Deltoid 09/02/2012 05/17/2012 141 Influenza 08/22/2013 [facility] PMC Fluzone > 3 Years [id number] Intramuscular Left Deltoid 08/22/2013 06/10/2013 141 Influenza 08/24/2015 [facility] Fluzone [id number] Intramuscular Left Deltoid 08/24/2015 06/22/2015 141 History [...] to other allergen Dec 25 2015 9:06AM Payers Insurance Name Company Name Plan Name Plan Number Policy Number Policy Group Number Start Date Medicare Part A Medicare Part A [id number] Tuesday, 2012 [id number] Friday, 2009 Medicare Part B Medicare Of [place] [id number] Saturday, 2006 History of Encounters Visit Date Visit Type Provider 12/25/2015 Nurse visit Nicole Ackerman MD 12/18/2015 Nurse visit Nicole Ackerman MD 12/11/2015 Nurse visit Nicole Ackerman MD 11/27/2015 Nurse visit Nicole Ackerman MD 11/13/2015 Nurse visit Nicole Ackerman MD 10/31/2015 Office visit 10/31/2015 Office visit Nicole Ackerman MD 10/23/2015 Nurse visit Nicole Ackerman MD 10/16/2015 [facility] Reggie Ness MD 10/16/2015 Office visit [...] MD 08/15/2014 Nurse visit 08/15/2014 Nurse visit Nciole Ackerman MD 08/08/2014 Nurse visit 08/08/2014 Nurse visit 08/08/2014 Nurse visit Nicole Ackerman MD 08/01/2014 Nurse visit Nicole Ackerman MD 07/25/2014 Nurse visit Nicole Ackerman MD 07/19/2014 Nurse visit [place] APRN 07/11/2014 Nurse visit [place] APRN 07/04/2014 Nurse visit 07/04/2014 Nurse visit 07/04/2014 Nurse visit Skylar Pfeiffer FLATWORK WASHER 06/27/2014 Nurse visit 06/27/2014 Nurse visit 06/27/2014 Nurse visit [place] FLATWORK WASHER 06/20/2014 Nurse visit [place] FLATWORK WASHER 06/13/2014 Nurse visit Nicole Ackerman MD 06/06/2014 Nurse visit Mariposa Bellamy FLATWORK WASHER 05/30/2014 Nurse visit [place] FLATWORK WASHER 05/23/2014 Nurse visit Skylar Pfeiffer FLATWORK WASHER 05/16/2014 Nurse visit Nicole Ackerman MD 05/02/2014 Nurse visit Nicole Ackerman MD 04/25/2014 Nurse visit Nicole Ackerman MD 04/18/2014 Nurse visit Nicole Ackerman MD 04/12/2014 Nurse visit Nicole Ackerman MD 04/05/2014 Nurse visit Nicole Ackerman MD 03/28/2014 Nurse visit Mariposa Cordova RN 03/22/2014 Nurse visit Skylar Pfeiffer FLATWORK WASHER 03/14/2014 Nurse visit Nicole Ackerman MD 03/07/2014 Nurse visit Skylar Pfeiffer FLATWORK WASHER 02/28/2014 Nurse visit Skylar Pfeiffer FLATWORK WASHER 02/21/2014 Nurse visit Nicole Ackerman MD 02/14/2014 Nurse visit Skylar Pfeiffer FLATWORK WASHER 02/06/2014 Nurse visit Nicole Ackerman MD 01/31/2014 [...] Ackerman MD 11/29/2013 Nurse visit Mariposa Bellamy FLATWORK WASHER 11/23/2013 Office visit Nicole Ackerman MD 11/14/2013 [...] Aguilera MD 08/09/2013 Nurse visit Skylar Pfeiffer FLATWORK WASHER 08/02/2013 Nurse visit Skylar Pfeiffer FLATWORK WASHER 07/26/2013 Nurse visit Skylar Pfeiffer FLATWORK WASHER 07/19/2013 Nurse visit Skylar Pfeiffer FLATWORK WASHER 07/12/2013 Nurse visit Skylar Pfeiffer FLATWORK WASHER 07/05/2013 Nurse visit Skylar Pfeiffer FLATWORK WASHER 06/28/2013 Nurse visit Skylar Pfeiffer FLATWORK WASHER 06/21/2013 Nurse visit Skylar Pfeiffer FLATWORK WASHER 06/14/2013 Nurse visit Skylar Pfeiffer FLATWORK WASHER 06/08/2013 Nurse visit Jailene Aguilera MD 06/02/2013 [...] Giselle Gutierrez RN 01/27/2013 Office visit Jailene Aguilear MD 2013 Nurse visit Jailene Aguilera MD [...] 09/28/2012 Nurse visit Jailene Aguilera MD 09/23/2012 [facility] Guido Parra MD 09/21/2012 Nurse visit Jailene Aguilera MD 09/14/2012 Nurse visit Jailene Aguilera MD 09/09/2012 [facility] Guido Parra MD 09/07/2012 Nurse visit Jailene Aguilera MD 09/02/2012 Office visit Jailene Aguilera MD 08/31/2012 Nurse visit Jailene Aguilera MD 08/25/2012 Nurse visit Jailene Aguilrea MD 08/18/2012 Nurse visit Jailene Aguilera MD 08/11/2012 Nurse visit Jailene Aguilera MD 08/05/2012 Nurse visit Jailene Aguilera MD 07/29/2012 Office visit Jailene Aguilera MD 07/21/2012 Nurse visit Jailene Aguilera MD 07/12/2012 Nurse visit Jailene Aguilera MD 07/12/2012 Voided Jailene Aguilera MD 07/06/2012 Nurse visit Jailene Aguilera MD 06/28/2012 Nurse visit Jailene Aguilera MD 06/28/2012 Voided Jarad Garcianoelle DING 06/21/2012 Nurse visit Giselle Gutierrez RN [...] visit Chin Mcconnell DO 12/20/2010 Nurse visit Chni Mcconnell DO 12/11/2010 Nurse visit Chin Mcconnell [...]
--- OUTSIDE RECORDS SUMMARY | 2018-10-21 08:32 | XMS REPORT ---
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 NOV Fluvirin > 12 Years [id number] Intramuscular Left Deltoid 11/06/2009 11/16/2015 999 Influenza 08/21/2010 [employer] Becky. NOV Fluvirin > 12 Years [id number] Intramuscular Left Deltoid 08/21/2010 06/26/2009 999 Pneumococcal 08/28/2010 Merck & Co., Inc. MSD Pneumovax 23 1407Y Intramuscular Right Deltoid 08/28/2010 03/01/2009 999 Influenza 09/04/2011 sanofi pasteur PMC Fluzone [id number] Intramuscular Left Deltoid 09/04/2011 06/11/2011 111 Influenza 09/02/2012 sanofi pasteur PMC Fluzone [id number] Intramuscular Left Deltoid 09/02/2012 05/17/2012 141 Influenza 08/22/2013 sanofi pasteur PMC Fluzone > 3 Years [id number] Intramuscular Left Deltoid 08/22/2013 06/10/2013 141 History [...] to other allergen May 22 2015 9:13AM Payers Insurance Name Company Name Plan Name Plan Number Policy Number Policy Group Number Start Date Medicare Part A Medicare Part A [id number] Tuesday, 2012 [facility] [id number] Friday, 2009 Medicare Part B Medicare Of [place] [id number] Saturday, 2006 History of Encounters Visit Date Visit Type Provider 05/22/2015 Nurse visit Nicole Ackerman MD 05/15/2015 [...] Ackerman MD 07/19/2014 Nurse visit [place] INSOLVENCY CONSULTANT 07/11/2014 Nurse visit [place] INSOLVENCY CONSULTANT 07/04/2014 Nurse visit Skylar Pfeiffer INSOLVENCY CONSULTANT 06/27/2014 Nurse visit [place] INSOLVENCY CONSULTANT 06/20/2014 Nurse visit [place] INSOLVENCY CONSULTANT 06/13/2014 Nurse visit Nicole Ackerman MD 06/06/2014 Nurse visit Mariposa Bellamy INSOLVENCY CONSULTANT 05/30/2014 Nurse visit [place] Nicole INSOLVENCY CONSULTANT 05/23/2014 Nurse visit Skylar Pfeiffer INSOLVENCY CONSULTANT 05/16/2014 Nurse visit Nicole Ackerman MD 05/02/2014 Nurse visit Nicole Ackerman MD 04/25/2014 Nurse visit Nicole Ackerman MD 04/18/2014 Nurse visit Nicole Ackerman MD 04/12/2014 Nurse visit Nicole Ackerman MD 04/05/2014 Nurse visit Nicole Ackerman MD 03/28/2014 Nurse visit Mariposa Cordova RN 03/22/2014 Nurse visit Skylar Pfeiffer INSOLVENCY CONSULTANT 03/14/2014 Nurse visit Nicole Ackerman MD 03/07/2014 Nurse visit Skylar Pfeiffer INSOLVENCY CONSULTANT 02/28/2014 Nurse visit Skylar Pfeiffer INSOLVENCY CONSULTANT 02/21/2014 Nurse visit Nicole Ackerman MD 02/14/2014 Nurse visit Skylar Pfeiffer INSOLVENCY CONSULTANT 02/06/2014 Nurse visit Nicole Ackerman MD 01/31/2014 [...] Ackerman MD 11/29/2013 Nurse visit Mariposa Bellamy INSOLVENCY CONSULTANT 11/23/2013 Office visit Nicole Ackerman MD 11/14/2013 [...] Aguilera MD 08/09/2013 Nurse visit Skylar Pfeiffer INSOLVENCY CONSULTANT 08/02/2013 Nurse visit Skylar Pfeiffer INSOLVENCY CONSULTANT 07/26/2013 Nurse visit Skylar Pfeiffer INSOLVENCY CONSULTANT 07/19/2013 Nurse visit Skylar Pfeiffer INSOLVENCY CONSULTANT 07/12/2013 Nurse visit Skylar Pfeiffer INSOLVENCY CONSULTANT 07/05/2013 Nurse visit Skylar Pfeiffer INSOLVENCY CONSULTANT 06/28/2013 Nurse visit Skylar Pfeiffer INSOLVENCY CONSULTANT 06/21/2013 Nurse visit Skylar Pfeiffer INSOLVENCY CONSULTANT 06/14/2013 Nurse visit Skylar Pfeiffer INSOLVENCY CONSULTANT 06/08/2013 Nurse visit Jailene Aguilera MD 06/02/2013 [...] Aguilera MD 10/06/2012 Office visit Skylar Pfeiffer INSOLVENCY CONSULTANT 10/05/2012 Nurse visit Jailene Aguilera MD 09/28/2012 Nurse visit Jailene Aguilera MD 09/23/2012 [facility] Guido Parra MD 09/21/2012 Nurse visit Jailene Aguilera MD 09/14/2012 Nurse visit Jailene Aguilera MD 09/09/2012 [facility] Guido Parra MD 09/07/2012 Nurse visit [...] Aguilera MD 05/13/2011 Nurse visit Jarad Saravia 05/06/2011 Nurse visit Jailene Aguilera MD 04/29/2011 [...] 02/19/2011 Nurse visit Chin Mcconnell DO 02/19/2011 [facility] Jamir Ness MD 02/11/2011 Nurse visit [...]
--- NOTE | 2018-10-21 08:33 | Progress Note-Pre Operative ---
Pre-Operative Progress Note H&P Reviewed The H&P was reviewed, patient examined and no changes noted. Time Seen by Provider: 07:00 Date H&P Reviewed: Oct 21, 2018 Time H&P Reviewed: 08:32 Pre-Operative Diagnosis: ILD NOVA MORAN DO Oct 21, 2018 08:33
--- NOTE | 2018-10-21 08:35 | Pre-Op Note & Conscious Sedat ---
Pre-Operative Progress Note H&P Reviewed The H&P was reviewed, patient examined and no changes noted. Date H&P Reviewed: Oct 21, 2018 Time H&P Reviewed: 07:00 Conscious Sedation Pre-Proced Time 08:32 ASA Score 3, 4 For ASA 3 and 4: Consider anesthesia and medical clearance. Also, for patients with a history of failed moderate sedation consider anesthesia. Airway Lungs Heart ASA score ASA 1: a normal healthy patient ASA 2: a patient with a mild systemic disease (mid diabetes, controlled hypertension, obesity ASA 3: a patient with a severe systemic disease that limits activity (angina , COPD, prior Myocardial infarction) ASA 4: a patient with an incapacitating disease that is a constant threat to life (CHF, renal failure) ASA 5: a moribund patient not expected to survive 24 hrs. (ruptured aneurysm) ASA 6: a declared brain patient whose organs are being harvested. For emergent operations, add the letter E after the classification Mallampati Classification Grade 4 Sedation Plan Analgesia, Amnesia, Plan communicated to team members, Discussed options with patient/fam, Discussed risks with patient/fam The patient is an appropriate candidate to undergo the planned procedure, sedation, and anesthesia. The patient immediately re-assessed prior to indication. NOVA MORAN DO Oct 21, 2018 08:35
--- NOTE | 2018-10-21 08:36 | Pulmonary Procedures ---
Pulmonary Procedures Date of Procedure Date of Service: Oct 21, 2018 Bronch Bronchoscopy with RML bronchoalveolar lavage (BAL), bilateral washes and, transbronchial RML brushes. Preop DX ILD Postop DX: same No endobronchial mass noted Complications: none After informed consent obtained and formal time out pt was sedated using Fentanyl and Versed. Bronchoscope was advanced through the nare and vocal cords. 1% lidocaine was used to anesthetize vocal cords, epiglottis, chandler, and left/right main stem bronchus. An anatomical tour was undertaken down to the segmental bronchi bilaterally. No endobronchial lesions noted. RML bronchoalveolar lavage (BAL), bilateral washes and, transbronchial RML brushes were obtained. Pt tolerated procedure well. No complications noted. Stat CXR is pending. NOVA MORAN DO Oct 21, 2018 08:36
--- OUTSIDE RECORDS SUMMARY | 2018-10-21 08:36 | XMS REPORT ---
Author Author Nicole Ackerman Organization [facility] Address [address] [place], [place] [address] Care Team Providers Care Quick Service Technician Name Role Phone Nicole Ackerman PCP Allergies and Adverse Reactions Name Reaction Notes pollens Demerol intolerant Plan of Treatment Planned Activity Comments Planned Date Planned Time Plan/Goal ELECTROCARDIOGRAM COMPLETE 10/16/2015 12:00 AM ELECTROCARDIOGRAM COMPLETE 10/16/2015 12:[address] THORAX W/DYE 11/05/2015 12:00 AM COMPREHEN METABOLIC PANEL 11/05/2015 12:00 AM IMMUNOTHERAPY INJECTIONS 11/13/2015 12:00 AM IMMUNOTHERAPY INJECTIONS 05/04/2012 12:00 AM [...] History Name 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# [address]-02 RHC Reviewed 09/07/2012 12:00 AM IMMUNOTHERAPY INJECTIONS [...] AM Flu Injection 3 Years And Above [facility]# [address]-96 RHC Reviewed 10/30/2009 12:00 AM IMMUNOTHERAPY INJECTIONS [...] Pharmaceutical Becky. NOV Fluvirin > 12 Years [id number] Intramuscular Left Deltoid 11/06/2009 11/16/2015 999 Influenza 08/21/2010 Novartis iTaggit Becky. NOV Fluvirin > 12 Years [id number] Intramuscular Left Deltoid 08/21/2010 06/26/2009 999 Pneumococcal 08/28/2010 Merck & Co., Inc. MSD Pneumovax [id number] Intramuscular Right Deltoid 08/28/2010 03/01/2009 999 Influenza 09/04/2011 sanofi pasteur PMC Fluzone [id number] Intramuscular Left Deltoid 09/04/2011 06/11/2011 111 Influenza 09/02/2012 sanofi pasteur PMC Fluzone [id number] Intramuscular Left Deltoid 09/02/2012 05/17/2012 141 Influenza 08/22/2013 sanofi pasteur PMC Fluzone > 3 Years [id number] Intramuscular Left Deltoid 08/22/2013 06/10/2013 141 Influenza 08/24/2015 sanofi pasteur PMC Fluzone [id number] Intramuscular Left Deltoid 08/24/2015 06/22/2015 141 History [...] to other allergen Nov 13 2015 9:08AM Payers Insurance Name Company Name Plan Name Plan Number Policy Number Policy Group Number Start Date Medicare Part A Medicare Part A [id number] Tuesday, 2012 [facility] [id number] Friday, 2009 Medicare Part B Medicare Of [place] [id number] Saturday, 2006 History of Encounters Visit Date [...] visit Nicole Ackerman MD 08/29/2014 Nurse visit Niocle Ackerman MD 08/22/2014 Nurse visit Nicole Ackerman MD 08/15/2014 Nurse visit Nicole Ackerman MD 08/08/2014 Nurse visit Nicole Ackerman MD 08/01/2014 Nurse visit Nicole Ackerman MD 07/25/2014 Nurse visit Nicole Ackerman MD 07/19/2014 Nurse visit [place] INDUSTRIAL CLEANING TECHNICIAN 07/11/2014 Nurse visit [place] INDUSTRIAL CLEANING TECHNICIAN 07/04/2014 Nurse visit Skylar Pfeiffer INDUSTRIAL CLEANING TECHNICIAN 06/27/2014 Nurse visit [place] INDUSTRIAL CLEANING TECHNICIAN 06/20/2014 Nurse visit [place] INDUSTRIAL CLEANING TECHNICIAN 06/13/2014 Nurse visit Nicole Ackerman MD 06/06/2014 Nurse visit Mariposa Bellamy INDUSTRIAL CLEANING TECHNICIAN 05/30/2014 Nurse visit [place] INDUSTRIAL CLEANING TECHNICIAN 05/23/2014 Nurse visit Skylar Pfeiffer INDUSTRIAL CLEANING TECHNICIAN 05/16/2014 Nurse visit Nicole Ackerman MD 05/02/2014 Nurse visit Nicole Ackerman MD 04/25/2014 Nurse visit Nicole Ackerman MD 04/18/2014 Nurse visit Nicole Ackerman MD 04/12/2014 Nurse visit Nicole Ackerman MD 04/05/2014 Nurse visit Nicole Ackerman MD 03/28/2014 Nurse visit Mariposa Cordova RN 03/22/2014 Nurse visit Skylar Pfeiffer INDUSTRIAL CLEANING TECHNICIAN 03/14/2014 Nurse visit Nicole Ackerman MD 03/07/2014 Nurse visit Skylar Pfeiffer INDUSTRIAL CLEANING TECHNICIAN 02/28/2014 Nurse visit Skylar Pfeiffer INDUSTRIAL CLEANING TECHNICIAN 02/21/2014 Nurse visit Nicole Ackerman MD 02/14/2014 Nurse visit Skylar Pfeiffer INDUSTRIAL CLEANING TECHNICIAN 02/06/2014 Nurse visit Nicole Ackerman MD 01/31/2014 [...] Ackerman MD 11/29/2013 Nurse visit Mariposa Bellamy INDUSTRIAL CLEANING TECHNICIAN 11/23/2013 Office visit Nicole Ackerman MD 11/14/2013 [...] Aguilera MD 08/09/2013 Nurse visit Skylar Pfeiffer INDUSTRIAL CLEANING TECHNICIAN 08/02/2013 Nurse visit Skylar Pfeiffer INDUSTRIAL CLEANING TECHNICIAN 07/26/2013 Nurse visit Skylar Pfeiffer INDUSTRIAL CLEANING TECHNICIAN 07/19/2013 Nurse visit Skylar Pfeiffer INDUSTRIAL CLEANING TECHNICIAN 07/12/2013 Nurse visit Skylar Pfeiffer INDUSTRIAL CLEANING TECHNICIAN 07/05/2013 Nurse visit Skylar Pfeiffer INDUSTRIAL CLEANING TECHNICIAN 06/28/2013 Nurse visit Skylar Pfeiffer INDUSTRIAL CLEANING TECHNICIAN 06/21/2013 Nurse visit Skylar Pfeiffer INDUSTRIAL CLEANING TECHNICIAN 06/14/2013 Nurse visit Skylar Pfeiffer INDUSTRIAL CLEANING TECHNICIAN 06/08/2013 Nurse visit Jailene Aguilera MD 06/02/2013 [...] 09/28/2012 Nurse visit Jailene Aguilera MD 09/23/2012 [facility] Guido Parra MD 09/21/2012 Nurse visit Jailene Aguilera MD 09/14/2012 Nurse visit Jailene Aguilera MD 09/09/2012 [facility] Guido Parra MD 09/07/2012 Nurse visit [...] 02/19/2011 Nurse visit Chin Mcconnell DO 02/19/2011 [facility] Jamir Ness MD 02/11/2011 Nurse visit Chin Mcconnell DO 02/05/2011 Nurse visit Chin Mcconnell DO 01/29/2011 Nurse visit hCin Mcconnell DO 01/22/2011 Nurse visit Chin Mcconnell [...]
[2018-10-21 08:40] VITALS: BP 149/63
--- OUTSIDE RECORDS SUMMARY | 2018-10-21 08:40 | XMS REPORT ---
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 NOV Fluvirin > 12 Years [id number] Intramuscular Left Deltoid 11/06/2009 11/16/2015 999 Influenza 08/21/2010 [employer] Becky. NOV Fluvirin > 12 Years [id number] Intramuscular Left Deltoid 08/21/2010 06/26/2009 999 Pneumococcal 08/28/2010 Merck & Co., Inc. MSD Pneumovax 23 [id number] Intramuscular Right Deltoid 08/28/2010 03/01/2009 999 Influenza 09/04/2011 sanofi pasteur PMC Fluzone [id number] Intramuscular Left Deltoid 09/04/2011 06/11/2011 111 Influenza 09/02/2012 sanofi pasteur PMC Fluzone [id number] Intramuscular Left Deltoid 09/02/2012 05/17/2012 141 Influenza 08/22/2013 sanofi pasteur PMC Fluzone > 3 Years [id number] Intramuscular Left Deltoid 08/22/2013 06/10/2013 141 Influenza 08/24/2015 [facility] [id number] Intramuscular Left Deltoid 08/24/2015 06/22/2015 141 History [...] Date Medicare Part A Medicare Part A [id number] Tuesday, 2012 [facility] [id number] Friday, 2009 Medicare Part B Medicare [place] [id number] Saturday, 2006 History of Encounters Visit Date [...] visit Nicole Ackerman MD 03/06/2015 Nurse visit Niocle Ackerman MD 02/27/2015 Nurse visit Nicole Ackerman [...] Ackerman MD 07/19/2014 Nurse visit [place] POST GRADUATE INTERN 07/11/2014 Nurse visit [place] POST GRADUATE INTERN 07/04/2014 Nurse visit Skylar Pfeiffer POST GRADUATE INTERN 06/27/2014 Nurse visit [place] POST GRADUATE INTERN 06/20/2014 Nurse visit [place] POST GRADUATE INTERN 06/13/2014 Nurse visit Nicole Ackerman MD 06/06/2014 Nurse visit Mariposa Bellamy POST GRADUATE INTERN 05/30/2014 Nurse visit [place] POST GRADUATE INTERN 05/23/2014 Nurse visit Skylar Pfeiffer POST GRADUATE INTERN 05/16/2014 Nurse visit Nicole Ackerman MD 05/02/2014 Nurse visit Nicole Ackerman MD 04/25/2014 Nurse visit Nicole Ackerman MD 04/18/2014 Nurse visit Nicole Ackerman MD 04/12/2014 Nurse visit Nicole Ackerman MD 04/05/2014 Nurse visit Nicole Ackerman MD 03/28/2014 Nurse visit Mariposa Cordova RN 03/22/2014 Nurse visit Skylar Pfeiffer POST GRADUATE INTERN 03/14/2014 Nurse visit Nicole Ackerman MD 03/07/2014 Nurse visit Skylar Pfeiffer POST GRADUATE INTERN 02/28/2014 Nurse visit Skylar Pfeiffer POST GRADUATE INTERN 02/21/2014 Nurse visit Nicole Ackerman MD 02/14/2014 Nurse visit Skylar Pfeiffer POST GRADUATE INTERN 02/06/2014 Nurse visit Nicole Ackerman MD 01/31/2014 [...] Ackerman MD 11/29/2013 Nurse visit Mariposa Bellamy POST GRADUATE INTERN 11/23/2013 Office visit Nicole Ackerman MD 11/14/2013 [...] Aguilera MD 08/09/2013 Nurse visit Skylar Pfeiffer POST GRADUATE INTERN 08/02/2013 Nurse visit Skylar Pfeiffer POST GRADUATE INTERN 07/26/2013 Nurse visit Skylar Pfeiffer POST GRADUATE INTERN 07/19/2013 Nurse visit Skylar Pfeiffer POST GRADUATE INTERN 07/12/2013 Nurse visit Skylar Pfeiffer POST GRADUATE INTERN 07/05/2013 Nurse visit Skylar Pfeiffer POST GRADUATE INTERN 06/28/2013 Nurse visit Skylar Pfeiffer POST GRADUATE INTERN 06/21/2013 Nurse visit Skylar Pfeiffer POST GRADUATE INTERN 06/14/2013 Nurse visit Skylar Pfeiffer POST GRADUATE INTERN 06/08/2013 Nurse visit Jailene Aguilera MD 06/02/2013 [...] Aguilera MD 10/06/2012 Office visit Skylar Pfeiffer POST GRADUATE INTERN 10/05/2012 Nurse visit Jailene Aguilera MD 09/28/2012 Nurse visit Jailene Aguilera MD 09/23/2012 [facility] Guido Parra MD 09/21/2012 Nurse visit Jailene Aguilera MD 09/14/2012 Nurse visit Jailene Aguilera MD 09/09/2012 [facility] Guido Parra MD 09/07/2012 [...] visit Jailene Aguilera MD 06/07/2012 Nurse visit Jaliene Aguilera MD 05/31/2012 Nurse visit Jailene Aguilera MD 05/24/2012 Nurse visit Jailene Aguilera MD 05/17/2012 Nurse visit Jailene Aguilera MD 05/11/2012 Nurse visit Jailene Aguilera MD 05/04/2012 Nurse visit Grey Lock MD 04/27/2012 Nurse visit Jaileen Aguilera MD 04/20/2012 Nurse visit Jailene Aguilera [...] Jailene Aguilera MD 12/15/2011 Nurse visit Jailene Augilera MD 12/08/2011 Nurse visit Jailene Aguilera MD [...] visit Jailene Aguilera MD 06/10/2011 Nurse visit aJilene Aguilera MD 06/03/2011 Nurse visit Jailene Aguilera [...] visit Chin Mcconnell DO 08/22/2009 Nurse visit hCin Mcconnell DO 08/15/2009 Nurse visit Chin Mcconnell DO 08/09/2009 Nurse visit Chin Mcconnell DO 07/31/2009 Nurse visit Chin Mcconnell DO 07/25/2009 Nurse visit Chin Mcconnell DO 07/18/2009 Nurse visit Chin Mcconnell DO 07/11/2009 Office visit Chin Mcconnell DO
[2018-10-21 08:44] VITALS: BP 149/63
--- OUTSIDE RECORDS SUMMARY | 2018-10-21 08:44 | XMS REPORT ---
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 NOV Fluvirin > 12 Years [id number] Intramuscular Left Deltoid 11/06/2009 11/16/2015 999 Influenza 08/21/2010 [employer]. NOV Fluvirin > 12 Years [id number] Intramuscular Left Deltoid 08/21/2010 06/26/2009 999 Pneumococcal 08/28/2010 Merck & Co., Inc. MSD Pneumovax 23 [id number] Intramuscular Right Deltoid 08/28/2010 03/01/2009 999 Influenza 09/04/2011 sanofi pasteur PMC Fluzone [id number] Intramuscular Left Deltoid 09/04/2011 06/11/2011 111 Influenza 09/02/2012 sanofi pasteur PMC Fluzone [id number] Intramuscular Left Deltoid 09/02/2012 05/17/2012 141 [facility]/22/[facility] > 3 Years [id number] Intramuscular Left Deltoid 08/22/2013 06/10/2013 141 Influenza 08/24/2015 [facility] Fluzone [id number] Intramuscular Left Deltoid 08/24/2015 06/22/2015 141 History [...] High Risk Patient Dec 14 2015 8:56AM Payers Insurance Name Company Name Plan Name Plan Number Policy Number Policy Group Number Start Date Medicare Part A Medicare Part A [id number] Tuesday, 2012 [facility] [id number] Friday, 2009 Medicare Part B Medicare Of [place] [id number] Saturday, 2006 History of Encounters Visit Date [...] Nicole Ackerman MD 07/04/2015 Nurse visit Nicole Ackreman MD 06/26/2015 Nurse visit Nicole Ackerman MD [...] Ackerman MD 07/19/2014 Nurse visit [place] COMMUNICATIONS FIELD TECHNICIAN 07/11/2014 Nurse visit [place] COMMUNICATIONS FIELD TECHNICIAN 07/04/2014 Nurse visit 07/04/2014 Nurse visit 07/04/2014 Nurse visit Skylar Pfeiffer COMMUNICATIONS FIELD TECHNICIAN 06/27/2014 Nurse visit 06/27/2014 Nurse visit 06/27/2014 Nurse visit [place] COMMUNICATIONS FIELD TECHNICIAN 06/20/2014 Nurse visit [place] COMMUNICATIONS FIELD TECHNICIAN 06/13/2014 Nurse visit Nicole Ackerman MD 06/06/2014 Nurse visit Mariposa Bellamy COMMUNICATIONS FIELD TECHNICIAN 05/30/2014 Nurse visit [place] COMMUNICATIONS FIELD TECHNICIAN 05/23/2014 Nurse visit Skylar Pfeiffer COMMUNICATIONS FIELD TECHNICIAN 05/16/2014 Nurse visit Nicole Ackerman MD 05/02/2014 Nurse visit Nicole Ackerman MD 04/25/2014 Nurse visit Nicole Ackerman MD 04/18/2014 Nurse visit Nicole Ackerman MD 04/12/2014 Nurse visit Nicole Ackerman MD 04/05/2014 Nurse visit Nicole Ackerman MD 03/28/2014 Nurse visit Mariposa Cordova RN 03/22/2014 Nurse visit Skylar Pfeiffer COMMUNICATIONS FIELD TECHNICIAN 03/14/2014 Nurse visit Nicole Ackerman MD 03/07/2014 Nurse visit Skylar Pfeiffer COMMUNICATIONS FIELD TECHNICIAN 02/28/2014 Nurse visit Skylar Pfeiffer COMMUNICATIONS FIELD TECHNICIAN 02/21/2014 Nurse visit Nicole Ackerman MD 02/14/2014 Nurse visit Skylar Pfeiffer COMMUNICATIONS FIELD TECHNICIAN 02/06/2014 Nurse visit Nicole Ackerman MD [...] Ackerman MD 11/29/2013 Nurse visit Mariposa Bellamy COMMUNICATIONS FIELD TECHNICIAN 11/23/2013 Office visit Nicole Ackerman MD [...] Aguilera MD 08/09/2013 Nurse visit Skylar Pfeiffer COMMUNICATIONS FIELD TECHNICIAN 08/02/2013 Nurse visit Skylar Pfeiffer COMMUNICATIONS FIELD TECHNICIAN 07/26/2013 Nurse visit Skylar Pfeiffer COMMUNICATIONS FIELD TECHNICIAN 07/19/2013 Nurse visit Skylar Pfeiffer COMMUNICATIONS FIELD TECHNICIAN 07/12/2013 Nurse visit Skylar Pfeiffer COMMUNICATIONS FIELD TECHNICIAN 07/05/2013 Nurse visit Skylar Pfeiffer COMMUNICATIONS FIELD TECHNICIAN 06/28/2013 Nurse visit Skylar Pfeiffer COMMUNICATIONS FIELD TECHNICIAN 06/21/2013 Nurse visit Skylar Pfeiffer COMMUNICATIONS FIELD TECHNICIAN 06/14/2013 Nurse visit Skylar Pfeiffer COMMUNICATIONS FIELD TECHNICIAN 06/08/2013 Nurse visit Jailene Aguilera MD [...] Jailene Aguilera MD 10/06/2012 Office visit Skylar MoDali Kentrell COMMUNICATIONS FIELD TECHNICIAN 10/05/2012 Nurse visit Jailene Aguilera MD 09/28/2012 Nurse visit Jailene Aguilera MD 09/23/2012 [facility] Guido Parra MD 09/21/2012 Nurse visit Jailene Aguilera MD 09/14/2012 Nurse visit Jailene Aguilera MD 09/09/2012 [facility] Guido Parra MD 09/07/2012 Nurse visit [...] visit Jailene Aguilera MD 09/24/2011 Nurse visit Jailnee Aguilera MD 09/15/2011 Nurse visit Jailene Aguilera [...] Aguilera MD 05/13/2011 Nurse visit Jarad Rani DO 05/06/2011 Nurse visit Jailene Aguilera MD [...]
--- OUTSIDE RECORDS SUMMARY | 2018-10-21 08:48 | XMS REPORT ---
Author Author Evan Mccullough Organization [facility] Address [address] [place], [place] [id number] Care Team Providers Care Professor Of Art History Name Role Phone Evan Mccullough PCP Evan [...] 10:45 PM Diagnostic Mammogram 12/07/2012 12:00 AM Breathing Treatment 02/23/2018 12:00 AM Allergy Injection Multiple 01/27/2013 12:00 AM Allergy Injection Multiple 02/02/2013 12:00 AM HEMOGLOBIN A1C 04/07/2018 12:00 AM CMP 04/07/2018 12:00 AM Allergy Injection Multiple 02/08/2013 12:00 [...] 12/21/2015 TAKE ONE TABLET BY MOUTH DAILY glipizide 5 mg oral tablet 01/09/2017 TAKE 1 TABLET BY MOUTH EVERY MORNING WITH BREAKFAST levothyroxine 100 mcg oral tablet 01/09/2017 TAKE ONE TABLET BY MOUTH ONCE DAILY glipizide 5 mg oral tablet 02/19/2017 TAKE 1 TABLET BY MOUTH EVERY MORNING WITH BREAKFAST Tylenol Arthritis Pain 650 mg oral tablet extended release take 2 tablets (1,300 mg) by oral route in the am Flonase Allergy Relief 50 mcg/actuation nasal spray,suspension [...] MORNING AND TAKE 2 TABLETS EVERY EVENING blood-glucose meter miscellaneous kit 01/07/2018 04/16/2018 use as directed to test blood sugar daily Contour Test Strips miscellaneous strip 01/07/2018 04/02/2019 test BG QD for 90 days for DMII 205.00 doxycycline hyclate 100 mg oral capsule take 1 capsule (100 mg) by oral route every 12 hours for 10 days ProAir HFA 90 mcg/actuation inhalation HFA aerosol inhaler inhale 1 puff (90 mcg) by inhalation route every 6 hours as needed ipratropium-albuterol 0.5 mg-3 mg(2.5 mg base)/3 mL inhalation solution for nebulization 02/23/2018 given during visit today albuterol sulfate 2.5 mg /3 mL (0.083 %) inhalation solution for nebulization 02/24/2018 05/25/2018 inhale 3 milliliters (2.5 mg) by nebulization route every 6 hours for 30 days amlodipine 10 mg oral tablet 04/07/2018 04/02/2019 take 1 tablet (10 mg) by oral route once daily for 90 days Name Start Date [...] evening meals for 30 days lancets miscellaneous [facility] [place] 01/09/2015 01/04/2016 use as directed QID for [...] by oral route daily for 90 days Symbicort inhalation 04/07/2018 per patient she is not taking at this time Crestor 20 mg oral tablet 10/13/2016 10/30/2017 take 1 tablet (20 mg) by oral route once daily for 90 days medication on list twice 28-800 mg-mcg oral tablet 04/07/2018 take 1 tablet by oral route daily Tessalon Perles 100 mg oral capsule 10/30/2017 01/07/2018 take 1 capsule ( 100 mg) by oral route 3 times per day as needed for cough Mastectomy Bra 1 unit 01/07/2018 04/07/2018 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 dexamethasone 4 mg oral tablet 02/24/2018 take 1 tablet (4 mg) by oral route 2 times per day for 3days Problem List Description Status Onset Allergic Rhinitis [...] HC BMI BSA BMI Percentile O2 Sat(%) 04/07/2018 9:43:00 AM 159 mmHg 71 mmHg 67 bpm 20 rpm 98.1 F 244 lbs 63 in 43.2222 kg/m 2.218 m 94 % 02/24/2018 1:13:00 PM 175 mmHg 70 mmHg 77 bpm 20 rpm 98.1 F 241.187 lbs 63 in 42.72 kg/m2 2.21 m2 95 % 02/23/2018 5:48:00 PM 160 mmHg 80 mmHg 69 bpm 98.6 F 240 lbs 63 in 42.5137 kg/m 2.1998 m 97 % 02/23/2018 5:48:00 PM 160 mmHg 80 mmHg 69 bpm 98.6 F 240 lbs 63 in 42.5137 kg/m 2.1998 m 97 % 01/07/2018 9:59:00 AM 174 mmHg 73 mmHg [...] F 236.375 lbs 63.5 in 41.2147 kg/m 2.1917 m 96 % 01/30/2016 11:42:00 AM 150 mmHg 70 mmHg 71 bpm 18 rpm 96.9 F 97 % 10/31/2015 3:36:00 PM 150 mmHg 70 mmHg 66 bpm 97.8 F 251.375 lbs 63.5 in 43.8301 kg/m 2.2602 m 95 % 10/23/2015 11:18:00 AM 138 mmHg 68 mmHg 80 bpm 10/16/2015 9:21:00 AM 174 mmHg 84 mmHg 90 bpm 20 rpm 97.7 F 254.25 lbs 63.5 in 44.3314 kg/m 2.2731 m 95 % 09/14/2015 1:03:00 PM 140 mmHg [...] History Name Description Comments 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# [address]-67 C Reviewed 09/07/2012 12:00 AM IMMUNOTHERAPY INJECTIONS [...] Reviewed 12/07/2012 12:00 AM IMMUNOTHERAPY INJECTIONS Reviewed 12/10/2017 12:00 AM MAMMOGRAPHY BILATERAL DX DIGITAL Reviewed 12/14/2012 12:00 AM IMMUNOTHERAPY INJECTIONS Reviewed [...] Above [facility]# [address]-94 RHC Reviewed 10/30/2009 12:00 AM IMMUNOTHERAPY INJECTIONS [...] %LDLc SerPl-mCnc 105.0 mg/dLGlucose SerPl-mCnc 139.0 mg/dL 01/09/2010 12:00 AM Mammogram -Women over 40 [...] Done Dental Inspection Reffered 07/01/2011 8:50 AM GLUCOSE 153.0 mg/dLSODIUM 135.0 [...] AA 53 eGFR 44 eGFR AA* 53 07/23/2017 8:35 AM HGB A1C 6.20 %Est Avg Glucose 131.2 mg/dLTSH 1.480 uIU/ mLGLUCOSE 129.0 mg/dLSODIUM 140.0 mmol/LPOTASSIUM 4.20 mmol/LCHLORIDE 103.0 mmol /LCO2 26.0 mmol/LBUN 16.0 mg/dLCREATININE 1.10 mg/dLSGOT/AST 39.0 IU/LSGPT/ALT 27.0 IU/LALK PHOS 80.0 IU/LTOTAL PROTEIN 7.40 g/dLALBUMIN 4.10 g/dLTOTAL BILI 0.70 mg/dLCALCIUM 9.50 mg/dLAGE 77 GFR NonAA 48 GFR AA 58 eGFR 48 eGFR AA* 58 11/23/2017 3:26 PM WBC 7.3 RBC 4.47 [...] X 11/19/2004 [employer] MSD PNEUMOVAX 23 Intramuscular Not Entered 11/16/2018 11/16/2018 999 Influenza 08/15/2009 [employer] Becky. NOV Fluvirin > 12 Years [id number] Intramuscular Left Deltoid 11/06/2009 11/16/2018 999 Influenza 08/21/2010 [employer] Becky. NOV Fluvirin > 12 Years [id number] Intramuscular Left Deltoid 08/21/2010 06/26/2009 999 X 08/28/2010 [employer] MSD PNEUMOVAX 23 [id number] Intramuscular Right Deltoid 08/28/2010 03/01/2009 999 Influenza 09/04/2011 sanofi pasteur PMC FLUZONE [id number] Intramuscular Left Deltoid 09/04/2011 06/11/2011 111 Influenza 09/02/2012 sanofi pasteur PMC FLUZONE [id number] Intramuscular Left Deltoid 09/02/2012 05/17/2012 141 Influenza 08/22/2013 sanofi pasteur PMC Fluzone > 3 Years [id number] Intramuscular Left Deltoid 08/22/2013 06/10/2013 141 Influenza 08/24/2015 sanofi pasteur PMC FLUZONE [id number] Intramuscular Left Deltoid 08/24/2015 06/22/2015 141 History [...] of breast cancer Dec 10 2017 11:31AM Community acquired bacterial pneumonia Feb 23 2018 5:54PM Mild intermittent reactive airway disease with acute exacerbation Feb 24 2018 1:20PM Type 2 diabetes mellitus without complication, without long-term current use of insulin Apr 07 2018 9:50AM Payers Insurance Name Company Name Plan Name Plan Number Policy Number Policy Group Number Start Date Medicare RHC Medicare RHC [id number] [id number] Friday, 2009 Medicare Part A Medicare Part A [id number] Tuesday, 2012 Medicare Part A Medicare - Lab/Xray [id number] Tuesday, July 17, 2012 Medicare Part B Medicare Of [place] [id number] Saturday, January 14, 2006 History of Encounters Visit Date Visit Type Provider 04/07/[address] Evan Mccullough MD 02/24/[address] Evan Mccullough MD 02/23/[address] TECHNOLOGIST 01/07/[address] Evan Mccullough MD 11/23/2017 Office visit Mariposa Bellamy CT TECHNOLOGIST 10/30/2017 [address] CT TECHNOLOGIST 07/09/[address] Evan Mccullough MD 01/09/[address] Evan Mccullough MD 10/02/[address] Evan Mccullough MD 06/27/[address] Evan Mccullough MD 05/12/[address] Evan Mccullough MD 04/07/[address] Evan Mccullough MD 01/30/2016 Office visit 01/30/2016 Office visit Giselle Olivia CT TECHNOLOGIST 01/22/2016 [address] [place] [address] TECHNOLOGIST 01/15/2016 Nurse visit Nicole Ackerman MD 01/08/2016 [...] 10/23/2015 Nurse visit Nicole Ackerman MD 10/16/2015 [facility] Reggie Ness MD 10/16/2015 Office [...] Ackerman MD 07/19/2014 [address] [place] [address] TECHNOLOGIST 07/11/2014 [address] [place] [address] TECHNOLOGIST 07/04/2014 Nurse visit 07/04/2014 Nurse visit 07/04/2014 Nurse visit Skylar Pfeiffer CT TECHNOLOGIST 06/27/2014 Nurse visit 06/27/2014 Nurse visit 06/27/2014 Nurse [address] [place] [address] TECHNOLOGIST 06/20/2014 [address] [place] [address] TECHNOLOGIST 06/13/2014 Nurse visit Nicole Ackerman MD 06/06/2014 Nurse visit Mariposa Bellamy CT TECHNOLOGIST 05/30/2014 Nurse [address] [place] [address] TECHNOLOGIST 05/23/2014 Nurse visit Skylar Pfeiffer CT TECHNOLOGIST 05/16/2014 Nurse visit Nicole Ackerman MD 05/02/2014 Nurse visit Nicole Ackerman MD 04/25/2014 Nurse visit Nicole Ackerman MD 04/18/2014 Nurse visit Nicole Ackerman MD 04/12/2014 Nurse visit Nicole Ackerman MD 04/05/2014 Nurse visit Nicole Ackerman MD 03/28/2014 Nurse visit Mariposa Cordova RN 03/22/2014 Nurse visit Skylar Pfeiffer CT TECHNOLOGIST 03/14/2014 Nurse visit Nicole Ackerman MD 03/07/2014 Nurse visit Skylar Pfeiffer CT TECHNOLOGIST 02/28/2014 Nurse visit Skylar Pfeiffer CT TECHNOLOGIST 02/21/2014 Nurse visit Nicole Ackerman MD 02/14/2014 Nurse visit Skylar Pfeiffer CT TECHNOLOGIST 02/06/2014 Nurse visit Nicole Ackerman MD [...] Ackerman MD 11/29/2013 Nurse visit Mariposa Bellamy CT TECHNOLOGIST 11/23/2013 Office visit Nicole Ackerman MD [...] Jailene Aguilera MD 09/06/2013 Nurse visit Jailene Agiulera MD 08/31/2013 Nurse visit Jailene Aguilera MD 08/25/2013 Nurse visit Jailene Aguilera MD 08/22/2013 Office visit Jaileen Aguilera MD 08/16/2013 Nurse visit Jailene Aguilera MD 08/09/2013 Nurse visit Skylar Pfeiffer CT TECHNOLOGIST 08/02/2013 Nurse [address] Skylar Pfeiffer CT TECHNOLOGIST 07/26/2013 Nurse visit Skylar Pfeiffer CT TECHNOLOGIST 07/19/2013 Nurse visit Skylar Pfeiffer CT TECHNOLOGIST 07/12/2013 Nurse visit Skylar Pfeiffer CT TECHNOLOGIST 07/05/2013 Nurse visit Skylar Pfeiffer CT TECHNOLOGIST 06/28/2013 Nurse visit Skylar Pfeiffer CT TECHNOLOGIST 06/21/2013 Nurse visit Skylar Pfeiffer CT TECHNOLOGIST 06/14/2013 Nurse visit Skylar Pfeiffer CT TECHNOLOGIST 06/08/2013 Nurse visit Jailene Aguilera MD [...] Aguilera MD 10/06/2012 Office visit Skylar Pfeiffer CT TECHNOLOGIST 10/05/2012 Nurse visit Jailene Aguilera MD [...] visit Jarad Saravia DO 05/06/2011 Nurse visit aJilene Aguilera MD 04/29/2011 Nurse visit Jailene Aguilera [...]
--- OUTSIDE RECORDS SUMMARY | 2018-10-21 08:53 | XMS REPORT ---
Author Author Giselle Olivia Organization [facility] Address [address] [place], [place] [address] Care Team Providers Care Psychologist Research Assistant Name Role Phone Giselle Olivia PCP Unavailable Allergies and Adverse Reactions Name [...] TAKE 2 TABLETS DAILY IN THE EVENING Zithromax Z-Gal 250 mg oral tablet take [...] ONCE DAILY Crestor 20 mg oral tablet 03/11/2016 04/10/2016 take 1 tablet (20 mg) by oral route once daily for 30 days Name Start Date Expiration [...] directed for post mastectomy care lancets miscellaneous mis 01/09/2015 01/04/2016 use as directed QID for [...] HC BMI BSA BMI Percentile O2 Sat(%) 01/30/2016 11:42:00 AM 150 mmHg 70 mmHg [...] History Name Description Comments 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 MSD Pneumovax 23 Intramuscular Not Entered 11/16/2015 11/16/2015 999 Influenza 08/15/2009 [facility] Becky. NOV Fluvirin > 12 Years [id number] Intramuscular Left Deltoid 11/06/2009 11/16/2015 999 Influenza 08/21/2010 [facility] Becky. NOV Fluvirin > 12 Years [id number] Intramuscular Left Deltoid 08/21/2010 06/26/2009 999 X 08/28/2010 [employer] MSD Pneumovax 23 [id number] Intramuscular Right Deltoid 08/28/2010 03/01/2009 999 Influenza 09/04/2011 sanofi pasteur PMC Fluzone [id number] Intramuscular Left Deltoid 09/04/2011 06/11/2011 111 Influenza 09/02/2012 sanofi pasteur PMC Fluzone [id number] Intramuscular Left Deltoid 09/02/2012 05/17/2012 141 Influenza 08/22/2013 sanofi pasteur PMC Fluzone > 3 Years [id number] Intramuscular Left Deltoid 08/22/2013 06/10/2013 141 Influenza 08/24/2015 sanofi pasteur PMC Fluzone [id number] Intramuscular Left Deltoid 08/24/2015 06/22/2015 141 History [...] 2016 11:44AM Cellulitis Jan 30 2016 11:44AM Payers Insurance Name Company Name Plan Name Plan Number Policy Number Policy Group Number Start Date Medicare Part A Medicare Part A [id number] Tuesday, 2012 [employer] [place] [id number] Friday, 2009 Medicare Part B Medicare Christina Araujo [id number] Saturday, 2006 Medicare Part A Medicare - Lab/Xray [id number] Tuesday, July 17, 2012 History of Encounters Visit Date Visit Type Provider 01/30/2016 Office visit 01/30/2016 Office visit Giselle Olivia EDITOR MAGAZINE 01/22/2016 Nurse visit [place] EDITOR MAGAZINE 01/15/2016 Nurse visit Nicole Ackerman MD 01/08/2016 [...] 10/23/2015 Nurse visit Nicole Ackerman MD 10/16/2015 [facility] Reggie Ness MD 10/16/2015 Office visit 10/16/2015 [...] Ackerman MD 07/19/2014 Nurse visit [place] EDITOR MAGAZINE 07/11/2014 Nurse visit [place] EDITOR MAGAZINE 07/04/2014 Nurse visit 07/04/2014 Nurse visit 07/04/2014 Nurse visit Skylar Pfeiffer EDITOR MAGAZINE 06/27/2014 Nurse visit 06/27/2014 Nurse visit 06/27/2014 Nurse visit [place] EDITOR MAGAZINE 06/20/2014 Nurse visit [place] EDITOR MAGAZINE 06/13/2014 Nurse visit Nicole Ackerman MD 06/06/2014 Nurse visit Mariposa Bellamy EDITOR MAGAZINE 05/30/2014 Nurse visit [place] EDITOR MAGAZINE 05/23/2014 Nurse visit Skylar Pfeiffer EDITOR MAGAZINE 05/16/2014 Nurse visit Nicole Ackerman MD 05/02/2014 Nurse visit Nicole Ackerman MD 04/25/2014 Nurse visit Nicole Ackerman MD 04/18/2014 Nurse visit Nicole Ackerman MD 04/12/2014 Nurse visit Nicole Ackerman MD 04/05/2014 Nurse visit Nicole Ackerman MD 03/28/2014 Nurse visit Mariposa Cordova RN 03/22/2014 Nurse visit Skylar Pfeiffer EDITOR MAGAZINE 03/14/2014 Nurse visit Nicole Ackerman MD 03/07/2014 Nurse visit Skylar Pfeiffer EDITOR MAGAZINE 02/28/2014 Nurse visit Skylar Pfeiffre EDITOR MAGAZINE 02/21/2014 Nurse visit Nicole Ackerman MD 02/14/2014 Nurse visit Skylar Pfeiffer EDITOR MAGAZINE 02/06/2014 Nurse visit Nicole Ackerman MD 01/31/2014 [...] Ackerman MD 11/29/2013 Nurse visit Mariposa Bellamy EDITOR MAGAZINE 11/23/2013 Office visit Nicole Ackerman MD 11/14/2013 Nurse visit Jarad Saravia DO 11/07/2013 Nurse visit Nicole Ackerman MD 10/31/2013 Nurse visit Jailene Aguilera MD 10/25/2013 Nurse visit Jailene Aguilera MD 10/18/2013 Nurse visit Jailene Aguilera MD 10/11/2013 Nurse visit aJilene Aguilera MD 10/04/2013 Nurse visit Jailene Aguilera MD 09/27/2013 Nurse visit Jailene Aguilera MD 09/20/2013 Nurse visit Jailene Aguilera MD 09/13/2013 Nurse visit Jailene Aguilera MD 09/06/2013 Nurse visit Jailene Aguilera MD 08/31/2013 Nurse visit Jailene Aguilera MD 08/25/2013 Nurse visit Jailene Aguilera MD 08/22/2013 Office visit Jailene Aguilera MD 08/16/2013 Nurse visit Jailene Aguilera MD 08/09/2013 Nurse visit Skyalr Pfeiffer EDITOR MAGAZINE 08/02/2013 Nurse visit Skylar Pfeiffer EDITOR MAGAZINE 07/26/2013 Nurse visit Skylar Pfeiffer EDITOR MAGAZINE 07/19/2013 Nurse visit Skylar Pfeiffer EDITOR MAGAZINE 07/12/2013 Nurse visit Skylar Pfeiffer EDITOR MAGAZINE 07/05/2013 Nurse visit Skylar Pfeiffer EDITOR MAGAZINE 06/28/2013 Nurse visit Skylar Pfeiffre EDITOR MAGAZINE 06/21/2013 Nurse visit Skylar Pfeiffer EDITOR MAGAZINE 06/14/2013 Nurse visit Skylar Pfeiffer EDITOR MAGAZINE 06/08/2013 Nurse visit Jailene Aguilera MD 06/02/2013 [...] Aguilera MD 10/06/2012 Office visit Skylar Pfeiffer EDITOR MAGAZINE 10/05/2012 Nurse visit Jailene Aguilera MD 09/28/2012 Nurse visit Jailene Aguilera MD 09/23/2012 [facility] Guido Parra MD 09/21/2012 Nurse visit Jailene Aguilera MD 09/14/2012 Nurse visit Jailene Aguilera MD 09/09/2012 [facility] Guido Parra MD 09/07/2012 Nurse visit Jailene [...] Jailene Aguilera MD 05/04/2012 Nurse visit Grey Lokc MD 04/27/2012 Nurse visit Jailene Aguilera MD [...] Surgery Jailene Aguilera MD 09/01/2011 Nurse visit Jialene Aguilera MD 08/25/2011 Nurse visit Jailene Aguilera [...]
--- OUTSIDE RECORDS SUMMARY | 2018-10-21 08:57 | XMS REPORT ---
Author Author Evan Mccullough Organization [facility] Address [address] [place], [place] [id number] Care Team Providers Care Customer Orders Clerk Name Role Phone Evan Mccullough PCP Evan Mccullough PreferredProvider Allergies and Adverse Reactions Name Reaction Notes pollens Demerol intolerant Plan of Treatment Planned Activity Comments Planned Date Planned Time Plan/Goal EKG (12-lead electrocardiogram) 10/16/2015 12:00 AM Allergy Injection Multiple, [facility] Medicare 11/13/2015 12:00 AM CBC With Auto [...] 12/21/2015 TAKE ONE TABLET BY MOUTH DAILY Symbicort inhalation glipizide 5 mg oral [...] DMII 205.00 amlodipine 5 mg oral tablet 02/16/2018 take 1 tablet by oral route daily for 90 days doxycycline hyclate 100 mg oral capsule take [...] route every 6 hours for 30 days Name Start Date Expiration [...] evening meals for 30 days lancets miscellaneous [facility] 01/09/2015 01/04/2016 use as directed QID for [...] 1 capsule (100 mg) by oral route [facility] Tylenol Extra Strength 500 mg [...] times per day as needed for cough dexamethasone 4 mg oral tablet 02/24/2018 take 1 tablet (4 mg) by oral route 2 times per day for 3days Problem List Description Status Onset Allergic rhinitis [...] HC BMI BSA BMI Percentile O2 Sat(%) 02/24/2018 1:13:00 PM 175 mmHg 70 mmHg 77 bpm 20 rpm 98.1 F 241.187 lbs 63 in 42.724 kg/m 2.2052 m 95 % 02/23/2018 5:48:00 PM 160 mmHg 80 mmHg 69 bpm 98.6 F 240 lbs 63 in 42.51 kg/m2 2.20 m2 97 % 02/23/2018 5:48:00 PM 160 mmHg 80 mmHg 69 bpm 98.6 F 240 lbs 63 in 42.51 kg/m2 2.20 m2 97 % 01/07/2018 9:59:00 AM 174 mmHg [...] History Name Description Comments 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 NOV Fluvirin > 12 Years [id number] Intramuscular Left Deltoid 11/06/2009 11/16/2018 999 Influenza 08/21/2010 Novartis [employer] Becky. NOV Fluvirin > 12 Years [id number] Intramuscular Left Deltoid 08/21/2010 06/26/2009 999 X 08/28/2010 [employer] MSD PNEUMOVAX 23 [id number] Intramuscular Right Deltoid 08/28/2010 03/01/2009 999 Influenza 09/04/2011 sanofi pasteur PMC FLUZONE [id number] Intramuscular Left Deltoid 09/04/2011 06/11/2011 111 Influenza 09/02/2012 sanofi pasteur PMC FLUZONE [id number] Intramuscular Left Deltoid 09/02/2012 05/17/2012 141 Influenza 08/22/2013 sanofi pasteur PMC Fluzone > 3 Years [id number] Intramuscular Left Deltoid 08/22/2013 06/10/2013 141 Influenza 08/24/2015 sanofi pasteur PMC FLUZONE [id number] Intramuscular Left Deltoid 08/24/2015 06/22/2015 141 History [...] with acute exacerbation Feb 24 2018 1:20PM Payers Insurance Name Company Name Plan Name Plan Number Policy Number Policy Group Number Start Date Medicare RHC Medicare RHC [id number] N/A BCBS Bcbs [facility] [id number] Friday, 2009 Medicare Part A Medicare Part A [id number] Tuesday, 2012 Medicare Part A Medicare - Lab/Xray [id number] Tuesday, July 17, 2012 Medicare Part B Medicare Of [place] [id number] Saturday, January 14, 2006 History of Encounters Visit Date Visit Type Provider 02/24/[address] Evan Mccullough MD 02/23/2018 Office visit Patsy Kc LINEN SORTER 01/07/[address] Evan Mccullough MD 11/23/2017 Office visit Mariposa Bellamy LINEN SORTER 10/30/2017 Office visit Denisse Hart LINEN SORTER 07/09/[address] Evan Mccullough MD 01/09/[address] Evan Mccullough MD 10/02/[address] Evan Mccullough MD 06/27/[address] Evan Mccullough MD 05/12/[address] Evan Mccullough MD 04/07/[address] Evan Mccullough MD 01/30/2016 Office visit 01/30/2016 Office visit Giselle Olivia LINEN SORTER 01/22/2016 Nurse visit South iNcole LINEN SORTER 01/15/2016 Nurse visit Nicole Ackerman MD 01/08/2016 Nurse visit Nicloe Ackerman MD 01/01/2016 Nurse visit Nicole Ackerman [...] visit Nicole Ackerman MD 02/06/2015 Nurse visit Nicoel Ackerman MD 01/30/2015 Nurse visit Nicole Ackerman [...] Ackerman MD 07/19/2014 Nurse visit [place] Nicole LINEN SORTER 07/11/2014 Nurse visit [place] LINEN SORTER 07/04/2014 Nurse visit 07/04/2014 Nurse visit 07/04/2014 Nurse visit Skylar Pfeiffer LINEN SORTER 06/27/2014 Nurse visit 06/27/2014 Nurse visit 06/27/2014 Nurse visit [place] Nicole LINEN SORTER 06/20/2014 Nurse visit [place] LINEN SORTER 06/13/2014 Nurse visit Nicole Ackerman MD 06/06/2014 Nurse visit Mariposa Bellamy LINEN SORTER 05/30/2014 Nurse visit [place] LINEN SORTER 05/23/2014 Nurse visit Skylar Pfeiffer LINEN SORTER 05/16/2014 Nurse visit Nicole Ackerman MD 05/02/2014 Nurse visit Nicole Ackerman MD 04/25/2014 Nurse visit Nicole Ackerman MD 04/18/2014 Nurse visit Nicole Ackerman MD 04/12/2014 Nurse visit Nicole Ackerman MD 04/05/2014 Nurse visit Nicole Ackerman MD 03/28/2014 Nurse visit Mariposa Cordova RN 03/22/2014 Nurse visit Skylar Pfeiffer LINEN SORTER 03/14/2014 Nurse visit Nicole Ackerman MD 03/07/2014 Nurse visit Skylar Pfeiffer LINEN SORTER 02/28/2014 Nurse visit Skylar Pfeiffer LINEN SORTER 02/21/2014 Nurse visit Nicole Ackerman MD 02/14/2014 Nurse visit Skylar Pfeiffer LINEN SORTER 02/06/2014 Nurse visit Nicole Ackerman MD 01/31/2014 Nurse visit Nicole Ackerman MD 01/25/2014 Nurse visit Nicole Ackerman MD 2014 Office visit Niocle Ackerman MD 01/09/2014 Nurse visit Nicole Ackerman MD 01/02/2014 Office visit Nicole Ackerman MD 12/27/2013 Nurse visit Nicole Ackerman MD 12/19/2013 Nurse visit Nicole Ackerman MD 12/12/2013 Nurse visit Nicole Ackerman MD 12/05/2013 Nurse visit Nicole Ackerman MD 11/29/2013 Nurse visit Mariposa Bellamy LINEN SORTER 11/23/2013 Office visit Nicole Ackerman MD 11/14/2013 [...] Aguilera MD 08/09/2013 Nurse visit Skylar Pfeiffer LINEN SORTER 08/02/2013 Nurse visit Skylar Pfeiffer LINEN SORTER 07/26/2013 Nurse visit Skylar Pfeiffer LINEN SORTER 07/19/2013 Nurse visit Skylar Pfeiffer LINEN SORTER 07/12/2013 Nurse visit Skylar Pfeiffer LINEN SORTER 07/05/2013 Nurse visit Skylar Pfeiffer LINEN SORTER 06/28/2013 Nurse visit Skylar Pfeiffer LINEN SORTER 06/21/2013 Nurse visit Skylar Pfeiffer LINEN SORTER 06/14/2013 Nurse visit Skylar Pfeiffer LINEN SORTER 06/08/2013 Nurse visit Jailene Aguilera MD 06/02/2013 [...] 09/28/2012 Nurse visit Jailene Aguilera MD 09/23/2012 [facility] Guido Parra MD 09/21/2012 Nurse visit Jailene Aguilera MD 09/14/2012 Nurse visit Jailene Aguilera MD 09/09/2012 [facility] Guido Parra MD 09/07/2012 Nurse visit Jailene Aguilera MD 09/02/2012 Office visit Jailene Aguilera MD 08/31/2012 Nurse visit Jailene Aguilera MD 08/25/2012 Nurse visit Jailene Aguilera MD 08/18/2012 Nurse visit Jailene Aguilera MD 08/11/2012 Nurse visit Jailene Aguilera MD 08/05/2012 Nurse visit Jailene Aguilera MD 07/29/2012 Office visit Jaielne Aguilera MD 07/21/2012 Nurse visit Jailene Aguilera MD 07/12/2012 Nurse visit Jailene Aguilera MD 07/12/2012 Voided Jailene Aguilera MD 07/06/2012 Nurse visit Jailene Aguilera MD 06/28/2012 Nurse visit Jailene Aguilera MD 06/28/2012 Voided Jarad Gomezlb DING 06/21/2012 Nurse visit Giselle Gutierrez RN [...] visit Jailene Aguilera MD 11/25/2011 Nurse visit Jaliene Aguilera MD 11/18/2011 Nurse visit Jailene Aguilera [...] visit Chin Mcconnell DO 05/15/2010 Nurse visit Cihn Mcconnell DO 05/08/2010 Nurse visit Chin Mcconnell [...] Chin Mcconnell DO 02/26/2010 Nurse visit Chin cMconnell DO 02/20/2010 Nurse visit Chin Mcconnell DO [...]
--- OUTSIDE RECORDS SUMMARY | 2018-10-21 09:00 | XMS REPORT ---
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 MSD Pneumovax 23 Intramuscular Not Entered 11/16/2015 11/16/2015 999 Influenza 08/15/2009 Novartis Pharmaceutical Becky. NOV Fluvirin > 12 Years [id number] Intramuscular Left Deltoid 11/06/2009 11/16/2015 999 Influenza 08/21/2010 Novartis Pharm[employer] Becky. NOV Fluvirin > 12 Years [id number] Intramuscular Left Deltoid 08/21/2010 06/26/2009 999 Pneumococcal 08/28/2010 [employer]ck & Co., Inc. MSD Pneumovax 23 [id number] Intramuscular Right Deltoid 08/28/2010 03/01/2009 999 Influenza 09/04/2011 sanofi pasteur PMC Fluzone [id number] Intramuscular Left Deltoid 09/04/2011 06/11/2011 111 Influenza 09/02/2012 sanofi pasteur PMC Fluzone [id number] Intramuscular Left Deltoid 09/02/2012 05/17/2012 141 Influenza 08/22/2013 sanofi pasteur PMC Fluzone > 3 Years [id number] Intramuscular Left Deltoid 08/22/2013 06/10/2013 141 Influenza 08/24/2015 sanofi pasteur PMC Fluzone [id number] Intramuscular Left Deltoid 08/24/2015 06/22/2015 141 History [...] to other allergen Sep 11 2015 9:22AM Payers Insurance Name Company Name Plan Name Plan Number Policy Number Policy Group Number Start Date Medicare Part A Medicare Part A [id number] Tuesday, 2012 [facility] [id number] Friday, 2009 Medicare Part B Medicare Of [place] [id number] Saturday, 2006 History of Encounters Visit Date Visit Type Provider 09/11/2015 Nurse visit Nicole Ackerman MD 09/04/2015 [...] Nicole APRN 07/04/2014 Nurse visit Skylar Pfeiffer ECHO VASCULAR TECH 06/27/2014 Nurse visit [place] ECHO VASCULAR TECH 06/20/2014 Nurse visit [place] ECHO VASCULAR TECH 06/13/2014 Nurse visit Nicole Ackerman MD 06/06/2014 Nurse visit Mariposa Bellamy ECHO VASCULAR TECH 05/30/2014 Nurse visit [place] ECHO VASCULAR TECH 05/23/2014 Nurse visit Skylar Pfeiffer ECHO VASCULAR TECH 05/16/2014 Nurse visit Nicole Ackerman MD 05/02/2014 Nurse visit Nicole Ackerman MD 04/25/2014 Nurse visit Nicole Ackerman MD 04/18/2014 Nurse visit Nicole Ackerman MD 04/12/2014 Nurse visit Nicole Ackerman MD 04/05/2014 Nurse visit Nicole Ackerman MD 03/28/2014 Nurse visit Mariposa Cordova RN 03/22/2014 Nurse visit Skylar Pfeiffer ECHO VASCULAR TECH 03/14/2014 Nurse visit Nicole Ackerman MD 03/07/2014 Nurse visit Skylar Pfeiffer ECHO VASCULAR TECH 02/28/2014 Nurse visit Skylar Pfeiffer ECHO VASCULAR TECH 02/21/2014 Nurse visit Nicole Ackerman MD 02/14/2014 Nurse visit Skylar Pfeiffer ECHO VASCULAR TECH 02/06/2014 Nurse visit Nicole Ackerman MD 01/31/2014 Nurse visit Nicole Ackerman MD 01/25/2014 Nurse visit Nicole Ackerman MD 2014 Office visit Nicole Ackermna MD 01/09/2014 Nurse visit Nicole Ackerman MD 01/02/2014 Office visit Nicole Ackerman MD 12/27/2013 Nurse visit Nicole Ackerman MD 12/19/2013 Nurse visit Nicole Ackerman MD 12/12/2013 Nurse visit Nicole Ackerman MD 12/05/2013 Nurse visit Nicole Ackerman MD 11/29/2013 Nurse visit Mariposa Bellamy ECHO VASCULAR TECH 11/23/2013 Office visit Nicole Ackerman MD 11/14/2013 [...] Aguilera MD 08/09/2013 Nurse visit Skylar Pfeiffer ECHO VASCULAR TECH 08/02/2013 Nurse visit Skylar Pfeiffer ECHO VASCULAR TECH 07/26/2013 Nurse visit Skylar Pfeiffer ECHO VASCULAR TECH 07/19/2013 Nurse visit Skylar Pfeiffer ECHO VASCULAR TECH 07/12/2013 Nurse visit Skylar Pfeiffer ECHO VASCULAR TECH 07/05/2013 Nurse visit Skylar Pfeiffer ECHO VASCULAR TECH 06/28/2013 Nurse visit Skylar Pfeiffer ECHO VASCULAR TECH 06/21/2013 Nurse visit Skylar Pfeiffer ECHO VASCULAR TECH 06/14/2013 Nurse visit Skylar Pfeiffer ECHO VASCULAR TECH 06/08/2013 Nurse visit Jailene Aguilera MD 06/02/2013 [...] Aguilera MD 10/06/2012 Office visit Skylar Pfeiffer ECHO VASCULAR TECH 10/05/2012 Nurse visit Jailene Aguilera MD 09/28/2012 Nurse visit Jailene Aguilera MD 09/23/2012 [facility] Guido Parra MD 09/21/2012 Nurse visit Jailene Aguilera MD 09/14/2012 Nurse visit Jailene Aguilera MD 09/09/2012 [facility] Guido Parra MD 09/07/2012 Nurse [...]
--- OUTSIDE RECORDS SUMMARY | 2018-10-21 09:03 | XMS REPORT ---
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 NOV Fluvirin > 12 Years [id number] Intramuscular Left Deltoid 11/06/2009 11/16/2015 999 Influenza 08/21/2010 Novartis Pharmaceutical Becky. NOV Fluvirin > 12 Years [id number] Intramuscular Left Deltoid 08/21/2010 06/26/2009 999 Pneumococcal 08/28/2010 Merck & Co., Inc. MSD Pneumovax 23 [id number] Intramuscular Right Deltoid 08/28/2010 03/01/2009 999 Influenza 09/04/2011 sanofi pasteur PMC Fluzone [id number] Intramuscular Left Deltoid 09/04/2011 06/11/2011 111 Influenza 09/02/2012 sanofi pasteur PMC Fluzone [id number] Intramuscular Left Deltoid 09/02/2012 05/17/2012 141 Influenza 08/22/2013 sanofi pasteur PMC Fluzone > 3 Years [id number] Intramuscular Left Deltoid 08/22/2013 06/10/2013 141 History [...] to other allergen Jul 31 2015 9:04AM Payers Insurance Name Company Name Plan Name Plan Number Policy Number Policy Group Number Start Date Medicare Part A Medicare Part A [id number] Tuesday, 2012 [facility] [id number] Friday, 2009 Medicare Part B Medicare Of [place] [id number] Saturday, 2006 History of Encounters Visit Date Visit Type Provider 07/31/2015 Nurse visit Nicole Ackerman MD 07/24/2015 Nurse visit Nicole Ackerman MD 07/17/2015 Nurse visit Nicole Ackreman MD 07/10/2015 Nurse visit Nicole Ackerman MD [...] visit Nicole Ackerman MD 12/05/2014 Office visit iNcole Ackerman MD 11/28/2014 Nurse visit Nicole Ackerman [...] Ackerman MD 07/19/2014 Nurse visit [place] HOGSHEAD WRECKER 07/11/2014 Nurse visit [place] HOGSHEAD WRECKER 07/04/2014 Nurse visit Skylar Pfeiffer HOGSHEAD WRECKER 06/27/2014 Nurse visit [place] HOGSHEAD WRECKER 06/20/2014 Nurse visit [place] Nicole HOGSHEAD WRECKER 06/13/2014 Nurse visit Nicole Ackerman MD 06/06/2014 Nurse visit Mariposa Bellamy HOGSHEAD WRECKER 05/30/2014 Nurse visit [place] HOGSHEAD WRECKER 05/23/2014 Nurse visit Skylar Pfeiffer HOGSHEAD WRECKER 05/16/2014 Nurse visit Nicole Ackerman MD 05/02/2014 Nurse visit Nicole Ackerman MD 04/25/2014 Nurse visit Nicole Ackerman MD 04/18/2014 Nurse visit Nicole Ackerman MD 04/12/2014 Nurse visit Nicole Ackerman MD 04/05/2014 Nurse visit Nicole Ackerman MD 03/28/2014 Nurse visit Mariposa Cordova RN 03/22/2014 Nurse visit Skylar Pfeiffer HOGSHEAD WRECKER 03/14/2014 Nurse visit Nicole Ackerman MD 03/07/2014 Nurse visit Skylar Pfeiffer HOGSHEAD WRECKER 02/28/2014 Nurse visit Skylar Pfeiffer HOGSHEAD WRECKER 02/21/2014 Nurse visit Nicole Ackerman MD 02/14/2014 Nurse visit Skylar Pfeiffer HOGSHEAD WRECKER 02/06/2014 Nurse visit Nicole Ackerman MD 01/31/2014 [...] Ackerman MD 11/29/2013 Nurse visit Mariposa Bellamy HOGSHEAD WRECKER 11/23/2013 Office visit Nicole Ackerman MD 11/14/2013 [...] Aguilera MD 08/09/2013 Nurse visit Skylar Pfeiffer HOGSHEAD WRECKER 08/02/2013 Nurse visit Skylar Pfeiffer HOGSHEAD WRECKER 07/26/2013 Nurse visit Skylar Pfeiffer HOGSHEAD WRECKER 07/19/2013 Nurse visit Skylar Pfeiffer HOGSHEAD WRECKER 07/12/2013 Nurse visit Skylar Pfeiffer HOGSHEAD WRECKER 07/05/2013 Nurse visit Skylar Pfeiffer HOGSHEAD WRECKER 06/28/2013 Nurse visit Skylar Pfeiffer HOGSHEAD WRECKER 06/21/2013 Nurse visit Skylar Pfeiffer HOGSHEAD WRECKER 06/14/2013 Nurse visit Skylar Pfeiffer HOGSHEAD WRECKER 06/08/2013 Nurse visit Jailene Aguilera MD 06/02/2013 [...] Jailene Aguilera MD 12/07/2012 Nurse visit Jailene gAuilera MD 11/30/2012 Nurse visit Jailene Aguilera MD [...] 09/28/2012 Nurse visit Jailene Aguilera MD 09/23/2012 [facility] Guido Parra MD 09/21/2012 Nurse visit Jailene Aguilera MD 09/14/2012 Nurse visit Jailene Aguilera MD 09/09/2012 [facility] Guido Parra MD 09/07/2012 Nurse visit Jailene [...]
--- OUTSIDE RECORDS SUMMARY | 2018-10-21 09:07 | XMS REPORT ---
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 NOV Fluvirin > 12 Years [id number] Intramuscular Left Deltoid 11/06/2009 11/16/2016 999 Influenza 08/21/2010 [employer] Becky. NOV Fluvirin > 12 Years [id number] Intramuscular Left Deltoid 08/21/2010 06/26/2009 999 Pneumococcal 08/28/2010 Merck & Co., Inc. MSD Pneumovax 23 [id number] Intramuscular Right Deltoid 08/28/2010 03/01/2009 999 Influenza 09/04/2011 sanofi pasteur PMC Fluzone [id number] Intramuscular Left Deltoid 09/04/2011 06/11/2011 111 Influenza 09/02/2012 sanofi pasteur PMC Fluzone [id number] Intramuscular Left Deltoid 09/02/2012 05/17/2012 141 Influenza 08/22/2013 [facility] Fluzone > 3 Years [id number] Intramuscular Left Deltoid 08/22/2013 06/10/2013 141 Influenza 08/24/2015 [facility] Fluzone [id number] Intramuscular Left Deltoid 08/24/2015 06/22/2015 141 History [...] disc disease Jan 02 2014 2:49PM Obesity b 2013 2:49PM Spinal stenosis, Lumbar region Jan 02 2014 2:49PM Allergic Rhinitis Jan 02 2014 2:49PM Anemia b 2013 2:49PM Benign essential hypertension Jan 02 2014 2:49PM Gastric Ulcer b 2013 2:49PM Heartburn Jan 02 2014 2:49PM Hyperlipidemia b 2013 2:49PM Murmur Jan 02 2014 2:49PM Obstructive [...] Peripheral Vascular Disease Sep 14 2015 1:06PM Payers Insurance Name Company Name Plan Name Plan Number Policy Number Policy Group Number Start Date Medicare Part A Medicare Part A [id number] Tuesday, 2012 Bcbs Bcbs [facility] [id number] Friday, 2009 Medicare Part B Medicare Of [place] [id number] Saturday, 2006 History of Encounters Visit Date Visit Type Provider 09/14/2015 Office visit Nicole Ackerman MD 09/11/2015 [...] Ackerman MD 07/19/2014 Nurse visit [place] REGULATORY COMPLIANCE DIRECTOR 07/11/2014 Nurse visit [place] REGULATORY COMPLIANCE DIRECTOR 07/04/2014 Nurse visit Skylar Pfeiffer REGULATORY COMPLIANCE DIRECTOR 06/27/2014 Nurse visit [place] REGULATORY COMPLIANCE DIRECTOR 06/20/2014 Nurse visit [place] REGULATORY COMPLIANCE DIRECTOR 06/13/2014 Nurse visit Nicole Ackerman MD 06/06/2014 Nurse visit Mariposa Bellamy REGULATORY COMPLIANCE DIRECTOR 05/30/2014 Nurse visit [place] REGULATORY COMPLIANCE DIRECTOR 05/23/2014 Nurse visit Skylar Pfeiffer REGULATORY COMPLIANCE DIRECTOR 05/16/2014 Nurse visit Nicole Ackerman MD 05/02/2014 Nurse visit Nicole Ackerman MD 04/25/2014 Nurse visit Nicole Ackerman MD 04/18/2014 Nurse visit Nicole Ackerman MD 04/12/2014 Nurse visit Nicole Ackerman MD 04/05/2014 Nurse visit Nicole Ackerman MD 03/28/2014 Nurse visit Mariposa Cordova RN 03/22/2014 Nurse visit Skylar Pfeiffer REGULATORY COMPLIANCE DIRECTOR 03/14/2014 Nurse visit Nicole Ackerman MD 03/07/2014 Nurse visit Skylar Pfeiffer REGULATORY COMPLIANCE DIRECTOR 02/28/2014 Nurse visit Skylar Pfeiffer REGULATORY COMPLIANCE DIRECTOR 02/21/2014 Nurse visit Nicole Ackerman MD 02/14/2014 Nurse visit Skylar Pfeiffer REGULATORY COMPLIANCE DIRECTOR 02/06/2014 Nurse visit Nicole Ackerman MD [...] Ackerman MD 11/29/2013 Nurse visit Mariposa Bellamy REGULATORY COMPLIANCE DIRECTOR 11/23/2013 Office visit Nicole Ackerman MD [...] Aguilera MD 08/09/2013 Nurse visit Skylar Pfeiffer REGULATORY COMPLIANCE DIRECTOR 08/02/2013 Nurse visit Skylar Pfeiffer REGULATORY COMPLIANCE DIRECTOR 07/26/2013 Nurse visit Skylar Pfeiffer REGULATORY COMPLIANCE DIRECTOR 07/19/2013 Nurse visit Skylar Pfeiffer REGULATORY COMPLIANCE DIRECTOR 07/12/2013 Nurse visit Skylar Pfeiffer REGULATORY COMPLIANCE DIRECTOR 07/05/2013 Nurse visit Skylar Pfeiffer REGULATORY COMPLIANCE DIRECTOR 06/28/2013 Nurse visit Skylar Pfeiffer REGULATORY COMPLIANCE DIRECTOR 06/21/2013 Nurse visit Skylar Pfeiffer REGULATORY COMPLIANCE DIRECTOR 06/14/2013 Nurse visit Skylar Pfeiffer REGULATORY COMPLIANCE DIRECTOR 06/08/2013 Nurse visit Jailene Aguilera MD 06/02/2013 Nurse visit Jailene Aguilera MD 05/24/2013 Nurse visit Jailene Aguilera MD 05/17/2013 Nurse visit Jailene Aguilera MD 05/11/2013 Nurse visit Jailene Aguilera MD 05/02/2013 Nurse visit Jaielne Aguilera MD 04/26/2013 Nurse visit Jailene Aguilera [...] visit Chin Mcconnell DO 01/08/2011 Nurse visit hCin Mcconnell DO 01/01/2011 Office visit Chin Mcconnell [...]
--- NOTE | 2018-10-21 09:11 | Diagnostic Imaging Report ---
INDICATION: Status post bronchoscopy. TIME OF EXAMINATION: 08:35 a.m. COMPARISON: Correlation is made with prior study from 12/28/2015. FINDINGS: Heart size is stable. No pneumothorax is identified status post bronchoscopy. There are some mild basilar interstitial changes noted. No effusion is seen. IMPRESSION: No evidence of pneumothorax, status post bronchoscopy. Dictated by: Dictated on workstation # [id number]
--- OUTSIDE RECORDS SUMMARY | 2018-10-21 09:11 | XMS REPORT ---
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 NOV Fluvirin > 12 Years [id number] Intramuscular Left Deltoid 11/06/2009 11/16/2015 999 Influenza 08/21/2010 [employer] Becky. NOV Fluvirin > 12 Years [id number] Intramuscular Left Deltoid 08/21/2010 06/26/2009 999 Pneumococcal 08/28/2010 Merck & Co., Inc. MSD Pneumovax [id number] Intramuscular Right Deltoid 08/28/2010 03/01/2009 999 Influenza 09/04/2011 sanofi pasteur PMC Fluzone [id number] Intramuscular Left Deltoid 09/04/2011 06/11/2011 111 Influenza 09/02/2012 sanofi pasteur PMC Fluzone [id number] Intramuscular Left Deltoid 09/02/2012 05/17/2012 141 Influenza 08/22/2013 sanofi pasteur PMC Fluzone > 3 Years [id number] Intramuscular Left Deltoid 08/22/2013 06/10/2013 141 Influenza 08/24/2015 sanofi pasteur PMC Fluzone [id number] Intramuscular Left Deltoid 08/24/2015 06/22/2015 141 History [...] 9:07AM Allergic rhinitis; due to other allergen Fe2012 [...] to other allergen Nov 27 2015 9:05AM Payers Insurance Name Company Name Plan Name Plan Number Policy Number Policy Group Number Start Date Medicare Part A Medicare Part A [id number] Tuesday, 2012 [facility] [id number] Friday, 2009 Medicare Part B Medicare Of [place] [id number] Saturday, 2006 History of Encounters Visit Date Visit Type Provider 11/27/2015 Nurse visit Nicole Ackerman MD 11/13/2015 [...] visit Nicole Ackerman MD 01/16/2015 Office visit Nicoel Ackerman MD 01/09/2015 Nurse visit Nicole Ackerman [...] Ackerman MD 07/19/2014 Nurse visit South Nicole NAIL TECH 07/11/2014 Nurse visit [place] Nicole NAIL TECH 07/04/2014 Nurse visit 07/04/2014 Nurse visit 07/04/2014 Nurse visit Skylar Pfeiffer NAIL TECH 06/27/2014 Nurse visit 06/27/2014 Nurse visit 06/27/2014 Nurse visit [place] Nicole NAIL TECH 06/20/2014 Nurse visit [place] Nicole NAIL TECH 06/13/2014 Nurse visit Nicole Ackerman MD 06/06/2014 Nurse visit Mariposa Bellamy NAIL TECH 05/30/2014 Nurse visit [place] Nicole NAIL TECH 05/23/2014 Nurse visit Skylar Pfeiffer NAIL TECH 05/16/2014 Nurse visit Nicole Ackerman MD 05/02/2014 Nurse visit Nicole Ackerman MD 04/25/2014 Nurse visit Nicole Ackerman MD 04/18/2014 Nurse visit Nicole Ackerman MD 04/12/2014 Nurse visit Nicole Ackerman MD 04/05/2014 Nurse visit Nicole Ackerman MD 03/28/2014 Nurse visit Mariposa Cordova RN 03/22/2014 Nurse visit Skylar Pfeiffer NAIL TECH 03/14/2014 Nurse visit Nicole Ackerman MD 03/07/2014 Nurse visit Skylar Pfeifefr NAIL TECH 02/28/2014 Nurse visit Skylar Pfeiffer NAIL TECH 02/21/2014 Nurse visit Nicole Ackerman MD 02/14/2014 Nurse visit Skylar Pfeiffer NAIL TECH 02/06/2014 Nurse visit Nicole Ackerman MD [...] Ackerman MD 11/29/2013 Nurse visit Mariposa Bellamy NAIL TECH 11/23/2013 Office visit Nicole Ackerman MD [...] Aguilera MD 08/09/2013 Nurse visit Skylar Pfeiffer NAIL TECH 08/02/2013 Nurse visit Skylar Pfeiffer NAIL TECH 07/26/2013 Nurse visit Skylar Pfeiffer NAIL TECH 07/19/2013 Nurse visit Skylar Pfeiffer NAIL TECH 07/12/2013 Nurse visit Skylar Pfeiffer NAIL TECH 07/05/2013 Nurse visit Skylar Pfeiffer NAIL TECH 06/28/2013 Nurse visit Skylar Pfeiffer NAIL TECH 06/21/2013 Nurse visit Skylar Pfeiffer NAIL TECH 06/14/2013 Nurse visit Skylar MoDali Kentrell NAIL TECH 06/08/2013 Nurse visit Jailene Aguilera MD 06/02/2013 Nurse visit Jailene Aguilera MD 05/24/2013 Nurse visit Jailene Aguilera MD 05/17/2013 Nurse visit Jailene Aguilera MD 05/11/2013 Nurse visit Jailene Aguilera MD 05/02/2013 Nurse visit Jailene Aguilera MD 04/26/2013 Nurse visit Jailene Aguilera MD 04/19/2013 Nurse visit Jailene Aguilera MD 04/12/2013 Nurse visit Jailene Aguilera MD 04/05/2013 Nurse visit Jailene Aguielra MD 03/29/2013 Nurse visit Jailene Aguilera MD [...] Aguilera MD 10/06/2012 Office visit Skylar MoDali Pfeiffer APRN 10/05/2012 Nurse visit Jailene Aguilera [...] visit Jailene Aguilera MD 10/20/2011 Nurse visit aJilene Aguilera MD 10/20/2011 Voided Jarad Saravia DO [...] visit Chin Mcconnell DO 01/30/2010 Nurse visit Chni Mcconnell DO 01/23/2010 Nurse visit Chin Mcconnell [...]
--- OUTSIDE RECORDS SUMMARY | 2018-10-21 09:15 | XMS REPORT ---
Author Author Evan Mccullough [facility] Address [address] [place], [place] [id number] Care Team Providers Care Online Facilitator Name Role Phone Evan Mccullough PCP ZacNicole [...] Treatment 10/16/2015 12:00 AM Allergy Injection Multiple 05/04/2012 12:00 [...] TAKE 1 TABLET BY MOUTH ONCE DAILY metformin 500 mg oral tablet 04/07/2016 04/02/2017 TAKE 1 TABLET BY MOUTH DAILY IN THE MORNING AND TAKE 2 TABLETS DAILY IN THE EVENING for 90 days levothyroxine 100 mcg oral tablet 06/09/2016 TAKE [...] days Crestor 20 mg oral tablet 10/13/2016 take [...] oral route once daily for 90 days Mastectomy Bra 1 unit 04/25/2016 11/09/2016 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 Discontinued Name Start Date Discontinued Date SIG [...] Name Description Comments 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 MSD Pneumovax 23 Intramuscular Not Entered 11/16/2017 11/16/2017 999 Influenza 08/15/2009 Novartis Pharmaceutical Becky. NOV Fluvirin > 12 Years [id number] Intramuscular Left Deltoid 11/06/2009 11/16/2017 999 Influenza 08/21/2010 Novartis Pharmaceutical Becky. NOV Fluvirin > 12 Years [id number] Intramuscular Left Deltoid 08/21/2010 06/26/2009 999 X 08/28/2010 [employer]. MSD Pneumovax 23 [id number] Intramuscular Right Deltoid 08/28/2010 03/01/2009 999 Influenza 09/04/2011 sanofi pasteur PMC Fluzone [id number] Intramuscular Left Deltoid 09/04/2011 06/11/2011 111 Influenza 09/02/2012 sanofi pasteur PMC Fluzone [id number] Intramuscular Left Deltoid 09/02/2012 05/17/2012 141 Influenza 08/22/2013 sanofi pasteur PMC Fluzone > 3 Years [id number] Intramuscular Left Deltoid 08/22/2013 06/10/2013 141 Influenza 08/24/2015 sanofi pasteur PMC Fluzone [id number] Intramuscular Left Deltoid 08/24/2015 06/22/2015 141 History [...] Breast cancer screening Dec 08 2016 3:55PM Payers Insurance Name Company Name Plan Name Plan Number Policy Number Policy Group Number Start Date Medicare C Medicare RHC [id number] N/A BCBS [employer] [place] [id number] Friday, 2009 Medicare Part A Medicare Part A [id number] Tuesday, 2012 Medicare Part A Medicare - Lab/Xray [id number] Tuesday, July 17, 2012 Medicare Part B Medicare Of [place] [id number] Saturday, January 14, 2006 History of Encounters Visit Date Visit Type Provider 10/02/[address] Evan Mccullough MD 06/27/[address] Evan Mccullough MD 05/12/[address] Evan Mccullough MD 04/07/[address] Evan Mccullough MD 01/30/2016 Office visit 01/30/2016 Office visit Giselle Olivia GRANTS OFFICER 01/22/2016 Nurse visit South Nicole GRANTS OFFICER 01/15/2016 Nurse visit Nicole Ackerman MD 01/08/2016 [...] Nicole Ackerman MD 10/16/2015 [facility] Jamir Ness MD 10/16/2015 Office visit 10/16/2015 [...] visit Nicole Ackerman MD 08/21/2015 Nurse visit Nicoel Ackerman MD 08/14/2015 Nurse visit Nicole Ackerman [...] Ackerman MD 07/19/2014 Nurse visit South Nicole GRANTS OFFICER 07/11/2014 Nurse visit South Nicole GRANTS OFFICER 07/04/2014 Nurse visit 07/04/2014 Nurse visit 07/04/2014 Nurse visit Syklar Pfeiffer GRANTS OFFICER 06/27/2014 Nurse visit 06/27/2014 Nurse visit 06/27/2014 Nurse visit South Nicole GRANTS OFFICER 06/20/2014 Nurse visit South Nicole GRANTS OFFICER 06/13/2014 Nurse visit Nicole Ackerman MD 06/06/2014 Nurse visit Mariposa Bellamy GRANTS OFFICER 05/30/2014 Nurse visit South Nicole GRANTS OFFICER 05/23/2014 Nurse visit Skylar Pfeiffer GRANTS OFFICER 05/16/2014 Nurse visit Nicole Ackerman MD 05/02/2014 Nurse visit Nicole Ackerman MD 04/25/2014 Nurse visit Nicole Ackerman MD 04/18/2014 Nurse visit Nicole Ackerman MD 04/12/2014 Nurse visit Nicole Ackerman MD 04/05/2014 Nurse visit Nicole Ackerman MD 03/28/2014 Nurse visit Mariposa Cordova RN 03/22/2014 Nurse visit Skylar Pfeiffer GRANTS OFFICER 03/14/2014 Nurse visit Nicole Ackerman MD 03/07/2014 Nurse visit Skylar Pfeiffer GRANTS OFFICER 02/28/2014 Nurse visit Skylar Pfeiffer GRANTS OFFICER 02/21/2014 Nurse visit Nicole Ackerman MD 02/14/2014 Nurse visit Skylar Pfeiffer GRANTS OFFICER 02/06/2014 Nurse visit Nicole Ackerman MD 01/31/2014 [...] Ackerman MD 11/29/2013 Nurse visit Mariposa Bellamy GRANTS OFFICER 11/23/2013 Office visit Nicole Ackerman MD 11/14/2013 Nurse visit Jarad Garciahite DO 11/07/2013 Nurse visit Nicole Ackerman MD [...] visit Jailene Aguilera MD 08/31/2013 Nurse visit Jialene Aguilera MD 08/25/2013 Nurse visit Jailene Aguilera MD 08/22/2013 Office visit Jailene Aguilera MD 08/16/2013 Nurse visit Jailene Aguilera MD 08/09/2013 Nurse visit Skylar Pfeiffer GRANTS OFFICER 08/02/2013 Nurse visit Skylar Pfeiffer GRANTS OFFICER 07/26/2013 Nurse visit Skylar Pfeiffer GRANTS OFFICER 07/19/2013 Nurse visit Skylar Pfeiffer GRANTS OFFICER 07/12/2013 Nurse visit Skylar Pfeiffer GRANTS OFFICER 07/05/2013 Nurse visit Skylar Pfeiffer GRANTS OFFICER 06/28/2013 Nurse visit Skylar Pfeiffer GRANTS OFFICER 06/21/2013 Nurse visit Skylar Pfeiffer GRANTS OFFICER 06/14/2013 Nurse visit Skylar Pfeiffer GRANTS OFFICER 06/08/2013 Nurse visit Jailene Aguilera MD 06/02/2013 [...] Aguilera MD 10/06/2012 Office visit Skylar Pfeiffer GRANTS OFFICER 10/05/2012 Nurse visit Jailene Aguilera MD 09/28/2012 [...] Jailene Aguilera MD 12/08/2011 Nurse visit Jailene Aguilrea MD 12/02/2011 Nurse visit Jailene Aguilera MD [...]
--- OUTSIDE RECORDS SUMMARY | 2018-10-21 09:20 | XMS REPORT ---
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 MSD Pneumovax 23 Intramuscular Not Entered 11/16/2018 11/16/2018 999 Influenza 08/15/2009 Novartis Pharmaceutical Becky. NOV Fluvirin > 12 Years [id number] Intramuscular Left Deltoid 11/06/2009 11/16/2018 999 Influenza 08/21/2010 Novartis Pharmaceutical Becky. NOV Fluvirin > 12 Years [id number] Intramuscular Left Deltoid 08/21/2010 06/26/2009 999 X 08/28/2010 Merck & Co., Inc. MSD Pneumovax 23 [id number] Intramuscular Right Deltoid 08/28/2010 03/01/2009 999 Influenza 09/04/2011 sanofi pasteur PMC Fluzone [id number] Intramuscular Left Deltoid 09/04/2011 06/11/2011 111 Influenza 09/02/2012 sanofi pasteur PMC Fluzone [id number] Intramuscular Left Deltoid 09/02/2012 05/17/2012 141 Influenza 08/22/2013 sanofi pasteur PMC Fluzone > 3 Years [id number] Intramuscular Left Deltoid 08/22/2013 06/10/2013 141 Influenza 08/24/2015 sanofi pasteur PMC Fluzone [id number] Intramuscular Left Deltoid 08/24/2015 06/22/2015 141 History [...] 9:07AM Allergic rhinitis; due to other allergen Feb 2012 9:07AM Allergic rhinitis; due to other allergen Feb 2012 9:12AM Allergic rhinitis; due to other [...] Number Start Date Medicare RHC Medicare RHC [id number] N/A [id number] Friday, 2009 Medicare Part A Medicare Part A [id number] Tuesday, 2012 Medicare Part A Medicare - Lab/Xray [id number] Tuesday, July 17, 2012 Medicare Part B Medicare Of [place] [id number] Saturday, January 14, 2006 History of Encounters Visit Date Visit Type Provider 01/07/[address] Evan Mccullough MD 11/23/2017 Office visit Mariposa Bellamy DIPPER AND DRIER 10/30/2017 Office visit Dneisse Hart DIPPER AND DRIER 07/09/[address] Evan Mccullough MD 01/09/[address] Evan Mccullough MD 10/02/[address] Evan Mccullough MD 06/27/[address] Evan Mccullough MD 05/12/[address] Evan Mccullough MD 04/07/[address] Evan Mcculluogh MD 01/30/2016 Office visit 01/30/2016 Office visit Gisellekenisha Olivia DIPPER AND DRIER 01/22/2016 Nurse visit South Nicole DIPPER AND DRIER 01/15/2016 Nurse visit Nicole Ackerman MD 01/08/2016 [...] 10/23/2015 Nurse visit Nicole Ackerman MD 10/16/2015 [facility] Reggie Ness MD 10/16/2015 Office visit 10/16/2015 [...] Ackerman MD 07/19/2014 Nurse visit South Nicole DIPPER AND DRIER 07/11/2014 Nurse visit [place] Nicole DIPPER AND DRIER 07/04/2014 Nurse visit 07/04/2014 Nurse visit 07/04/2014 Nurse visit Skylar Pfeiffer DIPPER AND DRIER 06/27/2014 Nurse visit 06/27/2014 Nurse visit 06/27/2014 Nurse visit South Nicole DIPPER AND DRIER 06/20/2014 Nurse visit South Nicole DIPPER AND DRIER 06/13/2014 Nurse visit Nicole Ackerman MD 06/06/2014 Nurse visit Mariposa Bellamy DIPPER AND DRIER 05/30/2014 Nurse visit South Nicole DIPPER AND DRIER 05/23/2014 Nurse visit Skylar Pfeiffer DIPPER AND DRIER 05/16/2014 Nurse visit Nicole Ackerman MD 05/02/2014 Nurse visit Nicole Ackerman MD 04/25/2014 Nurse visit Nicole Ackerman MD 04/18/2014 Nurse visit Nicole Ackerman MD 04/12/2014 Nurse visit Nicole Ackerman MD 04/05/2014 Nurse visit Nicole Ackerman MD 03/28/2014 Nurse visit Mariposa Cordova RN 03/22/2014 Nurse visit Skylar Pfeiffer DIPPER AND DRIER 03/14/2014 Nurse visit Nicole Ackerman MD 03/07/2014 Nurse visit Skylar Pfeiffer DIPPER AND DRIER 02/28/2014 Nurse visit Skylar Pfeiffer DIPPER AND DRIER 02/21/2014 Nurse visit Nicole Ackerman MD 02/14/2014 Nurse visit Skylar Pfeiffer DIPPER AND DRIER 02/06/2014 Nurse visit Nicole Ackerman MD 01/31/2014 Nurse visit Nicole Ackerman MD 01/25/2014 Nurse visit Nicole Ackerman MD 2014 Office visit Nicole Ackerman MD 01/09/2014 Nurse visit Nicole Ackerman MD 01/02/2014 Office visit Nicole Ackerman MD 12/27/2013 Nurse visit Nicole Ackerman MD 12/19/2013 Nurse visit Nicole Ackerman MD 12/12/2013 Nurse visit Nicole Ackerman MD 12/05/2013 Nurse visit Nicole Ackerman MD 11/29/2013 Nurse visit Maripsoa Bellamy DIPPER AND DRIER 11/23/2013 Office visit Nicole Ackerman MD 11/14/2013 [...] Aguilera MD 08/09/2013 Nurse visit Skylar Pfeiffer DIPPER AND DRIER 08/02/2013 Nurse visit Skylar Pfeiffer DIPPER AND DRIER 07/26/2013 Nurse visit Skylar Pfeiffer DIPPER AND DRIER 07/19/2013 Nurse visit Skylar Pfeiffer DIPPER AND DRIER 07/12/2013 Nurse visit Skylar Pfeiffer DIPPER AND DRIER 07/05/2013 Nurse visit Skylar Pfeiffer DIPPER AND DRIER 06/28/2013 Nurse visit Skylar Pfeiffer DIPPER AND DRIER 06/21/2013 Nurse visit Skylar Pfeiffer DIPPER AND DRIER 06/14/2013 Nurse visit Skylar Pfeiffer DIPPER AND DRIER 06/08/2013 Nurse visit Jailene Aguilera MD 06/02/2013 [...] 09/28/2012 Nurse visit Jailene Aguilera MD 09/23/2012 [facility] Guido Parra MD 09/21/2012 Nurse visit Jailene Aguilera MD 09/14/2012 Nurse visit Jailene Aguilera MD 09/09/2012 [facility] Guido Parra MD 09/07/2012 Nurse [...]
--- OUTSIDE RECORDS SUMMARY | 2018-10-21 09:27 | XMS REPORT ---
Author Author Evan Mccullough Organization [facility] Address [address] [place], [place] [id number] Care Team Providers Care Account Manager Employee Benefits Name Role Phone Evan Mccullough PCP Evan [...] 12:00 AM Breathing Treatment 10/16/2015 12:00 AM Bone Density 01/19/2017 12:00 AM Allergy Injection Multiple 05/04/2012 12:00 [...] ONCE DAILY for 90 days Symbicort inhalation amlodipine 5 [...] TAKE ONE TABLET BY MOUTH ONCE DAILY Name Start [...] as directed for post mastectomy care losartan 100 mg oral tablet 06/27/2016 12/24/2016 [...] HC BMI BSA BMI Percentile O2 Sat(%) 01/09/2017 11:04:00 AM 168 mmHg 70 mmHg [...] History Name Description Comments 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 Active but [...] INJECTIONS Reviewed 01/09/2017 12:00 AM LIPID PANEL Returned 01/09/2017 12:00 AM COMPREHEN METABOLIC PANEL Returned 01/09/2017 12:00 AM GLYCOSYLATED HEMOGLOBIN TEST Returned 04/13/2012 12:00 AM IMMUNOTHERAPY INJECTIONS Reviewed 04/20/2012 12:00 AM IMMUNOTHERAPY INJECTIONS Reviewed 04/27/2012 12:00 AM IMMUNOTHERAPY INJECTIONS Reviewed 01/23/2010 12:00 AM IMMUNOTHERAPY INJECTIONS Reviewed 01/30/2010 12:00 AM IMMUNOTHERAPY INJECTIONS Reviewed 08/18/2012 12:00 AM IMMUNOTHERAPY INJECTIONS Reviewed 08/25/2012 12:00 AM IMMUNOTHERAPY INJECTIONS Reviewed 08/31/2012 12:00 AM IMMUNOTHERAPY INJECTIONS Reviewed 09/02/2012 12:00 AM Flu Injection 3 Years And Above [facility]# [address]-14 C Reviewed 09/07/2012 12:00 AM IMMUNOTHERAPY INJECTIONS [...] AM Flu Injection 3 Years And Above [facility]# [address]-82 C Reviewed 10/30/2009 12:00 AM IMMUNOTHERAPY INJECTIONS [...] Pharmaceutical Becky. NOV Fluvirin > 12 Years [id number] Intramuscular Left Deltoid 11/06/2009 11/16/2017 999 Influenza 08/21/2010 Novartis Pharmaceutical Becky. NOV Fluvirin > 12 Years [id number] Intramuscular Left Deltoid 08/21/2010 06/26/2009 999 X 08/28/2010 Merck & Co., Inc. MSD Pneumovax 23 [id number] Intramuscular Right Deltoid 08/28/2010 03/01/2009 999 Influenza 09/04/2011 [facility] Fluzone [id number] Intramuscular Left Deltoid 09/04/2011 06/11/2011 111 Influenza 09/02/2012 sanofi pasteur PMC Fluzone [id number] Intramuscular Left Deltoid 09/02/2012 05/17/2012 141 Influenza 08/22/2013 [facility] PMC Fluzone > 3 Years [id number] Intramuscular Left Deltoid 08/22/2013 06/10/2013 141 Influenza 08/24/2015 sanofi pasteur PMC Fluzone [id number] Intramuscular Left Deltoid 08/24/2015 06/22/2015 141 History [...] Screening for osteoporosis Jan 19 2017 4:11PM Payers Insurance Name Company Name Plan Name Plan Number Policy Number Policy Group Number Start Date Medicare [facility] Medicare [facility] [id number] N/A BCBS [facility] [id number] Friday, 2009 Medicare Part A Medicare Part A [id number] Tuesday, 2012 Medicare Part A Medicare - Lab/Xray [id number] Tuesday, July 17, 2012 Medicare Part B Medicare Of [place] [id number] Saturday, January 14, 2006 History of Encounters Visit Date Visit Type Provider 01/09/[address] Evan Mccullough MD 10/02/[address] Evan Mccullough MD 06/27/[address] Evan Mccullough MD 05/12/[address] Evan Mccullough MD 04/07/[address] Evan Mccullough MD 01/30/2016 Office visit 01/30/2016 Office visit Giselle Olivia MGMT CONSULTANT 01/22/2016 Nurse visit South Nicole MGMT CONSULTANT 01/15/2016 Nurse visit Nicole Ackerman MD 01/08/2016 [...] 10/23/2015 Nurse visit Nicole Ackerman MD 10/16/2015 [facility] Jamir Ness MD 10/16/2015 Office visit 10/16/2015 Office visit Nicole Ackerman MD 10/09/2015 Nurse visit Nicole Ackerman MD 10/03/2015 Nurse visit Nicole Ackerman MD 09/25/2015 Nurse visit Nicole Ackerman MD 09/18/2015 Nurse visit Nicole cAkerman MD 09/14/2015 Office visit Nicole Ackerman MD [...] visit Nicole Ackerman MD 12/12/2014 Nurse visit Nciole Ackerman MD 12/05/2014 Office visit 12/05/2014 Office [...] Ackerman MD 07/19/2014 Nurse visit South Nicole MGMT CONSULTANT 07/11/2014 Nurse visit [place] Nicole MGMT CONSULTANT 07/04/2014 Nurse visit 07/04/2014 Nurse visit 07/04/2014 Nurse visit Skylar Pfeiffer MGMT CONSULTANT 06/27/2014 Nurse visit 06/27/2014 Nurse visit 06/27/2014 Nurse visit [place] Nicole MGMT CONSULTANT 06/20/2014 Nurse visit [place] Nicole MGMT CONSULTANT 06/13/2014 Nurse visit Nicole Ackerman MD 06/06/2014 Nurse visit Mariposa Bellamy MGMT CONSULTANT 05/30/2014 Nurse visit [place] Nicole MGMT CONSULTANT 05/23/2014 Nurse visit Skylar Pfeiffer MGMT CONSULTANT 05/16/2014 Nurse visit Nicole Ackerman MD 05/02/2014 Nurse visit Nicole Ackerman MD 04/25/2014 Nurse visit Nicole Ackerman MD 04/18/2014 Nurse visit Nicole Ackerman MD 04/12/2014 Nurse visit Nicole Ackerman MD 04/05/2014 Nurse visit Nicole Ackerman MD 03/28/2014 Nurse visit Mariposa Cordova RN 03/22/2014 Nurse visit Skylar Pfeiffer MGMT CONSULTANT 03/14/2014 Nurse visit Nicole Ackerman MD 03/07/2014 Nurse visit Skylar Pfeiffer MGMT CONSULTANT 02/28/2014 Nurse visit Skylar Pfeiffer MGMT CONSULTANT 02/21/2014 Nurse visit Nicole Ackerman MD 02/14/2014 Nurse visit Skylar Pfeiffer MGMT CONSULTANT 02/06/2014 Nurse visit Nicole Ackerman MD [...] Ackerman MD 11/29/2013 Nurse visit Mariposa Bellamy MGMT CONSULTANT 11/23/2013 Office visit Nicole Ackerman MD [...] Aguilera MD 08/09/2013 Nurse visit Skylar Pfeiffer MGMT CONSULTANT 08/02/2013 Nurse visit Skylar Pfeiffer MGMT CONSULTANT 07/26/2013 Nurse visit Skylar Pfeiffer MGMT CONSULTANT 07/19/2013 Nurse visit Skylar Pfeiffer MGMT CONSULTANT 07/12/2013 Nurse visit Skylar Pfeiffer MGMT CONSULTANT 07/05/2013 Nurse visit Skylar Pfeiffer MGMT CONSULTANT 06/28/2013 Nurse visit Skylar Pfeiffer MGMT CONSULTANT 06/21/2013 Nurse visit Skylar Pfeiffer MGMT CONSULTANT 06/14/2013 Nurse visit Skylar Pfeiffer MGMT CONSULTANT 06/08/2013 Nurse visit Jailene Aguilera MD [...] visit Chin Mcconnell DO 04/10/2010 Nurse visit hCin Mcconnell DO 04/03/2010 Nurse visit Chin Mcconnell [...] visit Chin Mcconnell DO 12/26/2009 Nurse visit Chni Mcconnell DO 12/19/2009 Nurse visit Chin Mcconnell [...]
--- OUTSIDE RECORDS SUMMARY | 2018-10-21 09:32 | XMS REPORT ---
Author Author Nicole Ackerman Organization [facility] Address [address] [place], [place] [id number] Care Team Providers Care Hosiery Mender Name Role Phone Nicole Ackerman PCP Allergies [...] capsule (100 mg) by oral route [facility] Tylenol Extra Strength 500 mg oral [...] in a.m. and 2 tabs in P.m. 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 NOV Fluvirin > 12 Years [id number] Intramuscular Left Deltoid 11/06/2009 11/16/2015 999 Influenza 08/21/2010 [employer]. NOV Fluvirin > 12 Years [id number] Intramuscular Left Deltoid 08/21/2010 06/26/2009 999 Pneumococcal 08/28/2010 Merck & Co., Inc. MSD Pneumovax 23 1407Y Intramuscular Right Deltoid 08/28/2010 03/01/2009 999 Influenza 09/04/2011 sanofi pasteur PMC Fluzone [id number] Intramuscular Left Deltoid 09/04/2011 06/11/2011 111 Influenza 09/02/2012 sanofi pasteur PMC Fluzone [id number] Intramuscular Left Deltoid 09/02/2012 05/17/2012 141 Influenza 08/22/2013 [facility] PMC Fluzone > 3 Years [id number] Intramuscular Left Deltoid 08/22/2013 06/10/2013 141 Influenza 08/24/2015 [facility] Fluzone [id number] Intramuscular Left Deltoid 08/24/2015 06/22/2015 141 History [...] to other allergen Dec 18 2015 9:06AM Payers Insurance Name Company Name Plan Name Plan Number Policy Number Policy Group Number Start Date Medicare Part A Medicare Part A [id number] Tuesday, 2012 BCBS [facility] [id number] Friday, 2009 Medicare Part B Medicare Of [place] [id number] Saturday, 2006 History of Encounters Visit Date Visit Type Provider 12/18/2015 Nurse visit Nicole Ackerman MD 12/11/2015 Nurse visit Nicole Ackerman MD 11/27/2015 Nurse visit Nicole Ackerman MD 11/13/2015 Nurse visit Nicole Ackerman MD 10/31/2015 Office visit 10/31/2015 Office visit Nicole Ackerman MD 10/23/2015 Nurse visit Nicole Ackerman MD 10/16/2015 [facility] [place] 10/16/2015 Office visit 10/16/2015 Office visit Nicole Ackerman MD 10/09/2015 Nurse visit Nicole Ackerman MD 10/03/2015 Nurse visit Nicloe Ackerman MD 09/25/2015 Nurse visit Nicole Ackerman [...] visit Nicole Ackerman MD 07/31/2015 Nurse visit Niocle Ackerman MD 07/24/2015 Nurse visit Nicole Ackerman [...] Nicole Ackerman MD 01/02/2015 Nurse visit Nicole cAkerman MD 12/19/2014 Nurse visit Nicole Ackerman MD [...] Ackerman MD 07/19/2014 Nurse visit [place] Nicole PATIENT PARTNER 07/11/2014 Nurse visit [place] PATIENT PARTNER 07/04/2014 Nurse visit 07/04/2014 Nurse visit 07/04/2014 Nurse visit Skylar Pfeiffer PATIENT PARTNER 06/27/2014 Nurse visit 06/27/2014 Nurse visit 06/27/2014 Nurse visit [place] PATIENT PARTNER 06/20/2014 Nurse visit [place] PATIENT PARTNER 06/13/2014 Nurse visit Nicole Ackerman MD 06/06/2014 Nurse visit Mariposa Bellamy PATIENT PARTNER 05/30/2014 Nurse visit [place] PATIENT PARTNER 05/23/2014 Nurse visit Skylar Pfeiffer PATIENT PARTNER 05/16/2014 Nurse visit Nicole Ackerman MD 05/02/2014 Nurse visit Nicole Ackerman MD 04/25/2014 Nurse visit Nicole Ackerman MD 04/18/2014 Nurse visit Nicole Ackerman MD 04/12/2014 Nurse visit Nicole Ackerman MD 04/05/2014 Nurse visit Nicole Ackerman MD 03/28/2014 Nurse visit Mariposa Cordova RN 03/22/2014 Nurse visit Skylar Pfeiffer PATIENT PARTNER 03/14/2014 Nurse visit Nicole Ackerman MD 03/07/2014 Nurse visit Skylar Pfeiffer PATIENT PARTNER 02/28/2014 Nurse visit Skylar Pfeiffer PATIENT PARTNER 02/21/2014 Nurse visit Nicole Ackerman MD 02/14/2014 Nurse visit Skylar Pfeiffer PATIENT PARTNER 02/06/2014 Nurse visit Nicole Ackerman MD 01/31/2014 [...] Ackerman MD 11/29/2013 Nurse visit Mariposa Bellamy PATIENT PARTNER 11/23/2013 Office visit Nicole Ackerman MD 11/14/2013 [...] Aguilera MD 08/09/2013 Nurse visit Skylar Pfeiffer PATIENT PARTNER 08/02/2013 Nurse visit Skylar Pfeiffer PATIENT PARTNER 07/26/2013 Nurse visit Skylar Pfeiffer PATIENT PARTNER 07/19/2013 Nurse visit Skylar Pfeiffer PATIENT PARTNER 07/12/2013 Nurse visit Skylar Pfeiffer PATIENT PARTNER 07/05/2013 Nurse visit Skylar Pfeiffer PATIENT PARTNER 06/28/2013 Nurse visit Skylar Pfeiffer PATIENT PARTNER 06/21/2013 Nurse visit Skylar Pfeiffer PATIENT PARTNER 06/14/2013 Nurse visit Skylar Pfeiffer PATIENT PARTNER 06/08/2013 Nurse visit Jailene Aguilera MD 06/02/2013 [...] visit Jailene Aguilera MD 03/09/2012 Nurse visit Jialene Aguilera MD 03/02/2012 Nurse visit Jailene Aguilera [...] 02/19/2011 Nurse visit Chin Mcconnell DO 02/19/2011 [facility] Jamir Ness MD 02/11/2011 Nurse visit [...] visit Chin Mcconnell DO 07/24/2010 Nurse visit hCin Mcconnell DO 07/17/2010 Nurse visit Chin Mcconnell [...]
--- OUTSIDE RECORDS SUMMARY | 2018-10-21 09:37 | XMS REPORT ---
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 NOV Fluvirin > 12 Years [id number] Intramuscular Left Deltoid 11/06/2009 11/16/2015 999 Influenza 08/21/2010 Nov[employer]is [employer] Becky. NOV Fluvirin > 12 Years [id number] Intramuscular Left Deltoid 08/21/2010 06/26/2009 999 Pneumococcal 08/28/2010 Merck & Co., Inc. MSD Pneumovax 23 1407Y Intramuscular Right Deltoid 08/28/2010 03/01/2009 999 Influenza 09/04/2011 [facility] PMC Fluzone [id number] Intramuscular Left Deltoid 09/04/2011 06/11/2011 111 Influenza 09/02/2012 [facility] PMC Fluzone [id number] Intramuscular Left Deltoid 09/02/2012 05/17/2012 141 Influenza 08/22/2013 [facility] PMC Fluzone > 3 Years [id number] Intramuscular Left Deltoid 08/22/2013 06/10/2013 141 Influenza 08/24/2015 [facility] Fluzone [id number] Intramuscular Left Deltoid 08/24/2015 06/22/2015 141 History [...] to other allergen Jan 08 2016 9:30AM Payers Insurance Name Company Name Plan Name Plan Number Policy Number Policy Group Number Start Date Medicare Part A Medicare Part A [id number] Tuesday, 2012 [employer]BS [employer] [place] [id number] Friday, 2009 Medicare Part B Medicare [place] [id number] Saturday, 2006 History of Encounters Visit Date [...] 10/23/2015 Nurse visit Nicole Ackerman MD 10/16/2015 [facility] Reggie Ness MD 10/16/2015 Office visit 10/16/2015 Office visit Nicole Ackerman MD 10/09/2015 Nurse visit Nicole Ackerman MD 10/03/2015 Nurse visit Nicole Ackerman MD 09/25/2015 Nurse visit Nicole Ackerman MD 09/18/2015 Nurse visit Nicole Ackerman MD 09/14/2015 Office visit Nicole Ackerman MD 09/11/2015 Nurse visit Nicole Akcerman MD 09/04/2015 Nurse visit Nicole Ackerman MD [...] Ackerman MD 07/19/2014 Nurse visit [place] Nicole BUSINESS ADMINISTRATION PROFESSOR 07/11/2014 Nurse visit [place] BUSINESS ADMINISTRATION PROFESSOR 07/04/2014 Nurse visit 07/04/2014 Nurse visit 07/04/2014 Nurse visit Skylar Pfeiffer BUSINESS ADMINISTRATION PROFESSOR 06/27/2014 Nurse visit 06/27/2014 Nurse visit 06/27/2014 Nurse visit [place] Nicole BUSINESS ADMINISTRATION PROFESSOR 06/20/2014 Nurse visit [place] Nicole BUSINESS ADMINISTRATION PROFESSOR 06/13/2014 Nurse visit Nicole Ackerman MD 06/06/2014 Nurse visit Mariposa Bellamy BUSINESS ADMINISTRATION PROFESSOR 05/30/2014 Nurse visit [place] Nicole BUSINESS ADMINISTRATION PROFESSOR 05/23/2014 Nurse visit Skylar Pfeiffer BUSINESS ADMINISTRATION PROFESSOR 05/16/2014 Nurse visit Nicole Ackerman MD 05/02/2014 Nurse visit Nicole Ackerman MD 04/25/2014 Nurse visit Nicole Ackerman MD 04/18/2014 Nurse visit Nicole Ackerman MD 04/12/2014 Nurse visit Nicole Ackerman MD 04/05/2014 Nurse visit Nicole Ackerman MD 03/28/2014 Nurse visit Mariposa Cordova RN 03/22/2014 Nurse visit Skylar Pfeiffer BUSINESS ADMINISTRATION PROFESSOR 03/14/2014 Nurse visit Nicole Ackerman MD 03/07/2014 Nurse visit Skylar Pfeiffer BUSINESS ADMINISTRATION PROFESSOR 02/28/2014 Nurse visit Skylar Pfeiffer BUSINESS ADMINISTRATION PROFESSOR 02/21/2014 Nurse visit Nicole Ackerman MD 02/14/2014 Nurse visit Skylar Pfeiffer BUSINESS ADMINISTRATION PROFESSOR 02/06/2014 Nurse visit Nicole Ackerman MD 01/31/2014 [...] Ackerman MD 11/29/2013 Nurse visit Mariposa Bellamy BUSINESS ADMINISTRATION PROFESSOR 11/23/2013 Office visit Nicole Ackerman MD 11/14/2013 Nurse visit Jarad Saravia 11/07/2013 Nurse visit Nicole Ackerman MD 10/31/2013 Nurse visit Jaliene Aguilera MD 10/25/2013 Nurse visit Jailene Aguilera [...] Aguilera MD 08/09/2013 Nurse visit Skylar Pfeiffer BUSINESS ADMINISTRATION PROFESSOR 08/02/2013 Nurse visit Skylar Pfeiffer BUSINESS ADMINISTRATION PROFESSOR 07/26/2013 Nurse visit Skylar Pfeiffer BUSINESS ADMINISTRATION PROFESSOR 07/19/2013 Nurse visit Skylar Pfeiffer BUSINESS ADMINISTRATION PROFESSOR 07/12/2013 Nurse visit Skylar Pfeiffer BUSINESS ADMINISTRATION PROFESSOR 07/05/2013 Nurse visit Skylar Pfeiffer BUSINESS ADMINISTRATION PROFESSOR 06/28/2013 Nurse visit Skylar Pfeiffer BUSINESS ADMINISTRATION PROFESSOR 06/21/2013 Nurse visit Skylar Pfeiffer BUSINESS ADMINISTRATION PROFESSOR 06/14/2013 Nurse visit Skylar Pfeiffer BUSINESS ADMINISTRATION PROFESSOR 06/08/2013 Nurse visit Jailene Aguilera MD 06/02/2013 [...] Jailene Aguilera MD 02/02/2013 Nurse visit Giselle Gtuierrez RN 01/27/2013 Office visit Jailene Aguilera MD [...] Chin Mcconnell DO 09/26/2009 Nurse visit Chin cMconnell DO 09/19/2009 Nurse visit Chni Mcconnell DO 09/12/2009 Nurse visit Chin Mcconnell [...]
--- OUTSIDE RECORDS SUMMARY | 2018-10-21 09:41 | XMS REPORT ---
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 NOV Fluvirin > 12 Years [id number] Intramuscular Left Deltoid 11/06/2009 11/16/2015 999 Influenza 08/21/2010 Novartis [employer] Becky. NOV Fluvirin > 12 Years [id number] Intramuscular Left Deltoid 08/21/2010 06/26/2009 999 Pneumococcal 08/28/2010 Merck & Co., Inc. MSD Pneumovax 23 1407Y Intramuscular Right Deltoid 08/28/2010 03/01/2009 999 Influenza 09/04/2011 [facility] Fluzone [id number] Intramuscular Left Deltoid 09/04/2011 06/11/2011 111 Influenza 09/02/2012 [facility] Fluzone [id number] Intramuscular Left Deltoid 09/02/2012 05/17/2012 141 Influenza 08/22/2013 [facility] Fluzone > 3 Years [id number] Intramuscular Left Deltoid 08/22/2013 06/10/2013 141 History [...] to other allergen Apr 11 2015 9:08AM Payers Insurance Name Company Name Plan Name Plan Number Policy Number Policy Group Number Start Date Medicare Part A Medicare Part A [id number] Tuesday, 2012 [facility] [id number] Friday, 2009 Medicare Part B Medicare Of [place] [id number] Saturday, 2006 History of Encounters Visit Date Visit Type Provider 04/11/2015 Nurse visit Nicole Ackerman MD 04/05/2015 [...] Ackerman MD 07/19/2014 Nurse visit [place] Nicole VP TALENT MANAGEMENT 07/11/2014 Nurse visit [place] VP TALENT MANAGEMENT 07/04/2014 Nurse visit Skylar Pfeiffer VP TALENT MANAGEMENT 06/27/2014 Nurse visit [place] Nicole VP TALENT MANAGEMENT 06/20/2014 Nurse visit [place] Nicole VP TALENT MANAGEMENT 06/13/2014 Nurse visit Nicole Ackerman MD 06/06/2014 Nurse visit Mariposa Bellamy VP TALENT MANAGEMENT 05/30/2014 Nurse visit [place] Nicole VP TALENT MANAGEMENT 05/23/2014 Nurse visit Skylar Pfeiffer VP TALENT MANAGEMENT 05/16/2014 Nurse visit Nicole Ackerman MD 05/02/2014 Nurse visit Nicole Ackerman MD 04/25/2014 Nurse visit Nicole Ackerman MD 04/18/2014 Nurse visit Nicole Ackerman MD 04/12/2014 Nurse visit Nicole Ackerman MD 04/05/2014 Nurse visit Nicole Ackerman MD 03/28/2014 Nurse visit Mariposa Cordova RN 03/22/2014 Nurse visit Skylar Pfeiffer VP TALENT MANAGEMENT 03/14/2014 Nurse visit Nicole Ackerman MD 03/07/2014 Nurse visit Skylar Pfeiffer VP TALENT MANAGEMENT 02/28/2014 Nurse visit Skylar Pfeiffer VP TALENT MANAGEMENT 02/21/2014 Nurse visit Nicole Ackerman MD 02/14/2014 Nurse visit Skylar Pfeiffer VP TALENT MANAGEMENT 02/06/2014 Nurse visit Nicole Ackerman MD 01/31/2014 [...] Ackerman MD 11/29/2013 Nurse visit Mariposa Bellamy VP TALENT MANAGEMENT 11/23/2013 Office visit Nicole Ackerman MD 11/14/2013 [...] Aguilera MD 08/09/2013 Nurse visit Skylar Pfeiffer VP TALENT MANAGEMENT 08/02/2013 Nurse visit Skylar Pfeiffer VP TALENT MANAGEMENT 07/26/2013 Nurse visit Skylar Pfeiffer VP TALENT MANAGEMENT 07/19/2013 Nurse visit Skylar Pfeiffer VP TALENT MANAGEMENT 07/12/2013 Nurse visit Skylar Pfeiffer VP TALENT MANAGEMENT 07/05/2013 Nurse visit Skylar Pfeiffer VP TALENT MANAGEMENT 06/28/2013 Nurse visit Skylar Pfeiffer VP TALENT MANAGEMENT 06/21/2013 Nurse visit Skylar Pfeiffer VP TALENT MANAGEMENT 06/14/2013 Nurse visit Skylar Pfeiffer VP TALENT MANAGEMENT 06/08/2013 Nurse visit Jailene Aguilera MD 06/02/2013 [...] Jailene Aguilera MD 06/07/2012 Nurse visit Jailene Aguliera MD 05/31/2012 Nurse visit Jailene Aguilera MD [...] visit Chin Mcconnell DO 07/11/2010 Nurse visit Chni Mcconnell DO 07/03/2010 Nurse visit Chin Mcconnell [...] visit Chin Mcconnell DO 03/20/2010 Nurse visit Cihn Mcconnell DO 03/13/2010 Nurse visit hCin Mcconnell DO 03/06/2010 Nurse visit Chin Mcconnell [...]
--- OUTSIDE RECORDS SUMMARY | 2018-10-21 09:45 | XMS REPORT ---
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# [address]-34 [facility] Reviewed 09/07/2012 12:00 AM IMMUNOTHERAPY INJECTIONS [...] And Above [facility]# [id number] [facility] Reviewed 10/30/2009 12:00 AM IMMUNOTHERAPY INJECTIONS [...] Not Entered 11/16/2016 11/16/2016 999 Influenza 08/15/2009 [employer] Becky. NOV Fluvirin > 12 Years [id number] Intramuscular Left Deltoid 11/06/2009 11/16/2016 999 Influenza 08/21/2010 [employer] Becky. NOV Fluvirin > 12 Years [id number] Intramuscular Left Deltoid 08/21/2010 06/26/2009 999 Pneumococcal 08/28/2010 Merck & Co., Inc. MSD Pneumovax 23 1407Y Intramuscular Right Deltoid 08/28/2010 03/01/2009 999 Influenza 09/04/2011 sanofi pasteur [facility] Fluzone [id number] Intramuscular Left Deltoid 09/04/2011 06/11/2011 111 Influenza 09/02/2012 [facility] PMC Fluzone [id number] Intramuscular Left Deltoid 09/02/2012 05/17/2012 141 Influenza 08/22/2013 [facility] PMC Fluzone > 3 Years [id number] Intramuscular Left Deltoid 08/22/2013 06/10/2013 141 Influenza 08/24/2015 [facility] Fluzone [id number] Intramuscular Left Deltoid 08/24/2015 06/22/2015 141 History [...] to other allergen Oct 31 2015 4:17PM Payers Insurance Name Company Name Plan Name Plan Number Policy Number Policy Group Number Start Date Medicare Part A Medicare Part A [id number] Tuesday, 2012 [facility] [id number] Friday, 2009 Medicare Part B Medicare Of [place] [id number] Saturday, 2006 History of Encounters Visit Date Visit Type Provider 10/31/2015 Office visit Nicole Ackerman MD 10/23/2015 [...] Ackerman MD 07/19/2014 Nurse visit [place] Nicole MAIL HANDLER SORTER 07/11/2014 Nurse visit [place] MAIL HANDLER SORTER 07/04/2014 Nurse visit Skylar Pfeiffer MAIL HANDLER SORTER 06/27/2014 Nurse visit [place] Nicole MAIL HANDLER SORTER 06/20/2014 Nurse visit [place] Nicole MAIL HANDLER SORTER 06/13/2014 Nurse visit Nicole Ackerman MD 06/06/2014 Nurse visit Mariposa Bellamy MAIL HANDLER SORTER 05/30/2014 Nurse visit [place] Nicole MAIL HANDLER SORTER 05/23/2014 Nurse visit Skylar Pfeiffer MAIL HANDLER SORTER 05/16/2014 Nurse visit Nicole Ackerman MD 05/02/2014 Nurse visit Nicole Ackerman MD 04/25/2014 Nurse visit Nicole Ackerman MD 04/18/2014 Nurse visit Nicole Ackerman MD 04/12/2014 Nurse visit Nicole Ackerman MD 04/05/2014 Nurse visit Nicole Ackerman MD 03/28/2014 Nurse visit Mariposa Cordova RN 03/22/2014 Nurse visit Skylar Pfeiffer MAIL HANDLER SORTER 03/14/2014 Nurse visit Nicole Ackerman MD 03/07/2014 Nurse visit Skylar Pfeiffer MAIL HANDLER SORTER 02/28/2014 Nurse visit Skylar Pfeiffer MAIL HANDLER SORTER 02/21/2014 Nurse visit Nicole Ackerman MD 02/14/2014 Nurse visit Skylar Pfeiffer MAIL HANDLER SORTER 02/06/2014 Nurse visit Nicole Ackerman MD [...] Ackerman MD 11/29/2013 Nurse visit Mariposa Bellamy MAIL HANDLER SORTER 11/23/2013 Office visit Nicole Ackerman MD [...] Aguilera MD 08/09/2013 Nurse visit Skylar Pfeiffer MAIL HANDLER SORTER 08/02/2013 Nurse visit Skylar Pfeiffer MAIL HANDLER SORTER 07/26/2013 Nurse visit Skylar Pfeiffer MAIL HANDLER SORTER 07/19/2013 Nurse visit Skylar Pfeiffer MAIL HANDLER SORTER 07/12/2013 Nurse visit Skylar Pfeiffer MAIL HANDLER SORTER 07/05/2013 Nurse visit Skylar Pfeiffer MAIL HANDLER SORTER 06/28/2013 Nurse visit Skylar Pfeiffer MAIL HANDLER SORTER 06/21/2013 Nurse visit Skylar Pfeiffer MAIL HANDLER SORTER 06/14/2013 Nurse visit Skylar Pfeiffer MAIL HANDLER SORTER 06/08/2013 Nurse visit Jailene Aguilera MD [...] Jailene Aguilera MD 12/21/2012 Nurse visit Jailene Aguielra MD 12/14/2012 Nurse visit Jailene Aguilera MD [...] 09/28/2012 Nurse visit Jailene Aguilera MD 09/23/2012 [facility] Guido Parra MD 09/21/2012 Nurse visit Jailene Aguilera MD 09/14/2012 Nurse visit Jailene Aguilera MD 09/09/2012 [facility] Guido Parra MD 09/07/2012 Nurse [...] visit Jailene Aguilera MD 10/20/2011 Voided Jarad Gomezlb DING 10/13/2011 Nurse visit Jailene Aguilera MD [...] Jailene Aguilera MD 08/04/2011 Nurse visit Jailene Aguilear MD 07/24/2011 Nurse visit Jailene Aguilera MD [...] Chin Mcconnell DO 12/26/2010 Nurse visit Chin Mccnonell DO 12/20/2010 Nurse visit Chin Mcconnell DO [...]
--- OUTSIDE RECORDS SUMMARY | 2018-10-21 09:49 | XMS REPORT ---
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 NOV Fluvirin > 12 Years [id number] Intramuscular Left Deltoid 11/06/2009 11/16/2015 999 Influenza 08/21/2010 Novartis [employer] Becky. NOV Fluvirin > 12 Years [id number] Intramuscular Left Deltoid 08/21/2010 06/26/2009 999 Pneumococcal 08/28/2010 Merck & Co., Inc. MSD Pneumovax 23 1407Y Intramuscular Right Deltoid 08/28/2010 03/01/2009 999 Influenza 09/04/2011 sanofi pasteur PMC Fluzone [id number] Intramuscular Left Deltoid 09/04/2011 06/11/2011 111 Influenza 09/02/2012 sanofi pasteur PMC Fluzone [id number] Intramuscular Left Deltoid 09/02/2012 05/17/2012 141 Influenza 08/22/2013 sanofi pasteur PMC Fluzone > 3 Years [id number] Intramuscular Left Deltoid 08/22/2013 06/10/2013 141 History [...] to other allergen May 08 2015 9:29AM Payers Insurance Name Company Name Plan Name Plan Number Policy Number Policy Group Number Start Date Medicare Part A Medicare Part A [id number] Tuesday, 2012 [facility] [id number] Friday, 2009 Medicare Part B Medicare Of [place] [id number] Saturday, 2006 History of Encounters Visit Date Visit Type Provider 05/08/2015 Nurse visit Nicole Ackerman MD 04/24/2015 [...] Ackerman MD 07/19/2014 Nurse visit [place] Nicole ACCOUNTS RECEIVABLE EXECUTIVE 07/11/2014 Nurse visit [place] ACCOUNTS RECEIVABLE EXECUTIVE 07/04/2014 Nurse visit Skylar Pfeiffer ACCOUNTS RECEIVABLE EXECUTIVE 06/27/2014 Nurse visit [place] Nicole ACCOUNTS RECEIVABLE EXECUTIVE 06/20/2014 Nurse visit [place] Nicole ACCOUNTS RECEIVABLE EXECUTIVE 06/13/2014 Nurse visit Nicole Ackerman MD 06/06/2014 Nurse visit Mariposa Bellamy ACCOUNTS RECEIVABLE EXECUTIVE 05/30/2014 Nurse visit [place] Nicole ACCOUNTS RECEIVABLE EXECUTIVE 05/23/2014 Nurse visit Skylar Pfeiffer ACCOUNTS RECEIVABLE EXECUTIVE 05/16/2014 Nurse visit Nicole Ackerman MD 05/02/2014 Nurse visit Nicole Ackerman MD 04/25/2014 Nurse visit Nicole Ackerman MD 04/18/2014 Nurse visit Nicole Ackerman MD 04/12/2014 Nurse visit Nicole Ackerman MD 04/05/2014 Nurse visit Nicole Ackerman MD 03/28/2014 Nurse visit Mariposa Cordova RN 03/22/2014 Nurse visit Skylar Pfeiffer ACCOUNTS RECEIVABLE EXECUTIVE 03/14/2014 Nurse visit Nicole Ackerman MD 03/07/2014 Nurse visit Skylar Pfeiffer ACCOUNTS RECEIVABLE EXECUTIVE 02/28/2014 Nurse visit Skylar Pfeiffer ACCOUNTS RECEIVABLE EXECUTIVE 02/21/2014 Nurse visit Nicole Ackerman MD 02/14/2014 Nurse visit Skylar Pfeiffer ACCOUNTS RECEIVABLE EXECUTIVE 02/06/2014 Nurse visit Nicole Ackerman MD 01/31/2014 [...] Ackerman MD 11/29/2013 Nurse visit Mariposa Bellamy ACCOUNTS RECEIVABLE EXECUTIVE 11/23/2013 Office visit Nicole Ackerman MD 11/14/2013 [...] Jailene Aguilera MD 08/09/2013 Nurse visit Skylar Taj Pfefifer ACCOUNTS RECEIVABLE EXECUTIVE 08/02/2013 Nurse visit Skylar Pfeiffer ACCOUNTS RECEIVABLE EXECUTIVE 07/26/2013 Nurse visit Skylar Pfeiffer ACCOUNTS RECEIVABLE EXECUTIVE 07/19/2013 Nurse visit Skylar Pfeiffer ACCOUNTS RECEIVABLE EXECUTIVE 07/12/2013 Nurse visit Skylar Pfeiffer ACCOUNTS RECEIVABLE EXECUTIVE 07/05/2013 Nurse visit Skylar Pfeiffer ACCOUNTS RECEIVABLE EXECUTIVE 06/28/2013 Nurse visit Skylar Pfeiffer ACCOUNTS RECEIVABLE EXECUTIVE 06/21/2013 Nurse visit Skylar Pfeiffer ACCOUNTS RECEIVABLE EXECUTIVE 06/14/2013 Nurse visit Skylar Pfeiffer ACCOUNTS RECEIVABLE EXECUTIVE 06/08/2013 Nurse visit Jailene Aguilera MD 06/02/2013 [...] 02/19/2011 Nurse visit Chin Mcconnell DO 02/19/2011 [facility] Jamir Ness MD 02/11/2011 Nurse visit [...] visit Chin Mcconnell DO 06/26/2010 Office visit Cihn Mcconnell DO 06/19/2010 Nurse visit Chin Mcconnell DO 06/12/2010 Nurse visit Chin Mcconnell DO 06/05/2010 Nurse visit Chin Mcconnell DO 05/29/2010 Nurse visit Chin Mcconnell DO 05/22/2010 Nurse visit Chin Mcconnell DO 05/15/2010 Nurse visit hCin Mcconnell DO 05/08/2010 Nurse visit Chin Mcconnell [...]
--- OUTSIDE RECORDS SUMMARY | 2018-10-21 09:53 | XMS REPORT ---
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 NOV Fluvirin > 12 Years [id number] Intramuscular Left Deltoid 11/06/2009 11/16/2015 999 Influenza 08/21/2010 [employer] Becky. NOV Fluvirin > 12 Years [id number] Intramuscular Left Deltoid 08/21/2010 06/26/2009 999 Pneumococcal 08/28/2010 Merck & Co., Inc. MSD Pneumovax 23 [id number] Intramuscular Right Deltoid 08/28/2010 03/01/2009 999 Influenza 09/04/2011 sanofi pasteur PMC Fluzone [id number] Intramuscular Left Deltoid 09/04/2011 06/11/2011 111 Influenza 09/02/2012 sanofi pasteur PMC Fluzone [id number] Intramuscular Left Deltoid 09/02/2012 05/17/2012 141 Influenza 08/22/2013 [facility] PMC Fluzone > 3 Years [id number] Intramuscular Left Deltoid 08/22/2013 06/10/2013 141 History [...] to other allergen Aug 21 2015 9:12AM Payers Insurance Name Company Name Plan Name Plan Number Policy Number Policy Group Number Start Date Medicare Part A Medicare Part A [id number] Tuesday, 2012 [facility] [id number] Friday, 2009 Medicare Part B Medicare Of [place] [id number] Saturday, 2006 History of Encounters Visit Date Visit Type Provider 08/21/2015 Nurse visit Nicole Ackerman MD 08/14/2015 [...] Nicole Ackerman MD 11/21/2014 Nurse visit Nicole Ackermna MD 11/14/2014 Nurse visit Nicole Ackerman MD [...] Ackerman MD 07/19/2014 Nurse visit [place] MODEL MAKING SUPERVISOR 07/11/2014 Nurse visit [place] MODEL MAKING SUPERVISOR 07/04/2014 Nurse visit Skylar Pfeiffer MODEL MAKING SUPERVISOR 06/27/2014 Nurse visit [place] MODEL MAKING SUPERVISOR 06/20/2014 Nurse visit [place] MODEL MAKING SUPERVISOR 06/13/2014 Nurse visit Nicole Ackerman MD 06/06/2014 Nurse visit Mariposa Bellamy MODEL MAKING SUPERVISOR 05/30/2014 Nurse visit [place] Nicole MODEL MAKING SUPERVISOR 05/23/2014 Nurse visit Skylar Pfeiffer MODEL MAKING SUPERVISOR 05/16/2014 Nurse visit Nicole Ackerman MD 05/02/2014 Nurse visit Nicole Ackerman MD 04/25/2014 Nurse visit Nicole Ackerman MD 04/18/2014 Nurse visit Nicole Ackerman MD 04/12/2014 Nurse visit Nicole Ackerman MD 04/05/2014 Nurse visit Nicole Ackerman MD 03/28/2014 Nurse visit Mariposa Cordova RN 03/22/2014 Nurse visit Skylar Pfeiffer MODEL MAKING SUPERVISOR 03/14/2014 Nurse visit Nicole Ackerman MD 03/07/2014 Nurse visit Skylar Pfeiffer MODEL MAKING SUPERVISOR 02/28/2014 Nurse visit Skylar Pfeiffer MODEL MAKING SUPERVISOR 02/21/2014 Nurse visit Nicole Ackerman MD 02/14/2014 Nurse visit Skylar Pfeiffer MODEL MAKING SUPERVISOR 02/06/2014 Nurse visit Nicole Ackerman MD [...] Ackerman MD 11/29/2013 Nurse visit Mariposa Bellamy MODEL MAKING SUPERVISOR 11/23/2013 Office visit Nicole Ackerman MD [...] Aguilera MD 08/09/2013 Nurse visit Skylar Pfeiffer MODEL MAKING SUPERVISOR 08/02/2013 Nurse visit Skylar Pfeiffer MODEL MAKING SUPERVISOR 07/26/2013 Nurse visit Skylar Pfeiffer MODEL MAKING SUPERVISOR 07/19/2013 Nurse visit Skylar Pfeiffer MODEL MAKING SUPERVISOR 07/12/2013 Nurse visit Skylar Pfeiffer MODEL MAKING SUPERVISOR 07/05/2013 Nurse visit Skylar Pfeiffer MODEL MAKING SUPERVISOR 06/28/2013 Nurse visit Skylar Pfeiffer MODEL MAKING SUPERVISOR 06/21/2013 Nurse visit Skylar Pfeiffer MODEL MAKING SUPERVISOR 06/14/2013 Nurse visit Skylar Pfeiffer MODEL MAKING SUPERVISOR 06/08/2013 Nurse visit Jailene Aguilera MD [...] visit Jailene Aguilera MD 2013 Nurse visit aJilene Aguilera MD 01/10/2013 Nurse visit Jailene Aguilera [...] 09/28/2012 Nurse visit Jailene Aguilera MD 09/23/2012 [facility] Guido Parra MD 09/21/2012 Nurse visit Jailene Aguilera MD 09/14/2012 Nurse visit Jailene Aguilera MD 09/09/2012 [facility] Guido Parra MD 09/07/2012 Nurse [...] visit Jailene Aguilera MD 09/08/2011 Nurse visit Jailnee Aguilera MD 09/04/2011 Surgery Jailene Aguilera MD [...]
--- OUTSIDE RECORDS SUMMARY | 2018-10-21 09:57 | XMS REPORT ---
Author Author Nicole Ackerman Organization [facility] Address [address] [place], [place] [id number] Care Team Providers Care Changer Fixer Name Role Phone Nicole Ackerman PCP Allergies and Adverse Reactions Name Reaction Notes pollens Demerol intolerant Plan of Treatment Planned Activity Comments Planned Date Planned Time Plan/Goal ELECTROCARDIOGRAM COMPLETE 10/16/2015 12:00 AM ELECTROCARDIOGRAM COMPLETE 10/16/2015 12:[address] THORAX W/DYE 11/05/2015 12:00 AM COMPREHEN METABOLIC PANEL 11/05/2015 12:00 AM IMMUNOTHERAPY INJECTIONS 05/04/2012 12:00 [...] History Name Description Comments 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 NOV Fluvirin > 12 Years [id number] Intramuscular Left Deltoid 11/06/2009 11/16/2015 999 Influenza 08/21/2010 Novartis Pharmaceutical Becky. NOV Fluvirin > 12 Years [id number] Intramuscular Left Deltoid 08/21/2010 06/26/2009 999 Pneumococcal 08/28/2010 Merck & Co., Inc. MSD Pneumovax 23 1407Y Intramuscular Right Deltoid 08/28/2010 03/01/2009 999 Influenza 09/04/2011 sanofi pasteur PMC Fluzone [id number] Intramuscular Left Deltoid 09/04/2011 06/11/2011 111 Influ[facility]/02/2012 [facility] Fluz[facility] [id number] Intramuscular Left Deltoid 09/02/2012 05/17/2012 141 Influenza 08/22/2013 sanofi pasteur PMC Fluzone > 3 Years [id number] Intramuscular Left Deltoid 08/22/2013 06/10/2013 141 Influenza 08/24/2015 sanofi pasteur PMC Fluzone [id number] Intramuscular Left Deltoid 08/24/2015 06/22/2015 141 History [...] treatment or procedure Nov 05 2015 10:51AM Payers Insurance Name Company Name Plan Name Plan Number Policy Number Policy Group Number Start Date Medicare Part A Medicare Part A [id number] Tuesday, 2012 [facility] [place] [id number] Friday, 2009 Medicare Part B Medicare Of [place] [id number] Saturday, 2006 History of Encounters Visit Date [...] Ackerman MD 07/19/2014 Nurse visit [place] Nicole SKIDDER DRIVER 07/11/2014 Nurse visit [place] Nicole SKIDDER DRIVER 07/04/2014 Nurse visit Skylar Pfeiffer SKIDDER DRIVER 06/27/2014 Nurse visit [place] Nicole SKIDDER DRIVER 06/20/2014 Nurse visit [place] Nicole SKIDDER DRIVER 06/13/2014 Nurse visit Nicole Ackerman MD 06/06/2014 Nurse visit Mariposa Bellamy SKIDDER DRIVER 05/30/2014 Nurse visit [place] Nicole SKIDDER DRIVER 05/23/2014 Nurse visit Skylar Pfeiffer SKIDDER DRIVER 05/16/2014 Nurse visit Nicole Ackerman MD 05/02/2014 Nurse visit Nicole Ackerman MD 04/25/2014 Nurse visit Nicole Ackerman MD 04/18/2014 Nurse visit Nicole Ackerman MD 04/12/2014 Nurse visit Nicole Ackerman MD 04/05/2014 Nurse visit Nicole Ackerman MD 03/28/2014 Nurse visit Mariposa Cordova RN 03/22/2014 Nurse visit Skylar Pfeiffer SKIDDER DRIVER 03/14/2014 Nurse visit Nicole Ackerman MD 03/07/2014 Nurse visit Skylar Pfeiffer SKIDDER DRIVER 02/28/2014 Nurse visit Skylar Pfeiffer SKIDDER DRIVER 02/21/2014 Nurse visit Nicole Ackerman MD 02/14/2014 Nurse visit Skylar Pfeiffer SKIDDER DRIVER 02/06/2014 Nurse visit Nicole Ackerman MD 01/31/2014 [...] Ackerman MD 11/29/2013 Nurse visit Mariposa Bellamy SKIDDER DRIVER 11/23/2013 Office visit Nicole Ackerman MD 11/14/2013 [...] Aguilera MD 08/09/2013 Nurse visit Skylar Taj Pfeiffer SKIDDER DRIVER 08/02/2013 Nurse visit Skylarmiguel angel Pfeiffer SKIDDER DRIVER 07/26/2013 Nurse visit Skylar Pfeiffer SKIDDER DRIVER 07/19/2013 Nurse visit Skylar Pfeiffer SKIDDER DRIVER 07/12/2013 Nurse visit Skylar Pfeiffer SKIDDER DRIVER 07/05/2013 Nurse visit Skylarmiguel angel Pfeiffer SKIDDER DRIVER 06/28/2013 Nurse visit Skylar Pfeiffer SKIDDER DRIVER 06/21/2013 Nurse visit Skylar Pfeiffer SKIDDER DRIVER 06/14/2013 Nurse visit Skylar Pfeiffer SKIDDER DRIVER 06/08/2013 Nurse visit Jailene Aguilera MD 06/02/2013 [...] 09/28/2012 Nurse visit Jailene Aguilera MD 09/23/2012 [facility] Guido Parra MD 09/21/2012 Nurse visit Jailene Aguilera MD 09/14/2012 Nurse visit Jailene Aguilera MD 09/09/2012 [facility] Guido Parra MD 09/07/2012 Nurse visit [...]
--- OUTSIDE RECORDS SUMMARY | 2018-10-21 10:02 | XMS REPORT ---
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 NOV Fluvirin > 12 Years [id number] Intramuscular Left Deltoid 11/06/2009 11/16/2016 999 Influenza 08/21/2010 [facility] [employer] Becky. NOV Fluvirin > 12 Years [id number] Intramuscular Left Deltoid 08/21/2010 06/26/2009 999 Pneumococcal 08/28/2010 Merck & Co., Inc. MSD Pneumovax 23 1407Y Intramuscular Right Deltoid 08/28/2010 03/01/2009 999 Influenza 09/04/2011 sanofi pasteur PMC Fluzone [id number] Intramuscular Left Deltoid 09/04/2011 06/11/2011 111 Influenza 09/02/2012 sanofi pasteur PMC Fluzone [id number] Intramuscular Left Deltoid 09/02/2012 05/17/2012 141 Influenza 08/22/2013 [facility] Fluzone > 3 Years [id number] Intramuscular Left Deltoid 08/22/2013 06/10/2013 141 Influenza 08/24/2015 [facility] Fluzone [id number] Intramuscular Left Deltoid 08/24/2015 06/22/2015 141 History [...] Date Medicare Part A Medicare Part A [id number] Tuesday, 2012 [facility] [id number] Friday, 2009 Medicare Part B Medicare Of [place] [id number] Saturday, 2006 History of Encounters Visit Date [...] Nicole Ackerman MD 08/08/2014 Nurse visit Nicole Ackemran MD 08/01/2014 Nurse visit Nicole Ackerman MD 07/25/2014 Nurse visit Nicole Ackerman MD 07/19/2014 Nurse visit [place] Nicole BORING MACHINE OPERATOR DOUBLE END 07/11/2014 Nurse visit [place] Nicole BORING MACHINE OPERATOR DOUBLE END 07/04/2014 Nurse visit Skylar Pfeiffer BORING MACHINE OPERATOR DOUBLE END 06/27/2014 Nurse visit [place] Nicole BORING MACHINE OPERATOR DOUBLE END 06/20/2014 Nurse visit [place] Nicole BORING MACHINE OPERATOR DOUBLE END 06/13/2014 Nurse visit Nicole Ackerman MD 06/06/2014 Nurse visit Mariposa Bellamy BORING MACHINE OPERATOR DOUBLE END 05/30/2014 Nurse visit [place] Nicole BORING MACHINE OPERATOR DOUBLE END 05/23/2014 Nurse visit Skylar Pfeiffer BORING MACHINE OPERATOR DOUBLE END 05/16/2014 Nurse visit Nicole Ackerman MD 05/02/2014 Nurse visit Nicole Ackerman MD 04/25/2014 Nurse visit Nicole Ackerman MD 04/18/2014 Nurse visit Nicole Ackerman MD 04/12/2014 Nurse visit Nicole Ackerman MD 04/05/2014 Nurse visit Nicole Ackerman MD 03/28/2014 Nurse visit Mariposa Cordova RN 03/22/2014 Nurse visit Skylar Pfeiffer BORING MACHINE OPERATOR DOUBLE END 03/14/2014 Nurse visit Nicole Ackerman MD 03/07/2014 Nurse visit Skylar Pfeiffer BORING MACHINE OPERATOR DOUBLE END 02/28/2014 Nurse visit Skylar Pfeiffer BORING MACHINE OPERATOR DOUBLE END 02/21/2014 Nurse visit Nicole Ackerman MD 02/14/2014 Nurse visit Skylar Pfeiffer BORING MACHINE OPERATOR DOUBLE END 02/06/2014 Nurse visit Nicole Ackerman MD 01/31/2014 Nurse visit Nicole Ackerman MD 01/25/2014 Nurse visit Nicole Ackerman MD 2014 Office visit Nicole Ackerman MD 01/09/2014 Nurse visit Nicoel Ackerman MD 01/02/2014 Office visit Nicole Ackerman MD 12/27/2013 Nurse visit Nicole Ackerman MD 12/19/2013 Nurse visit Nicole Ackerman MD 12/12/2013 Nurse visit Nicole Ackerman MD 12/05/2013 Nurse visit Nicole Ackerman MD 11/29/2013 Nurse visit Mariposa Bellamy BORING MACHINE OPERATOR DOUBLE END 11/23/2013 Office visit Nicole Ackerman MD 11/14/2013 [...] Aguilera MD 08/09/2013 Nurse visit Skylar Pfeiffer BORING MACHINE OPERATOR DOUBLE END 08/02/2013 Nurse visit Skylar Pfeiffer BORING MACHINE OPERATOR DOUBLE END 07/26/2013 Nurse visit Skylar Pfeiffer BORING MACHINE OPERATOR DOUBLE END 07/19/2013 Nurse visit Skylar Pfeiffer BORING MACHINE OPERATOR DOUBLE END 07/12/2013 Nurse visit Skylar Pfeiffer BORING MACHINE OPERATOR DOUBLE END 07/05/2013 Nurse visit Skylar Pfeiffer BORING MACHINE OPERATOR DOUBLE END 06/28/2013 Nurse visit Skylar Pfeiffer BORING MACHINE OPERATOR DOUBLE END 06/21/2013 Nurse visit Skylar Pfeiffer BORING MACHINE OPERATOR DOUBLE END 06/14/2013 Nurse visit Skylar Pfeiffer BORING MACHINE OPERATOR DOUBLE END 06/08/2013 Nurse visit Jailene Aguilera MD 06/02/2013 [...] visit Chin Mcconnell DO 09/19/2010 Nurse visit hCin Mcconnell DO 09/11/2010 Nurse visit Chin Mcconnell [...] visit Chin Mcconnell DO 10/18/2009 Nurse visit hCin Mcconnell DO 10/10/2009 Nurse visit Chin Mcconnell [...]
--- OUTSIDE RECORDS SUMMARY | 2018-10-21 10:05 | XMS REPORT ---
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 NOV Fluvirin > 12 Years [id number] Intramuscular Left Deltoid 11/06/2009 11/16/2015 999 Influenza 08/21/2010 Novartis Pharmaceutical Becky. NOV Fluvirin > 12 Years [id number] Intramuscular Left Deltoid 08/21/2010 06/26/2009 999 Pneumococcal 08/28/2010 Merck & Co., Inc. MSD Pneumovax 23 1407Y Intramuscular Right Deltoid 08/28/2010 03/01/2009 999 [facility]/04/[facility] Fluzone [id number] Intramuscular Left Deltoid 09/04/2011 06/11/2011 111 Influenza 09/02/2012 [facility] Fluzone [id number] Intramuscular Left Deltoid 09/02/2012 05/17/2012 141 Influenza 08/22/2013 sanofi pasteur PMC Fluzone > 3 Years [id number] Intramuscular Left Deltoid 08/22/2013 06/10/2013 141 Influenza 08/24/2015 sanofi pasteur PMC Fluzone [id number] Intramuscular Left Deltoid 08/24/2015 06/22/2015 141 History [...] to other allergen Sep 12 2015 11:50AM Payers Insurance Name Company Name Plan Name Plan Number Policy Number Policy Group Number Start Date Medicare Part A Medicare Part A [id number] Tuesday, 2012 [facility] [id number] Friday, 2009 Medicare Part B Medicare Of [place] [id number] Saturday, 2006 History of Encounters Visit Date [...] Ackerman MD 07/19/2014 Nurse visit [place] Nicole LONG CHAIN BEAMER 07/11/2014 Nurse visit [place] Nicole LONG CHAIN BEAMER 07/04/2014 Nurse visit Skylar Pfeiffer LONG CHAIN BEAMER 06/27/2014 Nurse visit [place] LONG CHAIN BEAMER 06/20/2014 Nurse visit [place] Nicole LONG CHAIN BEAMER 06/13/2014 Nurse visit Nicole Ackerman MD 06/06/2014 Nurse visit Mariposa Bellamy LONG CHAIN BEAMER 05/30/2014 Nurse visit [place] Nicole LONG CHAIN BEAMER 05/23/2014 Nurse visit Skylar Pfeiffer LONG CHAIN BEAMER 05/16/2014 Nurse visit Nicole Ackerman MD 05/02/2014 Nurse visit Nicole Ackerman MD 04/25/2014 Nurse visit Nicole Ackerman MD 04/18/2014 Nurse visit Nicole Ackerman MD 04/12/2014 Nurse visit Nicole Ackerman MD 04/05/2014 Nurse visit Nicole Ackerman MD 03/28/2014 Nurse visit Mariposa Cordova RN 03/22/2014 Nurse visit Skylar Pfeiffer LONG CHAIN BEAMER 03/14/2014 Nurse visit Nicole Ackerman MD 03/07/2014 Nurse visit Skylar Pfeiffer LONG CHAIN BEAMER 02/28/2014 Nurse visit Skylar Pfeiffer LONG CHAIN BEAMER 02/21/2014 Nurse visit Nicole Ackerman MD 02/14/2014 Nurse visit Skylar Pfeiffer LONG CHAIN BEAMER 02/06/2014 Nurse visit Nicole Ackerman MD 01/31/2014 [...] Ackerman MD 11/29/2013 Nurse visit Mariposa Bellamy LONG CHAIN BEAMER 11/23/2013 Office visit Nicole Ackerman MD 11/14/2013 [...] Aguilera MD 08/09/2013 Nurse visit Skylar Pfeiffer LONG CHAIN BEAMER 08/02/2013 Nurse visit Skylar Pfeiffer LONG CHAIN BEAMER 07/26/2013 Nurse visit Skylar Pfeiffer LONG CHAIN BEAMER 07/19/2013 Nurse visit Skylar Pfeiffer LONG CHAIN BEAMER 07/12/2013 Nurse visit Skylar Pfeiffer LONG CHAIN BEAMER 07/05/2013 Nurse visit Skylar Pfeiffer LONG CHAIN BEAMER 06/28/2013 Nurse visit Skylar Pfeiffer LONG CHAIN BEAMER 06/21/2013 Nurse visit Skylar Pfeiffer LONG CHAIN BEAMER 06/14/2013 Nurse visit Skylar Pfeiffer LONG CHAIN BEAMER 06/08/2013 Nurse visit Jailene Aguilera MD 06/02/2013 [...] visit Jailene Aguilera MD 12/21/2012 Nurse visit aJilene Aguilera MD 12/14/2012 Nurse visit Jailene Aguilera [...] Nurse visit Jailene Aguilera MD 09/23/2012 [facility] Guido Parra MD 09/21/2012 Nurse visit Jailene Aguilera MD 09/14/2012 Nurse visit Jailene Aguilera MD 09/09/2012 [facility] Guido Parra MD 09/07/2012 Nurse [...] Chin Mcconnell DO 12/04/2010 Nurse visit Chin Mcconnlel DO 11/27/2010 Nurse visit Chin Mcconnell DO [...] visit Chin Mcconnell DO 07/17/2010 Nurse visit hCin Mcconnell DO 07/11/2010 Nurse visit Chin Mcconnell [...] visit Chin Mcconnell DO 04/24/2010 Nurse visit hCin Mcconnell DO 04/17/2010 Nurse visit Chin Mcconnell [...] Chin Mcconnell DO 10/03/2009 Nurse visit Chin cMconnell DO 09/26/2009 Nurse visit Chin Mcconnell DO 09/19/2009 Nurse visit Chin Mcconnell DO 09/12/2009 Nurse visit Chin Mcconnell DO 09/04/2009 Nurse visit Chin Mcconnell DO 08/29/2009 Nurse visit Chin Mcconnell DO 08/22/2009 Nurse visit Chin Mcconnell DO 08/15/2009 Nurse visit Chin Mcconnlel DO 08/09/2009 Nurse visit Chin Mcconnell DO 07/31/2009 Nurse visit Chin Mcconnell DO 07/25/2009 Nurse visit Chin Mcconnell DO 07/18/2009 Nurse visit Chin Mcconnell DO 07/11/2009 Office visit Chin Mcconnell DO
--- OUTSIDE RECORDS SUMMARY | 2018-10-21 10:09 | XMS REPORT ---
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 NOV Fluvirin > 12 Years [id number] Intramuscular Left Deltoid 11/06/2009 11/16/2015 999 Influenza 08/21/2010 Apto Becky. NOV Fluvirin > 12 Years [id number] Intramuscular Left Deltoid 08/21/2010 06/26/2009 999 Pneumococcal 08/28/2010 Merck & Co., Inc. MSD Pneumovax [id number] Intramuscular Right Deltoid 08/28/2010 03/01/2009 999 Influenza 09/04/2011 sanofi pasteur PMC Fluzone [id number] Intramuscular Left Deltoid 09/04/2011 06/11/2011 111 Influenza 09/02/2012 sanofi pasteur PMC Fluzone [id number] Intramuscular Left Deltoid 09/02/2012 05/17/2012 141 Influenza 08/22/2013 [facility] PMC Fluzone > 3 Years [id number] Intramuscular Left Deltoid 08/22/2013 06/10/2013 141 History [...] 2:49PM Hyperlipidemia Jan 02 2014 2:49PM Murmur b 2013 2:49PM Obstructive Sleep Apnea Jan 02 2014 [...] to other allergen Aug 14 2015 9:06AM Payers Insurance Name Company Name Plan Name Plan Number Policy Number Policy Group Number Start Date Medicare Part A Medicare Part A [id number] Tuesday, 2012 [facility] [id number] Friday, 2009 Medicare Part B Medicare Of [place] [id number] Saturday, 2006 History of Encounters Visit Date Visit Type Provider 08/14/2015 Nurse visit Nicole Ackerman MD 08/07/2015 [...] Nicole Ackerman MD 04/05/2015 Nurse visit Nicole Ackreman MD 03/28/2015 Office visit Nicole Ackerman MD [...] Nicole Ackerman MD 11/28/2014 Nurse visit Nicole Ackeramn MD 11/21/2014 Nurse visit Nicole Ackerman MD [...] visit Nicole Ackerman MD 09/05/2014 Nurse visit Nciole Ackerman MD 08/29/2014 Nurse visit Nicole Ackerman MD 08/22/2014 Nurse visit Nicole Ackerman MD 08/15/2014 Nurse visit Nicole Ackerman MD 08/08/2014 Nurse visit Nicole Ackerman MD 08/01/2014 Nurse visit Nicole Ackerman MD 07/25/2014 Nurse visit Nicole Ackerman MD 07/19/2014 Nurse visit South Nicole SURVEILLANCE OBSERVER 07/11/2014 Nurse visit [place] Nicole SURVEILLANCE OBSERVER 07/04/2014 Nurse visit Skylar Pfeiffer SURVEILLANCE OBSERVER 06/27/2014 Nurse visit [place] Nicole SURVEILLANCE OBSERVER 06/20/2014 Nurse visit oSuth Nicole SURVEILLANCE OBSERVER 06/13/2014 Nurse visit Nicole Ackerman MD 06/06/2014 Nurse visit Mariposa Bellamy SURVEILLANCE OBSERVER 05/30/2014 Nurse visit South Nicole SURVEILLANCE OBSERVER 05/23/2014 Nurse visit Skylar Pfeiffer SURVEILLANCE OBSERVER 05/16/2014 Nurse visit Nicole Ackerman MD 05/02/2014 Nurse visit Nicole Ackerman MD 04/25/2014 Nurse visit Nicole Ackerman MD 04/18/2014 Nurse visit Nicole Ackerman MD 04/12/2014 Nurse visit Nicole Ackerman MD 04/05/2014 Nurse visit Nicole Ackerman MD 03/28/2014 Nurse visit Mariposa Cordova RN 03/22/2014 Nurse visit Skylar Pfeiffer SURVEILLANCE OBSERVER 03/14/2014 Nurse visit Nicole Ackerman MD 03/07/2014 Nurse visit Skylar Pfeiffer SURVEILLANCE OBSERVER 02/28/2014 Nurse visit Skylar Pfeiffer SURVEILLANCE OBSERVER 02/21/2014 Nurse visit Nicole Ackerman MD 02/14/2014 Nurse visit Skylar Pfeiffer SURVEILLANCE OBSERVER 02/06/2014 Nurse visit Nicole Ackerman MD 01/31/2014 [...] Ackerman MD 11/29/2013 Nurse visit Mariposa Bellamy SURVEILLANCE OBSERVER 11/23/2013 Office visit Nicole Ackerman MD 11/14/2013 [...] Aguilera MD 08/09/2013 Nurse visit Skylar Pfeiffer SURVEILLANCE OBSERVER 08/02/2013 Nurse visit Skylar Pfeiffer SURVEILLANCE OBSERVER 07/26/2013 Nurse visit Skylar Pfeiffer SURVEILLANCE OBSERVER 07/19/2013 Nurse visit Skylar Pfeiffer SURVEILLANCE OBSERVER 07/12/2013 Nurse visit Skylar Pfeiffer SURVEILLANCE OBSERVER 07/05/2013 Nurse visit Skylar Pfeiffer SURVEILLANCE OBSERVER 06/28/2013 Nurse visit Skylar Pfeiffer SURVEILLANCE OBSERVER 06/21/2013 Nurse visit Skylar Pfeiffer SURVEILLANCE OBSERVER 06/14/2013 Nurse visit Skylar Pfeiffer SURVEILLANCE OBSERVER 06/08/2013 Nurse visit Jailene Aguilera MD 06/02/2013 [...] Aguilera MD 10/06/2012 Office visit Skylar Pfeiffer SURVEILLANCE OBSERVER 10/05/2012 Nurse visit Jailene Aguilera MD 09/28/2012 Nurse visit Jailene Aguilera MD 09/23/2012 [facility] Guido Parra MD 09/21/2012 Nurse visit Jailene Aguilera MD 09/14/2012 Nurse visit Jailene Aguilera MD 09/09/2012 [facility] Guido Parra MD 09/07/2012 Nurse [...] visit Jailene Aguilera MD 04/08/2011 Nurse visit Jaielne Aguilera MD 04/01/2011 Nurse visit Jailene Aguilera [...]
--- OUTSIDE RECORDS SUMMARY | 2018-10-21 10:14 | XMS REPORT ---
Author Author Mariposa Bellamy Organization [facility] Address [address] [facility] [address] [place], [place] [id number] Care Team Providers Care Jogger Operator Name Role Phone Mariposa Bellamy PCP Evan Mccullough PreferredProvider Allergies and Adverse Reactions Name Reaction Notes pollens Demerol intolerant Plan of Treatment Planned Activity Comments Planned Date Planned Time Plan/Goal EKG (12-lead electrocardiogram) 10/16/2015 12:00 AM Allergy Injection Multiple, [facility] Medicare 11/13/2015 12:00 AM CBC With Auto [...] Medicare 03/06/2015 12:00 AM Allergy Injection Multiple, [facility] Medicare 03/13/2015 12:00 AM Allergy Injection Multiple, [facility] Medicare 03/20/2015 12:00 AM Allergy Injection Multiple, [...] ONCE DAILY for 90 days Symbicort inhalation glipizide 5 mg oral tablet [...] each nostril by intranasal route once daily Adamir 10 mg oral tablet take 1 tablet [...] 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 rosuvastatin 20 mg oral tablet 09/18/2017 09/13/2018 TAKE 1 TABLET BY MOUTH ONCE EVERY DAY furosemide 40 mg oral tablet 10/07/2017 10/02/2018 TAKE 1 TABLET BY MOUTH ONCE DAILY losartan 100 mg oral tablet 10/21/2017 07/18/2018 TAKE 1 TABLET BY MOUTH ONCE DAILY Tessalon Perles 100 mg oral capsule 10/30/2017 take 1 capsule (100 mg) by oral route 3 times per day as needed for cough glipizide 5 mg oral tablet 11/23/2017 05/22/2018 TAKE 1 TABLET BY MOUTH ONCE EVERY MORNING WITH BREAKFAST levothyroxine 100 mcg oral tablet 11/23/2017 05/22/2018 TAKE ONE TABLET BY MOUTH ONCE DAILY metformin 500 mg oral tablet 11/23/2017 08/20/2018 TAKE 1 TABLET BY MOUTH EVERY MORNING AND TAKE 2 TABLETS EVERY EVENING Name Start Date Expiration Date SIG [...] for 90 days medication on list twice Problem List Description Status Onset Allergic rhinitis [...] HC BMI BSA BMI Percentile O2 Sat(%) 11/23/2017 2:44:00 PM 140 mmHg 64 mmHg 78 bpm 20 rpm 98.2 F 242 lbs 63.5 in 42.20 kg/m2 2.22 m2 94 % 10/30/2017 5:47:00 PM 142 mmHg 86 mmHg 86 bpm 24 rpm 97.5 F 246 lbs 63.5 in 42.893 kg/m 2.2359 m 90 % 07/09/2017 10:25:00 AM 158 mmHg [...] History Name Description Comments 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 NOV Fluvirin > 12 Years [id number] Intramuscular Left Deltoid 11/06/2009 11/16/2017 999 Influenza 08/21/2010 Novartis Pharmaceutical Becky. NOV Fluvirin > 12 Years [id number] Intramuscular Left Deltoid 08/21/2010 06/26/2009 999 X 08/28/2010 P[employer] & [employer]., Inc. MSD Pneumovax 23 [id number] Intramuscular Right Deltoid 08/28/2010 03/01/2009 999 Influenza 09/04/2011 sanofi pasteur PMC Fluzone [id number] Intramuscular Left Deltoid 09/04/2011 06/11/2011 111 Influenza 09/02/2012 sanofi pasteur PMC Fluzone [id number] Intramuscular Left Deltoid 09/02/2012 05/17/2012 141 Influenza 08/22/2013 sanofi pasteur PMC Fluzone > 3 Years [id number] Intramuscular Left Deltoid 08/22/2013 06/10/2013 141 Influenza 08/24/2015 sanofi pasteur PMC Fluzone [id number] Intramuscular Left Deltoid 08/24/2015 06/22/2015 141 History [...] upper respiratory infection Oct 30 2017 5:52PM Screening mammogram, encounter for Dec 10 2017 11:31AM Payers Insurance Name Company Name Plan Name Plan Number Policy Number Policy Group Number Start Date Medicare RHC Medicare RHC [id number] [id number] Friday, 2009 Medicare Part A Medicare Part A [id number] Tuesday, 2012 Medicare Part A Medicare - Lab/Xray [id number] Tuesday, July 17, 2012 Medicare Part B Medicare Of [place] [id number] Saturday, January 14, 2006 History of Encounters Visit Date Visit Type Provider 11/23/2017 Office visit Mariposa Bellamy COPYING MACHINE MECHANIC 10/30/2017 Office visit Denisse Hart COPYING MACHINE MECHANIC 07/09/[address] Evan Mccullough MD 01/09/[address] Evan Mccullough MD 10/02/[address] Evan Mccullough MD 06/27/[address] Evan Mccullough MD 05/12/[address] Evan Mccullough MD 04/07/[address] Evan Mccullough MD 01/30/2016 Office visit 01/30/2016 Office visit Giselle Faithmichaelniles COPYING MACHINE MECHANIC 01/22/2016 Nurse visit South Nicole COPYING MACHINE MECHANIC 01/15/2016 Nurse visit Nicole Ackerman MD 01/08/2016 [...] 10/23/2015 Nurse visit Nicole Ackerman MD 10/16/2015 [facility] Reggie Ness MD 10/16/2015 Office visit 10/16/2015 [...] Nicole APRN 07/11/2014 Nurse visit South Nicole COPYING MACHINE MECHANIC 07/04/2014 Nurse visit 07/04/2014 Nurse visit 07/04/2014 Nurse visit Skylar Pfeiffer COPYING MACHINE MECHANIC 06/27/2014 Nurse visit 06/27/2014 Nurse visit 06/27/2014 Nurse visit [place] Nicole COPYING MACHINE MECHANIC 06/20/2014 Nurse visit [place] Nicole COPYING MACHINE MECHANIC 06/13/2014 Nurse visit Nicole Ackerman MD 06/06/2014 Nurse visit Mariposa Bellamy COPYING MACHINE MECHANIC 05/30/2014 Nurse visit South Nicole COPYING MACHINE MECHANIC 05/23/2014 Nurse visit Skylar Pfeiffer COPYING MACHINE MECHANIC 05/16/2014 Nurse visit Nicole Ackerman MD 05/02/2014 Nurse visit Nicole Ackerman MD 04/25/2014 Nurse visit Nicole Ackerman MD 04/18/2014 Nurse visit Nicole Ackerman MD 04/12/2014 Nurse visit Nicole Ackerman MD 04/05/2014 Nurse visit Nicole Ackerman MD 03/28/2014 Nurse visit Mariposa Cordova RN 03/22/2014 Nurse visit Skylar Pfeiffer COPYING MACHINE MECHANIC 03/14/2014 Nurse visit Nicole Ackerman MD 03/07/2014 Nurse visit Skylar Pfeiffer COPYING MACHINE MECHANIC 02/28/2014 Nurse visit Skylar Pfeiffer COPYING MACHINE MECHANIC 02/21/2014 Nurse visit Nicole Ackerman MD 02/14/2014 Nurse visit Skylar Pfeiffer COPYING MACHINE MECHANIC 02/06/2014 Nurse visit Nicole Ackerman MD 01/31/2014 [...] Ackerman MD 11/29/2013 Nurse visit Mariposa Bellamy COPYING MACHINE MECHANIC 11/23/2013 Office visit Nicole Ackerman MD 11/14/2013 [...] Aguilera MD 08/09/2013 Nurse visit Skylar Pfeiffer COPYING MACHINE MECHANIC 08/02/2013 Nurse visit Skylar Pfeiffer COPYING MACHINE MECHANIC 07/26/2013 Nurse visit Skylar Pfeiffer COPYING MACHINE MECHANIC 07/19/2013 Nurse visit Skylar Pfeiffer COPYING MACHINE MECHANIC 07/12/2013 Nurse visit Skylar Pfeiffer COPYING MACHINE MECHANIC 07/05/2013 Nurse visit Skylar Pfeiffer COPYING MACHINE MECHANIC 06/28/2013 Nurse visit Skylar Pfeiffer COPYING MACHINE MECHANIC 06/21/2013 Nurse visit Skylar Pfeiffer COPYING MACHINE MECHANIC 06/14/2013 Nurse visit Skylar Pfeiffer COPYING MACHINE MECHANIC 06/08/2013 Nurse visit Jailene Aguilera MD 06/02/2013 [...] 09/28/2012 Nurse visit Jailene Aguilera MD 09/23/2012 [facility] Guido Parra MD 09/21/2012 Nurse visit Jailene Aguilera MD 09/14/2012 Nurse visit Jailene Aguilera MD 09/09/2012 [facility] Guido Parra MD 09/07/2012 Nurse visit Jailene [...] Jailene Aguilera MD 07/24/2011 Nurse visit Jailene gAuilera MD 07/14/2011 Office visit Jailene Aguilera MD [...] Mcconnell DO 07/11/2009 Office visit Chin Mcconnell DO"
--- NOTE | 2018-10-21 10:15 | Diagnostic Imaging Report ---
INDICATION: Fluoroscopy for bronchoscopy. FINDINGS: Fluoroscopy was provided for Dr. Chand during bronchoscopy. 9 seconds of fluoroscopy was utilized. IMPRESSION: Fluoroscopy for bronchoscopy. Dictated by: Dictated on workstation # [id number]
--- OUTSIDE RECORDS SUMMARY | 2018-10-21 10:18 | XMS REPORT ---
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 Becky. NOV Fluvirin > 12 Years [id number] Intramuscular Left Deltoid 11/06/2009 11/16/2016 999 Influenza 08/21/2010 [employer] Becky. NOV Fluvirin > 12 Years [id number] Intramuscular Left Deltoid 08/21/2010 06/26/2009 999 Pneumococcal 08/28/2010 Merck & Co., Inc. MSD Pneumovax 23 [id number] Intramuscular Right Deltoid 08/28/2010 03/01/2009 999 Influenza 09/04/2011 sanofi pasteur PMC Fluzone [id number] Intramuscular Left Deltoid 09/04/2011 06/11/2011 111 Influenza 09/02/2012 sanofi pasteur PMC Fluzone [id number] Intramuscular Left Deltoid 09/02/2012 05/17/2012 141 Influenza 08/22/2013 [facility] Fluzone > 3 Years [id number] Intramuscular Left Deltoid 08/22/2013 06/10/2013 141 Influenza 08/24/2015 [facility] Fluzone [id number] Intramuscular Left Deltoid 08/24/2015 06/22/2015 141 History [...] Date Medicare Part A Medicare Part A [id number] Tuesday, 2012 Bc[facility] Bc[facility] [id number] Friday, 2009 Medicare Part B Medicare Of [place] [id number] Saturday, 2006 History of Encounters Visit Date [...] visit Nicole Ackerman MD 01/02/2015 Nurse visit Nicloe Ackerman MD 12/19/2014 Nurse visit Nicole Ackerman [...] Ackerman MD 07/19/2014 Nurse visit [place] Nicole SPORTS MEDICINE TRAINER 07/11/2014 Nurse visit [place] Nicole SPORTS MEDICINE TRAINER 07/04/2014 Nurse visit Skylar Pfeiffer SPORTS MEDICINE TRAINER 06/27/2014 Nurse visit [place] Nicole SPORTS MEDICINE TRAINER 06/20/2014 Nurse visit [place] Nicole SPORTS MEDICINE TRAINER 06/13/2014 Nurse visit Nicole Ackerman MD 06/06/2014 Nurse visit Mariposa Bellamy SPORTS MEDICINE TRAINER 05/30/2014 Nurse visit [place] Nicole SPORTS MEDICINE TRAINER 05/23/2014 Nurse visit Skylar Pfeiffer SPORTS MEDICINE TRAINER 05/16/2014 Nurse visit Nicole Ackerman MD 05/02/2014 Nurse visit Nicole Ackerman MD 04/25/2014 Nurse visit Nicole Ackerman MD 04/18/2014 Nurse visit Nicole Ackerman MD 04/12/2014 Nurse visit Nicole Ackerman MD 04/05/2014 Nurse visit Nicole Ackerman MD 03/28/2014 Nurse visit Mariposa Cordova RN 03/22/2014 Nurse visit Skylar Pfeiffer SPORTS MEDICINE TRAINER 03/14/2014 Nurse visit Nicole Ackerman MD 03/07/2014 Nurse visit Skylar Pfeiffer SPORTS MEDICINE TRAINER 02/28/2014 Nurse visit Skylar Pfeiffer SPORTS MEDICINE TRAINER 02/21/2014 Nurse visit Nicole Ackerman MD 02/14/2014 Nurse visit Skylar Pfeiffer SPORTS MEDICINE TRAINER 02/06/2014 Nurse visit Nicole Ackerman MD 01/31/2014 [...] Ackerman MD 11/29/2013 Nurse visit Mariposa Bellamy SPORTS MEDICINE TRAINER 11/23/2013 Office visit Nicole Ackerman MD 11/14/2013 [...] Aguilera MD 08/09/2013 Nurse visit Skylar Pfeiffer SPORTS MEDICINE TRAINER 08/02/2013 Nurse visit Skylar Pfeiffer SPORTS MEDICINE TRAINER 07/26/2013 Nurse visit Skylar Pfeiffer SPORTS MEDICINE TRAINER 07/19/2013 Nurse visit Skylar Pfeiffer SPORTS MEDICINE TRAINER 07/12/2013 Nurse visit Skylar Pfeiffer SPORTS MEDICINE TRAINER 07/05/2013 Nurse visit Skylar Pfeiffer SPORTS MEDICINE TRAINER 06/28/2013 Nurse visit Skylar Pfeiffer SPORTS MEDICINE TRAINER 06/21/2013 Nurse visit Skylar Pfeiffer SPORTS MEDICINE TRAINER 06/14/2013 Nurse visit Skylar Pfeiffer SPORTS MEDICINE TRAINER 06/08/2013 Nurse visit Jailene Aguilera MD 06/02/2013 Nurse visit Jailene Aguilera MD 05/24/2013 Nurse visit Jailene Aguilera MD 05/17/2013 Nurse visit Jailene Aguilera MD 05/11/2013 Nurse visit Jailene Aguilera MD 05/02/2013 Nurse visit Jailene Aguilera MD 04/26/2013 Nurse visit Jailene Aguilera MD 04/19/2013 Nurse visit Jailene Aguilera MD 04/12/2013 Nurse visit Jailene Aguilera MD 04/05/2013 Nurse visit Jailene Augilera MD 03/29/2013 Nurse visit Jailene Aguilera MD [...] Jailene Aguilera MD 12/15/2011 Nurse visit Jailene Aguilrea MD 12/08/2011 Nurse visit Jailene Aguilera MD 12/02/2011 Nurse visit Jailene Aguilera MD 11/25/2011 Nurse visit Jailene Aguilera MD 11/18/2011 Nurse visit Jailene Aguilera MD 11/11/2011 Nurse visit Jailene Aguilera MD 11/03/2011 Nurse visit Jailene Aguilera MD 10/27/2011 Nurse visit Jailene Aguilera MD 10/20/2011 Nurse visit Jailene Aguilera MD 10/20/2011 Voided Jarad Saravia DO 10/13/2011 Nurse visit Jailene Aguilera MD 10/07/2011 Nurse visit Jaileen Aguilera MD 10/01/2011 Nurse visit Jailene Aguilera MD 09/24/2011 Nurse visit Jailene Aguilera MD 09/15/2011 Nurse visit Jailene Aguilera MD 09/08/2011 Nurse visit Jaielne Aguilera MD 09/04/2011 Surgery Jailene Aguilera MD [...] Chin Mcconnell DO 08/01/2010 Nurse visit Chin Mcocnnell DO 07/24/2010 Nurse visit Chin Mcconnell DO [...]
--- OUTSIDE RECORDS SUMMARY | 2018-10-21 10:23 | XMS REPORT ---
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# [address]-31 C Reviewed 09/07/2012 12:00 AM IMMUNOTHERAPY INJECTIONS [...] Flu Injection [address] [facility]# [address]-58 RHC Reviewed 10/30/2009 12:00 AM IMMUNOTHERAPY INJECTIONS [...] IMMUNOTHERAPY INJECTIONS Reviewed 02/20/2015 12:00 AM PROF TANIA DYERG IMMNTX X W/PRV ALLGIC XTRCS NJXS Reviewed 12/12/2009 12:00 AM IMMUNOTHERAPY INJECTIONS Reviewed 04/15/2011 12:00 AM IMMUNOTHERAPY INJECTIONS Reviewed 02/27/2015 12:00 AM PROF TANIA DYERG IMMNTX X W/PRV ALLGIC XTRCS NJXS Reviewed [...] Entered 11/16/2015 11/16/2015 999 Influenza 08/15/2009 Novartis SSN Funding Becky. NOV Fluvirin > 12 Years [id number] Intramuscular Left Deltoid 11/06/2009 11/16/2015 999 Influenza 08/21/2010 [employer] Becky. NOV Fluvirin > 12 Years [id number] Intramuscular Left Deltoid 08/21/2010 06/26/2009 999 Pneumococcal 08/28/2010 Merck & Co., Inc. MSD Pneumovax 23 [id number] Intramuscular Right Deltoid 08/28/2010 03/01/2009 999 Influenza 09/04/2011 [facility] PMC Fluzone [id number] Intramuscular Left Deltoid 09/04/2011 06/11/2011 111 Influenza 09/02/2012 [facility] PMC Fluzone [id number] Intramuscular Left Deltoid 09/02/2012 05/17/2012 141 Influenza 08/22/2013 [facility] PMC Fluzone > 3 Years [id number] Intramuscular Left Deltoid 08/22/2013 06/10/2013 141 History [...] to other allergen Jul 10 2015 9:15AM Payers Insurance Name Company Name Plan Name Plan Number Policy Number Policy Group Number Start Date Medicare Part A Medicare Part A [id number] Tuesday, 2012 [id number] Friday, 2009 Medicare Part B Medicare Of [place] [id number] Saturday, 2006 History of Encounters Visit Date Visit Type Provider 07/10/2015 Nurse visit Nicole Ackerman MD 07/04/2015 [...] Ackerman MD 07/19/2014 Nurse visit [place] Nicole RETAIL SELLING FLOOR LEADER 07/11/2014 Nurse visit [place] Nicole RETAIL SELLING FLOOR LEADER 07/04/2014 Nurse visit Skylar Pfeiffer RETAIL SELLING FLOOR LEADER 06/27/2014 Nurse visit [place] Nicole RETAIL SELLING FLOOR LEADER 06/20/2014 Nurse visit [place] Nicole RETAIL SELLING FLOOR LEADER 06/13/2014 Nurse visit Nicoel Ackerman MD 06/06/2014 Nurse visit Mariposa Bellamy RETAIL SELLING FLOOR LEADER 05/30/2014 Nurse visit [place] Nicole RETAIL SELLING FLOOR LEADER 05/23/2014 Nurse visit Skylar Pfeiffer RETAIL SELLING FLOOR LEADER 05/16/2014 Nurse visit Nicole Ackerman MD 05/02/2014 Nurse visit Nicole Ackerman MD 04/25/2014 Nurse visit Nicole Ackerman MD 04/18/2014 Nurse visit Nicole Ackerman MD 04/12/2014 Nurse visit Nicole Ackerman MD 04/05/2014 Nurse visit Nicole Ackerman MD 03/28/2014 Nurse visit Mariposa Cordova RN 03/22/2014 Nurse visit Skylar Pfeiffer RETAIL SELLING FLOOR LEADER 03/14/2014 Nurse visit Nicole Ackerman MD 03/07/2014 Nurse visit Skylar Pfeiffer RETAIL SELLING FLOOR LEADER 02/28/2014 Nurse visit Skylar Pfeiffer RETAIL SELLING FLOOR LEADER 02/21/2014 Nurse visit Nicole Ackerman MD 02/14/2014 Nurse visit Skylar Pfeiffer RETAIL SELLING FLOOR LEADER 02/06/2014 Nurse visit Nicole Ackerman MD 01/31/2014 Nurse visit Nicole Ackerman MD 01/25/2014 Nurse visit Nicole Ackerman MD 2014 Office visit Nicloe Ackerman MD 01/09/2014 Nurse visit Nicole Ackerman MD 01/02/2014 Office visit Nicole Ackerman MD 12/27/2013 Nurse visit Nicole Ackerman MD 12/19/2013 Nurse visit Nicole Ackerman MD 12/12/2013 Nurse visit Nicole Ackerman MD 12/05/2013 Nurse visit Nicole Ackerman MD 11/29/2013 Nurse visit Mariposa Bellamy RETAIL SELLING FLOOR LEADER 11/23/2013 Office visit Nicole Ackerman MD [...] Aguilera MD 08/09/2013 Nurse visit Skylar Pfeiffer RETAIL SELLING FLOOR LEADER 08/02/2013 Nurse visit Skylar Pfeiffer RETAIL SELLING FLOOR LEADER 07/26/2013 Nurse visit Skylar Pfeiffer RETAIL SELLING FLOOR LEADER 07/19/2013 Nurse visit Skylar Pfeiffer RETAIL SELLING FLOOR LEADER 07/12/2013 Nurse visit Skylar Pfeiffer RETAIL SELLING FLOOR LEADER 07/05/2013 Nurse visit Skylar Pfeiffer RETAIL SELLING FLOOR LEADER 06/28/2013 Nurse visit Skylar Pfeiffer RETAIL SELLING FLOOR LEADER 06/21/2013 Nurse visit Skylar Pfeiffer RETAIL SELLING FLOOR LEADER 06/14/2013 Nurse visit Skylar MoDali Kentrell RETAIL SELLING FLOOR LEADER 06/08/2013 Nurse visit Jailene Aguilera MD [...] Jailene Aguilera MD 02/22/2013 Nurse visit Jailene Aguielra MD 02/14/2013 Nurse visit Jailene Aguilera MD [...] visit Jailene Aguilera MD 10/07/2011 Nurse visit Jaielne Aguilera MD 10/01/2011 Nurse visit Jailene Aguilera [...] Jailene Aguilera MD 04/29/2011 Nurse visit Jailene Augilera MD 04/21/2011 Nurse visit Jailene Aguilera MD [...]
--- OUTSIDE RECORDS SUMMARY | 2018-10-21 10:27 | XMS REPORT ---
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 MSD Pneumovax 23 Intramuscular Not Entered 11/16/2015 11/16/2015 999 Influenza 08/15/2009 Tongda Becky. NOV Fluvirin > 12 Years [id number] Intramuscular Left Deltoid 11/06/2009 11/16/2015 999 Influenza 08/21/2010 Tongda Becky. NOV Fluvirin > 12 Years [id number] Intramuscular Left Deltoid 08/21/2010 06/26/2009 999 X 08/28/2010 [employer] MSD Pneumovax 23 [id number] Intramuscular Right Deltoid 08/28/2010 03/01/2009 999 Influenza 09/04/2011 sanofi pasteur PMC Fluzone [id number] Intramuscular Left Deltoid 09/04/2011 06/11/2011 111 Influenza 09/02/2012 sanofi pasteur PMC Fluzone [id number] Intramuscular Left Deltoid 09/02/2012 05/17/2012 141 Influenza 08/22/2013 sanofi pasteur PMC Fluzone > 3 Years [id number] Intramuscular Left Deltoid 08/22/2013 06/10/2013 141 Influenza 08/24/2015 sanofi pasteur PMC Fluzone [id number] Intramuscular Left Deltoid 08/24/2015 06/22/2015 141 History [...] Date Medicare Part A Medicare Part A [id number] Tuesday, 2012 BCBS [facility] [employer] [place] [id number] Friday, 2009 Medicare Part B Medicare Christina Araujo [id number] Saturday, 2006 Medicare Part A Medicare - Lab/Xray [id number] Tuesday, July 17, 2012 History of Encounters Visit Date Visit Type Provider 01/30/2016 Office visit 01/30/2016 Office visit Giselle Olivia SOLAR SALES ESTIMATOR 01/22/2016 Nurse visit South Nicole SOLAR SALES ESTIMATOR 01/15/2016 Nurse visit Nicole Ackerman MD 01/08/2016 [...] MD 10/16/2015 Office visit 10/16/2015 Office visit Nciole Ackerman MD 10/09/2015 Nurse visit Nicole Ackerman [...] Nicole Ackerman MD 05/29/2015 Nurse visit Nicole Ackreman MD 05/22/2015 Nurse visit Nicole Ackerman MD [...] visit Nicole Ackerman MD 01/09/2015 Nurse visit Nicloe Ackerman MD 01/02/2015 Nurse visit Nicole Ackerman [...] Ackerman MD 07/19/2014 Nurse visit South Nicole SOLAR SALES ESTIMATOR 07/11/2014 Nurse visit [place] Nicole SOLAR SALES ESTIMATOR 07/04/2014 Nurse visit 07/04/2014 Nurse visit 07/04/2014 Nurse visit Skylar Pfeiffer SOLAR SALES ESTIMATOR 06/27/2014 Nurse visit 06/27/2014 Nurse visit 06/27/2014 Nurse visit [place] Nicole SOLAR SALES ESTIMATOR 06/20/2014 Nurse visit [place] Nicole SOLAR SALES ESTIMATOR 06/13/2014 Nurse visit Nicole Ackerman MD 06/06/2014 Nurse visit Mariposa Bellamy SOLAR SALES ESTIMATOR 05/30/2014 Nurse visit [place] Nicole SOLAR SALES ESTIMATOR 05/23/2014 Nurse visit Skylar Pfeiffer SOLAR SALES ESTIMATOR 05/16/2014 Nurse visit Nicole Ackerman MD 05/02/2014 Nurse visit Nicole Ackerman MD 04/25/2014 Nurse visit Nicole Ackerman MD 04/18/2014 Nurse visit Nicole Ackerman MD 04/12/2014 Nurse visit Nicole Ackerman MD 04/05/2014 Nurse visit Nicole Ackerman MD 03/28/2014 Nurse visit Mariposa Cordova RN 03/22/2014 Nurse visit Skylar Pfeiffer SOLAR SALES ESTIMATOR 03/14/2014 Nurse visit Nicole Ackerman MD 03/07/2014 Nurse visit Skylar Pfeiffer SOLAR SALES ESTIMATOR 02/28/2014 Nurse visit Skylar Pfeiffer SOLAR SALES ESTIMATOR 02/21/2014 Nurse visit Nicole Ackerman MD 02/14/2014 Nurse visit Skylar Pfeiffer SOLAR SALES ESTIMATOR 02/06/2014 Nurse visit Nicole Ackerman MD 01/31/2014 [...] Ackerman MD 11/29/2013 Nurse visit Mariposa Bellamy SOLAR SALES ESTIMATOR 11/23/2013 Office visit Nicole Ackerman MD 11/14/2013 [...] Aguilera MD 08/09/2013 Nurse visit Skylar Pfeiffer SOLAR SALES ESTIMATOR 08/02/2013 Nurse visit Skylar Pfeiffer SOLAR SALES ESTIMATOR 07/26/2013 Nurse visit Sklyar Pfeiffer SOLAR SALES ESTIMATOR 07/19/2013 Nurse visit Skylar Pfeiffer SOLAR SALES ESTIMATOR 07/12/2013 Nurse visit Skylar Pfeiffer SOLAR SALES ESTIMATOR 07/05/2013 Nurse visit Skylar Pfeiffer SOLAR SALES ESTIMATOR 06/28/2013 Nurse visit Skylar Pfeiffer SOLAR SALES ESTIMATOR 06/21/2013 Nurse visit Skylar Pfeiffer SOLAR SALES ESTIMATOR 06/14/2013 Nurse visit Skylar Pfeiffer SOLAR SALES ESTIMATOR 06/08/2013 Nurse visit Jailene Aguilera MD 06/02/2013 [...] Aguilera MD 10/06/2012 Office visit Skylar Pfeiffer SOLAR SALES ESTIMATOR 10/05/2012 Nurse visit Jailene Aguilera MD 09/28/2012 Nurse visit Jailene Aguilera MD 09/23/2012 [facility] Guido Parra MD 09/21/2012 Nurse visit Jailene Aguilera MD 09/14/2012 Nurse visit Jailene Aguilera MD 09/09/2012 [facility] Guido Parra MD 09/07/2012 Nurse visit [...] visit Chin Mcconnell DO 09/11/2010 Nurse visit Cihn Mcconnell DO 09/04/2010 Nurse visit Chin Mcconnell [...] Chin Mcconnell DO 01/01/2010 Nurse visit Chin Mccnonell DO 12/26/2009 Nurse visit Chin Mcconnell DO [...] Chin Mcconnell DO 08/09/2009 Nurse visit Chin Mcocnnell DO 07/31/2009 Nurse visit Chin Mcconnell DO 07/25/2009 Nurse visit Chin Mcconnell DO 07/18/2009 Nurse visit Chin Mcconnell DO 07/11/2009 Office visit Chin Mcconnell DO
--- OUTSIDE RECORDS SUMMARY | 2018-10-21 10:32 | XMS REPORT ---
Author Author Mariposa Bellamy Organization [facility] Address [address] [place], [place] [id number] Care Team Providers Care Oracle E Business Developer Name Role Phone Mariposa Bellamy PCP Evan [...] shortness of breath, cough 12/13/2015 10:45 PM CBC With Auto Differential 11/23/2017 12:00 AM CMP (comprehensive metabolic panel) 11/23/2017 12:00 AM CX CHEST 2 VIEWS 11/23/2017 12:00 AM TSH 11/23/2017 12:00 AM CRP 11/23/2017 12:00 AM SED RATE 11/23/2017 12:00 AM Diagnostic Mammogram 12/07/2012 12:00 AM Allergy Injection [...] History Name Description Comments 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 NOV Fluvirin > 12 Years [id number] Intramuscular Left Deltoid 11/06/2009 11/16/2017 999 Influenza 08/21/2010 [employer] Becky. NOV Fluvirin > 12 Years [id number] Intramuscular Left Deltoid 08/21/2010 06/26/2009 999 X 08/28/2010 [employer]ck & Co., Inc. MSD Pneumovax 23 [id number] Intramuscular Right Deltoid 08/28/2010 03/01/2009 999 Influenza 09/04/2011 sanofi pasteur PMC Fluzone [id number] Intramuscular Left Deltoid 09/04/2011 06/11/2011 111 Influenza 09/02/2012 sanofi pasteur PMC Fluzone [id number] Intramuscular Left Deltoid 09/02/2012 05/17/2012 141 Influenza 08/22/2013 [facility] PMC Fluzone > 3 Years [id number] Intramuscular Left Deltoid 08/22/2013 06/10/2013 141 Influenza 08/24/2015 [facility] Fluzone [id number] Intramuscular Left Deltoid 08/24/2015 06/22/2015 141 History [...] 2017 2:46PM Cough Nov 23 2017 2:46PM Payers Insurance Name Company Name Plan Name Plan Number Policy Number Policy Group Number Start Date Medicare [facility] Medicare [facility] [id number] [id number] Friday, 2009 Medicare Part A Medicare Part A [id number] Tuesday, 2012 Medicare Part A Medicare - Lab/Xray [id number] Tuesday, July 17, 2012 Medicare Part B Medicare Of [place] [id number] Wednesday, January 14, 2006 History of Encounters Visit Date Visit Type Provider 11/23/2017 Office visit Mariposa Bellamy PEDIATRIC NEUROLOGIST 10/30/2017 Office visit Denisse Hart PEDIATRIC NEUROLOGIST 07/09/[address] Evan Mccullough MD 01/09/[address] Evan Mccullough MD 10/02/[address] Evan Mccullough MD 06/27/[address] Evan Mccullough MD 05/12/[address] Evan Mccullough MD 04/07/[address] Evan Mccullough MD 01/30/2016 Office visit 01/30/2016 Office visit Giselle Olivia PEDIATRIC NEUROLOGIST 01/22/2016 Nurse visit oSuth Nicole PEDIATRIC NEUROLOGIST 01/15/2016 Nurse visit Nicole Ackerman MD 01/08/2016 [...] 10/23/2015 Nurse visit Nicole Ackerman MD 10/16/2015 [facility] Reggie Ness MD 10/16/2015 Office [...] Nicole Ackerman MD 05/22/2015 Nurse visit Nicole Ackermna MD 05/15/2015 Nurse visit Nicole Ackerman MD [...] Ackerman MD 07/19/2014 Nurse visit South Nicole PEDIATRIC NEUROLOGIST 07/11/2014 Nurse visit [place] Nicole PEDIATRIC NEUROLOGIST 07/04/2014 Nurse visit 07/04/2014 Nurse visit 07/04/2014 Nurse visit Skylar Pfeiffer PEDIATRIC NEUROLOGIST 06/27/2014 Nurse visit 06/27/2014 Nurse visit 06/27/2014 Nurse visit [place] Nicole PEDIATRIC NEUROLOGIST 06/20/2014 Nurse visit [place] Nicole PEDIATRIC NEUROLOGIST 06/13/2014 Nurse visit Nicole Ackerman MD 06/06/2014 Nurse visit Mariposa Bellamy PEDIATRIC NEUROLOGIST 05/30/2014 Nurse visit [place] Nicole PEDIATRIC NEUROLOGIST 05/23/2014 Nurse visit Skylar Pfeiffer PEDIATRIC NEUROLOGIST 05/16/2014 Nurse visit Nicole Ackerman MD 05/02/2014 Nurse visit Nicole Ackerman MD 04/25/2014 Nurse visit Nicole Ackerman MD 04/18/2014 Nurse visit Nicole Ackerman MD 04/12/2014 Nurse visit Nicole Ackerman MD 04/05/2014 Nurse visit Nicole Ackerman MD 03/28/2014 Nurse visit Mariposa Cordova RN 03/22/2014 Nurse visit Skylar Pfeiffer PEDIATRIC NEUROLOGIST 03/14/2014 Nurse visit Nicole Ackerman MD 03/07/2014 Nurse visit Skylar Pfeiffer PEDIATRIC NEUROLOGIST 02/28/2014 Nurse visit Skylar Pfeiffer PEDIATRIC NEUROLOGIST 02/21/2014 Nurse visit Nicole Ackerman MD 02/14/2014 Nurse visit Skylar Pfeiffer PEDIATRIC NEUROLOGIST 02/06/2014 Nurse visit Nicole Ackerman MD 01/31/2014 [...] Ackerman MD 11/29/2013 Nurse visit Mariposa Bellamy PEDIATRIC NEUROLOGIST 11/23/2013 Office visit Nicole Ackerman MD 11/14/2013 [...] Aguilera MD 08/09/2013 Nurse visit Skylar Pfeiffer PEDIATRIC NEUROLOGIST 08/02/2013 Nurse visit Skylar Pfeiffer PEDIATRIC NEUROLOGIST 07/26/2013 Nurse visit Skylar Pfeiffer PEDIATRIC NEUROLOGIST 07/19/2013 Nurse visit Skylar Pfeiffer PEDIATRIC NEUROLOGIST 07/12/2013 Nurse visit Skylar Pfeiffer PEDIATRIC NEUROLOGIST 07/05/2013 Nurse visit Skylar Pfeiffer PEDIATRIC NEUROLOGIST 06/28/2013 Nurse visit Skylar Pfeiffer PEDIATRIC NEUROLOGIST 06/21/2013 Nurse visit Skylar Pfeiffer PEDIATRIC NEUROLOGIST 06/14/2013 Nurse visit Skylar Pfeiffer PEDIATRIC NEUROLOGIST 06/08/2013 Nurse visit Jailene Aguilera MD 06/02/2013 [...] 09/28/2012 Nurse visit Jailene Aguilera MD 09/23/2012 [facility] Guido Parra MD 09/21/2012 Nurse visit Jailene Aguilera MD 09/14/2012 Nurse visit Jailene Aguilera MD 09/09/2012 [facility] Guido Parra MD 09/07/2012 Nurse visit Jailene Aguilera MD 09/02/2012 Office visit Jailene Aguilera MD 08/31/2012 Nurse visit Jailene Aguilera MD 08/25/2012 Nurse visit Jailene gAuilera MD 08/18/2012 Nurse visit Jailene Aguilera MD [...]
--- OUTSIDE RECORDS SUMMARY | 2018-10-21 10:41 | XMS REPORT ---
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 MSD Pneumovax 23 Intramuscular Not Entered 11/16/2016 11/16/2016 999 Influenza 08/15/2009 Clodico Becky. NOV Fluvirin > 12 Years [id number] Intramuscular Left Deltoid 11/06/2009 11/16/2016 999 Influenza 08/21/2010 Novartis [employer] Becky. NOV Fluvirin > 12 Years [id number] Intramuscular Left Deltoid 08/21/2010 06/26/2009 999 Pneumococcal 08/28/2010 Merck & Co., Inc. MSD Pneumovax 23 [id number] Intramuscular Right Deltoid 08/28/2010 03/01/2009 999 Influenza 09/04/2011 sanofi pasteur PMC Fluzone [id number] Intramuscular Left Deltoid 09/04/2011 06/11/2011 111 Influenza 09/02/2012 sanofi pasteur PMC Fluzone [id number] Intramuscular Left Deltoid 09/02/2012 05/17/2012 141 Influenza 08/22/2013 sanofi pasteur PMC Fluzone > 3 Years [id number] Intramuscular Left Deltoid 08/22/2013 06/10/2013 141 Influenza 08/24/2015 [facility] [id number] Intramuscular Left Deltoid 08/24/2015 06/22/2015 141 History [...] Hypertension, Benign Essential Oct 23 2015 9:10AM Payers Insurance Name Company Name Plan Name Plan Number Policy Number Policy Group Number Start Date Medicare Part A Medicare Part A [id number] Tuesday, 2012 Bcbs [facility] [id number] Friday, 2009 Medicare Part B Medicare Of [place] [id number] Saturday, 2006 History of Encounters Visit Date [...] Ackerman MD 07/19/2014 Nurse visit South Nicole DIRECTOR OF PERIOPERATIVE SERVICES 07/11/2014 Nurse visit [place] Nicole DIRECTOR OF PERIOPERATIVE SERVICES 07/04/2014 Nurse visit Skylar Pfeiffer DIRECTOR OF PERIOPERATIVE SERVICES 06/27/2014 Nurse visit [place] Nicole DIRECTOR OF PERIOPERATIVE SERVICES 06/20/2014 Nurse visit [place] Nicole DIRECTOR OF PERIOPERATIVE SERVICES 06/13/2014 Nurse visit Nicole Ackerman MD 06/06/2014 Nurse visit Mariposa Bellamy DIRECTOR OF PERIOPERATIVE SERVICES 05/30/2014 Nurse visit [place] Nicole DIRECTOR OF PERIOPERATIVE SERVICES 05/23/2014 Nurse visit Skylar Pfeiffer DIRECTOR OF PERIOPERATIVE SERVICES 05/16/2014 Nurse visit Nicole Ackerman MD 05/02/2014 Nurse visit Nicole Ackerman MD 04/25/2014 Nurse visit Nicole Ackerman MD 04/18/2014 Nurse visit Nicole Ackerman MD 04/12/2014 Nurse visit Nicole Ackerman MD 04/05/2014 Nurse visit Nicole Ackerman MD 03/28/2014 Nurse visit Mariposa Cordova RN 03/22/2014 Nurse visit Skylar Pfeiffer DIRECTOR OF PERIOPERATIVE SERVICES 03/14/2014 Nurse visit Nicole Ackerman MD 03/07/2014 Nurse visit Skylar Pfeiffer DIRECTOR OF PERIOPERATIVE SERVICES 02/28/2014 Nurse visit Skylar Pfeiffer DIRECTOR OF PERIOPERATIVE SERVICES 02/21/2014 Nurse visit Nicole Ackerman MD 02/14/2014 Nurse visit Skylar Pfeiffer DIRECTOR OF PERIOPERATIVE SERVICES 02/06/2014 Nurse visit Nicole Ackerman MD 01/31/2014 [...] Ackerman MD 11/29/2013 Nurse visit Mariposa Bellamy DIRECTOR OF PERIOPERATIVE SERVICES 11/23/2013 Office visit Nicole Ackerman MD 11/14/2013 [...] Aguilera MD 08/09/2013 Nurse visit Skylar Pfeiffer DIRECTOR OF PERIOPERATIVE SERVICES 08/02/2013 Nurse visit Skylar Pfeiffer DIRECTOR OF PERIOPERATIVE SERVICES 07/26/2013 Nurse visit Skylar Pfeiffer DIRECTOR OF PERIOPERATIVE SERVICES 07/19/2013 Nurse visit Skylar Pfeiffer DIRECTOR OF PERIOPERATIVE SERVICES 07/12/2013 Nurse visit Skylar Pfeiffer DIRECTOR OF PERIOPERATIVE SERVICES 07/05/2013 Nurse visit Skylar Pfeiffer DIRECTOR OF PERIOPERATIVE SERVICES 06/28/2013 Nurse visit Skylar Pfeiffer DIRECTOR OF PERIOPERATIVE SERVICES 06/21/2013 Nurse visit Skylar Pfeiffer DIRECTOR OF PERIOPERATIVE SERVICES 06/14/2013 Nurse visit Skylar Pfeiffer DIRECTOR OF PERIOPERATIVE SERVICES 06/08/2013 Nurse visit Jailene Aguilera MD 06/02/2013 [...] Aguilera MD 10/06/2012 Office visit Skylar Pfeiffer DIRECTOR OF PERIOPERATIVE SERVICES 10/05/2012 Nurse visit Jailene Aguilera MD 09/28/2012 [...] visit Jailene Aguilera MD 05/27/2011 Nurse visit Jaielne Aguilera MD 05/20/2011 Nurse visit Jailene Aguilera [...] 02/19/2011 Nurse visit Chin Mcconnell DO 02/19/2011 [facility] Jamir Ness MD 02/11/2011 Nurse visit Chin [...] visit Chin Mcconnell DO 07/24/2010 Nurse visit Cihn Mcconnell DO 07/17/2010 Nurse visit Chin Mcconnell [...]
--- OUTSIDE RECORDS SUMMARY | 2018-10-21 10:55 | XMS REPORT ---
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 NOV Fluvirin > 12 Years [id number] Intramuscular Left Deltoid 11/06/2009 11/16/2017 999 Influenza 08/21/2010 Novartis Pharmaceutical Becky. NOV Fluvirin > 12 Years [id number] Intramuscular Left Deltoid 08/21/2010 06/26/2009 999 X 08/28/2010 Merck & Co., Inc. MSD Pneumovax 23 [id number] Intramuscular Right Deltoid 08/28/2010 03/01/2009 999 Influenza 09/04/2011 sanofi pasteur PMC Fluzone [id number] Intramuscular Left Deltoid 09/04/2011 06/11/2011 111 Influenza 09/02/2012 sanofi pasteur PMC Fluzone [id number] Intramuscular Left Deltoid 09/02/2012 05/17/2012 141 Influenza 08/22/2013 sanofi pasteur PMC Fluzone > 3 Years [id number] Intramuscular Left Deltoid 08/22/2013 06/10/2013 141 Influenza 08/24/2015 sanofi pasteur PMC Fluzone [id number] Intramuscular Left Deltoid 08/24/2015 06/22/2015 141 History [...] use of insulin Jan 09 2017 11:08AM Payers Insurance Name Company Name Plan Name Plan Number Policy Number Policy Group Number Start Date Medicare RHC Medicare [place] [id number] N/A [facility] [id number] Friday, 2009 Medicare Part A Medicare Part A [id number] Tuesday, 2012 Medicare Part A Medicare - Lab/Xray [id number] Tuesday, July 17, 2012 Medicare Part B Medicare Of [place] [id number] Saturday, January 14, 2006 History of Encounters Visit Date Visit Type Provider 01/09/[address] Evan Mccullough MD 10/02/[address] Evan Mccullough MD 06/27/[address] Evan Mccullough MD 05/12/[address] Evan Mccullough MD 04/07/[address] Evan Mccullough MD 01/30/2016 Office visit 01/30/2016 Office visit Giselle Olivia APRN 01/22/2016 Nurse visit [place] Nicole APRN 01/15/2016 Nurse visit Nicole Ackerman MD 01/08/2016 [...] Ackerman MD 07/19/2014 Nurse visit [place] Nicole LABORATORY SAMPLE CARRIER 07/11/2014 Nurse visit [place] Nicole LABORATORY SAMPLE CARRIER 07/04/2014 Nurse visit 07/04/2014 Nurse visit 07/04/2014 Nurse visit Skylar Pfeiffer LABORATORY SAMPLE CARRIER 06/27/2014 Nurse visit 06/27/2014 Nurse visit 06/27/2014 Nurse visit [place] Nicole LABORATORY SAMPLE CARRIER 06/20/2014 Nurse visit [place] LABORATORY SAMPLE CARRIER 06/13/2014 Nurse visit Nicole Ackerman MD 06/06/2014 Nurse visit Mariposa Bellamy LABORATORY SAMPLE CARRIER 05/30/2014 Nurse visit [place] LABORATORY SAMPLE CARRIER 05/23/2014 Nurse visit Skylar Pfeiffer LABORATORY SAMPLE CARRIER 05/16/2014 Nurse visit Nicole Ackerman MD 05/02/2014 Nurse visit Nicole Ackerman MD 04/25/2014 Nurse visit Nicole Ackerman MD 04/18/2014 Nurse visit Nicole Ackerman MD 04/12/2014 Nurse visit Nicole Ackerman MD 04/05/2014 Nurse visit Nicole Ackerman MD 03/28/2014 Nurse visit Mariposa Cordova RN 03/22/2014 Nurse visit Skylar Pfeiffer LABORATORY SAMPLE CARRIER 03/14/2014 Nurse visit Nicole Ackerman MD 03/07/2014 Nurse visit Skylar Pfeiffer LABORATORY SAMPLE CARRIER 02/28/2014 Nurse visit Skylar Pfeiffer LABORATORY SAMPLE CARRIER 02/21/2014 Nurse visit Nicole Ackerman MD 02/14/2014 Nurse visit Skylar Pfeiffer LABORATORY SAMPLE CARRIER 02/06/2014 Nurse visit Nicole Ackerman MD 01/31/2014 [...] Ackerman MD 11/29/2013 Nurse visit Mariposa Bellamy LABORATORY SAMPLE CARRIER 11/23/2013 Office visit Nicole Ackerman MD 11/14/2013 [...] MD 08/09/2013 Nurse visit Skylar Taj Pfeiffer LABORATORY SAMPLE CARRIER 08/02/2013 Nurse visit Skylarmiguel angel Pfeiffer LABORATORY SAMPLE CARRIER 07/26/2013 Nurse visit Skylarmiguel angel Pfeiffer LABORATORY SAMPLE CARRIER 07/19/2013 Nurse visit Skylarmiguel angel Pfeiffer LABORATORY SAMPLE CARRIER 07/12/2013 Nurse visit Skylramiguel angel Pfeiffer LABORATORY SAMPLE CARRIER 07/05/2013 Nurse visit Skylarmiguel angel Pfeiffer LABORATORY SAMPLE CARRIER 06/28/2013 Nurse visit Skylar Taj Pfeiffer LABORATORY SAMPLE CARRIER 06/21/2013 Nurse visit Skylar Pfeiffer LABORATORY SAMPLE CARRIER 06/14/2013 Nurse visit Skylar Pfeiffer LABORATORY SAMPLE CARRIER 06/08/2013 Nurse visit Jailene Aguilera MD 06/02/2013 [...] visit Jailene Aguilera MD 11/23/2012 Nurse visit Jaliene Aguilera MD 11/17/2012 Nurse visit Jailene Aguilera [...] 02/19/2011 Nurse visit Chin Mcconnell DO 02/19/2011 [facility] Jamir Ness MD 02/11/2011 Nurse visit [...]
--- OUTSIDE RECORDS SUMMARY | 2018-10-21 11:07 | XMS REPORT ---
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 NOV Fluvirin > 12 Years [id number] Intramuscular Left Deltoid 11/06/2009 11/16/2016 999 Influenza 08/21/2010 [employer] Becky. NOV Fluvirin > 12 Years [id number] Intramuscular Left Deltoid 08/21/2010 06/26/2009 999 Pneumococcal 08/28/2010 Merck & Co., Inc. MSD Pneumovax 23 [id number] Intramuscular Right Deltoid 08/28/2010 03/01/2009 999 Influenza 09/04/2011 sanofi pasteur PMC Fluzone [id number] Intramuscular Left Deltoid 09/04/2011 06/11/2011 111 Influenza 09/02/2012 [facility] PMC Fluzone [id number] Intramuscular Left Deltoid 09/02/2012 05/17/2012 141 Influenza 08/22/2013 [facility] PMC Fluzone > 3 Years [id number] Intramuscular Left Deltoid 08/22/2013 06/10/2013 141 Influenza 08/24/2015 [facility] PMC Fluzone [id number] Intramuscular Left Deltoid 08/24/2015 06/22/2015 141 History [...] to other allergen Sep 25 2015 9:06AM Payers Insurance Name Company Name Plan Name Plan Number Policy Number Policy Group Number Start Date Medicare Part A Medicare Part A [id number] Tuesday, 2012 [facility] [id number] Friday, 2009 Medicare Part B Medicare Of [place] [id number] Saturday, 2006 History of Encounters Visit Date Visit Type Provider 09/25/2015 Nurse visit Nicole Ackerman MD 09/18/2015 [...] Ackerman MD 07/19/2014 Nurse visit [place] PROFILE TRIMMER 07/11/2014 Nurse visit [place] PROFILE TRIMMER 07/04/2014 Nurse visit Skylar Pfeiffer PROFILE TRIMMER 06/27/2014 Nurse visit [place] PROFILE TRIMMER 06/20/2014 Nurse visit [place] PROFILE TRIMMER 06/13/2014 Nurse visit Nicole Ackerman MD 06/06/2014 Nurse visit Mariposa Bellamy PROFILE TRIMMER 05/30/2014 Nurse visit [place] PROFILE TRIMMER 05/23/2014 Nurse visit Skylar Pfeiffer PROFILE TRIMMER 05/16/2014 Nurse visit Nicole Ackerman MD 05/02/2014 Nurse visit Nicole Ackerman MD 04/25/2014 Nurse visit Nicole Ackerman MD 04/18/2014 Nurse visit Nicole Ackerman MD 04/12/2014 Nurse visit Nicole Ackerman MD 04/05/2014 Nurse visit Nicole Ackerman MD 03/28/2014 Nurse visit Mariposa Cordova RN 03/22/2014 Nurse visit Skylar Pfeiffer PROFILE TRIMMER 03/14/2014 Nurse visit Nicole Ackerman MD 03/07/2014 Nurse visit Skylar Pfeiffer PROFILE TRIMMER 02/28/2014 Nurse visit Skylar Pfeiffer PROFILE TRIMMER 02/21/2014 Nurse visit Nicole Ackerman MD 02/14/2014 Nurse visit Skylar Pfeiffer PROFILE TRIMMER 02/06/2014 Nurse visit Nicole Ackerman MD [...] Ackerman MD 11/29/2013 Nurse visit Mariposa Bellamy PROFILE TRIMMER 11/23/2013 Office visit Nicole Ackerman MD 11/14/2013 Nurse visit Jarad Saravia DO 11/07/2013 Nurse visit Nicole Ackerman MD 10/31/2013 Nurse visit Jailene Aguilera MD 10/25/2013 Nurse visit Jailene Aguilera MD 10/18/2013 Nurse visit Jailene Aguliera MD 10/11/2013 Nurse visit Jailene Aguilera MD 10/04/2013 Nurse visit Jailene Aguilera MD 09/27/2013 Nurse visit Jailene Aguilera MD 09/20/2013 Nurse visit Jailene Aguilera MD 09/13/2013 Nurse visit Jailene Aguilera MD 09/06/2013 Nurse visit Jailene Aguilera MD 08/31/2013 Nurse visit Jailene Aguilera MD 08/25/2013 Nurse visit Jailene Aguilera MD 08/22/2013 Office visit Jailene Aguliera MD 08/16/2013 Nurse visit Jailene Aguilera MD 08/09/2013 Nurse visit Skylar Pfeiffer PROFILE TRIMMER 08/02/2013 Nurse visit Skylar Pfeiffer PROFILE TRIMMER 07/26/2013 Nurse visit Skylar Pfeiffer PROFILE TRIMMER 07/19/2013 Nurse visit Skylar Pfeiffer PROFILE TRIMMER 07/12/2013 Nurse visit Skylar Pfeiffer PROFILE TRIMMER 07/05/2013 Nurse visit Skylar Pfeiffer PROFILE TRIMMER 06/28/2013 Nurse visit Skylar Pfeiffer PROFILE TRIMMER 06/21/2013 Nurse visit Skylar Pfeiffer PROFILE TRIMMER 06/14/2013 Nurse visit Skylar Pfeiffer PROFILE TRIMMER 06/08/2013 Nurse visit Jailene Aguilera MD [...] visit Jailene Aguilera MD 12/21/2012 Nurse visit Jaliene Aguilera MD 12/14/2012 Nurse visit Jailene Aguilera [...] 09/28/2012 Nurse visit Jailene Aguilera MD 09/23/2012 [facility] Gu[facility] MD 09/21/2012 Nurse visit Jailene Aguilera MD 09/14/2012 Nurse visit Jailene Aguilera MD 09/09/2012 [facility] Gu[facility] Parra MD 09/07/2012 Nurse visit [...]
--- OUTSIDE RECORDS SUMMARY | 2018-10-21 11:21 | XMS REPORT ---
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 NOV Fluvirin > 12 Years [id number] Intramuscular Left Deltoid 11/06/2009 11/16/2015 999 Influenza 08/21/2010 [employer]. NOV Fluvirin > 12 Years [id number] Intramuscular Left Deltoid 08/21/2010 06/26/2009 999 Pneumococcal 08/28/2010 Merck & Co., Inc. MSD Pneumovax 23 1407Y Intramuscular Right Deltoid 08/28/2010 03/01/2009 999 Influenza 09/04/2011 sanofi pasteur PMC Fluzone [id number] Intramuscular Left Deltoid 09/04/2011 06/11/2011 111 Influenza 09/02/2012 sanofi pasteur PMC Fluzone [id number] Intramuscular Left Deltoid 09/02/2012 05/17/2012 141 Influenza 08/22/2013 sanofi pasteur PMC Fluzone > 3 Years [id number] Intramuscular Left Deltoid 08/22/2013 06/10/2013 141 History [...] to other allergen Mar 28 2015 3:20PM Payers Insurance Name Company Name Plan Name Plan Number Policy Number Policy Group Number Start Date Medicare Part A Medicare Part A [id number] Tuesday, 2012 [facility] [id number] Friday, 2009 Medicare Part B Medicare Of [place] [id number] Saturday, 2006 History of Encounters Visit Date [...] visit Nicole Ackerman MD 01/23/2015 Nurse visit Nicloe Ackerman MD 01/16/2015 Office visit Nicole Ackerman [...] Ackerman MD 07/19/2014 Nurse visit [place] MANAGER DRUG 07/11/2014 Nurse visit [place] MANAGER DRUG 07/04/2014 Nurse visit Skylar Pfeiffer MANAGER DRUG 06/27/2014 Nurse visit [place] MANAGER DRUG 06/20/2014 Nurse visit [place] MANAGER DRUG 06/13/2014 Nurse visit Nicole Ackerman MD 06/06/2014 Nurse visit Mariposa Bellamy MANAGER DRUG 05/30/2014 Nurse visit [place] MANAGER DRUG 05/23/2014 Nurse visit Skylar Pfeiffer MANAGER DRUG 05/16/2014 Nurse visit Nicole Ackerman MD 05/02/2014 Nurse visit Nicole Ackerman MD 04/25/2014 Nurse visit Nicole Ackerman MD 04/18/2014 Nurse visit Nicole Ackerman MD 04/12/2014 Nurse visit Nicole Ackerman MD 04/05/2014 Nurse visit Nicole Ackerman MD 03/28/2014 Nurse visit Mariposa Cordova RN 03/22/2014 Nurse visit Skylar Pfeiffer MANAGER DRUG 03/14/2014 Nurse visit Nicole Ackerman MD 03/07/2014 Nurse visit Skylar Pfeiffer MANAGER DRUG 02/28/2014 Nurse visit Skylar Pfeiffer MANAGER DRUG 02/21/2014 Nurse visit Nicole Ackerman MD 02/14/2014 Nurse visit Skylar Pfeiffer MANAGER DRUG 02/06/2014 Nurse visit Nicole Ackerman MD 01/31/2014 [...] Ackerman MD 11/29/2013 Nurse visit Mariposa Bellamy MANAGER DRUG 11/23/2013 Office visit Nicole Ackerman MD 11/14/2013 [...] Aguilera MD 08/09/2013 Nurse visit Skylar Pfeiffer MANAGER DRUG 08/02/2013 Nurse visit Skylar Pfeiffer MANAGER DRUG 07/26/2013 Nurse visit Skylar Pfeiffer MANAGER DRUG 07/19/2013 Nurse visit Skylar Pfeiffer MANAGER DRUG 07/12/2013 Nurse visit Skylar Pfeiffer MANAGER DRUG 07/05/2013 Nurse visit Skylar Pfeiffer MANAGER DRUG 06/28/2013 Nurse visit Skylar Pfeiffer MANAGER DRUG 06/21/2013 Nurse visit Skylar Pfeiffer MANAGER DRUG 06/14/2013 Nurse visit Skylar Pfeiffer APRN 06/08/2013 Nurse visit Jailene Aguilera MD 06/02/2013 [...] Aguilera MD 10/06/2012 Office visit Skylar Pfeiffer MANAGER DRUG 10/05/2012 Nurse visit Jailene Aguilera MD 09/28/2012 [...] visit Grey Lock MD 04/27/2012 Nurse visit aJilene Aguilera MD 04/20/2012 Nurse visit Jailene Aguilera [...]
--- OUTSIDE RECORDS SUMMARY | 2018-10-21 11:26 | XMS REPORT ---
Author Author Nicole Ackerman Organization [facility] Address [address] [place], [place] [address] Care Team Providers Care Oil Well Drilling Manager Name Role Phone Nicole Ackerman PCP Allergies and Adverse Reactions Name Reaction Notes pollens Demerol intolerant Plan of Treatment Planned Activity Comments Planned Date Planned Time Plan/Goal COMPLETE CBC W/AUTO DIFF WBC 09/06/2015 12:00 AM COMPREHEN METABOLIC PANEL 09/06/2015 12:00 AM GLYCOSYLATED HEMOGLOBIN TEST 09/06/2015 12:00 AM LIPID PANEL 09/06/2015 12:00 AM MICROALBUMIN QUANTITATIVE 09/06/2015 12:00 AM ASSAY THYROID STIM HORMONE 09/06/2015 12:00 AM IMMUNOTHERAPY INJECTIONS 05/04/2012 12:00 AM [...] History Name Description Comments 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 NOV Fluvirin > 12 Years [id number] Intramuscular Left Deltoid 11/06/2009 11/16/2015 999 Influenza 08/21/2010 [employer] Becky. NOV Fluvirin > 12 Years [id number] Intramuscular Left Deltoid 08/21/2010 06/26/2009 999 Pneumococcal 08/28/2010 Merck & Co., Inc. MSD Pneumovax 23 1407Y Intramuscular Right Deltoid 08/28/2010 03/01/2009 999 Influenza 09/04/2011 sanofi [facility] Fluzone [id number] Intramuscular Left Deltoid 09/04/2011 06/11/2011 111 Influenza 09/02/2012 [facility] PMC Fluzone [id number] Intramuscular Left Deltoid 09/02/2012 05/17/2012 141 Influenza 08/22/2013 [facility] PMC Fluzone > 3 Years [id number] Intramuscular Left Deltoid 08/22/2013 06/10/2013 141 Influenza 08/24/2015 [facility] PMC Fluzone [id number] Intramuscular Left Deltoid 08/24/2015 06/22/2015 141 History [...] 8:34AM Hypothyroidism, Acquired Sep 06 2015 8:34AM Payers Insurance Name Company Name Plan Name Plan Number Policy Number Policy Group Number Start Date Medicare Part A Medicare Part A [id number] Tuesday, 2012 [employer] [place] [id number] Friday, 2009 Medicare Part B Medicare Of [place] [id number] Saturday, 2006 History of Encounters Visit Date [...] Ackerman MD 07/19/2014 Nurse visit [place] CODE AND TEST CLERK 07/11/2014 Nurse visit [place] CODE AND TEST CLERK 07/04/2014 Nurse visit Skylar Pfeiffer CODE AND TEST CLERK 06/27/2014 Nurse visit [place] CODE AND TEST CLERK 06/20/2014 Nurse visit [place] CODE AND TEST CLERK 06/13/2014 Nurse visit Nicole Ackerman MD 06/06/2014 Nurse visit Mariposa Bellamy CODE AND TEST CLERK 05/30/2014 Nurse visit [place] CODE AND TEST CLERK 05/23/2014 Nurse visit Skylar Pfeiffer CODE AND TEST CLERK 05/16/2014 Nurse visit Nicole Ackerman MD 05/02/2014 Nurse visit Nicole Ackerman MD 04/25/2014 Nurse visit Nicole Ackerman MD 04/18/2014 Nurse visit Nicole Ackerman MD 04/12/2014 Nurse visit Nicole Ackerman MD 04/05/2014 Nurse visit Nicole Ackerman MD 03/28/2014 Nurse visit Mariposa Cordova RN 03/22/2014 Nurse visit Skylar Pfeiffer CODE AND TEST CLERK 03/14/2014 Nurse visit Nicole Ackerman MD 03/07/2014 Nurse visit Skylar Pfeiffer CODE AND TEST CLERK 02/28/2014 Nurse visit Skylar Pfeiffer CODE AND TEST CLERK 02/21/2014 Nurse visit Nicole Ackerman MD 02/14/2014 Nurse visit Skylar Pfeiffer CODE AND TEST CLERK 02/06/2014 Nurse visit Nicole Ackerman MD 01/31/2014 Nurse visit Nicole Ackerman MD 01/25/2014 Nurse visit iNcole Ackerman MD 2014 Office visit Nicole Ackerman MD 01/09/2014 Nurse visit Nicole Ackerman MD 01/02/2014 Office visit Nicole Ackerman MD 12/27/2013 Nurse visit Nicole Ackerman MD 12/19/2013 Nurse visit Nicole Ackerman MD 12/12/2013 Nurse visit Nicole Ackerman MD 12/05/2013 Nurse visit Nicole Ackerman MD 11/29/2013 Nurse visit Mariposa Bellamy CODE AND TEST CLERK 11/23/2013 Office visit Nicole Ackerman MD 11/14/2013 [...] Aguilera MD 08/09/2013 Nurse visit Skylar Pfeiffer CODE AND TEST CLERK 08/02/2013 Nurse visit Skylar Pfeiffer CODE AND TEST CLERK 07/26/2013 Nurse visit Skylar Pfeiffer CODE AND TEST CLERK 07/19/2013 Nurse visit Skylar Pfeiffer CODE AND TEST CLERK 07/12/2013 Nurse visit Skylar Pfeiffer CODE AND TEST CLERK 07/05/2013 Nurse visit Skylar Pfeiffer CODE AND TEST CLERK 06/28/2013 Nurse visit Skylar MoDali Kentrell CODE AND TEST CLERK 06/21/2013 Nurse visit Skylar MoDali Kentrell CODE AND TEST CLERK 06/14/2013 Nurse visit Skylar MoDali Kentrell CODE AND TEST CLERK 06/08/2013 Nurse visit Jailene Aguilera MD 06/02/2013 [...] 09/28/2012 Nurse visit Jailene Aguilera MD 09/23/2012 [facility] Guido Parra MD 09/21/2012 Nurse visit Jailene Aguilera MD 09/14/2012 Nurse visit Jailene Aguilera MD 09/09/2012 [facility] Guido Parra MD 09/07/2012 [...] visit Jailene Aguilera MD 09/08/2011 Nurse visit Jialene Aguilera MD 09/04/2011 Surgery Jailene Aguilera MD [...]
--- OUTSIDE RECORDS SUMMARY | 2018-10-21 11:30 | XMS REPORT ---
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 NOV Fluvirin > 12 Years [id number] Intramuscular Left Deltoid 11/06/2009 11/16/2015 999 Influenza 08/21/2010 [employer] Becky. NOV Fluvirin > 12 Years [id number] Intramuscular Left Deltoid 08/21/2010 06/26/2009 999 Pneumococcal 08/28/2010 Merck & Co., Inc. MSD Pneumovax 23 1407Y Intramuscular Right Deltoid 08/28/2010 03/01/2009 999 Influenza 09/04/2011 sanofi [facility] PMC Fluzone [id number] Intramuscular Left Deltoid 09/04/2011 06/11/2011 111 Influenza 09/02/2012 [facility] Fluzone [id number] Intramuscular Left Deltoid 09/02/2012 05/17/2012 141 Influenza 08/22[facility]2013 [facility]C Fluzone > 3 Years [id number] Intramuscular Left Deltoid 08/22/2013 06/10/2013 141 Influenza 08/24/2015 [facility] Fluzone [id number] Intramuscular Left Deltoid 08/24/2015 06/22/2015 141 History [...] to other allergen Jan 01 2016 8:46AM Payers Insurance Name Company Name Plan Name Plan Number Policy Number Policy Group Number Start Date Medicare Part A Medicare Part A [id number] Tuesday, 2012 [employer] [place] [id number] Friday, 2009 Medicare Part B Medicare Of [place] [id number] Saturday, 2006 History of Encounters Visit Date Visit Type Provider 01/01/2016 Nurse visit Nicole Ackerman MD 12/25/2015 Nurse visit Nicole Ackerman MD 12/18/2015 Nurse visit Nicole Ackerman MD 12/11/2015 Nurse visit Nicole Ackerman MD 11/27/2015 Nurse visit Nicole Ackerman MD 11/13/2015 Nurse visit Nicole Ackerman MD 10/31/2015 Office visit 10/31/2015 Office visit Nicole Ackerman MD 10/23/2015 Nurse visit Nicole Ackerman MD 10/16/2015 [facility] Reggie Ness MD 10/16/2015 Office [...] MD 07/19/2014 Nurse visit [place] MANAGER COMPETITIVE INTELLIGENCE 07/11/2014 Nurse visit [place] MANAGER COMPETITIVE INTELLIGENCE 07/04/2014 Nurse visit 07/04/2014 Nurse visit 07/04/2014 Nurse visit Skylar Pfeiffer MANAGER COMPETITIVE INTELLIGENCE 06/27/2014 Nurse visit 06/27/2014 Nurse visit 06/27/2014 Nurse visit [place] MANAGER COMPETITIVE INTELLIGENCE 06/20/2014 Nurse visit [place] MANAGER COMPETITIVE INTELLIGENCE 06/13/2014 Nurse visit Nicole Ackerman MD 06/06/2014 Nurse visit Mariposa Bellamy MANAGER COMPETITIVE INTELLIGENCE 05/30/2014 Nurse visit [place] MANAGER COMPETITIVE INTELLIGENCE 05/23/2014 Nurse visit Skylar Pfeiffer MANAGER COMPETITIVE INTELLIGENCE 05/16/2014 Nurse visit Nicole Ackerman MD 05/02/2014 Nurse visit Nicole Ackerman MD 04/25/2014 Nurse visit Nicole Ackerman MD 04/18/2014 Nurse visit Nicole Ackerman MD 04/12/2014 Nurse visit Nicole Ackerman MD 04/05/2014 Nurse visit Nicole Ackerman MD 03/28/2014 Nurse visit Mariposa Cordova RN 03/22/2014 Nurse visit Skylar Pfeiffer MANAGER COMPETITIVE INTELLIGENCE 03/14/2014 Nurse visit Nicole Ackerman MD 03/07/2014 Nurse visit Skylar Pfeiffer MANAGER COMPETITIVE INTELLIGENCE 02/28/2014 Nurse visit Skylar Pfeiffer MANAGER COMPETITIVE INTELLIGENCE 02/21/2014 Nurse visit Nicole Ackerman MD 02/14/2014 Nurse visit Skylar Pfeiffer MANAGER COMPETITIVE INTELLIGENCE 02/06/2014 Nurse visit Nicole Ackerman MD 01/31/2014 [...] MD 11/29/2013 Nurse visit Mariposa Bellamy MANAGER COMPETITIVE INTELLIGENCE 11/23/2013 Office visit Nicole Ackerman MD 11/14/2013 [...] MD 08/09/2013 Nurse visit Skylar Pfeiffer MANAGER COMPETITIVE INTELLIGENCE 08/02/2013 Nurse visit Skylar Pfeiffer MANAGER COMPETITIVE INTELLIGENCE 07/26/2013 Nurse visit Skylar Pfeiffer MANAGER COMPETITIVE INTELLIGENCE 07/19/2013 Nurse visit Skylar Pfeiffer MANAGER COMPETITIVE INTELLIGENCE 07/12/2013 Nurse visit Skylar Pfeiffer MANAGER COMPETITIVE INTELLIGENCE 07/05/2013 Nurse visit Skylar Pfeiffer MANAGER COMPETITIVE INTELLIGENCE 06/28/2013 Nurse visit Skylar Pfeiffer MANAGER COMPETITIVE INTELLIGENCE 06/21/2013 Nurse visit Skylar Pfeiffer MANAGER COMPETITIVE INTELLIGENCE 06/14/2013 Nurse visit Skylar Pfeiffer MANAGER COMPETITIVE INTELLIGENCE 06/08/2013 Nurse visit Jailene Aguilera MD 06/02/2013 [...] visit Jailene Aguilera MD 12/14/2012 Nurse visit aJilene Aguilera MD 12/07/2012 Nurse visit Jailene Aguilera [...] Guido Parra MD 09/07/2012 Nurse visit Jailene gAuilera MD 09/02/2012 Office visit Jailene Aguilera MD [...] Jailene Aguilera MD 06/28/2012 Voided Jarad Rani DO 06/21/2012 Nurse visit Giselle Gutierrez RN [...] Jailene Aguilera MD 04/15/2011 Nurse visit Jailene Aguliera MD 04/08/2011 Nurse visit Jailene Aguilera MD [...] visit Chin Mcconnell DO 10/18/2009 Nurse visit Cihn Mcconnell DO 10/10/2009 Nurse visit Chin Mcconnell [...]
--- OUTSIDE RECORDS SUMMARY | 2018-10-21 11:46 | XMS REPORT ---
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 NOV Fluvirin > 12 Years [id number] Intramuscular Left Deltoid 11/06/2009 11/16/2015 999 Influenza 08/21/2010 [employer] Becky. NOV Fluvirin > 12 Years [id number] Intramuscular Left Deltoid 08/21/2010 06/26/2009 999 Pneumococcal 08/28/2010 [employer] MSD Pneumovax 23 [id number] Intramuscular Right Deltoid 08/28/2010 03/01/2009 999 Influenza 09/04/2011 [facility] PMC Fluzone [id number] Intramuscular Left Deltoid 09/04/2011 06/11/2011 111 Influenza 09/02/2012 [facility] PMC Fluzone [id number] Intramuscular Left Deltoid 09/02/2012 05/17/2012 141 Influenza 08/22/2013 [facility] PMC Fluzone > 3 Years [id number] Intramuscular Left Deltoid 08/22/2013 06/10/2013 141 History [...] to other allergen Mar 20 2015 9:01AM Payers Insurance Name Company Name Plan Name Plan Number Policy Number Policy Group Number Start Date Medicare Part A Medicare Part A [id number] Tuesday, 2012 [facility] [id number] Friday, 2009 Medicare Part B Medicare Of [place] [id number] Saturday, 2006 History of Encounters Visit Date Visit Type Provider 03/20/2015 Nurse visit Nicole Ackerman MD 03/13/2015 [...] Ackerman MD 07/19/2014 Nurse visit [place] HEAD WAITER/WAITRESS BANQUET 07/11/2014 Nurse visit [place] HEAD WAITER/WAITRESS BANQUET 07/04/2014 Nurse visit Skylar Pfeiffer HEAD WAITER/WAITRESS BANQUET 06/27/2014 Nurse visit [place] HEAD WAITER/WAITRESS BANQUET 06/20/2014 Nurse visit [place] HEAD WAITER/WAITRESS BANQUET 06/13/2014 Nurse visit Nicole Ackerman MD 06/06/2014 Nurse visit Mariposa Bellamy HEAD WAITER/WAITRESS BANQUET 05/30/2014 Nurse visit [place] HEAD WAITER/WAITRESS BANQUET 05/23/2014 Nurse visit Skylar Pfeiffer HEAD WAITER/WAITRESS BANQUET 05/16/2014 Nurse visit Nicole Ackerman MD 05/02/2014 Nurse visit Nicole Ackerman MD 04/25/2014 Nurse visit Nicole Ackerman MD 04/18/2014 Nurse visit Nicole Ackerman MD 04/12/2014 Nurse visit Nicole Ackerman MD 04/05/2014 Nurse visit Nicole Ackerman MD 03/28/2014 Nurse visit Mariposa Cordova RN 03/22/2014 Nurse visit Skylar Pfeiffer HEAD WAITER/WAITRESS BANQUET 03/14/2014 Nurse visit Nicole Ackerman MD 03/07/2014 Nurse visit Skylar Pfeiffer HEAD WAITER/WAITRESS BANQUET 02/28/2014 Nurse visit Skylar Pfeiffer HEAD WAITER/WAITRESS BANQUET 02/21/2014 Nurse visit Nicole Ackerman MD 02/14/2014 Nurse visit Skylar Pfeiffer HEAD WAITER/WAITRESS BANQUET 02/06/2014 Nurse visit Nicole Ackerman MD 01/31/2014 [...] Ackerman MD 11/29/2013 Nurse visit Mariposa Bellamy HEAD WAITER/WAITRESS BANQUET 11/23/2013 Office visit Nicole Ackerman MD 11/14/2013 [...] Aguilera MD 08/09/2013 Nurse visit Skylar Pfeiffer HEAD WAITER/WAITRESS BANQUET 08/02/2013 Nurse visit Skylar Pfeiffer HEAD WAITER/WAITRESS BANQUET 07/26/2013 Nurse visit Skylar Pfeiffer HEAD WAITER/WAITRESS BANQUET 07/19/2013 Nurse visit Skylar Pfeiffer HEAD WAITER/WAITRESS BANQUET 07/12/2013 Nurse visit Skylar Pfeiffer HEAD WAITER/WAITRESS BANQUET 07/05/2013 Nurse visit Skylar Pfeiffer HEAD WAITER/WAITRESS BANQUET 06/28/2013 Nurse visit Skylar Pfeiffer HEAD WAITER/WAITRESS BANQUET 06/21/2013 Nurse visit Skylar Pfeiffer HEAD WAITER/WAITRESS BANQUET 06/14/2013 Nurse visit Skylar Pfeiffer HEAD WAITER/WAITRESS BANQUET 06/08/2013 Nurse visit Jailene Aguilera MD 06/02/2013 [...]
--- OUTSIDE RECORDS SUMMARY | 2018-10-21 11:51 | XMS REPORT ---
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 NOV Fluvirin > 12 Years [id number] Intramuscular Left Deltoid 11/06/2009 11/16/2015 999 Influenza 08/21/2010 Novartis Pharmaceutical Becky. NOV Fluvirin > 12 Years [id number] Intramuscular Left Deltoid 08/21/2010 06/26/2009 999 Pneumococcal 08/28/2010 Merck & Co., Inc. MSD Pneumovax 23 1407Y Intramuscular Right Deltoid 08/28/2010 03/01/2009 999 Influenza 09/04/2011 sanofi pasteur PMC Fluzone [id number] Intramuscular Left Deltoid 09/04/2011 06/11/2011 111 Influenza 09/02/2012 sanofi pasteur PMC Fluzone [id number] Intramuscular Left Deltoid 09/02/2012 05/17/2012 141 Influenza 08/22/2013 sanofi pasteur PMC Fluzone > 3 Years [id number] Intramuscular Left Deltoid 08/22/2013 06/10/2013 141 Influenza 08/24/2015 sanofi pasteur PMC Fluzone [id number] Intramuscular Left Deltoid 08/24/2015 06/22/2015 141 History [...] 2015 3:41PM Cough Nov 05 2015 10:45AM Payers Insurance Name Company Name Plan Name Plan Number Policy Number Policy Group Number Start Date Medicare Part A Medicare Part A [id number] Tuesday, 2012 [employer] [place] [id number] Friday, 2009 Medicare Part B Medicare Of [place] [id number] Saturday, 2006 History of Encounters Visit Date [...] Ackerman MD 07/19/2014 Nurse visit [place] CLAIM ANALYST 07/11/2014 Nurse visit [place] CLAIM ANALYST 07/04/2014 Nurse visit Skylar Pfeiffer CLAIM ANALYST 06/27/2014 Nurse visit [place] CLAIM ANALYST 06/20/2014 Nurse visit [place] CLAIM ANALYST 06/13/2014 Nurse visit Nicole Ackerman MD 06/06/2014 Nurse visit Mariposa Bellamy CLAIM ANALYST 05/30/2014 Nurse visit [place] CLAIM ANALYST 05/23/2014 Nurse visit Skylar Pfeiffer CLAIM ANALYST 05/16/2014 Nurse visit Nicole Ackerman MD 05/02/2014 Nurse visit Nicole Ackerman MD 04/25/2014 Nurse visit Nicole Ackerman MD 04/18/2014 Nurse visit Nicole Ackerman MD 04/12/2014 Nurse visit Nicole Ackerman MD 04/05/2014 Nurse visit Nicole Ackerman MD 03/28/2014 Nurse visit Mariposa Cordova RN 03/22/2014 Nurse visit Skylar Pfeiffer CLAIM ANALYST 03/14/2014 Nurse visit Nicole Ackerman MD 03/07/2014 Nurse visit Skylar Pfeiffer CLAIM ANALYST 02/28/2014 Nurse visit Skylar Pfeiffer CLAIM ANALYST 02/21/2014 Nurse visit Nicole Ackerman MD 02/14/2014 Nurse visit Skylar Pfeiffer CLAIM ANALYST 02/06/2014 Nurse visit Nicole Ackerman MD 01/31/2014 [...] Ackerman MD 11/29/2013 Nurse visit Mariposa Bellamy CLAIM ANALYST 11/23/2013 Office visit Nicole Ackerman MD 11/14/2013 [...] Jailene Aguilera MD 08/09/2013 Nurse visit Skylar MoDali Pfeiffer CLAIM ANALYST 08/02/2013 Nurse visit Skylar MoDali Pfeiffer CLAIM ANALYST 07/26/2013 Nurse visit Skylar MoDali Pfeiffer CLAIM ANALYST 07/19/2013 Nurse visit Skylar MoDali Pfeiffer CLAIM ANALYST 07/12/2013 Nurse visit Skylar MoDali Pfeiffer CLAIM ANALYST 07/05/2013 Nurse visit Skylar MoDali Pfeiffer CLAIM ANALYST 06/28/2013 Nurse visit Skylar Taj Pfeiffer CLAIM ANALYST 06/21/2013 Nurse visit Skylar Taj Pfeiffer CLAIM ANALYST 06/14/2013 Nurse visit Skylar Pfeiffer CLAIM ANALYST 06/08/2013 Nurse visit Jailene Aguilera MD 06/02/2013 [...] visit Jailene Aguilera MD 05/04/2012 Nurse visit Grye Lock MD 04/27/2012 Nurse visit Jailene Aguilera MD 04/20/2012 Nurse visit Jailene Aguilera MD 04/13/2012 Nurse visit Jailene Aguilera MD 04/07/2012 Nurse visit Jailene Aguilera MD 03/31/2012 Nurse visit Jailene Aguilera MD 03/23/2012 Nurse visit Jailene Aguilera MD 03/16/2012 Nurse visit Jailene Aguilera MD 03/09/2012 Nurse visit Jailene Aguilera MD 03/02/2012 Nurse visit Jailene Aguilera MD 02/24/2012 Nurse visit Jailene Aguliera MD 02/17/2012 Nurse visit Jailene Aguilera MD [...] Jailene Aguilera MD 05/13/2011 Nurse visit Jarad Gomezlb DING 05/06/2011 Nurse visit Jailene Aguilera MD [...] 02/19/2011 Nurse visit Chin Mcconnell DO 02/19/2011 [facility] Jamir Ness MD 02/11/2011 Nurse [...]
--- OUTSIDE RECORDS SUMMARY | 2018-10-21 12:03 | XMS REPORT ---
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 NOV Fluvirin > 12 Years [id number] Intramuscular Left Deltoid 11/06/2009 11/16/2016 999 Influenza 08/21/2010 [employer] Becky. NOV Fluvirin > 12 Years [id number] Intramuscular Left Deltoid 08/21/2010 06/26/2009 999 Pneumococcal 08/28/2010 Merck & Co., Inc. MSD Pneumovax 23 1407Y Intramuscular Right Deltoid 08/28/2010 03/01/2009 999 Influenza 09/04/2011 sanofi pasteur PMC Fluzone [id number] Intramuscular Left Deltoid 09/04/2011 06/11/2011 111 Influenza 09/02/2012 sanofi pasteur PMC Fluzone [id number] Intramuscular Left Deltoid 09/02/2012 05/17/2012 141 Influenza 08/22/2013 sanofi pasteur PMC Fluzone > 3 Years [id number] Intramuscular Left Deltoid 08/22/2013 06/10/2013 141 Influenza 08/24/2015 sanofi pasteur PMC Fluzone [id number] Intramuscular Left Deltoid 08/24/2015 06/22/2015 141 History [...] to other allergen Oct 16 2015 9:05AM Payers Insurance Name Company Name Plan Name Plan Number Policy Number Policy Group Number Start Date Medicare Part A Medicare Part A [id number] Tuesday, 2012 [facility] [id number] Friday, 2009 Medicare Part B Medicare Of [place] [id number] Saturday, 2006 History of Encounters Visit Date Visit Type Provider 10/16/2015 Nurse visit Nicole Ackerman MD 10/09/2015 Nurse visit [...] Nicole Ackerman MD 12/05/2014 Office visit Nicole Ackemran MD 11/28/2014 Nurse visit Nicole Ackerman MD [...] Ackerman MD 07/19/2014 Nurse visit [place] LOCKER PLANT ATTENDANT 07/11/2014 Nurse visit [place] LOCKER PLANT ATTENDANT 07/04/2014 Nurse visit Skylar Pfeiffer LOCKER PLANT ATTENDANT 06/27/2014 Nurse visit [place] LOCKER PLANT ATTENDANT 06/20/2014 Nurse visit [place] LOCKER PLANT ATTENDANT 06/13/2014 Nurse visit Nicole Ackerman MD 06/06/2014 Nurse visit Mariposa Bellamy LOCKER PLANT ATTENDANT 05/30/2014 Nurse visit [place] LOCKER PLANT ATTENDANT 05/23/2014 Nurse visit Skylar Pfeiffer LOCKER PLANT ATTENDANT 05/16/2014 Nurse visit Nicole Ackerman MD 05/02/2014 Nurse visit Nicole Ackerman MD 04/25/2014 Nurse visit Nicole Ackerman MD 04/18/2014 Nurse visit Nicole Ackerman MD 04/12/2014 Nurse visit Nicole Ackerman MD 04/05/2014 Nurse visit Nicole Ackerman MD 03/28/2014 Nurse visit Mariposa Cordova RN 03/22/2014 Nurse visit Skylar Pfefifer LOCKER PLANT ATTENDANT 03/14/2014 Nurse visit Nicole Ackerman MD 03/07/2014 Nurse visit Skylar Pfeiffer LOCKER PLANT ATTENDANT 02/28/2014 Nurse visit Skylar Pfeiffer LOCKER PLANT ATTENDANT 02/21/2014 Nurse visit Nicole Ackerman MD 02/14/2014 Nurse visit Skylar Pfeiffer LOCKER PLANT ATTENDANT 02/06/2014 Nurse visit Nicole Ackerman MD 01/31/2014 [...] Ackerman MD 11/29/2013 Nurse visit Mariposa Bellamy LOCKER PLANT ATTENDANT 11/23/2013 Office visit Nicole Ackerman MD 11/14/2013 Nurse visit Jarad Saravia 11/07/2013 Nurse visit Nicole Ackerman MD 10/31/2013 Nurse visit Jailene Aguilera MD 10/25/2013 Nurse visit Jailene Aguielra MD 10/18/2013 Nurse visit Jailene Aguilera MD [...] Aguilera MD 08/09/2013 Nurse visit Skylar Pfeiffer LOCKER PLANT ATTENDANT 08/02/2013 Nurse visit Skylar Pfeiffer LOCKER PLANT ATTENDANT 07/26/2013 Nurse visit Skylar Pfeiffer LOCKER PLANT ATTENDANT 07/19/2013 Nurse visit Skylar Pfeiffer LOCKER PLANT ATTENDANT 07/12/2013 Nurse visit Skylar Pfeiffer LOCKER PLANT ATTENDANT 07/05/2013 Nurse visit Skylar Pfeiffer LOCKER PLANT ATTENDANT 06/28/2013 Nurse visit Skylar Pfeiffer LOCKER PLANT ATTENDANT 06/21/2013 Nurse visit Skylar Pfeiffer LOCKER PLANT ATTENDANT 06/14/2013 Nurse visit Skylar Pfeiffer LOCKER PLANT ATTENDANT 06/08/2013 Nurse visit Jailene Aguilera MD 06/02/2013 [...] Jailene Aguilera MD 11/11/2011 Nurse visit Jailene Aguilrea MD 11/03/2011 Nurse visit Jailene Aguilera MD 10/27/2011 Nurse visit Jailene Aguilera MD 10/20/2011 Nurse visit Jailene Aguilera MD 10/20/2011 Voided Jarad Saravia 10/13/2011 Nurse visit Jailene Aguilera MD 10/07/2011 [...] Jailene Aguilera MD 07/14/2011 Office visit Jailene Agiulera MD 07/08/2011 Nurse visit Jailene Aguilera MD [...]
--- OUTSIDE RECORDS SUMMARY | 2018-10-21 12:08 | XMS REPORT ---
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 NOV Fluvirin > 12 Years [id number] Intramuscular Left Deltoid 11/06/2009 11/16/2016 999 Influenza 08/21/2010 [employer] Becky. NOV Fluvirin > 12 Years [id number] Intramuscular Left Deltoid 08/21/2010 06/26/2009 999 Pneumococcal 08/28/2010 Merck & Co., Inc. MSD Pneumovax 23 1407Y Intramuscular Right Deltoid 08/28/2010 03/01/2009 999 Influenza 09/04/2011 sanofi pasteur PMC Fluzone [id number] Intramuscular Left Deltoid 09/04/2011 06/11/2011 111 Influenza 09/02/2012 sanofi pasteur PMC Fluzone [id number] Intramuscular Left Deltoid 09/02/2012 05/17/2012 141 Influenza 08/22/2013 sanofi pasteur PMC Fluzone > 3 Years [id number] Intramuscular Left Deltoid 08/22/2013 06/10/2013 141 Influenza 08/24/2015 sanofi pasteur PMC Fluzone [id number] Intramuscular Left Deltoid 08/24/2015 06/22/2015 141 History [...] to other allergen Oct 09 2015 9:48AM Payers Insurance Name Company Name Plan Name Plan Number Policy Number Policy Group Number Start Date Medicare Part A Medicare Part A [id number] Tuesday, 2012 [facility] [id number] Friday, 2009 Medicare Part B Medicare Of [place] [id number] Saturday, 2006 History of Encounters Visit Date Visit Type Provider 10/09/2015 Nurse visit Nicole Ackerman MD 10/03/2015 [...] Ackerman MD 07/19/2014 Nurse visit [place] CORPORATE COUNSELOR 07/11/2014 Nurse visit [place] CORPORATE COUNSELOR 07/04/2014 Nurse visit Skylar Pfeiffer CORPORATE COUNSELOR 06/27/2014 Nurse visit [place] CORPORATE COUNSELOR 06/20/2014 Nurse visit [place] CORPORATE COUNSELOR 06/13/2014 Nurse visit Nicole Ackerman MD 06/06/2014 Nurse visit Mariposa Bellamy CORPORATE COUNSELOR 05/30/2014 Nurse visit [place] CORPORATE COUNSELOR 05/23/2014 Nurse visit Skylar Pfeiffer CORPORATE COUNSELOR 05/16/2014 Nurse visit Nicole Ackerman MD 05/02/2014 Nurse visit Nicole Ackerman MD 04/25/2014 Nurse visit Nicole Ackerman MD 04/18/2014 Nurse visit Nicole Ackerman MD 04/12/2014 Nurse visit Nicole Ackerman MD 04/05/2014 Nurse visit Nicole Ackerman MD 03/28/2014 Nurse visit Mariposa Cordova RN 03/22/2014 Nurse visit Skylar Pfeiffer CORPORATE COUNSELOR 03/14/2014 Nurse visit Nicole Ackerman MD 03/07/2014 Nurse visit Skylar Pfeiffer CORPORATE COUNSELOR 02/28/2014 Nurse visit Skylar Pfeiffer CORPORATE COUNSELOR 02/21/2014 Nurse visit Nicole Ackerman MD 02/14/2014 Nurse visit Skylar Pfeiffer CORPORATE COUNSELOR 02/06/2014 Nurse visit Nicole Ackerman MD 01/31/2014 [...] Ackerman MD 11/29/2013 Nurse visit Mariposa Bellamy CORPORATE COUNSELOR 11/23/2013 Office visit Nicole Ackerman MD 11/14/2013 [...] Aguilera MD 08/09/2013 Nurse visit Skylar Pfeiffer CORPORATE COUNSELOR 08/02/2013 Nurse visit Skylar Pfeiffer CORPORATE COUNSELOR 07/26/2013 Nurse visit Skylar Pfeiffer CORPORATE COUNSELOR 07/19/2013 Nurse visit Skylar Pfeiffer CORPORATE COUNSELOR 07/12/2013 Nurse visit Skylar Pfeiffer CORPORATE COUNSELOR 07/05/2013 Nurse visit Skylar Pfeiffer CORPORATE COUNSELOR 06/28/2013 Nurse visit Skylar Pfeiffer CORPORATE COUNSELOR 06/21/2013 Nurse visit Skylar Pfeiffer CORPORATE COUNSELOR 06/14/2013 Nurse visit Skylar Pfeiffer CORPORATE COUNSELOR 06/08/2013 Nurse visit Jailene Aguilera MD 06/02/2013 [...] Aguilera MD 10/06/2012 Office visit Skylar Pfeiffer CORPORATE COUNSELOR 10/05/2012 Nurse visit Jailene Aguilera MD 09/28/2012 Nurse visit Jailene Aguilera MD 09/23/2012 [facility] Guido Parra MD 09/21/2012 Nurse visit Jailene Aguilera MD 09/14/2012 Nurse visit Jailene Aguilera MD 09/09/2012 [facility] Guido Parra MD 09/07/2012 Nurse visit Jailene [...] Jailene Aguilera MD 01/27/2012 Nurse visit Jailene Aguilear MD 01/20/2012 Office visit Jailene Aguilera MD [...] Chin Mcconnell DO 09/25/2010 Nurse visit Chin Mcocnnell DO 09/19/2010 Nurse visit Chin Mcconnell DO [...] visit Chin Mcconnell DO 06/19/2010 Nurse visit Cihn Mcconnell DO 06/12/2010 Nurse visit Chin Mcconnell [...]
--- OUTSIDE RECORDS SUMMARY | 2018-10-21 12:16 | XMS REPORT ---
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 MSD Pneumovax 23 Intramuscular Not Entered 11/16/2015 11/16/2015 999 Influenza 08/15/2009 Novartis [employer]AINels Becky. NOV Fluvirin > 12 Years [id number] Intramuscular Left Deltoid 11/06/2009 11/16/2015 999 Influenza 08/21/2010 Novartis Pharmaceutical Becky. NOV Fluvirin > 12 Years [id number] Intramuscular Left Deltoid 08/21/2010 06/26/2009 999 Pneumococcal 08/28/2010 Merck & Co., Inc. MSD Pneumovax 23 1407Y Intramuscular Right Deltoid 08/28/2010 03/01/2009 999 Influenza 09/04/2011 sanofi pasteur PMC Fluzone [id number] Intramuscular Left Deltoid 09/04/2011 06/11/2011 111 Influenza 09/02/2012 sanofi pasteur PMC Fluzone [id number] Intramuscular Left Deltoid 09/02/2012 05/17/2012 141 Influenza 08/22/2013 sanofi pasteur PMC Fluzone > 3 Years [id number] Intramuscular Left Deltoid 08/22/2013 06/10/2013 141 Influenza 08/24/2015 sanofi pasteur PMC Fluzone [id number] Intramuscular Left Deltoid 08/24/2015 06/22/2015 141 History [...] Date Medicare Part A Medicare Part A [id number] Tuesday, 2012 [facility] [id number] Friday, 2009 Medicare Part B Medicare Of [place] [id number] Saturday, 2006 History of Encounters Visit Date [...] Ackerman MD 07/19/2014 Nurse visit [place] KNITTING DEMONSTRATOR 07/11/2014 Nurse visit [place] KNITTING DEMONSTRATOR 07/04/2014 Nurse visit Skylar Pfeiffer KNITTING DEMONSTRATOR 06/27/2014 Nurse visit [place] KNITTING DEMONSTRATOR 06/20/2014 Nurse visit [place] KNITTING DEMONSTRATOR 06/13/2014 Nurse visit Nicole Ackerman MD 06/06/2014 Nurse visit Mariposa Bellamy KNITTING DEMONSTRATOR 05/30/2014 Nurse visit [place] KNITTING DEMONSTRATOR 05/23/2014 Nurse visit Skylar Pfeiffer KNITTING DEMONSTRATOR 05/16/2014 Nurse visit Nicole Ackerman MD 05/02/2014 Nurse visit Nicole Ackerman MD 04/25/2014 Nurse visit Nicole Ackerman MD 04/18/2014 Nurse visit Nicole Ackerman MD 04/12/2014 Nurse visit Nicole Ackerman MD 04/05/2014 Nurse visit Nicole Ackerman MD 03/28/2014 Nurse visit Mariposa Cordova RN 03/22/2014 Nurse visit Skylar Pfeiffer KNITTING DEMONSTRATOR 03/14/2014 Nurse visit Nicole Ackerman MD 03/07/2014 Nurse visit Skylar Pfeiffer KNITTING DEMONSTRATOR 02/28/2014 Nurse visit Skylar Pfeiffer KNITTING DEMONSTRATOR 02/21/2014 Nurse visit Nicole Ackerman MD 02/14/2014 Nurse visit Skylar Pfeiffer KNITTING DEMONSTRATOR 02/06/2014 Nurse visit Nicole Ackerman MD 01/31/2014 [...] Ackerman MD 11/29/2013 Nurse visit Mariposa Bellamy KNITTING DEMONSTRATOR 11/23/2013 Office visit Nicole Ackerman MD 11/14/2013 [...] Aguilera MD 08/09/2013 Nurse visit Skylar Pfeiffer KNITTING DEMONSTRATOR 08/02/2013 Nurse visit Skylar Pfeiffer KNITTING DEMONSTRATOR 07/26/2013 Nurse visit Skylar Pfeiffer KNITTING DEMONSTRATOR 07/19/2013 Nurse visit Skylar Pfeiffer KNITTING DEMONSTRATOR 07/12/2013 Nurse visit Skylar Pfeiffer KNITTING DEMONSTRATOR 07/05/2013 Nurse visit Skylar Pfeiffer KNITTING DEMONSTRATOR 06/28/2013 Nurse visit Skylar Pfeiffer KNITTING DEMONSTRATOR 06/21/2013 Nurse visit Skylar Pfeiffer KNITTING DEMONSTRATOR 06/14/2013 Nurse visit Skylar Pfeiffer KNITTING DEMONSTRATOR 06/08/2013 Nurse visit Jailene Aguilera MD 06/02/2013 [...] visit Jailene Aguilera MD 10/19/2012 Nurse visit Jaielne Aguilera MD 10/13/2012 Nurse visit Jailene Aguilera MD 10/12/2012 Office visit Jailene Aguilera MD 10/06/2012 Office visit Skylar Pfeiffer APRN 10/05/2012 Nurse visit Jailene Aguilera MD 09/28/2012 Nurse visit Jailene Aguilera MD 09/23/2012 [facility] Guido Parra MD 09/21/2012 Nurse visit Jailene Aguilera MD 09/14/2012 Nurse visit Jailene Aguilera MD 09/09/2012 [facility] Guido Parra MD 09/07/2012 Nurse [...] visit Chin Mcconnell DO 10/22/2010 Nurse visit hCin Mcconnell DO 10/16/2010 Nurse visit Chin Mcconnell [...]
--- OUTSIDE RECORDS SUMMARY | 2018-10-21 12:21 | XMS REPORT ---
Author Author Patsy Kc [facility] Address [address] [facility] [address] [place], [place] [address] Care Team Providers Care Manufacturers Representative Name Role Phone P[facility]y [facility] PCP Evan Mccullough PreferredProvider Allergies and Adverse [...] inhalation route every 6 hours as needed dexamethasone 4 mg oral tablet take 1 tablet (4 mg) by oral route 2 times per day for 3days ipratropium-albuterol 0.5 mg-3 mg(2.5 mg base)/3 mL inhalation solution for nebulization 02/23/2018 given during visit today Name Start Date Expiration Date SIG Comments [...] evening meals for 30 days lancets miscellaneous mis 01/09/2015 01/04/2016 use as [...] HC BMI BSA BMI Percentile O2 Sat(%) 02/23/2018 5:48:00 PM 160 mmHg 80 mmHg 69 bpm 98.6 F 240 lbs 63 in 42.5137 kg/m 2.1997 m 97 % 02/23/2018 5:48:00 PM 160 mmHg 80 mmHg 69 bpm 98.6 F 240 lbs 63 in 42.5137 kg/m 2.1997 m 97 % 01/07/2018 9:59:00 AM 174 [...] History Name Description Comments 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 NOV Fluvirin > 12 Years [id number] Intramuscular Left Deltoid 11/06/2009 11/16/2018 999 Influenza 08/21/2010 [employer] Becky. NOV Fluvirin > 12 Years [id number] Intramuscular Left Deltoid 08/21/2010 06/26/2009 999 X 08/28/2010 Merck & Co., Inc. MSD PNEUMOVAX 23 1407Y Intramuscular Right Deltoid 08/28/2010 03/01/2009 999 Influenza 09/04/2011 sanofi pasteur PMC FLUZONE [id number] Intramuscular Left Deltoid 09/04/2011 06/11/2011 111 Influenza 09/02/2012 [facility] [id number] Intramuscular Left Deltoid 09/02/2012 05/17/2012 141 Influenza 08/22/2013 [facility] Fluzone > 3 Years [id number] Intramuscular Left Deltoid 08/22/2013 06/10/2013 141 Influenza 08/24/2015 [facility] [id number] Intramuscular Left Deltoid 08/24/2015 06/22/2015 141 History [...] acquired bacterial pneumonia Feb 23 2018 5:54PM Payers Insurance Name Company Name Plan Name Plan Number Policy Number Policy Group Number Start Date Medicare RHC Medicare RHC [id number] N/A BCBS [employer] [place] [id number] Friday, 2009 Medicare Part A Medicare Part A [id number] Tuesday, 2012 Medicare Part A Medicare - Lab/Xray [id number] Tuesday, July 17, 2012 Medicare Part B Medicare Of [place] [id number] Saturday, January 14, 2006 History of Encounters Visit Date Visit Type Provider 02/23/2018 Office visit Patsy Kc LMSW 01/07/[address] Evan Mccullough MD 11/23/2017 Office visit Mariposa Bellamy LMSW 10/30/2017 Office visit Denisse Hart LMSW 07/09/[address] Evan Mccullough MD 01/09/[address] Evan Mccullough MD 10/02/[address] Evan Mccullough MD 06/27/[address] Evan Mccullough MD 05/12/[address] Evan Mccullough MD 04/07/[address] Evan Mccullough MD 01/30/2016 Office visit 01/30/2016 Office visit Giselle Olivia LMSW 01/22/2016 Nurse visit [place] LMSW 01/15/2016 Nurse visit Nicole Ackerman MD 01/08/2016 [...] Ackerman MD 07/19/2014 Nurse visit [place] LMSW 07/11/2014 Nurse visit [place] LMSW 07/04/2014 Nurse visit 07/04/2014 Nurse visit 07/04/2014 Nurse visit Skylar Pfeiffer LMSW 06/27/2014 Nurse visit 06/27/2014 Nurse visit 06/27/2014 Nurse visit [place] LMSW 06/20/2014 Nurse visit [place] LMSW 06/13/2014 Nurse visit Nicole Ackerman MD 06/06/2014 Nurse visit Mariposa Bellamy LMSW 05/30/2014 Nurse visit [place] LMSW 05/23/2014 Nurse visit Skylar Pfeiffer LMSW 05/16/2014 Nurse visit Nicole Ackerman MD 05/02/2014 Nurse visit Nicole Ackerman MD 04/25/2014 Nurse visit Nicole Ackerman MD 04/18/2014 Nurse visit Nicole Ackerman MD 04/12/2014 Nurse visit Nicole Ackerman MD 04/05/2014 Nurse visit Nicole Ackerman MD 03/28/2014 Nurse visit Mariposa Cordova RN 03/22/2014 Nurse visit Skylar Pfeiffer LMSW 03/14/2014 Nurse visit Nicole Ackerman MD 03/07/2014 Nurse visit Skylar Pfeiffer LMSW 02/28/2014 Nurse visit Skylar Pfeiffer LMSW 02/21/2014 Nurse visit Nicole Ackerman MD 02/14/2014 Nurse visit Skylar Pfeiffer LMSW 02/06/2014 Nurse visit Nicole Ackerman MD 01/31/2014 [...] Ackerman MD 11/29/2013 Nurse visit Mariposa Bellamy LMSW 11/23/2013 Office visit Nicole Ackerman MD 11/14/2013 [...] Aguilera MD 08/09/2013 Nurse visit Skylar Pfeiffer LMSW 08/02/2013 Nurse visit Skylar Pfeiffer LMSW 07/26/2013 Nurse visit Skylar Pfeiffer LMSW 07/19/2013 Nurse visit Skylar Pfeiffer LMSW 07/12/2013 Nurse visit Skylar Pfeiffer LMSW 07/05/2013 Nurse visit Skylar Pfeiffer LMSW 06/28/2013 Nurse visit Skylar Pfeiffer LMSW 06/21/2013 Nurse visit Skylar MoDali Kentrell LMSW 06/14/2013 Nurse visit Skylar NDali Pfeiffer LMSW 06/08/2013 Nurse visit Jailene Aguilera MD 06/02/2013 [...] Aguilera MD 10/06/2012 Office visit Skylar Pfeiffer LMSW 10/05/2012 Nurse visit Jailene Aguilera MD 09/28/2012 [...] Jailene Aguilera MD 10/07/2011 Nurse visit Jailene Agiulera MD 10/01/2011 Nurse visit Jailene Aguilera MD [...] Chin Mcconnell DO 11/21/2009 Nurse visit Chin Mccnonell DO 11/15/2009 Nurse visit Chin Mcconnell DO [...]
--- OUTSIDE RECORDS SUMMARY | 2018-10-21 12:26 | XMS REPORT ---
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 MSD Pneumovax 23 Intramuscular Not Entered 11/16/2015 11/16/2015 999 Influenza 08/15/2009 Novartis XTRM Becky. NOV Fluvirin > 12 Years [id number] Intramuscular Left Deltoid 11/06/2009 11/16/2015 999 Influenza 08/21/2010 Novartis Pharmaceutical Becky. NOV Fluvirin > 12 Years [id number] Intramuscular Left Deltoid 08/21/2010 06/26/2009 999 Pneumococcal 08/28/2010 Merck & Co., Inc. MSD Pneumovax 23 [id number] Intramuscular Right Deltoid 08/28/2010 03/01/2009 999 Influenza 09/04/2011 sanofi pasteur PMC Fluzone [id number] Intramuscular Left Deltoid 09/04/2011 06/11/2011 111 Influenza 09/02/2012 sanofi pasteur PMC Fluzone [id number] Intramuscular Left Deltoid 09/02/2012 05/17/2012 141 Influenza 08/22/2013 sanofi pasteur PMC Fluzone > 3 Years [id number] Intramuscular Left Deltoid 08/22/2013 06/10/2013 141 Influenza 08/24/2015 sanofi pasteur PMC Fluzone [id number] Intramuscular Left Deltoid 08/24/2015 06/22/2015 141 History [...] Date Medicare Part A Medicare Part A [id number] Tuesday, [id number] Friday, 2009 Medicare Part B Medicare Of [place] [id number] Saturday, 2006 History of Encounters Visit Date [...] Ackerman MD 07/19/2014 Nurse visit [place] FOLDING MACHINE SETTER 07/11/2014 Nurse visit [place] FOLDING MACHINE SETTER 07/04/2014 Nurse visit Skylar Pfeiffer FOLDING MACHINE SETTER 06/27/2014 Nurse visit [place] FOLDING MACHINE SETTER 06/20/2014 Nurse visit [place] FOLDING MACHINE SETTER 06/13/2014 Nurse visit Nicole Ackerman MD 06/06/2014 Nurse visit Mariposa Bellamy FOLDING MACHINE SETTER 05/30/2014 Nurse visit [place] FOLDING MACHINE SETTER 05/23/2014 Nurse visit Skylar Pfeiffer FOLDING MACHINE SETTER 05/16/2014 Nurse visit Nicole Ackerman MD 05/02/2014 Nurse visit Nicole Ackerman MD 04/25/2014 Nurse visit Nicole Ackerman MD 04/18/2014 Nurse visit Nicole Ackerman MD 04/12/2014 Nurse visit Nicole Ackerman MD 04/05/2014 Nurse visit Nicole Ackerman MD 03/28/2014 Nurse visit Mariposa Cordova RN 03/22/2014 Nurse visit Skylar Pfeiffer FOLDING MACHINE SETTER 03/14/2014 Nurse visit Nicole Ackerman MD 03/07/2014 Nurse visit Skylar Pfeiffer FOLDING MACHINE SETTER 02/28/2014 Nurse visit Skylar Pfeiffer FOLDING MACHINE SETTER 02/21/2014 Nurse visit Nicole Ackerman MD 02/14/2014 Nurse visit Skylar Pfeiffer FOLDING MACHINE SETTER 02/06/2014 Nurse visit Nicole Ackerman MD [...] Ackerman MD 11/29/2013 Nurse visit Mariposa Bellamy FOLDING MACHINE SETTER 11/23/2013 Office visit Nicole Ackerman MD [...] Aguilera MD 08/09/2013 Nurse visit Skylar Pfeiffer FOLDING MACHINE SETTER 08/02/2013 Nurse visit Skylar Pfeiffer FOLDING MACHINE SETTER 07/26/2013 Nurse visit Skylar Pfeiffer FOLDING MACHINE SETTER 07/19/2013 Nurse visit Skylar Pfeiffer FOLDING MACHINE SETTER 07/12/2013 Nurse visit Skylar Pfeiffer FOLDING MACHINE SETTER 07/05/2013 Nurse visit Skylar Pfeiffer FOLDING MACHINE SETTER 06/28/2013 Nurse visit Skylar Pfeiffer FOLDING MACHINE SETTER 06/21/2013 Nurse visit Skylar Pfeiffer FOLDING MACHINE SETTER 06/14/2013 Nurse visit Skylar Pfeiffer FOLDING MACHINE SETTER 06/08/2013 Nurse visit Jailene Aguilera MD [...] 09/28/2012 Nurse visit Jailene Aguilera MD 09/23/2012 [facility] Guido Parra MD 09/21/2012 Nurse visit Jailene Aguilera MD 09/14/2012 Nurse visit Jailene Aguilera MD 09/09/2012 [facility] Guido Parra MD 09/07/2012 Nurse visit Jailene Aguilera MD 09/02/2012 Office visit Jailene Aguilera MD 08/31/2012 Nurse visit Jailene Aguilera MD 08/25/2012 Nurse visit Jailene Aguilera MD 08/18/2012 Nurse visit Jailene Aguilera MD 08/11/2012 Nurse visit Jailene Aguilera MD 08/05/2012 Nurse visit Jailene Aguilera MD 07/29/2012 Office visit Jailene Aguilera MD 07/21/2012 Nurse visit Jailene Aguilera MD 07/12/2012 Nurse visit Jailene Aguilear MD 07/12/2012 Voided Jailene Aguilera MD 07/06/2012 [...] Chin Mcconnell DO 02/25/2011 Nurse visit Chin cMconnell DO 02/19/2011 Nurse visit Chin Mcconnell DO [...]
--- OUTSIDE RECORDS SUMMARY | 2018-10-21 12:31 | XMS REPORT ---
Author Author Mariposa Bellamy Organization [facility] Address [address] [place], [place] [address] Care Team Providers Care Research Physicist Name Role Phone Mariposa Bellamy PCP Evan Mccullough PreferredProvider Allergies and Adverse Reactions Name Reaction Notes pollens Demerol intolerant Plan of Treatment Planned Activity Comments Planned Date Planned Time Plan/Goal EKG (12-lead electrocardiogram) 10/16/2015 12:00 AM Allergy Injection Multiple, [facility] Medicare 11/13/2015 12:00 AM CBC With Auto [...] Medicare 03/06/2015 12:00 AM Allergy Injection Multiple, [facility] Medicare 03/13/2015 12:00 AM Allergy Injection Multiple, [facility] Medicare 03/20/2015 12:00 AM Allergy Injection Multiple, [...] History Name Description Comments 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 NOV Fluvirin > 12 Years [id number] Intramuscular Left Deltoid 11/06/2009 11/16/2017 999 Influenza 08/21/2010 Novartis Pharmaceutical Becky. NOV Fluvirin > 12 Years [id number] Intramuscular Left Deltoid 08/21/2010 06/26/2009 999 X 08/28/2010 [employer] MSD Pneumovax 23 [id number] Intramuscular Right Deltoid 08/28/2010 03/01/2009 999 Influenza 09/04/2011 sanofi pasteur PMC Fluzone [id number] Intramuscular Left Deltoid 09/04/2011 06/11/2011 111 Influenza 09/02/2012 sanofi pasteur PMC Fluzone [id number] Intramuscular Left Deltoid 09/02/2012 05/17/2012 141 Influenza 08/22/2013 sanofi pasteur PMC Fluzone > 3 Years [id number] Intramuscular Left Deltoid 08/22/2013 06/10/2013 141 Influenza 08/24/2015 sanofi pasteur PMC Fluzone [id number] Intramuscular Left Deltoid 08/24/2015 06/22/2015 141 History [...] upper respiratory infection Oct 30 2017 5:52PM Payers Insurance Name Company Name Plan Name Plan Number Policy Number Policy Group Number Start Date Medicare RHC Medicare RHC [id number] N/A [facility] [id number] Friday, 2009 Medicare Part A Medicare Part A [id number] Tuesday, 2012 Medicare Part A Medicare - Lab/Xray [id number] Tuesday, July 17, 2012 Medicare Part B Medicare Of [place] [id number] Saturday, January 14, 2006 History of Encounters Visit Date Visit Type Provider 11/23/2017 Office visit Mariposa Bellamy NATURAL GAS BASIS TRADER 10/30/2017 Office visit Denisse Hart NATURAL GAS BASIS TRADER 07/09/[address] Evan Mccullough MD 01/09/[address] Evan Mccullough MD 10/02/[address] Evan Mccullough MD 06/27/[address] Evan Mccullough MD 05/12/[address] Evan Mccullough MD 04/07/[address] Evan Mccullough MD 01/30/2016 Office visit 01/30/2016 Office visit Giselle Olivia APRN 01/22/2016 Nurse visit [place] NATURAL GAS BASIS TRADER 01/15/2016 Nurse visit Nicole Ackerman MD 01/08/2016 [...] Nurse visit [facility] visit 10/16/2015 Office [...] Ackerman MD 07/19/2014 Nurse visit [place] NATURAL GAS BASIS TRADER 07/11/2014 Nurse visit [place] NATURAL GAS BASIS TRADER 07/04/2014 Nurse visit 07/04/2014 Nurse visit 07/04/2014 Nurse visit Skylar Pfeiffer NATURAL GAS BASIS TRADER 06/27/2014 Nurse visit 06/27/2014 Nurse visit 06/27/2014 Nurse visit [place] NATURAL GAS BASIS TRADER 06/20/2014 Nurse visit [place] NATURAL GAS BASIS TRADER 06/13/2014 Nurse visit Nicole Ackerman MD 06/06/2014 Nurse visit Mariposa Bellamy NATURAL GAS BASIS TRADER 05/30/2014 Nurse visit [place] NATURAL GAS BASIS TRADER 05/23/2014 Nurse visit Skylar Pfeiffer NATURAL GAS BASIS TRADER 05/16/2014 Nurse visit Nicole Ackerman MD 05/02/2014 Nurse visit Nicole Ackerman MD 04/25/2014 Nurse visit Nicole Ackerman MD 04/18/2014 Nurse visit Nicole Ackerman MD 04/12/2014 Nurse visit Nicole Ackerman MD 04/05/2014 Nurse visit Nicole Ackerman MD 03/28/2014 Nurse visit Mariposa Cordova RN 03/22/2014 Nurse visit Skylar Pfeiffer NATURAL GAS BASIS TRADER 03/14/2014 Nurse visit Nicole Ackerman MD 03/07/2014 Nurse visit Skylar Pfeiffer NATURAL GAS BASIS TRADER 02/28/2014 Nurse visit Skylar Pfeiffer NATURAL GAS BASIS TRADER 02/21/2014 Nurse visit Nicole Ackerman MD 02/14/2014 Nurse visit Skylar Pfeiffer NATURAL GAS BASIS TRADER 02/06/2014 Nurse visit Nicole Ackerman MD 01/31/2014 [...] Ackerman MD 11/29/2013 Nurse visit Mariposa Bellamy NATURAL GAS BASIS TRADER 11/23/2013 Office visit Nicole Ackerman MD 11/14/2013 Nurse visit Jarad Saravia DO 11/07/2013 Nurse visit Nicole Ackeramn MD 10/31/2013 Nurse visit Jailene Aguilera MD [...] Aguilera MD 08/09/2013 Nurse visit Skylar Pfeiffer NATURAL GAS BASIS TRADER 08/02/2013 Nurse visit Skylar Pfeiffer NATURAL GAS BASIS TRADER 07/26/2013 Nurse visit Skylar Pfeiffer NATURAL GAS BASIS TRADER 07/19/2013 Nurse visit Skylar Pfeiffer NATURAL GAS BASIS TRADER 07/12/2013 Nurse visit Skylar Pfeiffer NATURAL GAS BASIS TRADER 07/05/2013 Nurse visit Skylar Pfeiffer NATURAL GAS BASIS TRADER 06/28/2013 Nurse visit Skylar Pfeiffer NATURAL GAS BASIS TRADER 06/21/2013 Nurse visit Skylar Pfeiffer NATURAL GAS BASIS TRADER 06/14/2013 Nurse visit Skylar Pfeiffer NATURAL GAS BASIS TRADER 06/08/2013 Nurse visit Jailene Aguilera MD 06/02/2013 Nurse visit Jailene Aguilera MD 05/24/2013 Nurse visit aJilene Aguilera MD 05/17/2013 Nurse visit Jailene Aguilera [...] Jailene Aguilera MD 11/25/2011 Nurse visit Jailene gAuilera MD 11/18/2011 Nurse visit Jailene Aguilera MD 11/11/2011 Nurse visit Jailene Aguilear MD 11/03/2011 Nurse visit Jailene Aguilera MD [...]
--- OUTSIDE RECORDS SUMMARY | 2018-10-21 12:36 | XMS REPORT ---
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 NOV Fluvirin > 12 Years [id number] Intramuscular Left Deltoid 11/06/2009 11/16/2018 999 Influenza 08/21/2010 [facility] Becky. NOV Fluvirin > 12 Years [id number] Intramuscular Left Deltoid 08/21/2010 06/26/2009 999 X 08/28/2010 [employer] MSD Pneumovax 23 [id number] Intramuscular Right Deltoid 08/28/2010 03/01/2009 999 Influenza 09/04/2011 sanofi pasteur PMC Fluzone [id number] Intramuscular Left Deltoid 09/04/2011 06/11/2011 111 Influenza 09/02/2012 sanofi pasteur PMC Fluzone [id number] Intramuscular Left Deltoid 09/02/2012 05/17/2012 141 Influenza 08/22/2013 sanofi pasteur PMC Fluzone > 3 Years [id number] Intramuscular Left Deltoid 08/22/2013 06/10/2013 141 Influenza 08/24/2015 sanofi pasteur PMC Fluzone [id number] Intramuscular Left Deltoid 08/24/2015 06/22/2015 141 History [...] mammogram, encounter for Dec 10 2017 11:31AM Essential Hypertension Jan 07 2018 10:07AM Allergic rhinitis due to other allergic trigger, unspecified seasonality Jan 07 2018 10:07AM Payers Insurance Name Company Name Plan Name Plan Number Policy Number Policy Group Number Start Date Medicare RHC Medicare RHC [id number] N/[id number] Friday, 2009 Medicare Part A Medicare Part A [id number] Tuesday, 2012 Medicare Part A Medicare - Lab/Xray [id number] Tuesday, July 17, 2012 Medicare Part B Medicare Of [place] [id number] Saturday, January 14, 2006 History of Encounters Visit Date Visit Type Provider 01/07/[address] Evan Mccullough MD 11/23/2017 Office visit Mariposa Bellamy MUD ANALYSIS WELL LOGGING CAPTAIN 10/30/2017 Office visit Denisse Hart MUD ANALYSIS WELL LOGGING CAPTAIN 07/09/[address] Evan Mccullough MD 01/09/[address] Evan Mccullough MD 10/02/[address] Evan Mccullough MD 06/27/[address] Evan Mccullough MD 05/12/[address] Evan Mccullough MD 04/07/[address] Evan Mccullough MD 01/30/2016 Office visit 01/30/2016 Office visit Gisellekenisha Olivia MUD ANALYSIS WELL LOGGING CAPTAIN 01/22/2016 Nurse visit [place] MUD ANALYSIS WELL LOGGING CAPTAIN 01/15/2016 Nurse visit Nicole Ackerman MD 01/08/2016 Nurse visit Nicole Ackerman MD 01/01/2016 Nurse visit Nicole Ackerman MD 12/25/2015 Nurse visit Nicole Ackerman MD 12/18/2015 Nurse visit Nicole Ackerman MD 12/11/2015 Nurse visit Nicole Ackerman MD 11/27/2015 Nurse visit Nicole cAkerman MD 11/13/2015 Nurse visit Nicole Ackerman MD 10/31/2015 Office visit 10/31/2015 Office visit Nicole Ackerman MD 10/23/2015 Nurse visit Nicole Ackerman MD 10/16/2015 [facility] Reggie Ness MD 10/16/2015 Office [...] Ackerman MD 07/19/2014 Nurse visit [place] MUD ANALYSIS WELL LOGGING CAPTAIN 07/11/2014 Nurse visit [place] MUD ANALYSIS WELL LOGGING CAPTAIN 07/04/2014 Nurse visit 07/04/2014 Nurse visit 07/04/2014 Nurse visit Skylar Pfeiffer MUD ANALYSIS WELL LOGGING CAPTAIN 06/27/2014 Nurse visit 06/27/2014 Nurse visit 06/27/2014 Nurse visit [place] MUD ANALYSIS WELL LOGGING CAPTAIN 06/20/2014 Nurse visit [place] MUD ANALYSIS WELL LOGGING CAPTAIN 06/13/2014 Nurse visit Nicole Ackerman MD 06/06/2014 Nurse visit Mariposa Bellamy MUD ANALYSIS WELL LOGGING CAPTAIN 05/30/2014 Nurse visit [place] MUD ANALYSIS WELL LOGGING CAPTAIN 05/23/2014 Nurse visit Skylar Pfeiffer MUD ANALYSIS WELL LOGGING CAPTAIN 05/16/2014 Nurse visit Nicole Ackerman MD 05/02/2014 Nurse visit Nicole Ackerman MD 04/25/2014 Nurse visit Nicole Ackeramn MD 04/18/2014 Nurse visit Nicole Ackerman MD 04/12/2014 Nurse visit Nicole Ackerman MD 04/05/2014 Nurse visit Nicole Ackerman MD 03/28/2014 Nurse visit Mariposa Cordova RN 03/22/2014 Nurse visit Skylar Pfeiffer MUD ANALYSIS WELL LOGGING CAPTAIN 03/14/2014 Nurse visit Nicole Ackerman MD 03/07/2014 Nurse visit Skylar Pfeiffer MUD ANALYSIS WELL LOGGING CAPTAIN 02/28/2014 Nurse visit Skylar Pfeiffer MUD ANALYSIS WELL LOGGING CAPTAIN 02/21/2014 Nurse visit Nicole Ackerman MD 02/14/2014 Nurse visit Skylar Pfeiffer MUD ANALYSIS WELL LOGGING CAPTAIN 02/06/2014 Nurse visit Nicole Ackerman MD 01/31/2014 [...] Ackerman MD 11/29/2013 Nurse visit Mariposa Bellamy MUD ANALYSIS WELL LOGGING CAPTAIN 11/23/2013 Office visit Nicole Ackerman MD 11/14/2013 [...] Aguilera MD 08/09/2013 Nurse visit Skylar Pfeiffer MUD ANALYSIS WELL LOGGING CAPTAIN 08/02/2013 Nurse visit Skylar Pfeiffer MUD ANALYSIS WELL LOGGING CAPTAIN 07/26/2013 Nurse visit Skylar Pfeiffer MUD ANALYSIS WELL LOGGING CAPTAIN 07/19/2013 Nurse visit Skylar Pfeiffer MUD ANALYSIS WELL LOGGING CAPTAIN 07/12/2013 Nurse visit Skylar Pfeiffer MUD ANALYSIS WELL LOGGING CAPTAIN 07/05/2013 Nurse visit Skylar Pfeiffer MUD ANALYSIS WELL LOGGING CAPTAIN 06/28/2013 Nurse visit Skylar Pfeiffer MUD ANALYSIS WELL LOGGING CAPTAIN 06/21/2013 Nurse visit Skylar Pfeiffer MUD ANALYSIS WELL LOGGING CAPTAIN 06/14/2013 Nurse visit Skylar Pfeiffer MUD ANALYSIS WELL LOGGING CAPTAIN 06/08/2013 Nurse visit Jailene Aguilera MD 06/02/2013 [...] visit Jailene Aguilera MD 09/23/2012 [facility] Guido Parra MD 09/21/2012 Nurse visit Jailene Aguilera MD 09/14/2012 Nurse visit Jailene Aguilera MD 09/09/2012 [facility] Guido Parra MD 09/07/2012 Nurse visit [...] visit Chin Mcconnell DO 05/29/2010 Nurse visit Chni Mcconnell DO 05/22/2010 Nurse visit Chin Mcconnell DO 05/15/2010 Nurse visit Chin Mcconnell DO 05/08/2010 Nurse visit Chin Mcconnell DO 05/01/2010 Nurse visit Chin Mcconnell DO 04/24/2010 Nurse visit Chin cMconnell DO 04/17/2010 Nurse visit Chni Mcconnell DO 04/10/2010 Nurse visit Chin Mcconnell [...]
--- OUTSIDE RECORDS SUMMARY | 2018-10-21 12:39 | XMS REPORT ---
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 NOV Fluvirin > 12 Years [id number] Intramuscular Left Deltoid 11/06/2009 11/16/2015 999 Influenza 08/21/2010 Novartis Pharmaceutical Becky. NOV Fluvirin > 12 Years [id number] Intramuscular Left Deltoid 08/21/2010 06/26/2009 999 Pneumococcal 08/28/2010 Merck & Co., Inc. MSD Pneumovax 23 1407Y Intramuscular Right Deltoid 08/28/2010 03/01/2009 999 Influenza 09/04/2011 sanofi pasteur PMC Fluzone [id number] Intramuscular Left Deltoid 09/04/2011 06/11/2011 111 Influenza 09/02/2012 sanofi pasteur PMC Fluzone [id number] Intramuscular Left Deltoid 09/02/2012 05/17/2012 141 Influenza 08/22/2013 sanofi pasteur PMC Fluzone > 3 Years [id number] Intramuscular Left Deltoid 08/22/2013 06/10/2013 141 History [...] to other allergen May 15 2015 8:51AM Payers Insurance Name Company Name Plan Name Plan Number Policy Number Policy Group Number Start Date Medicare Part A Medicare Part A [id number] Tuesday, 2012 [facility] [id number] Friday, 2009 Medicare Part B Medicare Of [place] [id number] Saturday, 2006 History of Encounters Visit Date Visit Type Provider 05/15/2015 Nurse visit Nicole Ackerman MD 05/08/2015 [...] MD 07/19/2014 Nurse visit [place] Nicole HEAD ATHLETIC TRAINER/STRENGTH COACH 07/11/2014 Nurse visit [place] HEAD ATHLETIC TRAINER/STRENGTH COACH 07/04/2014 Nurse visit Skylar Pfeiffer HEAD ATHLETIC TRAINER/STRENGTH COACH 06/27/2014 Nurse visit [place] HEAD ATHLETIC TRAINER/STRENGTH COACH 06/20/2014 Nurse visit [place] HEAD ATHLETIC TRAINER/STRENGTH COACH 06/13/2014 Nurse visit Nicole Ackerman MD 06/06/2014 Nurse visit Mariposa Bellamy HEAD ATHLETIC TRAINER/STRENGTH COACH 05/30/2014 Nurse visit [place] HEAD ATHLETIC TRAINER/STRENGTH COACH 05/23/2014 Nurse visit Skylar Pfeiffer HEAD ATHLETIC TRAINER/STRENGTH COACH 05/16/2014 Nurse visit Nicole Ackerman MD 05/02/2014 Nurse visit Nicole Ackerman MD 04/25/2014 Nurse visit Nicole Ackerman MD 04/18/2014 Nurse visit Nicole Ackerman MD 04/12/2014 Nurse visit Nicole Ackerman MD 04/05/2014 Nurse visit Nicole Ackerman MD 03/28/2014 Nurse visit Mariposa Cordova RN 03/22/2014 Nurse visit Skylar Pfeiffer HEAD ATHLETIC TRAINER/STRENGTH COACH 03/14/2014 Nurse visit Nicole Ackerman MD 03/07/2014 Nurse visit Skylar Pfeiffer HEAD ATHLETIC TRAINER/STRENGTH COACH 02/28/2014 Nurse visit Skylar Pfeiffer HEAD ATHLETIC TRAINER/STRENGTH COACH 02/21/2014 Nurse visit Nicole Ackerman MD 02/14/2014 Nurse visit Skylar Pfeiffer HEAD ATHLETIC TRAINER/STRENGTH COACH 02/06/2014 Nurse visit Nicole Ackerman MD 01/31/2014 [...] MD 11/29/2013 Nurse visit Mariposa Bellamy HEAD ATHLETIC TRAINER/STRENGTH COACH 11/23/2013 Office visit Nicole Ackerman MD 11/14/2013 [...] MD 08/09/2013 Nurse visit Skylar Pfeiffer HEAD ATHLETIC TRAINER/STRENGTH COACH 08/02/2013 Nurse visit Skylar Pfeiffer HEAD ATHLETIC TRAINER/STRENGTH COACH 07/26/2013 Nurse visit Skylar Pfeiffer HEAD ATHLETIC TRAINER/STRENGTH COACH 07/19/2013 Nurse visit Skylar Pfeiffer HEAD ATHLETIC TRAINER/STRENGTH COACH 07/12/2013 Nurse visit Skylar Pfeiffer HEAD ATHLETIC TRAINER/STRENGTH COACH 07/05/2013 Nurse visit Skylar Pfeiffer HEAD ATHLETIC TRAINER/STRENGTH COACH 06/28/2013 Nurse visit Skylar Pfeiffer HEAD ATHLETIC TRAINER/STRENGTH COACH 06/21/2013 Nurse visit Skylar Pfeiffer HEAD ATHLETIC TRAINER/STRENGTH COACH 06/14/2013 Nurse visit Skylar Pfeiffer HEAD ATHLETIC TRAINER/STRENGTH COACH 06/08/2013 Nurse visit Jailene Aguilera MD 06/02/2013 [...] visit Jailene Aguilera MD 02/17/2012 Nurse visit Jailnee Aguilera MD 02/09/2012 Nurse visit Jailene Aguilera [...] visit Chin Mcconnell DO 11/21/2009 Nurse visit hCin Mcconnell DO 11/15/2009 Nurse visit Chin Mcconnell [...]
--- OUTSIDE RECORDS SUMMARY | 2018-10-21 12:40 | XMS REPORT | CCD ---
Author Author LEONILA NORRIS Organization Unknown Address [address] [facility] [address] [place], [place] [id number] Care Team Providers Care Creative Intern Name Role Phone SAMMY PARISH, RAY Mcguire Attphys Vital Signs Vital Sign Value Unit Date/Time Recent/Initial? Weight Measured 259 lbs 04/19/2014 09:49 Initial VS Height 63 in 04/19/2014 09:49 Initial VS BMI (Body Mass Index) 45.88 kg/m^2 04/19/2014 09:49 Initial VS BSA (Body Surface Area) 2.29 m^2 04/19/2014 09:49 Initial VS Allergies Allergy Code Allergy Type Reaction Status MEPERIDINE 0 Drug allergy (disorder) Active Procedures Unknown. History of Immunizations Unknown. Problems Unknown. Results BEDSIDE GLUCOSE Test Name Code Test Result Test Units Test Date/ Time GLUCOSE POCT 146.0000 MG/DL 05/03/2014 08:35 Medications Medication Code Dose Units Frequency Route Modification Start Date/Time Stop Date/Time Aleve 220MG Oral Tablet 304664 2 TABLET TWO TIMES A DAY ORAL Cinnamon 500MG Oral Capsule 088349 2 TABLET DAILY ORAL Glucosamine & Chondroitin 400MG-500MG Oral Capsule 600897 1 EACH DAILY ORAL Multivitamin Oral Tablet 715218 1 EACH DAILY ORAL Ocuvite 60MG-[id number]-6 Oral Tablet 632307 1 EACH DAILY ORAL Caltrate 600 + D 600MG-200IU Oral Tablet 76621764628 1 EACH DAILY ORAL Niacin 100MG Oral Tablet 307075 3 TABLET DAILY ORAL Fish Oil 1000MG Oral Capsule, Liquid Filled 821195 3539 MILLIGRAMS DAILY ORAL GlipiZIDE 5MG Oral Tablet 099790 5 MILLIGRAMS DAILY ORAL Metformin 500MG Oral Tablet 003193 500 MILLIGRAMS TWO TIMES A DAY ORAL Simvastatin 80MG Oral Tablet 233116 80 MILLIGRAMS DAILY ORAL Atenolol 50MG Oral Tablet 140855 50 MILLIGRAMS DAILY ORAL Furosemide 40MG Oral Tablet 786100 40 MILLIGRAMS DAILY ORAL Lisinopril and Hydrochlorothiazide 25MG-20MG Oral Tablet 759907 1 EACH DAILY ORAL Levothyroxine 0.1MG Oral Tablet 121504 0.1 MILLIGRAMS DAILY ORAL Medications Administered Unknown. Encounters Encounter Diagnosis Diagnosis Code Start Date LOC OSTEOARTH NOS-ANKLE 94966 05/03/2014 Social History Smoking Status Code Start Date End Date Never smoker [id number] Patient Decision Aids Unknown. Discharge Instructions You were admitted to [facility] on 05/03/2014 with a principle diagnosis of LOC OSTEOARTH NOS-ANKLE. You had the following procedures done: FOOT/TOES SURGERY PROCEDURE You were discharged from [facility] on 05/03/2014. Should you have any questions prior to discharge, please contact a member of your healthcare team. If you have left the hospital and have any questions, please contact your primary care physician. Chief Complaint and Reason For Visit Chief Complaint Date of Onset ORT TOE FUSION Function Status Unknown. Plan of Care Unknown. Referral/Transition of Care Unknown.
--- OUTSIDE RECORDS SUMMARY | 2018-10-21 12:40 | XMS REPORT | Continuity of Care Document ---
Author Author [facility] Address Unknown Phone Unavailable Allergies Active Description Code Type Severity Reaction Onset Reported/Identified Relationship to Patient Clinical Status Yes MEPERIDINE [id number] DRUG N/A N/A Yes meperidine [id number] Drug Allergy Unknown N/A 09/29/2018 Medications There is no data. Problems Date Dx Coded Attending Type Code Diagnosis Diagnosed By 06/25/2011 Ot 233.0 06/25/2011 Ot 244.9 06/25/2011 Ot 250.00 06/25/2011 Ot 272.0 06/25/2011 Ot 401.9 06/25/2011 Ot 716.90 06/25/2011 Ot 780.57 06/25/2011 Ot V58.0 06/25/2011 Ot V58.69 10/05/2011 Ot 233.0 10/05/2011 Ot 244.9 10/05/2011 Ot 250.00 10/05/2011 Ot 272.0 10/05/2011 Ot 401.9 10/05/2011 Ot 716.90 10/05/2011 Ot 780.57 10/05/2011 Ot V58.69 03/28/2012 Ot 233.0 03/28/2012 Ot 244.9 03/28/2012 Ot 250.00 03/28/2012 Ot 272.0 03/28/2012 Ot 401.9 03/28/2012 Ot 716.90 03/28/2012 Ot 780.57 03/28/2012 Ot V58.69 12/28/2015 Ot 233.0 12/28/2015 Ot 244.9 12/28/2015 Ot 250.00 12/28/2015 Ot 272.0 12/28/2015 Ot 401.9 12/28/2015 Ot 716.90 12/28/2015 Ot 780.57 12/28/2015 Ot V58.69 2016 NOVA MORAN DO Ot E66.01 2016 NOVA MORAN DO Ot R06.00 01/24/2016 NOVA MORAN DO Ot E66.01 01/24/2016 NOVA MORAN DO Ot R06.00 09/13/2018 NOVA MORAN DO Ot E66.01 MORBID (SEVERE) OBESITY DUE TO EXCESS CA 09/13/2018 LUISA DONOVA Ot R06.00 DYSPNEA, UNSPECIFIED 09/27/2018 LUISA DONOVA Ot E66.01 MORBID (SEVERE) OBESITY DUE TO EXCESS CA 09/27/2018 LUISA DONOVA Ot R06.00 DYSPNEA, UNSPECIFIED 09/29/2018 LUISA DONOVA Ot E66.01 MORBID (SEVERE) OBESITY DUE TO EXCESS CA 09/29/2018 NOVA MORAN DO Ot R06.00 DYSPNEA, UNSPECIFIED 10/20/2018 NOVA MORAN DO Ot Z01.818 ENCOUNTER FOR OTHER PREPROCEDURAL EXAMIN 10/20/2018 LUISA DO NOVA Grey Ot Z01.818 ENCOUNTER FOR OTHER PREPROCEDURAL EXAMIN 10/20/2018 LUISA NOVA Grey Ot Z01.818 ENCOUNTER FOR OTHER PREPROCEDURAL EXAMIN Procedures There is no data. Results There is no data. Encounters ACCT No. Visit Date/Time Discharge Status Pt. Type Provider Facility Loc./Unit Complaint [id number] 04/07/2018 10:39:26 04/07/2018 23:59:59 [facility] Outpatient Evan Mccullough [id number] 02/24/2018 14:06:40 02/24/2018 23:59:59 CLS Outpatient Evan Mccullough [id number] 02/23/2018 18:44:46 02/23/2018 23:59:59 CLS Outpatient Patsy Kc [id number] 01/07/2018 10:49:28 01/07/2018 23:59:59 CLS Outpatient Evan Mccullough [id number] 11/23/2017 15:33:24 11/23/2017 23:59:59 CLS Outpatient Mariposa Bellamy [id number] 10/30/2017 18:34:44 10/30/2017 23:59:59 CLS Outpatient Denisse Hartn [id number] 07/09/2017 11:20:37 07/09/2017 23:59:59 CLS Outpatient Evan Mccullough [id number] 01/09/2017 11:14:32 01/09/2017 23:59:59 CLS Outpatient Evan Mccullough [id number] 10/02/2016 10:41:54 10/02/2016 23:59:59 CLS Outpatient Evan Mccullough [id number] 06/27/2016 09:51:20 06/27/2016 23:59:59 CLS Outpatient Evan Mccullough [id number] 05/12/2016 10:18:32 05/12/2016 23:59:59 CLS Outpatient Evan Mccullough [id number] 01/30/2016 12:31:40 01/30/2016 23:59:59 CLS Outpatient KathyRenée cagen [id number] 01/22/2016 09:53:59 01/22/2016 23:59:59 CLS Outpatient [place] Nicole [id number] 01/15/2016 09:59:44 01/15/2016 23:59:59 CLS Outpatient Riddel, Nicole [id number] 01/08/2016 10:05:17 01/08/2016 23:59:59 CLS Outpatient Riddel, Nicole [id number] 01/01/2016 09:35:41 01/01/2016 23:59:59 CLS Outpatient Riddel, Nicole [id number] 12/25/2015 09:54:07 12/25/2015 23:59:59 CLS Outpatient Riddel, Nicole [id number] 12/18/2015 09:55:32 12/18/2015 23:59:59 CLS Outpatient Riddel, Nicole [id number] 12/14/2015 20:53:25 12/14/2015 23:59:59 CLS Outpatient Jamir Ness [id number] 12/11/2015 09:52:11 12/11/2015 23:59:59 CLS Outpatient Riddel, Nicole [id number] 11/27/2015 09:51:10 11/27/2015 23:59:59 CLS Outpatient Riddel, Nicole [id number] 11/13/2015 09:51:21 11/13/2015 23:59:59 CLS Outpatient Riddel, Nicole [id number] 10/31/2015 16:15:07 10/31/2015 23:59:59 CLS Outpatient Riddel, Nicole [id number] 10/23/2015 09:41:21 10/23/2015 23:59:59 CLS Outpatient Riddel, Nicole [id number] 10/16/2015 09:56:51 10/16/2015 23:59:59 CLS Outpatient Riddel, Nicole [id number] 10/09/2015 10:02:34 10/09/2015 23:59:59 CLS Outpatient Riddel, Nicole [id number] 09/25/2015 10:00:40 09/25/2015 23:59:59 CLS Outpatient Riddel Nicole [id number] 09/18/2015 09:46:30 09/18/2015 23:59:59 CLS Outpatient Riddel, Nicole [id number] 09/14/2015 13:56:55 09/14/2015 23:59:59 CLS Outpatient Riddel, Nicole [id number] 09/11/2015 10:05:36 09/11/2015 23:59:59 CLS Outpatient Riddel, Nicole [id number] 09/04/2015 09:57:55 09/04/2015 23:59:59 CLS Outpatient Riddel Nicole [id number] 08/28/2015 09:52:02 08/28/2015 23:59:59 CLS Outpatient Riddel, Nicole [id number] 08/24/2015 09:55:41 08/24/2015 23:59:59 CLS Outpatient Riddel, Nicole [id number] 08/21/2015 10:02:27 08/21/2015 23:59:59 CLS Outpatient Riddel, Nicole [id number] 08/14/2015 09:49:19 08/14/2015 23:59:59 CLS Outpatient Riddel Nicole [id number] 08/07/2015 09:43:14 08/07/2015 23:59:59 CLS Outpatient Riddel, Nicole [id number] 07/31/2015 09:54:18 07/31/2015 23:59:59 CLS Outpatient Riddel, Nicole [id number] 07/24/2015 09:53:36 07/24/2015 23:59:59 CLS Outpatient Riddel, Nicole [id number] 07/17/2015 09:46:20 07/17/2015 23:59:59 CLS Outpatient Riddel, Nicole [id number] 07/10/2015 09:48:13 07/10/2015 23:59:59 CLS Outpatient Riddel, Nicole [id number] 07/04/2015 09:54:04 07/04/2015 23:59:59 CLS Outpatient Riddel, Nicole [id number] 06/26/2015 09:56:35 06/26/2015 23:59:59 CLS Outpatient Riddel, Nicole [id number] 06/25/2015 22:30:28 06/25/2015 23:59:59 CLS Outpatient Riddel, Nicole [id number] 06/25/2015 22:24:45 06/25/2015 23:59:59 CLS Outpatient Riddel, Nicole [id number] 06/25/2015 22:14:49 06/25/2015 23:59:59 CLS Outpatient Riddel, Nicole [id number] 06/25/2015 22:10:20 06/25/2015 23:59:59 CLS Outpatient Riddel, Nicole [id number] 06/25/2015 22:06:16 06/25/2015 23:59:59 CLS Outpatient Riddel, Nicole [id number] 06/25/2015 22:01:24 06/25/2015 23:59:59 CLS Outpatient Riddel, Nicole [id number] 06/25/2015 21:51:17 06/25/2015 23:59:59 CLS Outpatient Riddel, Nicole [id number] 06/25/2015 21:46:48 06/25/2015 23:59:59 CLS Outpatient Riddel, Nicole [id number] 06/25/2015 21:42:03 06/25/2015 23:59:59 CLS Outpatient Riddel, Nicole [id number] 06/25/2015 21:33:01 06/25/2015 23:59:59 CLS Outpatient Riddel, Nicole [id number] 06/25/2015 21:27:20 06/25/2015 23:59:59 CLS Outpatient Riddel, Nicole [id number] 03/20/2015 09:50:15 03/20/2015 23:59:59 CLS Outpatient Riddel, Nicole [id number] 03/13/2015 09:46:15 03/13/2015 23:59:59 CLS Outpatient Riddel, Nicole [id number] 03/06/2015 09:55:56 03/06/2015 23:59:59 CLS Outpatient Riddel, Nicole [id number] 02/27/2015 09:58:08 02/27/2015 23:59:59 CLS Outpatient Riddel, Nicole [id number] 02/20/2015 09:43:47 02/20/2015 23:59:59 CLS Outpatient Riddel, Nicole [id number] 02/13/2015 09:56:42 02/13/2015 23:59:59 CLS Outpatient Riddel Nicole [id number] 02/06/2015 09:43:44 02/06/2015 23:59:59 CLS Outpatient Riddel, Nicole [id number] 12/19/2014 09:55:29 12/19/2014 23:59:59 CLS Outpatient RiddelNicole [id number] 12/12/2014 09:41:22 12/12/2014 23:59:59 CLS Outpatient Riddel, Nicole [id number] 12/05/2014 15:59:48 12/05/2014 23:59:59 CLS Outpatient Riddel Nicole [id number] 11/28/2014 09:54:26 11/28/2014 23:59:59 CLS Outpatient Riddel, Nicole [id number] 11/21/2014 09:49:46 11/21/2014 23:59:59 CLS Outpatient Riddel Nicole [id number] 11/14/2014 09:55:21 11/14/2014 23:59:59 CLS Outpatient Riddel, Nicole [id number] 11/06/2014 09:53:49 11/06/2014 23:59:59 CLS Outpatient Riddel Nicole [id number] 10/31/2014 09:52:58 10/31/2014 23:59:59 CLS Outpatient Riddel, Nicole [id number] 10/24/2014 09:54:20 10/24/2014 23:59:59 CLS Outpatient Riddel Nicole [id number] 10/18/2014 10:02:08 10/18/2014 23:59:59 CLS Outpatient Riddel, Nicole [id number] 10/10/2014 09:53:12 10/10/2014 23:59:59 CLS Outpatient Riddel, Nicole [id number] 10/03/2014 09:43:29 10/03/2014 23:59:59 CLS Outpatient Riddel, Nicole [id number] 09/26/2014 09:45:18 09/26/2014 23:59:59 CLS Outpatient Riddel, Nicole [id number] 09/19/2014 09:36:14 09/19/2014 23:59:59 CLS Outpatient Riddel, Nicole [id number] 09/12/2014 09:45:05 09/12/2014 23:59:59 CLS Outpatient Riddel, Nicole [id number] 09/08/2014 09:54:08 09/08/2014 23:59:59 CLS Outpatient Riddel, Nicole [id number] 09/05/2014 09:21:21 09/05/2014 23:59:59 CLS Outpatient Riddel, Nicole [id number] 08/29/2014 09:50:21 08/29/2014 23:59:59 CLS Outpatient Riddel, Nicole [id number] 08/22/2014 10:05:57 08/22/2014 23:59:59 CLS Outpatient Riddel, Nicole [id number] 08/15/2014 10:05:53 08/15/2014 23:59:59 CLS Outpatient Riddel, Nicole [id number] 08/08/2014 09:59:26 08/08/2014 23:59:59 CLS Outpatient RiddelNicole [id number] 08/01/2014 09:52:18 08/01/2014 23:59:59 CLS Outpatient RiddelNicole [id number] 07/25/2014 09:37:58 07/25/2014 23:59:59 CLS Outpatient RiddelNicole [id number] 07/19/2014 09:50:21 07/19/2014 23:59:59 CLS Outpatient South Nicole [id number] 07/04/2014 09:52:04 07/04/2014 23:59:59 CLS Outpatient Skylar Pfeiffer [id number] 06/27/2014 09:46:30 06/27/2014 23:59:59 CLS Outpatient [place] Nicole [id number] 06/20/2014 09:48:19 06/20/2014 23:59:59 CLS Outpatient [place] Nicole [id number] 06/13/2014 10:08:24 06/13/2014 23:59:59 CLS Outpatient RidNicole whyte [id number] 06/06/2014 09:59:20 06/06/2014 23:59:59 CLS Outpatient Mariposa Bellamy [id number] 05/30/2014 09:53:05 05/30/2014 23:59:59 CLS Outpatient South Nicole [id number] 05/23/2014 09:55:03 05/23/2014 23:59:59 CLS Outpatient Skylar Pfeiffer [id number] 05/16/2014 09:20:08 05/16/2014 23:59:59 CLS Outpatient Riddel, Nicole [id number] 05/02/2014 09:44:43 05/02/2014 23:59:59 CLS Outpatient Riddel, Nicole [id number] 04/25/2014 09:45:40 04/25/2014 23:59:59 CLS Outpatient Riddel, Nicole [id number] 04/18/2014 09:48:07 04/18/2014 23:59:59 CLS Outpatient Riddel, Nicole [id number] 04/12/2014 09:59:51 04/12/2014 23:59:59 CLS Outpatient Riddel, Nicole [id number] 04/05/2014 09:42:16 04/05/2014 23:59:59 CLS Outpatient Riddel, Nicole [id number] 03/28/2014 09:45:22 03/28/2014 23:59:59 CLS Outpatient Riddel Nicole [id number] 03/22/2014 09:40:49 03/22/2014 23:59:59 CLS Outpatient Kentrell Skylarmiguel angel Akhtar [id number] 03/14/2014 10:06:29 03/14/2014 23:59:59 CLS Outpatient RiddelNicole [id number] 03/07/2014 09:51:02 03/07/2014 23:59:59 CLS Outpatient Kentrell Skylarmiguel angel Akhtar [id number] 02/28/2014 10:03:01 02/28/2014 23:59:59 CLS Outpatient KentrellSkylar [id number] 02/21/2014 09:47:42 02/21/2014 23:59:59 CLS Outpatient Riddel Nicole [id number] 02/14/2014 09:58:11 02/14/2014 23:59:59 CLS Outpatient Skylar Pfeiffer Giovana [id number] 02/06/2014 09:51:49 02/06/2014 23:59:59 CLS Outpatient Riddel Nicole [id number] 01/31/2014 10:05:00 01/31/2014 23:59:59 CLS Outpatient Riddel, Nicole [id number] 01/25/2014 10:00:35 01/25/2014 23:59:59 CLS Outpatient Riddel, Nicole [id number] 2014 17:10:55 2014 23:59:59 CLS Outpatient Riddel, Nicole [id number] 01/09/2014 09:37:10 01/09/2014 23:59:59 CLS Outpatient Riddel, Nicole [id number] 01/02/2014 15:12:16 01/02/2014 23:59:59 CLS Outpatient Riddel, Nicole [id number] 12/27/2013 11:28:57 12/27/2013 23:59:59 CLS Outpatient RiddelNicole [id number] 12/19/2013 09:48:37 12/19/2013 23:59:59 CLS Outpatient Riddel, Nicole [id number] 12/12/2013 09:52:29 12/12/2013 23:59:59 CLS Outpatient Riddel, Nicole [id number] 12/05/2013 09:49:42 12/05/2013 23:59:59 CLS Outpatient RiddelNicole [id number] 11/29/2013 09:55:58 11/29/2013 23:59:59 CLS Outpatient Mariposa Bellamy [id number] 11/23/2013 14:26:43 11/23/2013 23:59:59 CLS Outpatient RiddelNicole [id number] 11/14/2013 09:49:10 11/14/2013 23:59:59 CLS Outpatient Jarad Saravia [id number] 11/07/2013 09:39:44 11/07/2013 23:59:59 CLS Outpatient RiddelNicole [id number] 09/01/2018 01:32:17 Document Registration [id number] 04/08/2018 07:56:25 Document Registration [id number] 02/20/2018 22:03:01 Document Registration [id number] 02/20/2018 21:55:59 Document Registration [id number] 12/10/2017 12:17:18 Document Registration [id number] 11/23/2017 15:20:51 Document Registration [id number] 07/23/2017 08:21:46 Document Registration [id number] 07/09/2017 11:38:31 Document Registration [id number] 10/21/2018 06:45:00 10/21/2018 08:50:00 DIS Outpatient NOVA MORAN DO [facility] ENDO RESTRICTIVE LUNG DISEASE /DECREASED DIFFUSION CAPAC [id number] 10/20/2018 11:30:00 10/20/2018 11:52:00 DIS Outpatient NOVA MORAN DO [facility] PREOP BRONCHOSCOPY [id number] 09/29/2018 10:37:00 09/29/2018 23:59:59 CLS Outpatient JANAY SCOTT APRN [facility] RAD ALLERGIC RHINITIS [id number] 09/07/2018 11:53:00 09/07/2018 23:59:59 CLS Preadmit JANAY SCOTT APRN [facility] RT ALLERGIC RHINITIS [id number] 12/28/2015 12:50:00 12/28/2015 23:59:59 CLS Outpatient NOVA MORAN DO [facility] RT DYSPNEA [id number] 03/29/2012 00:00:00 Document Registration [id number] 12/29/2011 10:08:00 Document Registration [id number] 07/07/2011 13:45:00 Document Registration [id number] 06/02/2011 16:10:00 Document Registration
== END 2018-10-21 08:50 | disposition home or self-care (01) ==
LOC: ENDO 06:45
PROVIDERS: ATTEND Internal Medicine Critical Care Medicine
DX: J84.9 Interstitial pulmonary disease, unspecified (principal); J30.2 Other seasonal allergic rhinitis; R05 Cough; E66.01 Morbid (severe) obesity due to excess calories; R06.00 Dyspnea, unspecified; Z79.899 Other long term (current) drug therapy; Z68.41 Body mass index [BMI] 40.0-44.9, adult
CPT/HCPCS: 71045; 87015; 87070; 87101; 87116; 87205; 87206; 94640

== ENCOUNTER 2019-02-15 15:00 | Outpatient (RCR) | payer MEDICARE ==
--- NOTE | 2018-11-22 09:47 | Pulmonary Rehab Eval/Txmt Plan ---
Pulmonary Rehab Initial Eval Information Paper Evaluation Completed: Yes Date: Nov 22, 2018 Pulmonary Rehab Treatment Plan Treatment P Treatment Periord: Initial Diagnosis Diagnosis: RLD Date: Nov 22, 2018 Barriers to Learning Barriers: None Assessment/Problems Exercise: Deconditioning, No Regular Exercise, Sedentary Type: AEROBIC Frequency: 2 X'S PER WEEK Duration: 1 HR CLASS; EXERCISE PER PT'S TOLERANCE Initial MET Level: 2 Aerobic Exercise/Goals Freq: time per week minus MA: 2 MET Level=: 2 Type: Arm Ergometry, Bike, Scifi/Nustep, Treadmill RAY ISAAC DO Nov 22, 2018 09:47
[2018-12-21 15:00] VITALS: BP 128/60
[2018-12-21 16:00] VITALS: BP 130/50
[2018-12-28 14:45] VITALS: BP 160/70
[2018-12-28 15:40] VITALS: BP 160/60
[2018-12-30 15:00] VITALS: BP 150/58
[2018-12-30 16:00] VITALS: BP_SYST 82
[2019-01-04 16:00] VITALS: BP 120/50
[2019-01-06 15:00] VITALS: BP 154/70
[2019-01-06 15:59] VITALS: BP 102/60
[2019-01-11 15:00] VITALS: BP 130/60
[2019-01-11 16:00] VITALS: BP 130/60
[2019-01-13 14:59] VITALS: BP 170/60
[2019-01-13 15:57] VITALS: BP 140/60
[2019-01-18 15:00] VITALS: BP 150/60
[2019-01-18 16:00] VITALS: BP 140/60
[2019-01-20 15:00] VITALS: BP 132/70
[2019-02-01 15:00] VITALS: BP 150/60
[2019-02-01 16:00] VITALS: BP 170/60
[2019-02-08 14:45] VITALS: BP 120/60
[2019-02-08 15:35] VITALS: BP 138/62
[2019-02-10 14:50] VITALS: BP 127/60
[2019-02-10 15:05] VITALS: BP 151/60
[2019-02-10 15:45] VITALS: BP_SYST 130; BP_SYST 151; BP_DIAS 60; BP_DIAS 62
[2019-02-15 15:00] VITALS: BP 117/60
[~2019-02-15 15:00] MED LIST changes: -AMLO10TA6 PO; +AMLO10TA7 PO; +LOSA100T57 PO; -LOSA100T8 PO; +OCUVITE SOFTGE1 EACH PO; -VIT1CAPS9 PO
[2019-02-15 16:00] VITALS: BP 120/50
[2019-02-22 14:50] VITALS: BP 120/60
[2019-02-22 15:50] VITALS: BP 142/60
== END 2019-02-20 | disposition home or self-care (01) ==
LOC: PULM 15:00
PROVIDERS: ATTEND Nurse Practitioner Family
DX: J42 Unspecified chronic bronchitis (principal); J98.4 Other disorders of lung
CPT/HCPCS: 99211

== ENCOUNTER 2019-03-25 19:46 | Outpatient (CLI) | payer MEDICARE | END 2019-03-26 06:50 | disposition home or self-care (01) | LOC: SLEEP 19:46 | PROVIDERS: ATTEND Nurse Practitioner Family | DX: G47.33 Obstructive sleep apnea (adult) (pediatric) (principal); R09.02 Hypoxemia; J30.9 Allergic rhinitis, unspecified; E66.01 Morbid (severe) obesity due to excess calories; J42 Unspecified chronic bronchitis; R05 Cough; R06.00 Dyspnea, unspecified; J98.4 Other disorders of lung | CPT/HCPCS: 95811 ==

== ENCOUNTER → 2019-04-07 | Outpatient (CLI) | payer MEDICARE ==
[2019-04-07 15:28] LABS: BASOPHILS % (AUTO) 0 % (0-10); EOSINOPHILS # (AUTO) 0.2 10^3/uL (0.0-0.3); EOSINOPHILS % (AUTO) 3 % (0-10); HEMATOCRIT 37 % (35-52); HEMOGLOBIN 11.6 G/DL (11.5-16.0); LYMPHOCYTES # (AUTO) 1.7 X 10^3 (1.0-4.0); LYMPHOCYTES % (AUTO) 24 % (12-44); MEAN CORPUSCULAR HEMOGLOBIN 29 PG (25-34); MEAN CORPUSCULAR HGB CONC 32 G/DL (32-36); MEAN CORPUSCULAR VOLUME 92 FL (80-99); MEAN PLATELET VOLUME 10.7 FL (7.4-10.4); MONOCYTES # (AUTO) 0.4 X 10^3 (0.0-1.0); MONOCYTES % (AUTO) 6 % (0-12); NEUTROPHILS # (AUTO) 4.7 X 10^3 (1.8-7.8); NEUTROPHILS % (AUTO) 67 % (42-75); PLATELET COUNT 235 10^3/uL (130-400); RED CELL DISTRIBUTION WIDTH 14.5 % (10.0-14.5); WHITE BLOOD COUNT 7.1 10^3/uL (4.3-11.0)
[2019-04-07 15:44] LABS: CALCIUM 9.7 MG/DL (8.5-10.1); CREATININE SERUM 1.09 MG/DL (0.60-1.30)
== END ==
LOC: LAB 15:08
PROVIDERS: ATTEND Nurse Practitioner Family
DX: R60.9 Edema, unspecified (principal); R06.09 Other forms of dyspnea; R07.1 Chest pain on breathing; E66.01 Morbid (severe) obesity due to excess calories; J30.9 Allergic rhinitis, unspecified; R09.02 Hypoxemia; J98.4 Other disorders of lung; R06.00 Dyspnea, unspecified; G47.33 Obstructive sleep apnea (adult) (pediatric); R05 Cough; J42 Unspecified chronic bronchitis
CPT/HCPCS: 36415; 80048; 83880; 85025

== ENCOUNTER → 2019-04-08 | Outpatient (CLI) | payer MEDICARE | LOC: CARD 12:41 | PROVIDERS: ATTEND Internal Medicine Cardiovascular Disease | DX: R07.1 Chest pain on breathing (principal); I10 Essential (primary) hypertension; G47.33 Obstructive sleep apnea (adult) (pediatric); E66.01 Morbid (severe) obesity due to excess calories; I08.0 Rheumatic disorders of both mitral and aortic valves; I27.20 Pulmonary hypertension, unspecified | CPT/HCPCS: 93306 ==

== ENCOUNTER → 2019-04-14 | Outpatient (CLI) | payer MEDICARE ==
[~2019-04-14] MED LIST changes: +CATHETER FLUSH 10 ML SYR IV PRN; +HOLD METFORMIN - RECEIVED CONTRAST 20 ML VIAL IV SCH; +IOHEXOL 350 MG/ML 100 ML (OMNIPAQUE 350) VIAL IV ONE; +NS 100 ML (IVPB) BAG IV ONE
--- NOTE | 2019-04-14 13:32 | Diagnostic Imaging Report ---
PROCEDURE: CT chest with contrast only. TECHNIQUE: Multiple contiguous axial images were obtained through the chest after administration of intravenous contrast. Auto Exposure Controls were utilized during the CT exam to meet ALARA standards for radiation dose reduction. INDICATION: COPD and pulmonary fibrosis as well as chest pain and shortness of air. COMPARISON: Comparison is made with prior chest from 09/29/2018. FINDINGS: No axillary lymphadenopathy is detected. Lymph nodes in the mediastinum appear to be slightly larger. The superior pretracheal node measures approximately 11 mm x 16 mm compared with 9 mm x 13 mm. Prominent right paratracheal node measures 24 mm x 17 mm compared with 19 mm x 15 mm. No definite hilar lymphadenopathy is seen. No pericardial fluid is identified. There are trace bilateral pleural effusions. Small subpleural nodules superior segment left lower lobe appears stable at 5 mm, image 30. Subpleural reticular nodular opacities predominantly in the lower lungs are fairly stable and again likely on the basis of fibrosis. No new mass is seen. Upper abdomen is unremarkable. IMPRESSION: Development of trace bilateral pleural effusions. In addition there has been some increase in mediastinal lymphadenopathy since prior CT. No pulmonary parenchymal mass is detected. Interstitial changes appear to be stable and again likely owing to fibrosis. Dictated by: Dictated on workstation # [id number]
== END ==
LOC: RAD 11:56
PROVIDERS: ATTEND Internal Medicine Cardiovascular Disease
DX: J44.9 Chronic obstructive pulmonary disease, unspecified (principal); J84.10 Pulmonary fibrosis, unspecified; R59.0 Localized enlarged lymph nodes; J30.9 Allergic rhinitis, unspecified; J98.4 Other disorders of lung; G47.39 Other sleep apnea; E66.01 Morbid (severe) obesity due to excess calories; R60.0 Localized edema
CPT/HCPCS: 71260

== ENCOUNTER → 2019-04-18 | Outpatient (CLI) | payer MEDICARE ==
[~2019-04-18] VITALS: Ht 160 cm; Wt 111.1 kg
[~2019-04-18] MED LIST changes: -HOLD METFORMIN - RECEIVED CONTRAST 20 ML VIAL IV SCH; -IOHEXOL 350 MG/ML 100 ML (OMNIPAQUE 350) VIAL IV ONE; -NS 100 ML (IVPB) BAG IV ONE; +REGADENOSON 0.4 MG/5 ML SYR (LEXISCAN) IV ONE
--- NOTE | 2019-04-18 15:27 | STRESS TEST ---
DATE OF SERVICE: 04/18/2019 LEXISCAN MYOVIEW STRESS TEST REPORT REFERRING PHYSICIAN: Dr. Evan Mccullough. Baseline heart rate is 88, baseline blood pressure 201/56. Baseline EKG is sinus rhythm with no ischemic changes. In summary, the patient was injected with 10.48 mCi of technetium-99 Myoview and the resting images were obtained. Then, the patient received 0.4 mg of Lexiscan followed by 33.0 mCi of technetium-99 Myoview. Throughout the test, there were no EKG changes. The resting and stress images were reviewed and compared in the short axis, horizontal long axis, and vertical long axis views. Review of the images showed breast attenuation affecting the quality of the images. There is decreased uptake involving the whole anterior wall and anterolateral segment with subtle reversibility. SSS is 9, SDS 2, TID value is 0.98. On the gated images, the left ventricle appeared to be in normal size with normal contractility. Calculated ejection fraction 58%. CONCLUSION: 1. The patient tolerated Lexiscan well. 2. Breast attenuation affecting the quality of the images with decreased uptake involving the whole anterior wall and anterolateral wall with mild reversibility. 3. Normal left ventricular size with normal contractility. Calculated ejection fraction 58%. Job ID: [id number] DocumentID: [id number] Dictated Date: 04/18/2019 11:42:43 Field Consultant Date: 04/18/2019 15:26:03 Dictated By: NATANAEL HUMPHRIES MD
== END ==
LOC: CARD 07:49
PROVIDERS: ATTEND Internal Medicine Cardiovascular Disease
DX: R07.1 Chest pain on breathing (principal); I10 Essential (primary) hypertension; G47.33 Obstructive sleep apnea (adult) (pediatric); E66.01 Morbid (severe) obesity due to excess calories; Z68.41 Body mass index [BMI] 40.0-44.9, adult
CPT/HCPCS: 78452; 93017

== ENCOUNTER 2019-04-27 06:33 | Day surgery (SDC) | payer MEDICARE ==
[~2019-04-27] VITALS: Ht 160 cm; Wt 111.1 kg
[2019-04-27] VITALS (10 sets, daily range): BP systolic 130–164; BP diastolic 52–63
[~2019-04-27 06:33] MED LIST changes: -CATHETER FLUSH 10 ML SYR IV PRN; -REGADENOSON 0.4 MG/5 ML SYR (LEXISCAN) IV ONE
[2019-04-27] MEDS ORDERED: NS IV 1000 ML 1,000 ML ONE (06:42)
[2019-04-27] MEDS ORDERED: HEParin (CATH LAB) 2,000 ML IV ONE (06:42)
[2019-04-27] MEDS ORDERED: LIDOCAINE 1% INJ 20 ML 20 ML VIAL ONE (06:42)
[2019-04-27] MEDS ORDERED: NS IV 1000 ML 1,000 ML IV SCH ×2 (06:45→10:03)
--- NOTE | 2019-04-27 07:21 | Diagnostic Imaging Report ---
INDICATION: Abnormal stress test. Chest pain. Hypertension. Cough. FINDINGS: Upright chest shows cardiomegaly with mild pulmonary venous distention. No infiltrates or effusions are seen. IMPRESSION: Cardiomegaly with mild pulmonary venous distention. The vascularity has increased only slightly since the prior study from 10/21/2018. Dictated by: Dictated on workstation # [id number]
[2019-04-27 07:26] LABS: HEMOGLOBIN 10.8 G/DL (11.5-16.0); MEAN PLATELET VOLUME 10.8 FL (7.4-10.4); RED CELL DISTRIBUTION WIDTH 14.7 % (10.0-14.5); WHITE BLOOD COUNT 6.6 10^3/uL (4.3-11.0)
[2019-04-27] MEDS ORDERED: OMEP20TA33 PO (07:42)
[2019-04-27] MEDS ORDERED: FLUT1BLS3 IH (07:42)
[2019-04-27] MEDS ORDERED: ALLERGY SHOT IM (07:42)
[2019-04-27 07:43] LABS: INR 1.1 (0.8-1.4); PROTHROMBIN TIME PATIENT 14.9 SEC (12.2-14.7)
[2019-04-27 07:44] LABS: ALBUMIN 4.3 GM/DL (3.2-4.5); BILIRUBIN,TOTAL 0.7 MG/DL (0.1-1.0); CALCIUM 9.8 MG/DL (8.5-10.1); CREATININE SERUM 1.06 MG/DL (0.60-1.30); POTASSIUM 4.1 MMOL/L (3.6-5.0); TOTAL PROTEIN 7.6 GM/DL (6.4-8.2)
[2019-04-27] MEDS ORDERED: MIDAZOLAM 5 MG/5 ML (VERSED) VIAL ONE (08:47)
[2019-04-27] MEDS ORDERED: fentaNYL INJECTION 100 MCG/2 ML AMP ONE (08:48)
--- NOTE | 2019-04-27 08:52 | Cardiac Procedure Note-CS/ASA ---
Pre-Procedure Note Pre-Op Procedure Note H&P Reviewed The H&P was reviewed, patient examined and no changes noted. Date H&P Reviewed: Apr 27, 2019 Time H&P Reviewed: 08:52 Conscious Sedation Pre-Proced Time 08:52 ASA Score 3 For ASA 3 and 4: Consider anesthesia and medical clearance. Also, for patients with a history of failed moderate sedation consider anesthesia. Airway Lungs Heart ASA score ASA 1: a normal healthy patient ASA 2: a patient with a mild systemic disease (mid diabetes, controlled hypertension, obesity x ASA 3: a patient with a severe systemic disease that limits activity (angina, COPD, prior Myocardial infarction) ASA 4: a patient with an incapacitating disease that is a constant threat to life (CHF, renal failure) ASA 5: a moribund patient not expected to survive 24 hrs. (ruptured aneurysm) ASA 6: a declared brain- patient whose organs are being harvested. For emergent operations, add the letter E after the classification Mallampati Classification Grade 3 Sedation Plan Analgesia, Amnesia, Plan communicated to team members, Discussed options with patient/fam, Discussed risks with patient/fam The patient is an appropriate candidate to undergo the planned procedure, sedation, and anesthesia. The patient immediately re-assessed prior to indication. NATANAEL HUMPHRIES MD Apr 27, 2019 08:52
[2019-04-27] MEDS ORDERED: METF-397 PO (10:05)
--- NOTE | 2019-04-27 10:06 | Discharge Inst-Post CATH ---
Discharge Inst-CATH/EP Post Cardiac Cath/EP D/C Inst Follow Up/Plan Hold metformin for [address] Sandoval's office in 4 weeks <b>CARDIAC CATH/EP PROCEDURE DISCHARGE INSTRUCTIONS</b> Cardiac Rehab Please be expecting a follow up call from Cardiac Rehab within in one week. ACTIVITY * Go Home directly and rest. * Limit activity of the leg (or wrist if it was used) for 7 days including aerobics, swimming, jogging, bicycling, etc. * Restrict stair-climbing for 7 days if possible, if not, climb up with your non-cath leg, then bring together on the same step. * Avoid lifting, pushing, pulling or excessive movement of the affected extremity for 7 days. * Customary sexual activity may be resumed after 2 days-use caution not to use a position that strains or causes pain to the affected extremity. * No driving for 24 hours. * NO SMOKING. * Avoid straining for bowel movements for 7 days. * Gentle walking on level ground is allowed. * Returning to work will depend on the type of procedure and the results. Your doctor will discuss this with you. CALL YOUR DOCTOR FOR ANY OF THE FOLLOWING: *If bleeding from the puncture site occurs- Apply gentle pressure to site with clean cloth and call your doctor or EMS. * If a knot or lump forms under the skin, increases in size, or causes pain. * If bruising appears to be worsening or moving further down your leg instead of disappearing. * Temperature above 101 F. CARE OF YOUR GROIN INCISION; * Bruising or purple discoloration of the skin near the puncture site is common. * You may shower only, no bathtub bathing for 5 days. Be careful to avoid slipping as your leg may feel stiff. * If a closure device was used on your femoral artery, please see the attached guide regarding care of the device and your leg. * Leave dressing on FOR 24 hours. CARE OF YOUR WRIST INCISION; * Bruising or purple discoloration of the skin near the puncture site is common. * You may shower. * DO NOT submerge wrist. * Leave dressing on FOR 24 hours. NATANAEL SANDOVAL MD Apr 27, 2019 10:06
--- NOTE | 2019-04-27 10:09 | Cardiac Cath Report ---
Cardiac Cath Report Physician (s)/Campground Manager (s) Physician NATANAEL HUMPHRIES MD Pre-Procedure Diagnosis Pre-Procedure Diagnosis: coronary artery disease Post-Procedure Note Procedure Start Date: Apr 27, 2019 Name of Procedure: left heart catheterization Findings/Procedure Note PROCEDURE NOTE: 79 years old lady with history of coronary artery disease, had an abnormal stress test, scheduled for cardiac catheterization possible PTCA. After explaining the procedure to the patient, all pros and cons were explained, all questions were answered. The patient signed the consent and then she was placed on the cardiac catheterization laboratory. Groin was prepped SL fashion local anesthesia was used. Sheath placed in the right femoral artery. Rito right and left catheter were used to access the coronary system. Pigtail was used to access the left ventricular cavity. Left ventriculogram was done At the end of the procedure the sheath was removed. Closure device was used FINDINGS: Hemodynamics LV 154/26, end-diastolic pressure of 26 Aorta 158/62 mean of 99 ANATOMY: Left Main is free of obstructive disease Left Anterior Descending has mild disease nonobstructive disease Left Circumflex has mild disease nonobstructive disease Right Coronory Artery has mild disease nonobstructive disease LV Gram is normal in size with normal contractility, ejection fraction 60 percent CONCLUSION: 1. Mild coronary artery disease nonobstructive disease 2. Normal left ventricular size and systolic function estimated ejection fraction 60 percent DISCUSSION AND RECOMMENDATION: continue on medical therapy Anesthesia Type: Conscious Sedation Estimated blood loss (mL): 25 ml Contrast Amount: 45 ml Total Radiation Dose: 504 mGy Post-Procedure Diagnosis Post-operative diagnosis: chest pain Coronary artery disease Hypertension Hyperlipidemia NATANAEL HUMPHRIES MD Apr 27, 2019 10:09
[2019-04-27] MEDS ORDERED: PATIENT MAY USE OWN MEDS, ALL PO SCH (10:15)
== END 2019-04-27 14:26 | disposition home or self-care (01) ==
LOC: CATH 06:33
PROVIDERS: ATTEND Internal Medicine Cardiovascular Disease
DX: R07.9 Chest pain, unspecified (principal); I25.119 Atherosclerotic heart disease of native coronary artery with unspecified angina pectoris; I10 Essential (primary) hypertension; E78.5 Hyperlipidemia, unspecified; E11.9 Type 2 diabetes mellitus without complications; G47.33 Obstructive sleep apnea (adult) (pediatric); J84.10 Pulmonary fibrosis, unspecified; J30.2 Other seasonal allergic rhinitis; R06.00 Dyspnea, unspecified; Z79.84 Long term (current) use of oral hypoglycemic drugs; Z79.899 Other long term (current) drug therapy; Z11.2 Encounter for screening for other bacterial diseases
CPT/HCPCS: 36415; 71045; 80053; 80061; 85027; 85610; 85730; 87081; 93458

== ENCOUNTER → 2019-05-12 | Outpatient (CLI) | payer MEDICARE ==
[~2019-05-12] MED LIST changes: +ALLERGY SHOT IM; +FLUT1BLS3 IH; +HOLD METFORMIN - RECEIVED CONTRAST 20 ML VIAL IV SCH; +IOHEXOL 350 MG/ML 150 ML (OMNIPAQUE 350) VIAL IV ONE; +NS 100 ML (IVPB) BAG IV ONE; +OMEP20TA33 PO
[2019-05-12 09:45] LABS: BASOPHILS % (AUTO) 0 % (0-10); EOSINOPHILS # (AUTO) 0.2 10^3/uL (0.0-0.3); EOSINOPHILS % (AUTO) 3 % (0-10); HEMATOCRIT 34 % (35-52); HEMOGLOBIN 10.6 G/DL (11.5-16.0); LYMPHOCYTES # (AUTO) 1.2 X 10^3 (1.0-4.0); LYMPHOCYTES % (AUTO) 17 % (12-44); MEAN CORPUSCULAR HEMOGLOBIN 29 PG (25-34); MEAN CORPUSCULAR HGB CONC 31 G/DL (32-36); MEAN CORPUSCULAR VOLUME 93 FL (80-99); MONOCYTES # (AUTO) 0.4 X 10^3 (0.0-1.0); MONOCYTES % (AUTO) 5 % (0-12); NEUTROPHILS # (AUTO) 5.1 X 10^3 (1.8-7.8); NEUTROPHILS % (AUTO) 75 % (42-75); PLATELET COUNT 193 10^3/uL (130-400); RED CELL DISTRIBUTION WIDTH 14.5 % (10.0-14.5); WHITE BLOOD COUNT 6.8 10^3/uL (4.3-11.0)
[2019-05-12 10:07] LABS: ABG BASE EXCESS 6.6 MMOL/L (-2.5-2.5); ABG OXYGEN SATURATION 97 % (94-100); ABG PCO2 48 MMHG (35-45); ABG PH 7.43 (7.37-7.43); ABG PO2 77 MMHG (79-93); ABG TCO2 32.8 MMOL/L (21.0-31.0); ALLENS TEST YES-POS; INSPIRED O2 4L NC
[2019-05-12 10:08] LABS: PATIENT TEMP 96.8; VENTILATOR NO
[2019-05-12 10:11] LABS: ALBUMIN 4.3 GM/DL (3.2-4.5); CALCIUM 9.7 MG/DL (8.5-10.1); CREATININE SERUM 0.99 MG/DL (0.60-1.30); POTASSIUM 3.9 MMOL/L (3.6-5.0); TOTAL PROTEIN 7.4 GM/DL (6.4-8.2)
--- NOTE | 2019-05-12 11:05 | Diagnostic Imaging Report ---
PROCEDURE: CT angiography of the chest with contrast. TECHNIQUE: Multiple contiguous axial images were obtained through the chest after uneventful bolus administration of intravenous contrast. 2D reconstructed CTA MIP acquisitions were also performed. Auto Exposure Controls were utilized during the CT exam to meet ALARA standards for radiation dose reduction. INDICATION: Decreasing oxygen saturation as well as cough and heavy chest feeling. Patient has history of breast cancer. Correlation is made with prior CT chest from 04/14/2019. Evaluation of pulmonary arterial system is without thromboembolism. No filling defects are seen within the central, lobar or segmental branches. The thoracic aorta is normal caliber, without evidence of dissection. No pericardial fluid is seen. There has been an increase in bilateral pleural effusions which layer dependently. No axillary lymphadenopathy is seen. 21 mm x 20 mm compared with approximately 24 mm x 17 mm. The lungs appear to be clear apart from some subpleural interstitial changes and dependent atelectasis bilateral lower lobes. Subpleural nodule previously noted in left lower lobe is obscured. Upper abdomen demonstrates probable small stones in the gallbladder. IMPRESSION: 1. No evidence of pulmonary embolism or thoracic aortic dissection. 2. Increase in size of bilateral pleural effusions. Dictated by: Dictated on workstation # [id number]
== END ==
LOC: RAD 09:28
PROVIDERS: ATTEND Nurse Practitioner Family
DX: J90 Pleural effusion, not elsewhere classified (principal); J98.4 Other disorders of lung; J30.9 Allergic rhinitis, unspecified; Z85.3 Personal history of malignant neoplasm of breast
CPT/HCPCS: 36415; 71275; 80053; 82805; 83880; 85025

== ENCOUNTER → 2019-05-17 | Outpatient (CLI) | payer MEDICARE ==
[~2019-05-17] MED LIST changes: -HOLD METFORMIN - RECEIVED CONTRAST 20 ML VIAL IV SCH; -IOHEXOL 350 MG/ML 150 ML (OMNIPAQUE 350) VIAL IV ONE; -NS 100 ML (IVPB) BAG IV ONE
[2019-05-17 14:46] LABS: CALCIUM 9.7 MG/DL (8.5-10.1); CREATININE SERUM 1.08 MG/DL (0.60-1.30); POTASSIUM 4.4 MMOL/L (3.6-5.0)
== END ==
LOC: LAB 14:11
PROVIDERS: ATTEND Nurse Practitioner Family
DX: J90 Pleural effusion, not elsewhere classified (principal)
CPT/HCPCS: 36415; 80048

== ENCOUNTER → 2019-06-13 | Outpatient (CLI) | payer MEDICARE ==
[2019-06-13 09:33] LABS: BASOPHILS % (AUTO) 0 % (0-10); EOSINOPHILS # (AUTO) 0.2 10^3/uL (0.0-0.3); EOSINOPHILS % (AUTO) 3 % (0-10); HEMATOCRIT 34 % (35-52); HEMOGLOBIN 10.5 G/DL (11.5-16.0); LYMPHOCYTES # (AUTO) 0.9 X 10^3 (1.0-4.0); LYMPHOCYTES % (AUTO) 12 % (12-44); MEAN CORPUSCULAR HEMOGLOBIN 29 PG (25-34); MEAN CORPUSCULAR HGB CONC 31 G/DL (32-36); MEAN CORPUSCULAR VOLUME 95 FL (80-99); MEAN PLATELET VOLUME 10.7 FL (7.4-10.4); MONOCYTES # (AUTO) 0.3 X 10^3 (0.0-1.0); MONOCYTES % (AUTO) 5 % (0-12); NEUTROPHILS # (AUTO) 5.9 X 10^3 (1.8-7.8); NEUTROPHILS % (AUTO) 80 % (42-75); PLATELET COUNT 195 10^3/uL (130-400); RED CELL DISTRIBUTION WIDTH 14.1 % (10.0-14.5); WHITE BLOOD COUNT 7.4 10^3/uL (4.3-11.0)
[2019-06-13 09:59] LABS: CALCIUM 9.6 MG/DL (8.5-10.1); CREATININE SERUM 1.02 MG/DL (0.60-1.30); POTASSIUM 4.4 MMOL/L (3.6-5.0)
--- NOTE | 2019-06-13 10:14 | Diagnostic Imaging Report ---
INDICATION: Shortness of breath. Time of exam: 9:34 AM Correlation is made with prior study from 04/27/2019. Heart remains enlarged. There is central congestive changes. Slightly nodular density in the right mid to upper lung field is noted peripherally which may represent some more consolidated infiltrate or atelectasis. No effusion is seen. There is no pneumothorax. IMPRESSION: Cardiomegaly and central congestive changes. There is slightly nodular density in the right upper lung field consistent with some minimal infiltrate or atelectasis. Continued followup to confirm clearing is recommended. Dictated by: Dictated on workstation # [id number]
--- NOTE | 2019-06-13 13:16 | Diagnostic Imaging Report ---
PROCEDURE: CT angiography of the chest with contrast. TECHNIQUE: Multiple contiguous axial images were obtained through the chest after uneventful bolus administration of intravenous contrast. 3D reconstructed CTA MIP acquisitions were also performed. Auto Exposure Controls were utilized during the CT exam to meet ALARA standards for radiation dose reduction. INDICATION: Cough and dyspnea as well as hypoxemia. This study is performed to evaluate for pulmonary embolism. COMPARISON: Comparison is made with recent CT angiogram of the chest performed on 05/12/2019. FINDINGS: Pulmonary arterial system remains patent. No definite filling defects are seen within central, lobar, or segmental branches. Thoracic aorta is calcified but nonaneurysmal. Bilateral pleural effusions appear to be similar to prior exam. Heart is enlarged. No pericardial effusion is seen. No axillary lymphadenopathy is seen. Prominent lymph nodes in the mediastinum, prevascular space, as well as paratracheal region are similar to prior exam. There is some prominent interlobular septal thickening which may be owing to CHF. Mosaic ventilation pattern is seen. No discrete parenchymal mass is identified. Small density in right upper lobe laterally is seen suggestive of atelectasis. This likely accounts for chest radiographic density. Upper abdomen is unremarkable. IMPRESSION: 1. No evidence of pulmonary embolism or thoracic aortic dissection. 2. Congestive changes throughout both lungs. 3. Bilateral pleural effusions, stable since 05/12/2019. 4. Stable mediastinal lymphadenopathy, etiology indeterminate. Dictated by: Dictated on workstation # [id number]
--- NOTE | 2019-06-13 13:30 | Diagnostic Imaging Report ---
PROCEDURE: US Venous Lower Ext Chris. TECHNIQUE: Multiple Real-time grayscale images were obtained over the lower extremities in various projections bilaterally. Additional duplex Doppler and color Doppler images were also obtained. INDICATION: Lower extremity edema. FINDINGS: There is no evidence of right or left lower extremity DVT. Both lower extremity venous systems show normal compressibility with normal response to augmentation and Valsalva. There does appear to be a Hawkins's cyst on the right measuring 2.6 x 1.6 x 1.5 cm. IMPRESSION: 1. No evidence of right or left lower extremity DVT. 2. Right Hawkins's cyst. Dictated by: Dictated on workstation # [id number]
== END ==
LOC: LAB 09:08
PROVIDERS: ATTEND Nurse Practitioner Family
DX: J42 Unspecified chronic bronchitis (principal); J98.4 Other disorders of lung; J90 Pleural effusion, not elsewhere classified; J30.9 Allergic rhinitis, unspecified; E66.01 Morbid (severe) obesity due to excess calories; G47.33 Obstructive sleep apnea (adult) (pediatric); M71.21 Synovial cyst of popliteal space [Baker], right knee; I51.7 Cardiomegaly; R59.0 Localized enlarged lymph nodes; R60.0 Localized edema
CPT/HCPCS: 36415; 71046; 71275; 80048; 83880; 85025; 93970

== ENCOUNTER → 2019-06-21 | Outpatient (CLI) | payer MEDICARE ==
[~2019-06-21] MED LIST changes: -ROSU20TA31 PO; +ROSU20TA32 PO
[2019-06-21 15:32] LABS: CALCIUM 10.1 MG/DL (8.5-10.1); CREATININE SERUM 1.02 MG/DL (0.60-1.30); POTASSIUM 3.9 MMOL/L (3.6-5.0)
== END ==
LOC: LAB 15:01
PROVIDERS: ATTEND Nurse Practitioner Family
DX: J90 Pleural effusion, not elsewhere classified (principal)
CPT/HCPCS: 36415; 80048

== ENCOUNTER → 2019-07-11 | Outpatient (CLI) | payer MEDICARE ==
[2019-07-11 09:43] LABS: CALCIUM 9.3 MG/DL (8.5-10.1); CREATININE SERUM 0.98 MG/DL (0.60-1.30); POTASSIUM 3.9 MMOL/L (3.6-5.0)
== END ==
LOC: LAB 09:14
PROVIDERS: ATTEND Nurse Practitioner Family
DX: J90 Pleural effusion, not elsewhere classified (principal)
CPT/HCPCS: 36415; 80048

== ENCOUNTER 2019-09-29 14:30 | Outpatient (RCR) | payer MEDICARE ==
[2019-07-19 14:30] VITALS: BP 156/60
[2019-07-19 15:40] VITALS: BP 120/80
[2019-07-21 14:35] VITALS: BP 150/50
[2019-07-21 15:20] VITALS: BP 140/60
[2019-07-26 14:23] VITALS: BP 160/60
[2019-07-26 15:05] VITALS: BP 138/30
[2019-07-28 14:25] VITALS: BP 160/78
[2019-07-28 15:34] VITALS: BP 150/55
[2019-08-02 14:15] VITALS: BP 145/48
[2019-08-02 15:30] VITALS: BP 136/52
[2019-08-04 14:30] VITALS: BP 178/70
[2019-08-04 15:41] VITALS: BP 130/60
[2019-08-09 14:30] VITALS: BP 150/70
[2019-08-09 15:40] VITALS: BP 150/60
[2019-08-11 14:20] VITALS: BP 162/62
[2019-08-11 15:30] VITALS: BP 130/60
[2019-08-16 14:30] VITALS: BP 157/50
[2019-08-16 15:54] VITALS: BP 118/60
[2019-08-18 14:30] VITALS: BP 138/60
[2019-08-18 16:01] VITALS: BP 132/60
[2019-08-23 14:30] VITALS: BP 150/60
[2019-08-23 15:54] VITALS: BP 120/60
[2019-08-25 14:20] VITALS: BP 150/70
[2019-08-25 15:30] VITALS: BP 152/50
[2019-08-30 14:20] VITALS: BP 151/60
[2019-08-30 15:11] VITALS: BP 142/60
[2019-09-01 14:20] VITALS: BP 160/78
[2019-09-06 14:20] VITALS: BP 160/66
[2019-09-06 15:15] VITALS: BP 142/40
[2019-09-13 14:30] VITALS: BP_SYST 138; BP_SYST 160; BP_DIAS 60; BP_DIAS 66
[2019-09-13 15:54] VITALS: BP_SYST 142; BP_SYST 150; BP_DIAS 40; BP_DIAS 70
[2019-09-15 14:00] VITALS: BP 182/40
[2019-09-15 15:14] VITALS: BP 142/55
[2019-09-20 14:30] VITALS: BP 182/40
[2019-09-27 14:15] VITALS: BP 138/60
[2019-09-27 15:10] VITALS: BP 117/60
[2019-09-29 14:20] VITALS: BP 134/64
== END 2019-10-11 | disposition home or self-care (01) ==
LOC: PULM 14:30
PROVIDERS: ATTEND Nurse Practitioner Family
DX: J98.4 Other disorders of lung (principal); J90 Pleural effusion, not elsewhere classified; R09.02 Hypoxemia; J42 Unspecified chronic bronchitis
CPT/HCPCS: 99211

== ENCOUNTER → 2019-10-17 | Outpatient (CLI) | payer MEDICARE ==
[~2019-10-17] MED LIST changes: +RT-ALBUTEROL SULF 2.5 MG/3 ML PRE-MIX VIAL INH ONE
--- NOTE | 2019-10-17 12:55 | Diagnostic Imaging Report ---
INDICATION: Cough and shortness of breath and history of chronic bronchitis. TECHNIQUE: CT chest obtained without IV contrast. COMPARISON: There is comparison to 06/13/2019. FINDINGS: Compared to the prior study, the mildly enlarged nodes in the mediastinum have not changed. There are no appreciably enlarged hilar nodes. There is scarring and thickening of the soft tissues of the left breast laterally, correlate with clinical findings. There are bilateral pleural effusions which have not changed compared to the previous study. There are mitral valvular calcifications. Lung parenchymal windows demonstrate congestive changes and groundglass opacities in both lungs which are similar to the previous study. There is no discrete nodule or focal consolidation. Visualized portions of the upper abdomen demonstrate cholelithiasis. IMPRESSION: Stable exam compared to 06/13/2019. Mildly enlarged mediastinal nodes are similar to the prior study. Bilateral pleural effusions are unchanged. Congestive changes in both lungs are noted with ill-defined groundglass opacities but no definite consolidation or discrete nodule. Mitral valvular calcifications are noted. There is soft tissue thickening and irregularity in the left breast again noted, correlate with clinical findings and mammography as clinically warranted. Dictated by: Dictated on workstation # [id number]
== END ==
LOC: RAD 12:00
PROVIDERS: ATTEND Nurse Practitioner Family
DX: J30.9 Allergic rhinitis, unspecified (principal); R06.00 Dyspnea, unspecified; G47.33 Obstructive sleep apnea (adult) (pediatric); E66.01 Morbid (severe) obesity due to excess calories; R05 Cough; J42 Unspecified chronic bronchitis; J98.4 Other disorders of lung; J90 Pleural effusion, not elsewhere classified; R59.0 Localized enlarged lymph nodes
CPT/HCPCS: 71250; 94060; 94726; 94729

== ENCOUNTER → 2019-11-22 | Outpatient (CLI) | payer MEDICARE ==
[~2019-11-22] MED LIST changes: -RT-ALBUTEROL SULF 2.5 MG/3 ML PRE-MIX VIAL INH ONE
== END ==
LOC: CARD 11:17
PROVIDERS: ATTEND Nurse Practitioner Family
DX: I08.3 Combined rheumatic disorders of mitral, aortic and tricuspid valves (principal); J30.9 Allergic rhinitis, unspecified; J42 Unspecified chronic bronchitis; E66.01 Morbid (severe) obesity due to excess calories; G47.39 Other sleep apnea; J98.4 Other disorders of lung; J90 Pleural effusion, not elsewhere classified
CPT/HCPCS: 93306

== ENCOUNTER → 2021-05-02 | Outpatient (CLI) | payer MEDICARE ==
[~2021-05-02] MED LIST changes: +AMLO-251 PO; -AMLO10TA7 PO; -MONT10TA24 PO; +MONT10TA32 PO
[2021-05-02 10:31] LABS: ALBUMIN 4.1 GM/DL (3.2-4.5); BILIRUBIN,TOTAL 0.7 MG/DL (0.1-1.0); CALCIUM 9.7 MG/DL (8.5-10.1); CREATININE SERUM 1.01 MG/DL (0.60-1.30); POTASSIUM 3.9 MMOL/L (3.6-5.0); TOTAL PROTEIN 7.6 GM/DL (6.4-8.2)
== END ==
LOC: CARD 11:00
PROVIDERS: ATTEND Internal Medicine Cardiovascular Disease
DX: I11.9 Hypertensive heart disease without heart failure (principal); I08.0 Rheumatic disorders of both mitral and aortic valves; I25.10 Atherosclerotic heart disease of native coronary artery without angina pectoris
CPT/HCPCS: 36415; 80053; 80061; 93306